=== PATIENT | male | born 1940 | race Caucasian/White ===

== ENCOUNTER → 2018-01-02 08:52 | Outpatient (CLI) | payer MEDICARE, OTHER, SELFPAY ==
[2018-01-02 13:02] LABS: Absolute Lymphocyte Count 1.51 X10^3/ul (0.83-4.51); Absolute Neutrophil Count 3.1 X10^3/uL (2.0-7.7); Basophil# 0.02 X10^3/uL; Basophil% 0.4 % (0-1); Eosinophil# 0.19 X10^3/uL; Eosinophils% 3.4 % (0-5); Hematocrit 43.5 % (40-54); Hemoglobin 15.1 g/dl (13.0-16.5); Lymphocyte # 1.51 X10^3/ul (4.0); Lymphocyte % 27.2 % (19-41); Mean Corp Hgb Conc 34.7 g/gl (32-36); Mean Corpuscular Hgb 31.8 pg (27.0-32.0); Mean Corpuscular Volume 91.6 fL (80-94); Mean Platelet Vol. 9.6 fl (6.2-12.0); Monocyte# 0.76 X10^3/uL; Monocyte% 13.7 % (0-10); Neutrophil # 3.06 X10^3/uL (2.7-7.7); Neutrophil % 55.1 % (47-70); Platelet Count 188 K/mm3 (150-450); RBC Distribution Width CV 14.8 % (11.6-14.6); RBC Distribution Width SD 48.5 fl (35.1-43.9); Red Blood Count 4.75 M/mm3 (4.6-6.2); White Blood Count 5.6 K/mm3 (4.4-11.0)
[2018-01-02 13:03] LABS: POSITIVE COUNT NO; POSITIVE DIFFERENTIAL NO; POSITIVE MORPHOLOGY NO
[2018-01-02 13:42] LABS: ALB/GLOB Ratio 1.1 RATIO (0.9-2.4); AST(SGOT) 20 U/L (15-37); Alanine Aminotransfer ALT/SGPT 32 U/L (16-61); Albumin, Serum 3.9 g/dL (3.2-5.0); Alkaline Phosphatase 57 U/L (45-117); Anion Gap 8 (5-15); BUN 17 mg/dL (7-18); BUN/Creat Ratio 16.2 RATIO (10-20); Chloride 106 mmol/L (98-107); Creatinine, Serum 1.05 mg/dL (0.70-1.30); EST Glomerular Filtration Rate 72 mL/min (>60); Est Glom Filt Rate - Afr Amer 88 mL/min (>60); Globulin 3.6 g/dL (2.2-4.2); Glucose 110 mg/dL (74-106); Protein, Total 7.5 g/dL (6.4-8.2); Sodium Level 141 mmol/L (136-145); Thyroid Stim Hormone (TSH) 0.17 uIU/mL (0.358-3.74); Vitamin D,25 Hydroxy 32.8 ng/mL (29.95-100.01)
[2018-01-03 09:09] LABS: T3 Uptake 31 % (33-40); T4 Free Direct 1.09 ng/dL (0.76-1.46)
== END ==
PROVIDERS: Family Provider Family Medicine Geriatric Medicine; PCP Family Medicine Geriatric Medicine; Visit Provider Family Medicine Geriatric Medicine
DX: I10 Essential (primary) hypertension (principal); E03.9 Hypothyroidism, unspecified; E55.9 Vitamin D deficiency, unspecified; F52.8 Other sexual dysfunction not due to a substance or known physiological condition
CPT/HCPCS: 36415; 80053; 82306; 84403; 84439; 84443; 84479; 85025

== ENCOUNTER → 2018-01-08 09:57 | Outpatient (CLI) | payer MEDICARE, OTHER, SELFPAY ==
--- NOTE | 2018-01-08 10:02 | NM_ITS ---
CLINICAL: 77-year-old male with suspected goiter formation. I-123 THYROID UPTAKE and SCAN COMPARISON: None available FINDINGS: The patient was administered a 292 uCi I-123 capsule by mouth. The 4-hour I-123 radioactive iodine thyroidal uptake was calculated to be 5.8 % (normal 5 to 25 %). The 24-hour I-123 radioactive iodine thyroidal uptake was calculated to be 17.5 % (normal 5 to 40 %). The I-123 thyroid scan demonstrates homogeneous radiopharmaceutical concentration throughout both lobes of a U-shaped thyroid gland. There are no colloidal parenchymal hypofunctioning cold nodules noted in either lobe of the thyroid gland. NM/Thyroid Image Quant Measure IMPRESSION: 1. LOWER LIMITS OF NORMAL 4- and NORMAL 24-hour I-123 radioactive iodine thyroidal uptakes. 2. The I-123 thyroid scan is consistent with stage I nodular colloid goiter secondary to the presence of isthmus visualization and U-shaped thyroid gland presentation. (Lucio et al, J Nucl Med 32: 1455, 1990). 3. No hypofunctioning-cold nodules are identified. Electronically Signed: Werner Ramirez DO at 9:24 EDT Tel , Service support ,
== END ==
PROVIDERS: Family Provider Family Medicine Geriatric Medicine; PCP Family Medicine Geriatric Medicine; Visit Provider Family Medicine Geriatric Medicine
DX: E05.90 Thyrotoxicosis, unspecified without thyrotoxic crisis or storm (principal)
CPT/HCPCS: 78014; A9516

== ENCOUNTER → 2018-03-05 07:39 | Outpatient (CLI) | payer MEDICARE, OTHER, SELFPAY ==
[2018-03-05 09:05] LABS: ALB/GLOB Ratio 1.1 RATIO (0.9-2.4); AST(SGOT) 20 U/L (15-37); Alanine Aminotransfer ALT/SGPT 27 U/L (16-61); Albumin, Serum 3.8 g/dL (3.2-5.0); Alkaline Phosphatase 61 U/L (45-117); Anion Gap 9 (5-15); BUN 17 mg/dL (7-18); BUN/Creat Ratio 17.2 RATIO (10-20); Calcium,Total 8.4 mg/dL (8.5-10.1); Chloride 105 mmol/L (98-107); Creatinine, Serum 0.99 mg/dL (0.70-1.30); EST Glomerular Filtration Rate 78 mL/min (>60); Est Glom Filt Rate - Afr Amer 94 mL/min (>60); Globulin 3.5 g/dL (2.2-4.2); Glucose 106 mg/dL (74-106); Potassium 3.7 mmol/L (3.5-5.1); Protein, Total 7.3 g/dL (6.4-8.2); Sodium Level 141 mmol/L (136-145); T4 Free Direct 1.14 ng/dL (0.76-1.46); Thyroid Stim Hormone (TSH) 0.65 uIU/mL (0.358-3.74)
== END ==
PROVIDERS: Family Provider Family Medicine Geriatric Medicine; PCP Family Medicine Geriatric Medicine; Visit Provider Nurse Practitioner
DX: E05.90 Thyrotoxicosis, unspecified without thyrotoxic crisis or storm (principal)
CPT/HCPCS: 36415; 80053; 84439; 84443; 84481

== ENCOUNTER → 2018-03-15 07:43 | Outpatient (CLI) | payer MEDICARE, OTHER, SELFPAY ==
[2018-02-08 21:02] LABS: Creatinine, Serum 0.96 mg/dL (0.70-1.30); EST Glomerular Filtration Rate 81 mL/min (>60); Est Glom Filt Rate - Afr Amer 98 mL/min (>60)
--- NOTE | 2018-03-15 07:48 | CT_ITS ---
STUDY: CTA OF THE ABDOMINAL AORTA REASON FOR EXAM: Male, 78 years old. History of abdominal aortic aneurysm. Follow-up examination. RADIATION DOSAGE (If Supplied By Facility): CTDIvol = ( 39.15 ) mGy, DLP = ( 1141.23 ) mGycm TECHNIQUE: Axial CT angiography multi-detector data acquisition was obtained from the dome of the liver to the to the symphysis pubis following intravenous administration of 100 ml of Isovue 300 contrast. Axial images and MIP images were reconstructed from the axial data set. Post-processing of the angiographic images was performed, with multiplanar reformation and 3D reconstruction. Individualized dose optimization techniques were used for this CT. TECHNICAL QUALITY: Good COMPARISON: Comparison is made with prior study dated February 14, 2017. Descriptors of Narrowing: None (0%) Mild (< 50%) Moderate (50-70%) Severe (70-90%) Subtotal/Total Occlusion (90-100%) Non-Evaluable (technically non-diagnostic FINDINGS: Abdominal aorta: Once again, the patient is status post aortoiliac endograft repair of the infrarenal fusiform abdominal aortic aneurysm. The transverse dimension of the aneurysm is 4.8 cm. Once again, there is evidence of thrombus within the [place] aneurysm. Both limbs of the graft are patent. Celiac and superior mesenteric arteries: No demonstrated narrowing. Inferior mesenteric artery: No demonstrated narrowing. Right renal artery(arteries): No demonstrated narrowing. Left renal artery(arteries): Arterial stent. Right common iliac artery: Atherosclerotic calcific plaques. Right external iliac artery: Atherosclerotic calcific plaques. Right internal iliac artery: Atherosclerotic calcific plaques. Left common iliac artery: Atherosclerotic calcific plaques.. Left external iliac artery: Atherosclerotic calcific plaques. Left internal iliac artery: Atherosclerotic calcific plaques. Prostatic enlargement. The prostate measures 5.6 cm x 5.1 cm this causes indentation at the bladder base. Colonic diverticulosis. CT/CT ANGIO ABD&PEL W/O&W/DYE IMPRESSION: Stable examination. Patent and luminal stent grafting. Stable appearance of the abdominal aortic aneurysm. Prostatic enlargement. Electronically Signed: Rogelio Madison MD at 15:11 EDT Tel [phone], Service support ,
== END ==
PROVIDERS: Family Provider Family Medicine Geriatric Medicine; PCP Family Medicine Geriatric Medicine; Visit Provider Surgery Vascular Surgery
DX: I71.4 Abdominal aortic aneurysm, without rupture (principal); Z95.828 Presence of other vascular implants and grafts; Z13.89 Encounter for screening for other disorder
CPT/HCPCS: 36415; 74174; 82565; Q9967

== ENCOUNTER 2018-05-06 07:37 | Emergency (ER) | payer MEDICARE, OTHER, SELFPAY ==
[2018-05-06 07:38] VITALS: BP 150/85; PULSE 63; RESP 16; TEMP 37.1; O2SAT 93; BMI 32.3
--- NOTE | 2018-05-06 07:50 | ED.VISSUMM ---
- ER Visit Summary Date of Service: 05/06/18 Chief Complaint: Difficulty urinating History of Present Illness: The patient is a 78 M history of prior BPH, hypertension and aortic and renal stenting. Patient states last evening he started having difficulty urinating again. He has had this problem before where he needs a Slater catheter and followed up with the urologist. He denies any dysuria. He denies any gross hematuria. Otherwise states he has been in his normal state of health. Physical Examination: Well-appearing older male. Vital signs are stable and afebrile. He is in no acute distress. H EENT exam is unremarkable. Neck is nontender. Lungs clear to auscultation bilaterally. Abdomen is soft and nondistended. Normal bowel sounds no peritoneal signs. External exam is unremarkable. Circumcised male. He is moving all 4 extremities. They are neurovascularly intact. Back is nontender. Neurologically is awake and alert with no focal motor deficits. Test Results: Urinalysis shows no signs of infection. Emergency Department Course and Treatment: Are in place a 16 Japanese Slater catheter patient voided 1400 cc of urine. Will repeat exam is doing well. We will place a Slater leg bag and be discharged home. Treatment Plan: Follow-up with Dr. Norman Blake from urology. Disposition: Discharge Impression: Acute urinary retention secondary to BPH Slater inserted by ER nurse This note was generated with [employer] dictation software. It may contain incorrect words, spelling, and punctuation that were not noted in review of the chart prior to signing ED Disposition - Plan for ED Patient: Chief Complaint: Complaint Referrals: Tristin Agarwal Chi, MD [Primary Care Provider] -
[2018-05-06 08:10] LABS: Bacteria 0 SEEN /hpf (None Seen); Mucous, Urine 0 SEEN /hpf (<or=2+); Squamous Epithelial Cells - UA 0 SEEN /hpf (0-5); White Blood Cells 0 SEEN /hpf (0-5)
[2018-05-06 08:21] LABS: Color, Urine Yellow (Yellow); Glucose, Dipstick Normal (Normal); Ketone-Dipstick Negative (Negative); Leukocyte Esterase-Dipstick Negative /ul (Negative); Nitrite-Dipstick Negative (Negative); Occult Blood-Urine 10 /ul (Negative); Protein-Dipstick Negative (Negative); Urine Bilirubin Dipstick Negative (Negative); Urine Clarity Clear (Clear); Urine Urobilinogen Normal (Normal)
[2018-05-06 08:32] LABS: Red Blood Cells-Urine 0-5 SEEN /hpf (0-5)
--- NOTE | 2018-05-06 08:44 | ED.DEP ---
ED Disposition - Plan for ED Patient: Disposition: Home or Assisted Living Chief Complaint: Complaint Instructions: ED Retention Urinary Male Referrals: Kelechi Blake MD [STAFF PHYSICIAN] - As soon as possible Additional Instructions: Call follow-up with Dr. Blake of urology.
== END 2018-05-06 09:15 | disposition home or self-care (01) ==
PROVIDERS: Emergency Provider Emergency Medicine; Family Provider Family Medicine Geriatric Medicine; PCP Family Medicine Geriatric Medicine
DX: N40.1 Benign prostatic hyperplasia with lower urinary tract symptoms (principal); R33.8 Other retention of urine; I10 Essential (primary) hypertension; Z95.5 Presence of coronary angioplasty implant and graft; Z79.899 Other long term (current) drug therapy
CPT/HCPCS: 51702; 81001; 99283

== ENCOUNTER → 2018-07-05 09:00 | Outpatient (CLI) | payer MEDICARE, OTHER, SELFPAY ==
[2018-07-05 13:01] LABS: Absolute Lymphocyte Count 1.77 X10^3/ul (0.83-4.51); Absolute Neutrophil Count 3.4 X10^3/uL (2.0-7.7); Basophil# 0.02 X10^3/uL; Basophil% 0.3 % (0-1); Eosinophil# 0.22 X10^3/uL; Eosinophils% 3.6 % (0-5); Hematocrit 42.2 % (40-54); Lymphocyte # 1.77 X10^3/ul (4.0); Lymphocyte % 29.2 % (19-41); Mean Corp Hgb Conc 35.5 g/gl (32-36); Mean Corpuscular Hgb 31.9 pg (27.0-32.0); Mean Corpuscular Volume 89.8 fL (80-94); Mean Platelet Vol. 9.6 fl (6.2-12.0); Monocyte# 0.65 X10^3/uL; Monocyte% 10.7 % (0-10); Neutrophil # 3.39 X10^3/uL (2.7-7.7); POSITIVE COUNT NO; POSITIVE DIFFERENTIAL NO; POSITIVE MORPHOLOGY NO; Platelet Count 221 K/mm3 (150-450); RBC Distribution Width CV 14.3 % (11.6-14.6); RBC Distribution Width SD 46.4 fl (35.1-43.9); White Blood Count 6.1 K/mm3 (4.4-11.0)
[2018-07-05 13:08] LABS: Vitamin D,25 Hydroxy 28.2 ng/mL (29.95-100.01)
[2018-07-05 13:09] LABS: ALB/GLOB Ratio 1.1 RATIO (0.9-2.4); AST(SGOT) 22 U/L (15-37); Alanine Aminotransfer ALT/SGPT 35 U/L (16-61); Alkaline Phosphatase 66 U/L (45-117); Anion Gap 7 (5-15); BUN 18 mg/dL (7-18); BUN/Creat Ratio 18.6 RATIO (10-20); Calcium,Total 8.7 mg/dL (8.5-10.1); Chloride 106 mmol/L (98-107); Creatinine, Serum 0.97 mg/dL (0.70-1.30); EST Glomerular Filtration Rate 80 mL/min (>60); Est Glom Filt Rate - Afr Amer 96 mL/min (>60); Globulin 3.7 g/dL (2.2-4.2); Glucose 91 mg/dL (74-106); Potassium 3.8 mmol/L (3.5-5.1); Protein, Total 7.7 g/dL (6.4-8.2); Sodium Level 140 mmol/L (136-145); Thyroid Stim Hormone (TSH) 0.83 uIU/mL (0.358-3.74)
== END ==
PROVIDERS: Family Provider Family Medicine Geriatric Medicine; PCP Family Medicine Geriatric Medicine; Visit Provider Family Medicine Geriatric Medicine
DX: I10 Essential (primary) hypertension (principal); E55.9 Vitamin D deficiency, unspecified; F52.8 Other sexual dysfunction not due to a substance or known physiological condition
CPT/HCPCS: 36415; 80053; 82306; 84403; 84443; 85025

== ENCOUNTER → 2019-01-03 | Outpatient (CLI) | payer MEDICARE, OTHER, SELFPAY ==
[2019-01-03 10:33] LABS: Absolute Lymphocyte Count 1.32 X10^3/ul (0.83-4.51); Absolute Neutrophil Count 4.1 X10^3/uL (2.0-7.7); Basophil# 0.02 X10^3/uL; Basophil% 0.3 % (0-1); Eosinophil# 0.16 X10^3/uL; Eosinophils% 2.5 % (0-5); Hematocrit 42.7 % (40-54); Hemoglobin 15.1 g/dl (13.0-16.5); Lymphocyte # 1.32 X10^3/ul (4.0); Mean Corp Hgb Conc 35.4 g/gl (32-36); Mean Corpuscular Hgb 31.6 pg (27.0-32.0); Mean Corpuscular Volume 89.3 fL (80-94); Mean Platelet Vol. 9.3 fl (6.2-12.0); Monocyte# 0.68 X10^3/uL; Monocyte% 10.8 % (0-10); Neutrophil # 4.09 X10^3/uL (2.7-7.7); Neutrophil % 64.9 % (47-70); Platelet Count 188 K/mm3 (150-450); RBC Distribution Width CV 13.6 % (11.6-14.6); RBC Distribution Width SD 43.7 fl (35.1-43.9); Red Blood Count 4.78 M/mm3 (4.6-6.2); White Blood Count 6.3 K/mm3 (4.4-11.0)
[2019-01-03 10:36] LABS: POSITIVE COUNT NO; POSITIVE DIFFERENTIAL NO; POSITIVE MORPHOLOGY NO
[2019-01-03 10:51] LABS: ALB/GLOB Ratio 1.1 RATIO (0.9-2.4); AST(SGOT) 21 U/L (15-37); Alanine Aminotransfer ALT/SGPT 35 U/L (16-61); Albumin, Serum 3.9 g/dL (3.2-5.0); Alkaline Phosphatase 59 U/L (45-117); Anion Gap 7 (5-15); BUN 15 mg/dL (7-18); Calcium,Total 8.8 mg/dL (8.5-10.1); Chloride 105 mmol/L (98-107); Creatinine, Serum 1.07 mg/dL (0.70-1.30); EST Glomerular Filtration Rate 71 mL/min (>60); Est Glom Filt Rate - Afr Amer 86 mL/min (>60); Globulin 3.5 g/dL (2.2-4.2); Glucose 123 mg/dL (74-106); Potassium 3.6 mmol/L (3.5-5.1); Protein, Total 7.4 g/dL (6.4-8.2); Sodium Level 139 mmol/L (136-145); Thyroid Stim Hormone (TSH) 0.57 uIU/mL (0.358-3.74)
[2019-01-03 11:12] LABS: Vitamin D,25 Hydroxy 24.6 ng/mL (29.95-100.01)
== END | disposition home or self-care (01) ==
LOC: POLAB3 09:15
PROVIDERS: Family Provider Family Medicine Geriatric Medicine; PCP Family Medicine Geriatric Medicine; Visit Provider Family Medicine Geriatric Medicine
DX: E29.1 Testicular hypofunction (principal); E55.9 Vitamin D deficiency, unspecified; I10 Essential (primary) hypertension
CPT/HCPCS: 36415; 80053; 82306; 84403; 84443; 85025

== ENCOUNTER → 2019-06-26 | Outpatient (CLI) | payer MEDICARE, OTHER, SELFPAY ==
--- NOTE | 2019-06-26 17:26 | CT_ITS ---
STUDY: CTA ABDOMEN/PELVIS WITH CONTRAST REASON FOR EXAM: Male, 79 years old. Abdominal aortic aneurysm repair. RADIATION DOSAGE (If Supplied By Facility): CTDIvol = ( 32.93 ) mGy, DLP = ( 1098.00 ) mGycm TECHNIQUE: The examination was performed with the intravenous administration of IV Isovue 370 100mL. Post-processing of the angiographic images was performed, with multiplanar reformation and 3D reconstruction. Individualized dose optimization techniques were used for this CT. COMPARISON: 02/14/2017. FINDINGS: CTA Abdomen T Pelvis There is calcified atherosclerotic disease throughout the aorta. There is a distal abdominal aortic aneurysm with aortobiiliac endograft repair. The aneurysm measures 4.9 cm in AP dimension by 4.7 cm in transverse dimension. This measured 4.5 cm in AP dimension by 4.6 cm in transverse dimension. There is increase in the diameter of the posterior mural thrombus noted on coronal image 93 when compared with coronal image 95 on study February 14, 2017. There is accumulation of contrast within the posterior aneurysmal thrombus and outside the lumen of the graft and connected to the right posterior lumbar arteries suggestive of a small endoluminal leak at this level. This is best visualized on axial images 65 through 63. The biiliac graft branches are normal. The size of the bilateral iliac arteries is stable. There is calcified atherosclerotic disease throughout the bilateral internal, external iliac arteries and bilateral common iliac arteries with no evidence of significant stenosis. CT Abdomen T Pelvis Lung bases reveal mild small cystic/emphysematous changes. The remainder of the lung goosdon are clear. There is minimal left posterior atelectasis. Heart is mildly enlarged. Normal liver. Normal gallbladder and extrahepatic biliary system. Normal spleen. Normal pancreas. Normal bilateral adrenal glands. There is a round low-attenuation structure within the right mid lower renal pole measuring 2.8 x 2.8 cm, otherwise normal right kidney. Normal left kidney. Normal visualized stomach. Normal small intestine. Normal colon. The appendix is visualized and appears normal. Normal inferior vena cava. Normal retroperitoneum. Urinary bladder is incompletely distended with mild fullness of the wall. The prostate gland is enlarged. Small lipoma versus fat containing inguinal hernias. There are diffuse degenerative changes of the visualized lumbar spine. CT/CT ANGIO ABD&PEL W/O&W/DYE IMPRESSION: Slight increase in the size of the aneurysm specifically posterior pocket since previous exam February 14, 2017 which may be due to very small posterior type II endoleak related to the right posterior lumbar artery at approximate L3 level. For details please see above discussion. Electronically Signed: Nina Holliday MD at 3:51 EDT , Service support ,
[2019-06-26 17:41] LABS: CREATININE FINGERSTICK 0.9 mg/dL (0.70-1.30); EGFR FINGERSTICK > 60.0000 mL/min (>60)
== END | disposition home or self-care (01) ==
LOC: CT 17:24
PROVIDERS: Family Provider Family Medicine Geriatric Medicine; PCP Family Medicine Geriatric Medicine; Referring Provider Nurse Practitioner Primary Care; Visit Provider Nurse Practitioner Primary Care
DX: I71.4 Abdominal aortic aneurysm, without rupture (principal); Z95.828 Presence of other vascular implants and grafts
CPT/HCPCS: 74174; Q9967

== ENCOUNTER → 2019-07-07 | Outpatient (CLI) | payer MEDICARE, OTHER, SELFPAY ==
[2019-07-07 12:46] LABS: Absolute Lymphocyte Count 1.44 X10^3/uL (0.83-4.51); Absolute Neutrophil Count 4.1 X10^3/uL (2.0-7.7); Basophil# 0.04 X10^3/uL; Basophil% 0.6 % (0-1); Eosinophil# 0.13 X10^3/uL; Eosinophils% 2.1 % (0-5); Hematocrit 46.9 % (40-54); Hemoglobin 16.3 g/dL (13.0-16.5); Lymphocyte # 1.44 X10^3/ul (4.0); Lymphocyte % 22.8 % (19-41); Mean Corp Hgb Conc 34.8 g/dL (32-36); Mean Corpuscular Volume 92.1 fL (80-94); Mean Platelet Vol. 9.4 fl (6.2-12.0); Monocyte# 0.55 X10^3/uL; Monocyte% 8.7 % (0-10); NRBC Flagged by Analyzer 0 % (0-5); Neutrophil # 4.14 X10^3/uL (2.7-7.7); Neutrophil % 65.5 % (47-70); Platelet Count 193 K/mm3 (150-450); RBC Distribution Width CV 13.9 % (11.6-14.6); RBC Distribution Width SD 46.9 fl (35.1-43.9); Red Blood Count 5.09 M/mm3 (4.6-6.2); White Blood Count 6.3 K/mm3 (4.4-11.0)
[2019-07-07 13:03] LABS: Vitamin D,25 Hydroxy 38.2 ng/mL (29.95-100.01)
[2019-07-07 13:15] LABS: ALB/GLOB Ratio 1.1 RATIO (0.9-2.4); AST(SGOT) 24 U/L (15-37); Alanine Aminotransfer ALT/SGPT 38 U/L (16-61); Alkaline Phosphatase 58 U/L (45-117); Anion Gap 7 (5-15); BUN 12 mg/dL (7-18); BUN/Creat Ratio 11.5 RATIO (10-20); Calcium,Total 9.1 mg/dL (8.5-10.1); Chloride 104 mmol/L (98-107); Creatinine, Serum 1.04 mg/dL (0.70-1.30); EST Glomerular Filtration Rate 73 mL/min (>60); Est Glom Filt Rate - Afr Amer 88 mL/min (>60); Globulin 3.8 g/dL (2.2-4.2); Glucose 136 mg/dL (74-106); Potassium 3.8 mmol/L (3.5-5.1); Protein, Total 7.8 g/dL (6.4-8.2); Sodium Level 139 mmol/L (136-145); Thyroid Stim Hormone (TSH) 0.75 uIU/mL (0.358-3.74)
== END | disposition home or self-care (01) ==
LOC: POLAB3 11:49
PROVIDERS: Family Provider Family Medicine Geriatric Medicine; PCP Family Medicine Geriatric Medicine; Visit Provider Family Medicine Geriatric Medicine
DX: E55.9 Vitamin D deficiency, unspecified (principal); I10 Essential (primary) hypertension; F52.8 Other sexual dysfunction not due to a substance or known physiological condition
CPT/HCPCS: 36415; 80053; 82306; 84403; 84443; 85025

== ENCOUNTER 2019-09-20 11:44 | Emergency (ER) | payer MEDICARE, OTHER, SELFPAY ==
[2019-09-20 11:45] VITALS: BP 188/99; PULSE 70; RESP 18; TEMP 36.6; O2SAT 96; BMI 30.4
--- NOTE | 2019-09-20 12:02 | ED.VISSUMM ---
- ER Visit Summary Date of Service: 09/20/19 Chief Complaint: Urinary retention History of Present Illness: The patient is a 79 M who presents with urinary retention that began this morning. Patient states he was last able to urinate approximately 9 hours prior to arrival. Patient states he has been feeling pressure in the suprapubic area over the last 6 hours. Patient states he has a history of BPH and has had to have Slater catheters placed in the past. Patient denies any fevers or chills. Patient denies any nausea or vomiting. Patient denies any dysuria or hematuria. Physical Examination: Vital signs are stable. Patient is afebrile. Patient is in no acute distress. Oral mucosa is pink and moist. Neck is supple. Trachea is midline. There is no JVD. Heart was regular rate and rhythm. Lungs are clear and equal bilaterally. Abdomen is soft. Bowel sounds are normal. There is some mild suprapubic tenderness. There is no rebound or guarding noted. Cranial nerves II through XII are intact. There are no focal motor or sensory deficits noted. Test Results: Urinalysis was obtained. There is no evidence of urinary tract infection. Emergency Department Course and Treatment: Slater catheter was placed. Patient was given a leg bag. Patient was instructed to follow-up with his urologist in 2 days. Patient understood and was agreeable with the plan. All questions were answered. Disposition: Discharge home Impression: Urinary retention This note was generated with [employer] dictation software. It may contain incorrect words, spelling, and punctuation that were not noted in review of the chart prior to signing ED Disposition - Plan for ED Patient: Disposition: Home or Assisted Living Diagnosis: Urinary retention Instructions: URINARY RETENTION, Male Referrals: Tristin Agarwal Chi, MD [Primary Care Provider] - 2 Days Kelechi Blake MD [STAFF PHYSICIAN] - 2 Days
[2019-09-20 12:20] LABS: Bacteria 0 SEEN /hpf (None Seen); Mucous, Urine 0 SEEN /hpf (<or=2+); Red Blood Cells-Urine 0 SEEN /hpf (0-5); Squamous Epithelial Cells - UA 0 SEEN /hpf (0-5); White Blood Cells 0 SEEN /hpf (0-5)
[2019-09-20 12:46] LABS: Color, Urine Yellow (Yellow); Glucose, Dipstick Normal (Normal); Ketone-Dipstick Negative (Negative); Leukocyte Esterase-Dipstick Negative /ul (Negative); Nitrite-Dipstick Negative (Negative); Occult Blood-Urine 25 /ul (Negative); Protein-Dipstick Negative (Negative); Urine Bilirubin Dipstick Negative (Negative); Urine Clarity Clear (Clear); Urine Urobilinogen Normal (Normal)
== END 2019-09-20 13:55 | disposition home or self-care (01) ==
PROVIDERS: Emergency Provider Emergency Medicine; PCP Family Medicine Geriatric Medicine; Referring Provider Family Medicine Geriatric Medicine
DX: N40.1 Benign prostatic hyperplasia with lower urinary tract symptoms (principal); R33.8 Other retention of urine; I10 Essential (primary) hypertension; H40.9 Unspecified glaucoma; E78.00 Pure hypercholesterolemia, unspecified; Z79.899 Other long term (current) drug therapy
CPT/HCPCS: 51702; 81001; 99283

== ENCOUNTER → 2020-01-15 08:53 | Outpatient (CLI) | payer MEDICARE, OTHER, SELFPAY ==
[2020-01-15 12:32] LABS: Absolute Lymphocyte Count 1.84 X10^3/uL (0.83-4.51); Absolute Neutrophil Count 4.1 X10^3/uL (2.0-7.7); Basophil# 0.03 X10^3/uL; Basophil% 0.4 % (0-1); Eosinophil# 0.21 X10^3/uL; Hematocrit 44.9 % (40-54); Hemoglobin 15.8 g/dL (13.0-16.5); Lymphocyte # 1.84 X10^3/ul (4.0); Lymphocyte % 26.1 % (19-41); Mean Corp Hgb Conc 35.2 g/dL (32-36); Mean Corpuscular Hgb 32.1 pg (27.0-32.0); Mean Corpuscular Volume 91.3 fL (80-94); Mean Platelet Vol. 9.4 fl (6.2-12.0); Monocyte# 0.86 X10^3/uL; Monocyte% 12.2 % (0-10); NRBC Flagged by Analyzer 0 % (0-5); Neutrophil # 4.08 X10^3/uL (2.7-7.7); Platelet Count 153 K/mm3 (150-450); RBC Distribution Width CV 13.6 % (11.6-14.6); RBC Distribution Width SD 44.9 fl (35.1-43.9); Red Blood Count 4.92 M/mm3 (4.6-6.2)
[2020-01-15 12:53] LABS: Vitamin D,25 Hydroxy 35.3 ng/mL
[2020-01-15 13:07] LABS: ALB/GLOB Ratio 1.1 RATIO (0.9-2.4); AST(SGOT) 22 U/L (15-37); Alanine Aminotransfer ALT/SGPT 43 U/L (16-61); Alkaline Phosphatase 58 U/L (45-117); Anion Gap 10 (5-15); BUN 16 mg/dL (7-18); BUN/Creat Ratio 14.5 RATIO (10-20); Calcium,Total 9.3 mg/dL (8.5-10.1); Chloride 103 mmol/L (98-107); EST Glomerular Filtration Rate 68 mL/min (>60); Est Glom Filt Rate - Afr Amer 83 mL/min (>60); Globulin 3.8 g/dL (2.2-4.2); Glucose 138 mg/dL (74-106); Potassium 3.9 mmol/L (3.5-5.1); Protein, Total 7.8 g/dL (6.4-8.2); Sodium Level 138 mmol/L (136-145); Thyroid Stim Hormone (TSH) 0.77 uIU/mL (0.358-3.74)
== END ==
PROVIDERS: PCP Family Medicine Geriatric Medicine; Visit Provider Family Medicine Geriatric Medicine
DX: E55.9 Vitamin D deficiency, unspecified (principal); F52.8 Other sexual dysfunction not due to a substance or known physiological condition; I10 Essential (primary) hypertension
CPT/HCPCS: 36415; 80053; 82306; 84403; 84443; 85025

== ENCOUNTER → 2020-07-09 08:53 | Outpatient (CLI) | payer MEDICARE, OTHER, SELFPAY ==
[2020-07-09 10:57] LABS: Absolute Lymphocyte Count 1.44 X10^3/uL (0.83-4.51); Absolute Neutrophil Count 2.9 X10^3/uL (2.0-7.7); Basophil# 0.02 X10^3/uL; Basophil% 0.4 % (0-1); Eosinophil# 0.24 X10^3/uL; Eosinophils% 4.5 % (0-5); Hemoglobin 15.8 g/dL (13.0-16.5); Lymphocyte # 1.44 X10^3/ul (4.0); Mean Corp Hgb Conc 35.1 g/dL (32-36); Mean Corpuscular Hgb 32.4 pg (27.0-32.0); Mean Corpuscular Volume 92.4 fL (80-94); Mean Platelet Vol. 9.2 fl (6.2-12.0); Monocyte# 0.74 X10^3/uL; Monocyte% 13.9 % (0-10); NRBC Flagged by Analyzer 0 % (0-5); Neutrophil # 2.88 X10^3/uL (2.7-7.7); Neutrophil % 53.8 % (47-70); Platelet Count 209 K/mm3 (150-450); RBC Distribution Width CV 14.2 % (11.6-14.6); RBC Distribution Width SD 46.9 fl (35.1-43.9); Red Blood Count 4.87 M/mm3 (4.6-6.2); White Blood Count 5.3 K/mm3 (4.4-11.0)
[2020-07-09 11:01] LABS: Vitamin D,25 Hydroxy 33.6 ng/mL
[2020-07-09 11:09] LABS: AST(SGOT) 25 U/L (15-37); Alanine Aminotransfer ALT/SGPT 45 U/L (16-61); Albumin, Serum 3.9 g/dL (3.2-5.0); Alkaline Phosphatase 53 U/L (45-117); Anion Gap 5 (5-15); BUN 13 mg/dL (7-18); Calcium,Total 8.9 mg/dL (8.5-10.1); Chloride 104 mmol/L (98-107); Creatinine, Serum 1.08 mg/dL (0.70-1.30); EST Glomerular Filtration Rate 70 mL/min (>60); Est Glom Filt Rate - Afr Amer 84 mL/min (>60); Globulin 3.8 g/dL (2.2-4.2); Glucose 96 mg/dL (74-106); Potassium 3.9 mmol/L (3.5-5.1); Protein, Total 7.7 g/dL (6.4-8.2); Sodium Level 137 mmol/L (136-145); Thyroid Stim Hormone (TSH) 0.63 uIU/mL (0.358-3.74)
== END ==
PROVIDERS: PCP Family Medicine Geriatric Medicine; Visit Provider Family Medicine Geriatric Medicine
DX: E23.6 Other disorders of pituitary gland (principal); E55.9 Vitamin D deficiency, unspecified; I10 Essential (primary) hypertension
CPT/HCPCS: 36415; 80053; 82306; 84403; 84443; 85025

== ENCOUNTER → 2021-01-06 11:40 | Outpatient (CLI) | payer MEDICARE, OTHER, SELFPAY ==
[2021-01-06 12:15] LABS: Absolute Lymphocyte Count 1.72 X10^3/uL (0.83-4.51); Absolute Neutrophil Count 3.4 X10^3/uL (2.0-7.7); Basophil# 0.04 X10^3/uL; Basophil% 0.7 % (0-1); Eosinophil# 0.23 X10^3/uL; Eosinophils% 3.8 % (0-5); Hematocrit 41.5 % (40-54); Hemoglobin 14.6 g/dL (13.0-16.5); Lymphocyte # 1.72 X10^3/ul (0.83-4.51); Lymphocyte % 28.1 % (19-41); Mean Corp Hgb Conc 35.2 g/dL (32-36); Mean Corpuscular Hgb 31.9 pg (27.0-32.0); Mean Corpuscular Volume 90.6 fL (80-94); Mean Platelet Vol. 9.5 fl (6.2-12.0); Monocyte# 0.69 X10^3/uL; Monocyte% 11.3 % (0-10); NRBC Flagged by Analyzer 0 % (0-5); Neutrophil # 3.43 X10^3/uL (2.7-7.7); Neutrophil % 55.8 % (47-70); Platelet Count 210 K/mm3 (150-450); RBC Distribution Width CV 13.3 % (11.6-14.6); RBC Distribution Width SD 43.8 fl (35.1-43.9); Red Blood Count 4.58 M/mm3 (4.6-6.2); White Blood Count 6.1 K/mm3 (4.4-11.0)
[2021-01-06 12:33] LABS: Vitamin D,25 Hydroxy 32.7 ng/mL
[2021-01-06 12:39] LABS: ALB/GLOB Ratio 1.2 RATIO (0.9-2.4); AST(SGOT) 26 U/L (15-37); Alanine Aminotransfer ALT/SGPT 55 U/L (16-61); Albumin, Serum 4.1 g/dL (3.2-5.0); Alkaline Phosphatase 66 U/L (45-117); Anion Gap 6 (5-15); BUN 16 mg/dL (7-18); BUN/Creat Ratio 15.5 RATIO (10-20); Calcium,Total 9.3 mg/dL (8.5-10.1); Chloride 102 mmol/L (98-107); Creatinine, Serum 1.03 mg/dL (0.70-1.30); EST Glomerular Filtration Rate 74 mL/min (>60); Est Glom Filt Rate - Afr Amer 89 mL/min (>60); Globulin 3.3 g/dL (2.2-4.2); Glucose 99 mg/dL (74-106); Potassium 4.3 mmol/L (3.5-5.1); Protein, Total 7.4 g/dL (6.4-8.2); Sodium Level 140 mmol/L (136-145); Thyroid Stim Hormone (TSH) 0.52 uIU/mL (0.358-3.74)
== END ==
PROVIDERS: PCP Family Medicine Geriatric Medicine; Visit Provider Family Medicine Geriatric Medicine
DX: E55.9 Vitamin D deficiency, unspecified (principal); F52.8 Other sexual dysfunction not due to a substance or known physiological condition; I10 Essential (primary) hypertension
CPT/HCPCS: 36415; 80053; 82306; 84403; 84443; 85025

== ENCOUNTER → 2021-04-14 07:09 | Outpatient (CLI) | payer MEDICARE, OTHER, SELFPAY | PROVIDERS: PCP Family Medicine Geriatric Medicine; Visit Provider Family Medicine Geriatric Medicine | DX: E24.9 Cushing's syndrome, unspecified (principal) | CPT/HCPCS: 36415; 82533 ==

== ENCOUNTER → 2021-07-11 11:16 | Outpatient (CLI) | payer MEDICARE, OTHER, SELFPAY ==
[2021-07-11 12:30] LABS: Absolute Lymphocyte Count 1.91 X10^3/uL (0.83-4.51); Absolute Neutrophil Count 3.6 X10^3/uL (2.0-7.7); Basophil# 0.03 X10^3/uL; Basophil% 0.4 % (0-1); Eosinophil# 0.31 X10^3/uL; Eosinophils% 4.6 % (0-5); Hematocrit 40.5 % (40-54); Hemoglobin 14.1 g/dL (13.0-16.5); Lymphocyte # 1.91 X10^3/ul (0.83-4.51); Lymphocyte % 28.6 % (19-41); Mean Corp Hgb Conc 34.8 g/dL (32-36); Mean Corpuscular Hgb 31.5 pg (27.0-32.0); Mean Corpuscular Volume 90.6 fL (80-94); Mean Platelet Vol. 9.5 fl (6.2-12.0); Monocyte# 0.77 X10^3/uL; Monocyte% 11.5 % (0-10); NRBC Flagged by Analyzer 0 % (0-5); Neutrophil # 3.63 X10^3/uL (2.7-7.7); Neutrophil % 54.3 % (47-70); Platelet Count 237 K/mm3 (150-450); RBC Distribution Width CV 13.6 % (11.6-14.6); RBC Distribution Width SD 45.1 fl (35.1-43.9); Red Blood Count 4.47 M/mm3 (4.6-6.2); White Blood Count 6.7 K/mm3 (4.4-11.0)
[2021-07-11 13:21] LABS: AST(SGOT) 26 U/L (15-37); Alanine Aminotransfer ALT/SGPT 46 U/L (16-61); Albumin, Serum 3.8 g/dL (3.2-5.0); Alkaline Phosphatase 62 U/L (45-117); Anion Gap 7 (5-15); BUN 17 mg/dL (7-18); BUN/Creat Ratio 14.8 RATIO (10-20); Calcium,Total 9.4 mg/dL (8.5-10.1); Chloride 102 mmol/L (98-107); Creatinine, Serum 1.15 mg/dL (0.70-1.30); EST Glomerular Filtration Rate 65 mL/min (>60); Est Glom Filt Rate - Afr Amer 78 mL/min (>60); Glucose 131 mg/dL (74-106); Potassium 3.8 mmol/L (3.5-5.1); Protein, Total 7.8 g/dL (6.4-8.2); Sodium Level 138 mmol/L (136-145); Thyroid Stim Hormone (TSH) 0.66 uIU/mL (0.358-3.74)
== END ==
PROVIDERS: PCP Family Medicine Geriatric Medicine; Visit Provider Family Medicine Geriatric Medicine
DX: E55.9 Vitamin D deficiency, unspecified (principal); F52.8 Other sexual dysfunction not due to a substance or known physiological condition; I10 Essential (primary) hypertension
CPT/HCPCS: 36415; 80053; 82306; 84403; 84443; 85025

== ENCOUNTER → 2021-07-26 07:42 | Outpatient (CLI) | payer MEDICARE, OTHER, SELFPAY ==
--- NOTE | 2021-07-26 07:48 | CT_ITS ---
INDICATION: AAA EXAMINATION: CT ABDOMEN AND PELVIS WITH CONTRAST - CTA Abdomen and Pelvis WO/W Contrast Injection TECHNIQUE: Helically acquired images were obtained of the abdomen and pelvis following IV contrast. A radiation dose optimization technique was used for this scan. IV Contrast dosage and agent: 100 cc ISOVUE-370 Oral contrast: None. COMPARISON: CTA abdomen/pelvis from 06/26/2019 FINDINGS: Lower thorax: Emphysematous changes in the lung bases. Bibasilar dependent atelectasis. Liver: Stable hepatic morphology. No masses. Gallbladder: Unremarkable. No bile duct dilation. Spleen: Calcified granulomas. Otherwise no acute findings. Pancreas: No focal parenchymal masses. No duct dilation. Adrenal glands: Unremarkable. Kidneys: Stable 3 cm right renal cyst. No solid masses. No hydronephrosis. GI tract: No significant wall thickening or bowel dilation. Normal appendix. No acute inflammatory changes. Peritoneum/mesentery/retroperitoneum: No ascites or free air. No masses. No lymphadenopathy. Pelvis: Grossly stable prostatomegaly. Bladder is unremarkable. No free air or ascites. Vasculature: Redemonstration of abdominal aortic aneurysm status post aortobiiliac endograft repair with stable appearance since 2019. The aneurysm sac measures approximately 4.9 x 4.9 cm in greatest dimension and is stable when measured in similar location from 2019, previously measuring 4.9 x 4.9 cm. Arterial atherosclerotic disease throughout the abdomen. No acute findings. No contrast extravasation. Bones/soft tissues: No acute findings. No destructive osseous lesions. CT/CT ANGIO ABD&PEL W/O&W/DYE IMPRESSION: Stable abdominal aortic aneurysm status post aortobiiliac endograft repair with no acute findings. Electronically Signed: Donis Shaver MD at 16:08 EST Tel , Service support ,
== END ==
PROVIDERS: PCP Family Medicine Geriatric Medicine; Referring Provider Family Medicine Geriatric Medicine; Visit Provider Family Medicine Geriatric Medicine
DX: I71.4 Abdominal aortic aneurysm, without rupture (principal)
CPT/HCPCS: 74174; Q9967

== ENCOUNTER → 2022-01-09 | Outpatient (CLI) | payer MEDICARE, OTHER, SELFPAY ==
[2022-01-09 12:24] LABS: Absolute Lymphocyte Count 1.93 X10^3/uL (0.83-4.51); Absolute Neutrophil Count 3.6 X10^3/uL (2.0-7.7); Basophil# 0.04 X10^3/uL; Basophil% 0.6 % (0-1); Eosinophil# 0.25 X10^3/uL; Eosinophils% 3.8 % (0-5); Hematocrit 39.8 % (40-54); Lymphocyte # 1.93 X10^3/ul (0.83-4.51); Lymphocyte % 29.5 % (19-41); Mean Corp Hgb Conc 35.2 g/dL (32-36); Mean Corpuscular Hgb 31.5 pg (27.0-32.0); Mean Corpuscular Volume 89.6 fL (80-94); Mean Platelet Vol. 9.6 fl (6.2-12.0); Monocyte# 0.69 X10^3/uL; Monocyte% 10.6 % (0-10); NRBC Flagged by Analyzer 0 % (0-5); Neutrophil # 3.58 X10^3/uL (2.7-7.7); Neutrophil % 54.7 % (47-70); Platelet Count 229 K/mm3 (150-450); RBC Distribution Width CV 13.7 % (11.6-14.6); RBC Distribution Width SD 45.2 fl (35.1-43.9); Red Blood Count 4.44 M/mm3 (4.6-6.2); White Blood Count 6.5 K/mm3 (4.4-11.0)
[2022-01-09 12:46] LABS: AST(SGOT) 17 U/L (15-37); Alanine Aminotransfer ALT/SGPT 32 U/L (16-61); Alkaline Phosphatase 60 U/L (45-117); Anion Gap 6 (5-15); BUN 16 mg/dL (7-18); BUN/Creat Ratio 15.8 RATIO (10-20); Calcium,Total 9.1 mg/dL (8.5-10.1); Chloride 106 mmol/L (98-107); Creatinine, Serum 1.01 mg/dL (0.70-1.30); EST Glomerular Filtration Rate 75 mL/min (>60); Est Glom Filt Rate - Afr Amer 91 mL/min (>60); Globulin 3.9 g/dL (2.2-4.2); Glucose 98 mg/dL (74-106); Potassium 3.7 mmol/L (3.5-5.1); Protein, Total 7.9 g/dL (6.4-8.2); Sodium Level 140 mmol/L (136-145); Thyroid Stim Hormone (TSH) 0.91 uIU/mL (0.358-3.74)
[2022-01-09 12:51] LABS: Vitamin D,25 Hydroxy 30.5 ng/mL
== END | disposition home or self-care (01) ==
LOC: POLAB3 10:43
PROVIDERS: PCP Family Medicine Geriatric Medicine; Visit Provider Family Medicine Geriatric Medicine
DX: E55.9 Vitamin D deficiency, unspecified (principal); F52.8 Other sexual dysfunction not due to a substance or known physiological condition; I10 Essential (primary) hypertension
CPT/HCPCS: 36415; 80053; 82306; 84403; 84443; 85025

== ENCOUNTER 2022-03-21 20:12 | Inpatient (IN) | payer MEDICARE, OTHER, SELFPAY ==
[2022-03-21] VITALS (9 sets, daily range): BP systolic 140–165; BP diastolic 61–71; PULSE 71–84; RESP 14–22; TEMP 35.6–37; O2SAT 88–93; BMI 32.1
--- NOTE | 2022-03-21 20:31 | EKG12_ITS ---
Test Reason : sob Blood Pressure : / mmHG Vent. Rate : 069 BPM Atrial Rate : 069 BPM P-R Int : 210 ms QRS Dur : 110 ms QT Int : 400 ms P-R-T Axes : 048 -05 -03 degrees QTc Int : 428 ms Sinus rhythm with 1st degree A-V block Incomplete left bundle branch block Borderline ECG Confirmed by ABHINAV HSIEH, WINNIE ([id number]), science editor ALESSIO CRAWFORD ([id number]) on 03/23/2022 2:12:28 PM Referred By: Confirmed By:WINNIE LA MD
--- NOTE | 2022-03-21 20:34 | EDS_ITS ---
HPI History of Present Illness Chief Complaint: Shortness of Breath Informant: patient Onset/Context/Timing Onset: Days Context: Gradual Onset Current Severity: Mild Maximum Severity: Moderate Narrative Narrative: Patient presents to urgent care secondary to hypoxia. He has been ill for about the last 5 or 6 days. He reports some congestion and cough. No fever has been noted, but feels that he likely had a fever last weekend. He states he had had some intermittent right sided chest pain that he thought was from coughing. He denies chest pain at this time. He does note increased shortness of breath over the past day and a half. He went to urgent care where his O2 sat was reportedly 86% on room air. [facility] Medical History Arthritis Cataracts, bilateral Glaucoma Goiter Hearing problem High cholesterol hormone deficiency HTN (hypertension) Skin cancer Home Medications amlodipine 10 mg-valsartan 320 mg-hydrochlorothiazide 25 mg tablet (Exforge HCT) 1 tab PO QDAY 03/04/18 [History Last Taken Unknown] atorvastatin 20 mg tablet (Lipitor) 20 mg PO .COMPLEX 03/04/18 [History Last Taken Unknown] toyacvga-ygi-jvxyl acid 0.4 mg-lycopene 300 mcg-lutein 250 mcg tablet (Centrum Silver) 1 tab PO QAM 03/04/18 [History Last Taken Unknown] nebivolol 10 mg tablet (Bystolic) 10 mg PO QDAY 03/04/18 [History Last Taken Unknown] potassium chloride 20 mEq tablet,extended release 20 meq PO QDAY 03/04/18 [History Last Taken Unknown] tadalafil 5 mg tablet (Cialis) 5 mg PO QDAY 03/04/18 [History Last Taken Unknown] trazodone 100 mg tablet 100 mg PO QDAY 03/04/18 [History Last Taken Unknown] Allergy/AdvReac Type Severity Reaction Status Date / Time Penicillins Allergy Rash Verified 09/20/19 11:47 Family History Mother Hypertension Surgical History History of prostate surgery History of stent insertion of renal artery Hx of cataract surgery Social History Smoking Status: Former smoker alcohol intake: current alcohol intake frequency: a few times a month substance use type: does not use ROS ROS ED Constitutional Constitutional ED: Reports fever(s) and subjective; Denies chills Eyes Eyes: Denies change in vision or discharge from eye(s) ENT ENT ED: Denies discharge from eye(s), rhinorrhea or sore throat Cardiovascular Cardiovascular: Reports chest pain; Denies palpitations Respiratory/Chest Respiratory/Chest: Reports cough and dyspnea Gastrointestinal Gastrointestinal: Denies abdominal pain, diarrhea, nausea or vomiting Genitourinary Genitourinary ED: Denies difficulty urinating or dysuria Musculoskeletal Musculoskeletal: Denies back pain or extremity pain Integumentary Denies Abrasions or rash Neurologic Neurologic: Denies headache(s) or weakness Allergic/Immunologic Allergic/Immunologic ED: Denies lip swelling or urticaria EXAM Physical Exam Const Vital Signs: 03/21/22 20:13 03/21/22 20:16 03/21/22 20:45 Temperature 96.1 F L 96.1 F L Temperature Source Temporal Temporal Pulse Rate 75 75 Respiratory Rate 22 H 22 H Respiratory Effort Short of Breath Respiratory Pattern Blood Pressure 165/66 H 165/66 H Blood Pressure Mean 99 99 Pulse Ox 88 88 Oxygen Delivery Method Room Air Room Air Nasal Cannula Oxygen Flow Rate (L/min) 2 03/21/22 20:52 03/21/22 21:01 03/21/22 21:49 Temperature Temperature Source Pulse Rate 72 71 Respiratory Rate 22 H 14 Respiratory Effort Respiratory Pattern Tachypnea Blood Pressure 153/61 H Blood Pressure Mean 91 Pulse Ox 92 92 Oxygen Delivery Method Nasal Cannula Nasal Cannula Oxygen Flow Rate (L/min) 2 2 Positive well nourished and well developed General Appearance ED: well developed HEENT Reports normocephalic and head/scalp atraumatic Eyes PERRL and EOMs intact bilaterally Neck supple Chest Wall inspection of chest normal and palpation of chest normal Resp normal respiratory effort Resp Narrative: Scant wheezes with rales bilaterally. Cardio regular rate and regular rhythm GI normal to inspection, nondistended, normoactive bowel sounds Palpation: soft Back/Spine no CVA tenderness Extremity normal to inspection Neuro oriented x3 and no sensory deficits noted Sensorium / Orientation: alert Motor Exam: strength 5/5 throughout Psych mental status grossly normal Skin no rashes or lesions noted MDM MDM MDM Narrative Medical decision making narrative: Patient placed on nuclear monitoring technician. EKG and chest x-ray obtained. Lab work ordered along with COVID test. Patient is given a DuoNeb treatment along with 2 albuterol treatments. Lab Data Attestation: I reviewed the patient's lab results. Labs: Laboratory Results - last 24 hr 03/21/22 03/21/22 20:41 20:41 WBC 7.7 RBC 4.09 L Hgb 12.6 L Hct 37.2 L MCV 91.0 MCH 30.8 MCHC 33.9 RDW Std Deviation 42.5 RDW Coeff of Du 12.7 Plt Count 244 MPV 9.5 Immature Gran % (Auto) 0.400 Neut % (Auto) 58.8 Lymph % (Auto) 18.4 L [place] % (Auto) 13.6 H Eos % (Auto) 8.5 H Baso % (Auto) 0.3 Absolute Neuts (auto) 4.5 Absolute Lymphs (auto) 1.41 Nucleated RBC % 0 Sodium 136 Potassium 3.4 L Chloride 101 Carbon Dioxide 29.0 Anion Gap 6 BUN 19 H Creatinine 0.91 Estim Creat Clear Calc 61.51 Est GFR (MDRD) Af Amer 103 Est GFR (MDRD) Non-Af 85 BUN/Creatinine Ratio 21.0 H Glucose 110 H Calcium 9.1 Troponin I High Sens 19 Radiography Chest X-Ray - ED: 1 View, Read by ED Physician and Right Infiltrate Diagnostic Testing: Clinical Impression(s) from Imaging Studies Chest X-Ray 03/21/22 20:50 IMPRESSION: 1. Unilateral, right lung mixed reticular and alveolar opacities likely representing pneumonia. Clinical correlation and follow-up chest x-ray, 6 weeks following treatment is recommended. Electronically Signed: Nathaniel Samson DO at 21:20 EDT , EKG Initial EKG: Attestation: I personally reviewed and interpreted this EKG as follows: Interpretation: Sinus Rhythm (Sinus at 69 with no acute ischemia.) Treatment and Re-Evaluation Narrative: On repeat evaluation patient resting comfortably. Lung sounds are improved. Lab work reveals normal white count with no significant left shift. Chemistry studies unremarkable and troponin normal. COVID test is negative. Chest x-ray per my interpretation reveals large right-sided infiltrate. Radiologist interpretation is reviewed and concurs. Patient is given a dose of Levaquin. At this time his O2 sat is 90 to 92% on 2 L nasal cannula. I will discuss case with hospitalist for admission. Discharge Plan Triage Chief Complaint: Shortness of Breath ED Provider: Ebony Alex Dx/Rx/DC Orders Clinical Impression: Pneumonia, Acute respiratory insufficiency Prescriptions: No Action jyirzjqtwe-oukshfzbg-aavjwefcc [Exforge HCT] 10-320-25 mg tablet 1 tab PO QDAY nebivolol [Bystolic] 10 mg tablet 10 mg PO QDAY potassium chloride 20 mEq tablet extended release 20 meq PO QDAY trazodone 100 mg tablet 100 mg PO QDAY gmcgnbxd-riv-HO-lycopen-lutein [Centrum Silver] 0.4-300-250 mg-mcg-mcg tablet 1 tab PO QAM atorvastatin [Lipitor] 20 mg tablet 20 mg PO .COMPLEX Label Comments: 20 mg PO 3 days a week Rx Instructions: 20 mg PO 3 days a week tadalafil [Cialis] 5 mg tablet 5 mg PO QDAY Primary Care Provider: Tristin Agarwal Chi Referrals: Tristin Agarwal Chi, MD [Primary Care Provider] - Disposition Disposition: Acute Care Hospital [facility]
--- NOTE | 2022-03-21 20:50 | RAD_ITS ---
INDICATION: sob EXAMINATION/TECHNIQUE: X-RAY - XR Chest 1 View COMPARISON: CT abdomen and pelvis however 11/20/2020. FINDINGS: LINES/DEVICES: None. LUNGS: Normal to mildly increased symmetric lung volumes. No hyperlucency. Extensive reticular opacities with mixed alveolar opacities seen throughout much of the right lobe, especially in the right upper lobe and in the periphery. The left lung is clear. No pleural effusion, nodule or pneumothorax. MEDIASTINUM AND CARDIOVASCULAR STRUCTURES: Normal size and contour of the cardiomediastinal silhouette. No evidence of pulmonary vascular congestion. BONES AND SOFT TISSUES: No fracture or focal osseous lesion. RAD/Chest 1 View (Portable) IMPRESSION: 1. Unilateral, right lung mixed reticular and alveolar opacities likely representing pneumonia. Clinical correlation and follow-up chest x-ray, 6 weeks following treatment is recommended. Electronically Signed: Nathaniel Samson DO at 21:20 EDT ,
[2022-03-21] MEDS: Albuterol 2.5 MG/3 ML VIAL.NEB. INHALATION (20:59)
[2022-03-21 21:01] LABS: Absolute Lymphocyte Count 1.41 X10^3/uL (0.83-4.51); Absolute Neutrophil Count 4.5 X10^3/uL (2.0-7.7); Basophil# 0.02 X10^3/uL; Basophil% 0.3 % (0-1); Eosinophil# 0.65 X10^3/uL; Eosinophils% 8.5 % (0-5); Hematocrit 37.2 % (40-54); Hemoglobin 12.6 g/dL (13.0-16.5); Lymphocyte # 1.41 X10^3/ul (0.83-4.51); Lymphocyte % 18.4 % (19-41); Mean Corp Hgb Conc 33.9 g/dL (32-36); Mean Corpuscular Hgb 30.8 pg (27.0-32.0); Mean Platelet Vol. 9.5 fl (6.2-12.0); Monocyte# 1.04 X10^3/uL; Monocyte% 13.6 % (0-10); NRBC Flagged by Analyzer 0 % (0-5); Neutrophil # 4.52 X10^3/uL (2.7-7.7); Neutrophil % 58.8 % (47-70); Platelet Count 244 K/mm3 (150-450); RBC Distribution Width CV 12.7 % (11.6-14.6); RBC Distribution Width SD 42.5 fl (35.1-43.9); Red Blood Count 4.09 M/mm3 (4.6-6.2); White Blood Count 7.7 K/mm3 (4.4-11.0)
[2022-03-21] MEDS: Ipratropium/Albuterol Sulfate 3 ML AMPUL.NEB INHALATION (21:04)
[2022-03-21 21:26] LABS: Anion Gap 6 (5-15); BUN 19 mg/dL (7-18); Calcium,Total 9.1 mg/dL (8.5-10.1); Chloride 101 mmol/L (98-107); Creatinine, Serum 0.91 mg/dL (0.70-1.30); EST Glomerular Filtration Rate 85 mL/min (>60); Est Glom Filt Rate - Afr Amer 103 mL/min (>60); Estimated Creatinine Clearance 61.51 ml/min; Glucose 110 mg/dL (74-106); Potassium 3.4 mmol/L (3.5-5.1); Sodium Level 136 mmol/L (136-145); Troponin-I HS 19 pg/mL (3.0-78.0)
[2022-03-21] MEDS: levoFLOXacin IV 750 MG/150 ML BAG 100 MG IV (21:50)
--- NOTE | 2022-03-21 22:23 | PCM.HP.STD ---
HPI - General General Date of Admission: 03/21/22 Date of Service: 03/21/22 Chief Complaint: Shortness of breath HPI Narrative JARROD HERRING, is a 82 M with a significant history of hypertension; former tobacco abuse and a previous pneumonia who presents to the emergency department with a 2-day history of progressively worsening shortness of breath. Associated with symptoms is a congestive cough. He is unable to expectorate his sputum. His coughing has been going on for about 4 to 5 days. He has had a subjective fever at home. On the same day of presentation he went to the urgent care. His oxygen saturation on room air was 86% so he was sent to the emergency department. At the emergency department on room air his oxygen saturation was 88% He reports anorexia. He reports right-sided chest pain. He denies any other symptoms. FORMERLY [facility] Medical History (Updated 03/21/22 @ 22:[address] Barrett Small MD) Arthritis Cataracts, bilateral Glaucoma Goiter Hearing problem High cholesterol hormone deficiency HTN (hypertension) Skin cancer Home Medications amlodipine 10 mg-valsartan 320 mg-hydrochlorothiazide 25 mg tablet (Exforge HCT) 1 tab PO QDAY 03/04/18 [History Last Taken Unknown] atorvastatin 20 mg tablet (Lipitor) 20 mg PO .COMPLEX 03/04/18 [History Last Taken Unknown] [id number] acid 0.4 mg-lycopene 300 mcg-lutein 250 mcg tablet (Centrum Silver) 1 tab PO QAM 03/04/18 [History Last Taken Unknown] nebivolol 10 mg tablet (Bystolic) 10 mg PO QDAY 03/04/18 [History Last Taken Unknown] potassium chloride 20 mEq tablet,extended release 20 meq PO QDAY 03/04/18 [History Last Taken Unknown] tadalafil 5 mg tablet (Cialis) 5 mg PO QDAY 03/04/18 [History Last Taken Unknown] trazodone 100 mg tablet 100 mg PO QDAY 03/04/18 [History Last Taken Unknown] Allergy/AdvReac Type Severity Reaction Status Date / Time Penicillins Allergy Rash Verified 09/20/19 11:47 Family History Mother Hypertension Surgical History History of prostate surgery History of stent insertion of renal artery Hx of cataract surgery Social History Smoking Status: Former smoker alcohol intake: current alcohol intake frequency: a few times a month substance use type: does not use ROS ROS Narrative Pertinent positives and pertinent negatives as noted in HPI. All other systems were reviewed and are negative. Vital Signs Vital Signs Vital Signs: 03/21/22 20:13 03/21/22 20:16 03/21/22 20:45 Temperature 96.1 F L 96.1 F L Temperature Source Temporal Temporal Pulse Rate 75 75 Respiratory Rate 22 H 22 H Respiratory Effort Short of Breath Respiratory Pattern Blood Pressure 165/66 H 165/66 H Blood Pressure Mean 99 99 Pulse Ox 88 88 Oxygen Delivery Method Room Air Room Air Nasal Cannula Oxygen Flow Rate (L/min) 2 03/21/22 20:52 03/21/22 21:01 03/21/22 21:49 Temperature Temperature Source Pulse Rate 72 71 Respiratory Rate 22 H 14 Respiratory Effort Respiratory Pattern Tachypnea Blood Pressure 153/61 H Blood Pressure Mean 91 Pulse Ox 92 92 Oxygen Delivery Method Nasal Cannula Nasal Cannula Oxygen Flow Rate (L/min) 2 2 Weight Weight: 98.7 kg Body Mass Index (BMI) 32.1 Physical Exam Narrative Physical exam: General: Well-nourished, well-developed. Head: Normocephalic, atraumatic, no tenderness Eyes: Vision is grossly intact. EOMI ENT, no trauma, moist mucous membranes, no rhinorrhea Neck: Nontender, full range of motion, no spinal tenderness, deformities, step-off CVS: Regular rate and rhythm. S1-S2 present. No murmur, gallop or rub. Respiratory : Right posterior base with mild Rales. Chest wall nontender, no wheezing Abdomen: Soft, nontender, nondistended, normal bowel sounds, no masses : Deferred Back: Nontender, no CVA tenderness, no midline spinal tenderness, deformities, step-offs Extremities: Nontender full range of motion, no trauma Skin: Normal color, no trauma, abrasions Neuro: Alert, oriented, cranial nerves II through XII grossly intact. Psychiatry: Normal mood. Normal affect. Not depressed. Not anxious. Results Lab / Micro Data Result Diagrams: 03/21/22 20:41 03/21/22 20:41 Labs: Laboratory Results - last 24 hr 03/21/22 20:41: WBC 7.7, RBC 4.09 L, Hgb 12.6 L, Hct 37.2 L, MCV 91.0, MCH 30.8, MCHC 33.9, RDW Std Deviation 42.5, RDW Coeff of Du 12.7, Plt Count 244, MPV 9.5, Immature Gran % (Auto) 0.400, Neut % (Auto) 58.8, Lymph % (Auto) 18.4 L, [place] % (Auto) 13.6 H, Eos % (Auto) 8.5 H, Baso % (Auto) 0.3, Absolute Neuts (auto) 4.5, Absolute Lymphs (auto) 1.41, Nucleated RBC % 0 03/21/22 20:41: Sodium 136, Potassium 3.4 L, Chloride 101, Carbon Dioxide 29.0, Anion Gap 6, BUN 19 H, Creatinine 0.91, Estim Creat Clear Calc 61.51, Est GFR (MDRD) Af Amer 103, Est GFR (MDRD) Non-Af 85, BUN/Creatinine Ratio 21.0 H, Glucose 110 H, Calcium 9.1, Troponin I High Sens 19 Micro: Microbiology 03/21/22 20:42 Nasal Secretion SARS-CoV-2 Antigen (Rapid) - Final Radiology Impression Chest X-Ray 03/21/22 20:50 IMPRESSION: 1. Unilateral, right lung mixed reticular and alveolar opacities likely representing pneumonia. Clinical correlation and follow-up chest x-ray, 6 weeks following treatment is recommended. Electronically Signed: Ntahaniel Samson DO at 21:20 EDT , Assessment & Plan Assessment/Plan (1) Pneumonia: (2) Hypoxia: PLAN: Plan Pneumonia with hypoxia Does not meet 2 SIRS criteria. qSOFA is 1. Sepsis ruled out. Oxygen saturation: 88% on presentation and required 2 L of nasal cannula oxygen. Continue oxygen saturation and titrate to keep oxygen saturation to at least 90%. Blood culture ?2 is pending; follow Chest x-ray: Was visualized and independent interpreted and I agree with radiology interpretation above. Additionally radiology recommended 6 weeks follow-up following treatment. CBC showed normal white counts. Trend. BMP showed mild hypokalemia, trend. Respiratory Gram stain and culture pending Antibiotics: Given Levaquin at emergency department. Of note patient is allergic to penicillin (rash). With patient's age and with size of opacity on chest x-ray ceftriaxone and azithromycin ordered. MRSA nasal swab ordered.Legionella antigen screen and Strep antigen ordered Albuterol as needed Mucinex ordered. Hypertension Blood pressure is not within goal Home blood pressure medication continued. Trend blood pressure and adjust blood pressure medications. CKD stage II Stable Trend BMP. DVT prophylaxis Subcutaneous Lovenox ordered. Charges/Coding Visit Charges Inpatient E&M: 86383 Init Hosp L3
[2022-03-22] VITALS (13 sets, daily range): BP systolic 142–171; BP diastolic 67–83; PULSE 67–81; RESP 16–18; TEMP 36.3–37; O2SAT 91–97; BMI 32.9
[2022-03-22] MEDS: Ceftriaxone 1 GM/50 ML BAG IV ×2 (01:03→21:24)
[2022-03-22] MEDS: guaiFENesin 1,200 MG Tablet 1200 MG PO ×3 (01:03→21:17)
[2022-03-22 05:47] LABS: Absolute Lymphocyte Count 1.02 X10^3/uL (0.83-4.51); Absolute Neutrophil Count 4.5 X10^3/uL (2.0-7.7); Basophil# 0.01 X10^3/uL; Basophil% 0.1 % (0-1); Eosinophil# 0.44 X10^3/uL; Eosinophils% 6.5 % (0-5); Hematocrit 32.7 % (40-54); Hemoglobin 11.5 g/dL (13.0-16.5); Lymphocyte # 1.02 X10^3/ul (0.83-4.51); Mean Corp Hgb Conc 35.2 g/dL (32-36); Mean Corpuscular Hgb 31.2 pg (27.0-32.0); Mean Corpuscular Volume 88.6 fL (80-94); Mean Platelet Vol. 9.5 fl (6.2-12.0); Monocyte# 0.88 X10^3/uL; Monocyte% 12.9 % (0-10); NRBC Flagged by Analyzer 0 % (0-5); Neutrophil # 4.45 X10^3/uL (2.7-7.7); Neutrophil % 65.2 % (47-70); Platelet Count 227 K/mm3 (150-450); RBC Distribution Width CV 12.7 % (11.6-14.6); RBC Distribution Width SD 41.4 fl (35.1-43.9); Red Blood Count 3.69 M/mm3 (4.6-6.2); White Blood Count 6.8 K/mm3 (4.4-11.0)
[2022-03-22 06:07] LABS: Anion Gap 7 (5-15); BUN 14 mg/dL (7-18); BUN/Creat Ratio 21.5 RATIO (10-20); Calcium,Total 8.5 mg/dL (8.5-10.1); Chloride 100 mmol/L (98-107); Creatinine, Serum 0.65 mg/dL (0.70-1.30); EST Glomerular Filtration Rate 125 mL/min (>60); Est Glom Filt Rate - Afr Amer 151 mL/min (>60); Estimated Creatinine Clearance 54.15 ml/min; Glucose 127 mg/dL (74-106); Potassium 3.3 mmol/L (3.5-5.1); Sodium Level 136 mmol/L (136-145)
[2022-03-22] MEDS: Enoxaparin 40 MG/0.4 ML Syringe SC (09:42)
[2022-03-22] MEDS: Potassium Chloride Oral Tablet 20 MEQ 40 MEQ PO (09:45)
--- NOTE | 2022-03-22 11:42 | CASEMGMT ---
RN KARINA Face to Face with patient for initial transition planning/care coordination assessment. RN CM introduced self and role at [facility]. Patient lying in bed, alert and oriented, at bedside. Patient willing to participate in assessment and is able to answer all questions appropriately. Care providers, pharmacy, and demographics verified. Patient wishes to discharge home, denies need for home health at this time. Patient states he has no further needs or concerns at this time. CM to follow for discharge planning needs that may arise. PCP: Stefano Specialists: Hayden, urologist; José vascular Preferred Pharmacy: [facility] retail Insurance: [employer] Prescription Benefit: yes Living Will/HPOA: none LNOK: Living Arrangements: Patient lives with in a 2 story home. Patient states he is independent and able to ambulate stairs. Transportation: self, DME/HHC: Patient states he has cane, walker, raised toilet, shower chair, and grab bars at home. Patient denies previous HHC or SNF. Will monitor for home oxygen, no preferences for DME. Disposition Plan: Patient to discharge home with family support and follow-up plans in place. Christal RAY, RN, CM
--- NOTE | 2022-03-22 12:35 | PN.HOSP_ITS ---
Subjective Subjective Patient seen and examined. He feels well and has no complaints. He had an uneventful night. He feels his breathing is getting better. He still has a productive cough, and is on 3L of oxygen. Review of systems is otherwise negative. He has remained hemodynamically stable. Objective Data Objective Data Vital Signs: Vital Signs Temp Pulse Resp BP Pulse Ox O2 Del Method O2 Flow Rate 98.3 F 71 18 147/67 H 91 Nasal Cannula 3 03/22/22 09:33 03/22/22 09:33 03/22/22 09:33 03/22/22 09:33 03/22/22 10:10 03/22/22 10:10 03/22/22 10:10 Oxygen Flow Rate (L/min) 3 Oxygen Delivery Method Nasal Cannula Weight: 216 lb 11.43 oz Body Mass Index (BMI) 32.9 Intake & Output: Intake and Output for Last 24 Hours 03/20/22 03/21/22 03/22/22 23:59 23:59 23:59 Intake Total 855 / 855 Balance 855 / 855 Lab / Micro Data Result Diagrams: 03/22/22 04:18 03/22/22 04:18 Labs: Laboratory Results - last 24 hr 03/21/22 20:41: WBC 7.7, RBC 4.09 L, Hgb 12.6 L, Hct 37.2 L, MCV 91.0, MCH 30.8, MCHC 33.9, RDW Std Deviation 42.5, RDW Coeff of Du 12.7, Plt Count 244, MPV 9.5, Immature Gran % (Auto) 0.400, Neut % (Auto) 58.8, Lymph % (Auto) 18.4 L, [place] % (Auto) 13.6 H, Eos % (Auto) 8.5 H, Baso % (Auto) 0.3, Absolute Neuts (auto) 4.5, Absolute Lymphs (auto) 1.41, Nucleated RBC % 0 03/21/22 20:41: Sodium 136, Potassium 3.4 L, Chloride 101, Carbon Dioxide 29.0, Anion Gap 6, BUN 19 H, Creatinine 0.91, Estim Creat Clear Calc 61.51, Est GFR (MDRD) Af Amer 103, Est GFR (MDRD) Non-Af 85, BUN/Creatinine Ratio 21.0 H, Glucose 110 H, Calcium 9.1, Troponin I High Sens 19 03/21/22 : MRSA (PCR) Cancelled 03/22/22 04:18: WBC 6.8, RBC 3.69 L, Hgb 11.5 L, Hct 32.7 L, MCV 88.6, MCH 31.2, MCHC 35.2, RDW Std Deviation 41.4, RDW Coeff of Du 12.7, Plt Count 227, MPV 9.5, Immature Gran % (Auto) 0.300, Neut % (Auto) 65.2, Lymph % (Auto) 15.0 L, [place] % (Auto) 12.9 H, Eos % (Auto) 6.5 H, Baso % (Auto) 0.1, Absolute Neuts (auto) 4.5, Absolute Lymphs (auto) 1.02, Nucleated RBC % 0 03/22/22 04:18: Sodium 136, Potassium 3.3 L, Chloride 100, Carbon Dioxide 29.0, Anion Gap 7, BUN 14, Creatinine 0.65 L, Estim Creat Clear Calc 54.15, Est GFR (MDRD) Af Amer 151, Est GFR (MDRD) Non-Af 125, BUN/Creatinine Ratio 21.5 H, Glucose 127 H, Calcium 8.5 Micro: Microbiology 03/22/22 09:50 Sputum, Expectorated/Coughed Gram Stain - Final 03/22/22 09:50 Urine, Clean Catch Legionella Antigen - Final 03/22/22 09:50 Urine, Clean Catch Streptococcus pneumoniae Antigen (M - Final 03/21/22 20:42 Nasal Secretion SARS-CoV-2 Antigen (Rapid) - Final Radiography Diagnostic Testing: Radiology Impression Chest X-Ray 03/21/22 20:50 IMPRESSION: 1. Unilateral, right lung mixed reticular and alveolar opacities likely representing pneumonia. Clinical correlation and follow-up chest x-ray, 6 weeks following treatment is recommended. Electronically Signed: Nathaniel Samson DO at 21:20 EDT , Physical Exam Const alert, oriented x3 and no apparent distress HEENT head/scalp atraumatic, moist oral mucous membranes and oropharynx normal Head and Scalp: normocephalic Mouth: oral and palatal mucosa normal Eyes PERRL and EOMs intact bilaterally Resp normal respiratory effort, no retractions and no use of accessory muscles Resp Narrative: mildly diminished breath sounds bibasally, no wheezes or crackles. On 3L of oxy gen. Cardio regular rate, regular rhythm, S1 normal heart sound, S2 normal heart sound and no murmurs GI normal to inspection, nondistended, normoactive bowel sounds, soft to palpation, non-tender and non-distended Extremity normal to inspection, full ROM and no clubbing, cyanosis or edema Neuro oriented x3, CN's II-XII intact bilaterally and moves all extremities Sensorium / Orientation: awake and alert Speech: speech normal Motor Exam: strength 5/5 throughout Psych affect normal Assessment & Plan Assessment/Plan (1) Pneumonia: (2) Hypoxia: PLAN: Plan #Hypoxia due to community acquired pneumonia * on ceftriaxone and azithromycin * urine for strep and legionella pending * sputum culture and blood culture pending * titrate oxygen to maintain sats >90% * on 3L of oxygen by nasal canula * breathing treatment with bronchodilators * #Hypokalemia: K is 3.3. Will replace and trend. #Hypertension: on nebivolol, amlodipine, valsartan and HCTZ DVT prophylaxis: lovenox Charges/Coding Visit Charges Inpatient E&M: 26656 Subs Hosp L2
[2022-03-22 14:31] LABS: M R Staph aureus DNA By PCR Negative (Negative); Probe Check PASS; Specimen Processing Control PASS
[2022-03-22] MEDS: Losartan Potassium 100 MG Tablet PO (17:12)
[2022-03-22] MEDS: amLODIPine 10 MG Tablet PO (17:12)
[2022-03-22] MEDS: Nebivolol HCl 10 MG Tablet 20 MG PO (18:28)
[2022-03-22] MEDS: traZODone 100 MG Tablet PO (21:17)
[2022-03-22] MEDS: Minoxidil 2.5 MG Tablet 5 MG PO (21:17)
[2022-03-22] MEDS: CLARIFY ORDER NOTE (22:43)
[2022-03-23 04:26] VITALS: PULSE 61
[2022-03-23 04:33] VITALS: BP 146/87; PULSE 71; RESP 16; TEMP 36.3; O2SAT 97
[2022-03-23 04:55] LABS: Absolute Lymphocyte Count 1.24 X10^3/uL (0.83-4.51); Absolute Neutrophil Count 4.7 X10^3/uL (2.0-7.7); Basophil# 0.03 X10^3/uL; Basophil% 0.4 % (0-1); Eosinophil# 0.43 X10^3/uL; Eosinophils% 5.8 % (0-5); Hematocrit 35.1 % (40-54); Hemoglobin 11.7 g/dL (13.0-16.5); Lymphocyte # 1.24 X10^3/ul (0.83-4.51); Lymphocyte % 16.6 % (19-41); Mean Corp Hgb Conc 33.3 g/dL (32-36); Mean Corpuscular Hgb 30.5 pg (27.0-32.0); Mean Corpuscular Volume 91.4 fL (80-94); Mean Platelet Vol. 9.4 fl (6.2-12.0); Monocyte# 0.96 X10^3/uL; Monocyte% 12.9 % (0-10); NRBC Flagged by Analyzer 0 % (0-5); Neutrophil # 4.74 X10^3/uL (2.7-7.7); Neutrophil % 63.6 % (47-70); Platelet Count 262 K/mm3 (150-450); RBC Distribution Width CV 12.9 % (11.6-14.6); RBC Distribution Width SD 43.2 fl (35.1-43.9); Red Blood Count 3.84 M/mm3 (4.6-6.2); White Blood Count 7.5 K/mm3 (4.4-11.0)
[2022-03-23 05:21] LABS: Anion Gap 5 (5-15); BUN 14 mg/dL (7-18); BUN/Creat Ratio 17.4 RATIO (10-20); Calcium,Total 8.8 mg/dL (8.5-10.1); Chloride 104 mmol/L (98-107); EST Glomerular Filtration Rate 98 mL/min (>60); Est Glom Filt Rate - Afr Amer 118 mL/min (>60); Estimated Creatinine Clearance 67.69 ml/min; Glucose 109 mg/dL (74-106); Potassium 3.8 mmol/L (3.5-5.1); Sodium Level 137 mmol/L (136-145)
[2022-03-23 07:00] VITALS: PULSE 67
[2022-03-23] MEDS: Multivitamins,Ther W-Minerals Tablet 1 TABLET PO (07:58)
[2022-03-23] MEDS: Potassium Chloride Oral Tablet 20 MEQ PO (07:58)
[2022-03-23 09:02] VITALS: O2SAT 2; O2SAT 86; O2SAT 90; O2SAT 91
[2022-03-23 09:54] VITALS: BP 141/62; PULSE 70; RESP 18; TEMP 36.7; O2SAT 94
[2022-03-23] MEDS: 0.9% Saline Lock 10 ML Syringe IV (09:55)
[2022-03-23] MEDS: amLODIPine 10 MG Tablet PO (09:56)
[2022-03-23] MEDS: hydroCHLOROthiazide 25 MG Tablet PO (09:56)
[2022-03-23] MEDS: guaiFENesin 1,200 MG Tablet 1200 MG PO (09:56)
[2022-03-23] MEDS: Nebivolol HCl 10 MG Tablet 20 MG PO (09:56)
[2022-03-23] MEDS: Losartan Potassium 100 MG Tablet PO (09:57)
--- NOTE | 2022-03-23 11:49 | CASEMGMT ---
Addendum entered by Mamadou Talavera 03/23/22 14:48: Pt and state pt already has a pulse ox @ home. Addendum entered by Mamadou Talavera 03/23/22 13:26: Per Yoon, Oxygen will be supplied by [facility] and to be delivered to pt's room today prior to discharge. Yoon unsure of ETA. Pulse ox placed w/pt's chart and to be given to pt w/instruction on use by nurse @ d/c. Pt and made aware of above. They deny having further home-going or discharge planning needs. Addendum entered by Mamadou Talavera 03/23/22 13:18: Dr Morales has been consulted and in to see pt. Home O2 program form w/O2 testing results has been signed by Dr Morales and faxed to Yoon @ [facility]. Call to Katherine. She states she has not received either neither the OR agreeement forms signed by pt nor the one signed by Dr Morales. Both of these were e-mailed to Yoon at this time. Addendum entered by Mamadou Talavera 03/23/22 12:49: Dr Mcdonough notified of below. She states will consult specialist Pt completed OR Oxygen DME agreement. Faxed agreement to [facility]. Copy made and placed on chart and pt given original. Addendum entered by Mamadou Talavera 03/23/22 12:03: RT Katherine, also states they would need O2 script, signature by link trainer maintenance worker or manual arts therapist, and [facility] O2 packet all faxed to her by 1330 in order for O2 to be delivered to pt today. Original Note: EVERTON COLLINS NOTE: Pt qualifies for O2 @ 4 l/m w/exertion. He does not qualify for O2 @ rest. Per Dr Mcdonough, she plans to discharge pt home today. Noted no diagnoses of chronic resp condition, so home O2 would not be covered by [facility]. EVERTON COLLINS spoke w/pt and and made aware. They were made aware cost for 30-day supply of oxygen is approx $191. states pt has [facility] benefits and inquired if pt could get O2 through the [facility]. EVERTON COLLINS placed call to RT Katherine, @ [facility]. Per Yoon, if pt only needs O2 w/ambulation and not at rest, their policy states either a link trainer maintenance worker or manual arts therapist would need to sign for the oxygen. Message sent to Dr Mcdonough to notify her of the above. Awaiting call back. Davie SPRAGUEN RN CM
--- NOTE | 2022-03-23 13:49 | PN.HOSP_ITS ---
Subjective Subjective Patient seen and examined. He feels well. His breathing is much better. He was on 1 L of oxygen at time of. Review of systems otherwise negative. He is hoping to go home today. Objective Data Objective Data Vital Signs: Vital Signs Temp Pulse Resp BP Pulse Ox O2 Del Method O2 Flow Rate 98.1 F 70 18 141/62 H 94 Nasal Cannula 1 03/23/22 09:54 03/23/22 09:54 03/23/22 09:54 03/23/22 09:54 03/23/22 09:54 03/23/22 09:54 03/23/22 09:54 Oxygen Flow Rate (L/min) [ 4 AMBULATING with Oxygen #3] Oxygen Flow Rate (L/min) [ 86 AMBULATING with Oxygen #2] Oxygen Flow Rate (L/min) [ 1 AMBULATING with Oxygen #1] Oxygen Flow Rate (L/min) 1 Oxygen Delivery Method Nasal Cannula Weight: 216 lb 11.43 oz Body Mass Index (BMI) 32.9 Intake & Output: Intake and Output for Last 24 Hours 03/21/22 03/22/22 03/23/22 23:59 23:59 23:59 Intake Total 905 / 905 615 / 615 Balance 905 / 905 615 / 615 Lab / Micro Data Result Diagrams: 03/23/22 04:39 03/23/22 04:39 Labs: Laboratory Results - last 24 hr 03/22/22 09:55: MRSA (PCR) Negative 03/23/22 04:39: WBC 7.5, RBC 3.84 L, Hgb 11.7 L, Hct 35.1 L, MCV 91.4, MCH 30.5, MCHC 33.3 D, RDW Std Deviation 43.2, RDW Coeff of Du 12.9, Plt Count 262, MPV 9.4, Immature Gran % (Auto) 0.700, Neut % (Auto) 63.6, Lymph % (Auto) 16.6 L, [place] % (Auto) 12.9 H, Eos % (Auto) 5.8 H, Baso % (Auto) 0.4, Absolute Neuts (auto) 4.7, Absolute Lymphs (auto) 1.24, Nucleated RBC % 0 03/23/22 04:39: Sodium 137, Potassium 3.8, Chloride 104, Carbon Dioxide 28.0, Anion Gap 5, BUN 14, Creatinine 0.80, Estim Creat Clear Calc 67.69, Est GFR (MDRD) Af Amer 118, Est GFR (MDRD) Non-Af 98, BUN/Creatinine Ratio 17.4, Glucose 109 H, Calcium 8.8 Micro: Microbiology 03/22/22 09:50 Sputum, Expectorated/Coughed Gram Stain - Final 03/22/22 09:50 Sputum, Expectorated/Coughed Respiratory Culture - Preliminary Appears to be normal respiratory priyanka. Further studies to follow. 03/22/22 09:50 Urine, Clean Catch Legionella Antigen - Final 03/22/22 09:50 Urine, Clean Catch Streptococcus pneumoniae Antigen (M - Final 03/21/22 20:42 Nasal Secretion SARS-CoV-2 Antigen (Rapid) - Final Physical Exam Const alert, oriented x3 and no apparent distress HEENT head/scalp atraumatic, moist oral mucous membranes and oropharynx normal Eyes PERRL and EOMs intact bilaterally Resp normal respiratory effort, no retractions and no use of accessory muscles Resp Narrative: mildly diminished breath sounds bibasally, no wheezes or crackles. On 2L of oxygen. Cardio regular rate, regular rhythm, S1 normal heart sound, S2 normal heart sound and no murmurs GI normal to inspection, nondistended, normoactive bowel sounds, soft to palpation, non-tender and non-distended Extremity normal to inspection, full ROM and no clubbing, cyanosis or edema Neuro oriented x3, CN's II-XII intact bilaterally and moves all extremities Sensorium / Orientation: awake and alert Speech: speech normal Motor Exam: strength 5/5 throughout Psych affect normal Assessment & Plan Assessment/Plan (1) Pneumonia: (2) Hypoxia: PLAN: Plan #Hypoxia due to community acquired pneumonia * on ceftriaxone and azithromycin * urine for strep and legionella negative. * sputum culture and blood culture pending * titrate oxygen to maintain sats >90% * on 2L of oxygen by nasal canula * breathing treatment with bronchodilators * ambulatory pulse ox showed that patient required 4L of oxygen with ambulation. Patient is a patient at the [facility], and the [facility] requires patient be evaluated by pulmonology and the oxygen script signed off by pulmonology. Pulmonology there fore consulted. * #Hypokalemia: resolved. #Hypertension: on nebivolol, amlodipine, valsartan and HCTZ DVT prophylaxis: lovenox Disposition: for likely DC home tomorrow once oxygen is set up. Charges/Coding Visit Charges Inpatient E&M: 04430 Subs Hosp L2
--- NOTE | 2022-03-23 14:03 | CON.PCM.CC_ITS ---
Assessment & Plan Assessment/Plan (1) Pneumonia: (2) Hypoxia: PLAN: Plan RECOMMENDATIONS: 1. Okay to discharge from a pulmonary perspective on supplemental oxygen is indicated 2. Completed total of 5 days of antibiotics 3. Consider Combivent as needed at discharge 4. Outpatient complete PFT in 6 to 8 weeks once pneumonia resolved 5. Follow-up in our office pending PFT or continued need for supplemental oxygen 6. Consider chest x-ray in 4 to 6 weeks to document resolution given age IMPRESSIONS: 1. Acute hypoxic respiratory insufficiency secondary to pneumonia Clinical suspicion for an element of COPD underlying that was not appreciated prior to acute infection. Patient likely will only require supplemental oxygen temporarily. Continue with antibiotics. Patient would likely benefit from Combivent as needed. Outpatient pulmonary function test should be completed for quantification clarification of lung function. If patient is found to have COPD, may benefit from continued bronchodilator therapy given daily symptoms. Patient can follow-up in our office if requested by PCP or patient still requires supplemental oxygen. Did discuss at length with patient's and granddaughter. 2. Advanced age/hypertension/hyperlipidemia/obesity Complicates care, management, recovery and prognosis. Okay to continue with baseline medications. Patient may benefit from a sleep work-up as an outpatient as he does have risk factors with elevated neck circumference, age, male gender and history of snoring. Defer to PCP. HPI Consult Data Date of Consult: 03/23/22 HPI Narrative Reason for Consultation: Hypoxia HPI Narrative: JARROD HERRING is an 82 M, with past medical history listed below, who presented to [facility] on 03/21/2022 secondary to concerns for hypoxia. Patient had originally presented to an urgent care center and was found to be 86% on room air, so was referred to the ER for evaluation. Patient reportedly had felt ill for the last 5 to 6 days with congestion, productive cough of green to yellow sputum. Patient denied any fever, but patient's had reported bates bjective fever. Patient had reported intermittent right-sided chest pain that he had attributed to coughing. Patient had reported some increased shortness of breath leading to the urgent care visit. In the ER, patient was afebrile, but tachypneic at 22 breaths/min. Patient was slightly hypertensive at 165/66 and noted to be hypoxic on room air. Laboratory work-up showed a white blood cell count of 7.7 with a hemoglobin of 12.6 and a platelet count of 244. Chemistries were relatively unremarkable except for a bicarbonate of 29, potassium of 3.4 and glucose of 110. Chest x-ray showed a ri ght-sided infiltrate consistent with pneumonia. Given hypoxia, patient was admitted to the hospital for further evaluation. Patient was subsequently placed on antibiotics, supplemental oxygen and br onchodilators. Patient improved rapidly, but still requires supplemental oxygen with exertion. [facility] to [facility] management[facility] in order to have [facility] delivered. Patient reports that he is much improved from his original presentation. Patient does not use any inhalers at baseline. Patient does report a 30+ pack year smoking history, but quit sometime ago. Patient has noticed that he has had some increased shortness of breath recently over the past 6 to 12 months. Patient reportedly had had increased symptoms while golfing and subsequently his has made him use a cart. Patient does report a cough productive of clear to white sputum first thing in the morning. No hemoptysis has been reported. Patient states he is never seen a silver wrapper or had a pulmonary function test previously. Patient denies any alcohol or drug use. Patient may have been exposed to asbestos in the past, but denies any history of TB. No travel history reported. Patient has not had any lower extremity edema. Review of systems otherwise negative from a constitutional, HEENT, respiratory, cardiovascular, GI, genitourinary, musculoskeletal, skin, neurologic, psychiatric and hematologic system unless stated above. [facility] Medical History Arthritis Cataracts, bilateral Glaucoma Goiter Hearing problem High cholesterol hormone deficiency HTN (hypertension) Skin cancer Home Medications atorvastatin 20 mg tablet (Lipitor) 20 mg PO .COMPLEX cholesterol 03/04/18 [History Last Taken Unknown] cpkssvmq-ptw-oljnu acid 0.4 mg-lycopene 300 mcg-lutein 250 mcg tablet (Centrum Silver) 1 tab PO QAM 03/04/18 [History Last Taken Unknown] nebivolol 10 mg tablet (Bystolic) 20 mg PO QDAY blood pressure 03/04/18 [History Last Taken Unknown] potassium chloride 20 mEq tablet,extended release 20 meq PO QDAY supplement 03/04/18 [History Last Taken Unknown] trazodone 100 mg tablet 100 mg PO QHS sleep aid 03/04/18 [History Last Taken Unknown] amlodipine 10 mg tablet 1 tab PO DAILY blood pressure 03/22/22 [History Last Taken Unknown] minoxidil 2.5 mg tablet 2 tab PO QHS blood pressure 03/22/22 [History Last Taken Unknown] valsartan 320 mg-hydrochlorothiazide 25 mg tablet 1 tab PO DAILY blood pressure 03/22/22 [History Last Taken Unknown] Allergy/AdvReac Type Severity Reaction Status Date / Time Penicillins Allergy Rash Verified 09/20/19 11:47 Family History Mother Hypertension Surgical History History of prostate surgery History of stent insertion of renal artery Hx of cataract surgery Social History Smoking Status: Former smoker alcohol intake: current alcohol intake frequency: a few times a month substance use type: does not use ROS ROS Narrative See HPI Physical Exam Const alert, oriented x3 and no apparent distress HEENT head/scalp atraumatic, moist oral mucous membranes and oropharynx normal HEENT Narrative: Nasal cannula in place Eyes PERRL and EOMs intact bilaterally Resp normal respiratory effort, no retractions and no use of accessory muscles Auscultation: rhonchi right lower and diminished lung sounds diffuse (Slightly); Negative for rales or wheezes Percussion: Negative for dullness Cardio regular rate, regular rhythm, S1 normal heart sound, S2 normal heart sound, no murmurs, no rub, no gallops and no JVD GI normal to inspection, nondistended, normoactive bowel sounds, soft to palpation, non-tender and non-distended Extremity normal to inspection, full ROM and no clubbing, cyanosis or edema Neuro oriented x3, CN's II-XII intact bilaterally, moves all extremities and no focal motor deficits Sensorium / Orientation: awake and alert Speech: speech normal Psych cooperative and affect normal Medical Records Data Attestation: I reviewed the patient's medical records Lab / Micro Data Attestation: I reviewed the patient's lab results. Result Diagrams: 03/23/22 04:39 03/23/22 04:39 Labs: Laboratory Results - last 24 hr 03/22/22 09:55: MRSA (PCR) Negative 03/23/22 04:39: WBC 7.5, RBC 3.84 L, Hgb 11.7 L, Hct 35.1 L, MCV 91.4, MCH 30.5, MCHC 33.3 D, RDW Std Deviation 43.2, RDW Coeff of Du 12.9, Plt Count 262, MPV 9.4, Immature Gran % (Auto) 0.700, Neut % (Auto) 63.6, Lymph % (Auto) 16.6 L, [place] % (Auto) 12.9 H, Eos % (Auto) 5.8 H, Baso % (Auto) 0.4, Absolute Neuts (auto) 4.7, Absolute Lymphs (auto) 1.24, Nucleated RBC % 0 03/23/22 04:39: Sodium 137, Potassium 3.8, Chloride 104, Carbon Dioxide 28.0, Anion Gap 5, BUN 14, Creatinine 0.80, Estim Creat Clear Calc 67.69, Est GFR (MDRD) Af Amer 118, Est GFR (MDRD) Non-Af 98, BUN/Creatinine Ratio 17.4, Glucose 109 H, Calcium 8.8 Micro: Microbiology 03/22/22 09:50 Sputum, Expectorated/Coughed Gram Stain - Final 03/22/22 09:50 Sputum, Expectorated/Coughed Respiratory Culture - Preliminary Appears to be normal respiratory priyanka. Further studies to follow. 03/22/22 09:50 Urine, Clean Catch Legionella Antigen - Final 03/22/22 09:50 Urine, Clean Catch Streptococcus pneumoniae Antigen (M - Final Charges/Coding Visit Charges Inpatient E&M: 70315 Init Hosp L2
--- NOTE | 2022-03-23 15:08 | DS.PCM_ITS ---
Providers Date of Admission: 03/21/22 Primary Care Physician: Dr. Tristin Agarwal MD Consultations 03/23/22 12:13 Consult: Auto Porter / Pulmonary Medicine Routine Consulting Provider: Pulmonary Medicine ale Saldana Reason for Consult: hypoxia due to pneumonia EMERGENT Consult: No MD Notified: Yes Date Notified: 03/23/22 Time Notified: 12:14 Method of Notification: Text Reason For Visit: PNEUMONIA Diagnosis Discharge Diagnosis (1) Pneumonia: Status: Acute Code(s): J18.9 - Pneumonia, unspecified organism (2) Hypoxia: Status: Acute Code(s): R09.02 - Hypoxemia Plan #Hypoxia due to community acquired pneumonia * on ceftriaxone and azithromycin * urine for strep and legionella negative. * sputum culture and blood culture pending * titrate oxygen to maintain sats >90% * on 2L of oxygen by nasal canula * breathing treatment with bronchodilators * ambulatory pulse ox showed that patient required 4L of oxygen with ambulation. Patient is a patient at the DC, and the DC requires patient be evaluated by pulmonology and the oxygen script signed off by pulmonology. Pulmonology therefore consulted. * #Hypokalemia: resolved. #Hypertension: on nebivolol, amlodipine, valsartan and HCTZ DVT prophylaxis: lovenox Disposition: for likely DC home tomorrow once oxygen is set up. Medications at Discharge Home Medications atorvastatin 20 mg tablet (Lipitor) 20 mg PO .COMPLEX cholesterol 03/04/18 bqkaeefa-btn-xlljc acid 0.4 mg-lycopene 300 mcg-lutein 250 mcg tablet (Centrum Silver) 1 tab PO QAM 03/04/18 nebivolol 10 mg tablet (Bystolic) 20 mg PO QDAY blood pressure 03/04/18 potassium chloride 20 mEq tablet,extended release 20 meq PO QDAY supplement 03/04/18 trazodone 100 mg tablet 100 mg PO QHS sleep aid 03/04/18 amlodipine 10 mg tablet 1 tab PO DAILY blood pressure 03/22/22 minoxidil 2.5 mg tablet 2 tab PO QHS blood pressure 03/22/22 valsartan 320 mg-hydrochlorothiazide 25 mg tablet 1 tab PO DAILY blood pressure 03/22/22 ipratropium 20 mcg-albuterol 100 mcg/actuation mist for inhalation (Combivent Respimat) 1 puff inhalation Q4H #4 grams 03/23/22 levofloxacin 500 mg tablet 500 mg PO DAILY #5 tabs 03/23/22 Hospital Course Operations None Procedures None Summary of Care Provided Minutes Spent on Discharge: 45 Hospital Course: Patient is an 82-year-old male with a past medical history as outlined was admitted through the ED on 03/21/2022 with a complaint of shortness of breath and mustard productive cough which have been going on for about 2 days. Cough and however been going on for about 4 to 5 days and he had associated subjective fever. He went to the urgent care but was sent to the ED as his oxygen saturation was 86% on room air. Chest x-ray on admission showed unilateral right lung mixed reticular and alveolar opacities likely representing pneumonia. He was admitted and managed for hypoxia due to community-acquired pneumonia. He was started on IV ceftriaxone and azithromycin. Urine for strep and Legionella were negative. Blood cultures were negative and sputum culture was negative. Subsequently felt much better. His oxygen requirement decreased from 3 L to 1 L. However with walking pulse ox required 4 L of oxygen. Patient required pulmonology consult as required [facility] to sign off on his home oxygen prescription. Pulmonology was therefore consulted. Patient was discharged home on 03/23/2022 on p.o. Levaquin to complete a 5-day course. He was discharged home on 4 L of oxygen to use with ambulation and is to follow-up with his primary care doctor within 1 to 2 weeks. Patient seen and examined prior to discharge. He had no active complaints and had an uneventful night. Review of systems otherwise negative. Labs and vitals reviewed. Medication reviewed and reconciled. Physical Exam Const alert, oriented x3 and no apparent distress General Appearance: cooperative, comfortable and well kempt HEENT normocephalic, head/scalp atraumatic, hearing grossly normal bilaterally, moist oral mucous membranes and oropharynx normal Mouth: oral and palatal mucosa normal Eyes PERRL and EOMs intact bilaterally Resp normal respiratory effort, no retractions and no use of accessory muscles Resp Narrative: mildly diminished breath sounds bibasally, no wheezes or crackles. On 1L of oxygen. Cardio regular rate, regular rhythm, S1 normal heart sound, S2 normal heart sound and no murmurs GI normal to inspection, nondistended, normoactive bowel sounds, soft to palpation, non-tender and non-distended Extremity normal to inspection, full ROM and no clubbing, cyanosis or edema Skin no rashes or lesions noted Neuro oriented x3, CN's II-XII intact bilaterally, moves all extremities and no focal motor deficits Sensorium / Orientation: awake and alert Speech: speech normal Motor Exam: strength 5/5 throughout Psych affect normal Weight / BMI Weight Weight: 216 lb 11.43 oz Body Mass Index (BMI) 32.9 ABG / Lab / Microbiology Data Result Diagrams: 03/23/22 04:39 03/23/22 04:39 Laboratory: Laboratory Results - last 24 hr 03/23/22 04:39: WBC 7.5, RBC 3.84 L, Hgb 11.7 L, Hct 35.1 L, MCV 91.4, MCH 30.5, MCHC 33.3 D, RDW Std Deviation 43.2, RDW Coeff of Du 12.9, Plt Count 262, MPV 9.4, Immature Gran % (Auto) 0.700, Neut % (Auto) 63.6, Lymph % (Auto) 16.6 L, Will % (Auto) 12.9 H, Eos % (Auto) 5.8 H, Baso % (Auto) 0.4, Absolute Neuts (auto) 4.7, Absolute Lymphs (auto) 1.24, Nucleated RBC % 0 03/23/22 04:39: Sodium 137, Potassium 3.8, Chloride 104, Carbon Dioxide 28.0, Anion Gap 5, BUN 14, Creatinine 0.80, Estim Creat Clear Calc 67.69, Est GFR (MDRD) Af Amer 118, Est GFR (MDRD) Non-Af 98, BUN/Creatinine Ratio 17.4, Glucose 109 H, Calcium 8.8 Microbiology: Microbiology 03/22/22 09:50 Sputum, Expectorated/Coughed Gram Stain - Final 03/22/22 09:50 Sputum, Expectorated/Coughed Respiratory Culture - Preliminary Appears to be normal respiratory priyanka. Further studies to follow. 03/22/22 09:50 Urine, Clean Catch Legionella Antigen - Final 03/22/22 09:50 Urine, Clean Catch Streptococcus pneumoniae Antigen (M - Final 03/21/22 20:42 Nasal Secretion SARS-CoV-2 Antigen (Rapid) - Final D/C Instructions Discharge Diet: Low fat / Low cholesterol Discharge Activity: Return to Normal Activity Weight Bearing Status: Weight bearing as tolerated Call your doctor if you observe: Fever of 101 or Higher, Shortness of breath, Dizziness, Swelling in the ankles and Chest pain Meaningful Use Info Meaningful Use Diagnoses (Choose all that apply): None applicable Discharge Plan Admission Admit Date/Time: 03/21/22 22:15 Primary Reason for Your Visit: community acquired pneumonia Attending Provider: Nae Mcdonough Primary Care Provider: Tristin Agarwal Chi Consulting Providers: Barrett Small ; Oliver Morales ; Emerson Ruff ; Nelly Garcia APPLICATION DEVELOPMENT SPECIALIST Instructions Patient Instructions: ED Pneumonia (Adult) Additional Instructions / Restrictions: use oxygen for shortness of breath as needed. Discharge Orders/Prescriptions Prescriptions: New levofloxacin 500 mg tablet 500 mg PO DAILY Qty: 5 0RF Combivent Respimat 20-100 mcg/actuation mist 1 puff inhalation Q4H Qty: 4 1RF Continued nebivolol [Bystolic] 10 mg tablet 20 mg PO QDAY potassium chloride 20 mEq tablet extended release 20 meq PO QDAY trazodone 100 mg tablet 100 mg PO QHS mdqiquyi-pvm-PU-lycopen-lutein [Centrum Silver] 0.4-300-250 mg-mcg-mcg tablet 1 tab PO QAM atorvastatin [Lipitor] 20 mg tablet 20 mg PO .COMPLEX Label Comments: 20 mg PO 3 days a week Rx Instructions: 20 mg PO 3 days a week valsartan-hydrochlorothiazide 320-25 mg tablet 1 tab PO DAILY Label Comments: TAKE 1 TABLET BY MOUTHCONCE DAILY minoxidil 2.5 mg tablet 2 tab PO QHS Label Comments: TAKE TWO TABLETS BY MOUTHNAT BEDTIME amlodipine 10 mg tablet 1 tab PO DAILY Label Comments: TAKE 1 TABLET BY MOUTHCONCE DAILY Referrals / Follow Up: Tristin Agarwal Chi, MD [Primary Care Provider] - Within 2 Weeks Oliver Morales MD [STAFF PHYSICIAN] - Within 2 Weeks Disposition Disposition (needs filled in before D/C Order can be placed): Home, Self Care Charges/Coding Visit Charges Inpatient E&M: 15190 Disch Hosp
[2022-03-23 15:55] VITALS: BP 133/59; PULSE 70; RESP 18; TEMP 36.7; O2SAT 94
== END 2022-03-23 18:29 | disposition home or self-care (01) | DRG 195 ==
LOC: ED 22:16 → PCU 23:09
PROVIDERS: Admitting Provider Hospitalist; Emergency Provider Emergency Medicine; PCP Family Medicine Geriatric Medicine; Visit Provider Student in an Organized Health Care Education/Training Program
DX: J18.9 Pneumonia, unspecified organism (principal); E66.9 Obesity, unspecified; I12.9 Hypertensive chronic kidney disease with stage 1 through stage 4 chronic kidney disease, or unspecified chronic kidney disease; E87.6 Hypokalemia; E78.5 Hyperlipidemia, unspecified; M19.90 Unspecified osteoarthritis, unspecified site; N18.2 Chronic kidney disease, stage 2 (mild); Z87.891 Personal history of nicotine dependence; R09.02 Hypoxemia; Z20.822 Contact with and (suspected) exposure to COVID-19; Z68.33 Body mass index [BMI] 33.0-33.9, adult; Z79.899 Other long term (current) drug therapy
CPT/HCPCS: 36415; 71045; 80048; 84484; 85025; 87040; 87070; 87205; 87449; 87641; 87811; 93005; 94640; 99251; 99285; J7030; A4216; G0463

== ENCOUNTER → 2022-04-13 | Outpatient (CLI) | payer MEDICARE, OTHER, SELFPAY ==
[2022-04-13 12:44] LABS: Anion Gap 7 (5-15); BUN 14 mg/dL (7-18); BUN/Creat Ratio 14.9 RATIO (10-20); Calcium,Total 9.1 mg/dL (8.5-10.1); Chloride 103 mmol/L (98-107); Creatinine, Serum 0.94 mg/dL (0.70-1.30); EST Glomerular Filtration Rate 82 mL/min (>60); Est Glom Filt Rate - Afr Amer 99 mL/min (>60); Glucose 137 mg/dL (74-106); Potassium 3.6 mmol/L (3.5-5.1); Sodium Level 138 mmol/L (136-145)
== END | disposition home or self-care (01) ==
LOC: LAB 10:58
PROVIDERS: PCP Family Medicine Geriatric Medicine; Visit Provider Family Medicine Geriatric Medicine
DX: I10 Essential (primary) hypertension (principal)
CPT/HCPCS: 36415; 80048

== ENCOUNTER → 2022-07-12 | Outpatient (CLI) | payer MEDICARE, OTHER, SELFPAY ==
[2022-07-12 14:07] LABS: Absolute Lymphocyte Count 1.69 X10^3/uL (0.83-4.51); Absolute Neutrophil Count 3.7 X10^3/uL (2.0-7.7); Basophil# 0.04 X10^3/uL; Basophil% 0.6 % (0-1); Eosinophil# 0.32 X10^3/uL; Eosinophils% 4.9 % (0-5); Hematocrit 40.3 % (40-54); Hemoglobin 13.9 g/dL (13.0-16.5); Lymphocyte # 1.69 X10^3/ul (0.83-4.51); Lymphocyte % 25.9 % (19-41); Mean Corp Hgb Conc 34.5 g/dL (32-36); Mean Platelet Vol. 9.5 fl (6.2-12.0); Monocyte# 0.72 X10^3/uL; NRBC Flagged by Analyzer 0 % (0-5); Neutrophil # 3.74 X10^3/uL (2.7-7.7); Neutrophil % 57.3 % (47-70); Platelet Count 229 K/mm3 (150-450); RBC Distribution Width CV 14.3 % (11.6-14.6); RBC Distribution Width SD 46.6 fl (35.1-43.9); Red Blood Count 4.48 M/mm3 (4.6-6.2); White Blood Count 6.5 K/mm3 (4.4-11.0)
[2022-07-12 14:30] LABS: Vitamin D,25 Hydroxy 33.6 ng/mL
[2022-07-12 14:43] LABS: AST(SGOT) 23 U/L (15-37); Alanine Aminotransfer ALT/SGPT 33 U/L (16-61); Albumin, Serum 3.8 g/dL (3.2-5.0); Alkaline Phosphatase 64 U/L (45-117); Anion Gap 7 (5-15); BUN 14 mg/dL (7-18); BUN/Creat Ratio 15.1 RATIO (10-20); Chloride 105 mmol/L (98-107); Creatinine, Serum 0.93 mg/dL (0.70-1.30); EST Glomerular Filtration Rate 83 mL/min (>60); Est Glom Filt Rate - Afr Amer 100 mL/min (>60); Globulin 3.8 g/dL (2.2-4.2); Glucose 91 mg/dL (74-106); Potassium 3.8 mmol/L (3.5-5.1); Protein, Total 7.6 g/dL (6.4-8.2); Sodium Level 138 mmol/L (136-145); Thyroid Stim Hormone (TSH) 0.85 uIU/mL (0.358-3.74)
== END | disposition home or self-care (01) ==
LOC: POLAB3 09:12
PROVIDERS: PCP Family Medicine Geriatric Medicine; Visit Provider Family Medicine Geriatric Medicine
DX: E55.9 Vitamin D deficiency, unspecified (principal); I10 Essential (primary) hypertension; F52.8 Other sexual dysfunction not due to a substance or known physiological condition
CPT/HCPCS: 36415; 80053; 82306; 84403; 84443; 85025

== ENCOUNTER → 2022-09-20 | Outpatient (CLI) | payer MEDICARE, OTHER, SELFPAY ==
--- NOTE | 2022-09-20 07:48 | ART_ITS ---
Reason For Study: PVD Procedure A bilateral lower extremity continuous wave Doppler with analog waveform analysis and ankle brachial indexes. Left Segmental Pressures Left brachial= 154mmHg. Left posterior tibial artery = 166mmHg. Left dorsalis pedis artery = 151mmHg. The left posterior tibial artery waveforms are triphasic. The left dorsalis pedis waveforms are triphasic. Right Segmental Pressures Right brachial= 153mmHg. Right posterior tibial artery = 159mmHg. Right dorsalis pedis artery = 149mmHg. The right posterior tibial artery waveforms are triphasic. The right dorsalis pedis waveforms are triphasic. Indices The right ankle brachial index by the posterior tibial artery is 1.03. The right ankle brachial index by the dorsalis pedis is 0.97. The left ankle brachial index by the posterior tibial artery is 1.08. The left ankle brachial index by the dorsalis pedis is 0.98. VL/Ankle Brachial Index Interpretation Summary Bilateral normal at rest with triphasic flow and FUNMILAYO 1.03 and 1.08. Ordering Physician: Isra Kumar Referring Physician: Tristin Agarwal Chi Performed By: Rodríguez Fields RVT
--- NOTE | 2022-09-20 07:49 | AAVD_ITS ---
Reason For Study: PVD Aorta Measurements Aorta Doppler Measurements Proximal aorta measures1.81 x 1.86cm. in cross- Peak systolic flow velocities within the proximal sectional axis. aorta measure 68.7 cm/sec. Proximal aorta measures1.83cm. in longitudinal Peak systolic flow velocities within the mid aorta axis. measure 90.4 cm/sec. 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 75.9cm/s. Proximal AO endograft limb anastomosis measures AO Proximal Endograft limb 2 has a PSV of 1.19cm at limb 1 and 1.18cm at limb 2 in long 104.9cm/s axis. AO Distal Endograft limb 1 has a PSV of 83.2cm/s. Mid AO endograft limbs measure 1.07cm x 0.97cm at AO Distal Endograft limb 2 has a PSV of 65.1cm/s limb 1 and 1.11cm x 1.06cm at limb 2 in transverseNo leaks were seen in graft in color or pulsed axis. wave doppler. Distal AO endograft limbs measure 1.20cm x 1.24cm at limb 1 and 1.06cm x 1.04cmat limb 2 in transverse axis Distal AO endograft limb measures 1.24cm at limb 1 and 1.17cm at limb 2 in long axis. Left Iliac Artery Left iliac artery measures 1.15 x 1.17 cm. in the cross-sectional axis. Left iliac artery measures 1.13 cm. in the longitudinal axis. Peak systolic velocity in the left iliac artery measures 101.3 cm/sec. Right Iliac Artery Right iliac artery measures 1.17 x 1.13 cm. in the cross-sectional axis. Right iliac artery measures 1.15 cm. in the longitudinal axis. Peak systolic velocity in the right iliac artery measures 75.9 cm/sec. Procedure Aorta IVC Iliac vasculature or bypass grafts 34901. The exam was diagnostic. VL/Abd Aortic/IVC Duplex scan Interpretation Summary Patent EVAR with no endoleak and residual sac 5.5cm. Ordering Physician: Isra Kumar Referring Physician: Tristin Agarwal Chi Performed By: Rodríguez Fields RVT
== END | disposition home or self-care (01) ==
LOC: CVS 07:46
PROVIDERS: PCP Family Medicine Geriatric Medicine; Visit Provider Surgery Vascular Surgery
DX: I73.9 Peripheral vascular disease, unspecified (principal); I71.43 Infrarenal abdominal aortic aneurysm, without rupture; Z95.828 Presence of other vascular implants and grafts
CPT/HCPCS: 93922; 93978

== ENCOUNTER → 2023-01-03 | Outpatient (CLI) | payer MEDICARE, OTHER, SELFPAY ==
[2023-01-03 11:26] LABS: Absolute Neutrophil Count 4.1 X10^3/uL (2.0-7.7); Basophil# 0.04 X10^3/uL; Basophil% 0.6 % (0-1); Eosinophil# 0.23 X10^3/uL; Eosinophils% 3.5 % (0-5); Hematocrit 38.7 % (40-54); Hemoglobin 13.8 g/dL (13.0-16.5); Mean Corp Hgb Conc 35.7 g/dL (32-36); Mean Corpuscular Hgb 31.1 pg (27.0-32.0); Mean Corpuscular Volume 87.2 fL (80-94); Mean Platelet Vol. 8.9 fl (6.2-12.0); Monocyte# 0.59 X10^3/uL; Monocyte% 9.1 % (0-10); NRBC Flagged by Analyzer 0 % (0-5); Neutrophil # 4.14 X10^3/uL (2.7-7.7); Neutrophil % 63.6 % (47-70); Platelet Count 183 K/mm3 (150-450); RBC Distribution Width SD 44.1 fl (35.1-43.9); Red Blood Count 4.44 M/mm3 (4.6-6.2); White Blood Count 6.5 K/mm3 (4.4-11.0)
[2023-01-03 11:54] LABS: Vitamin D,25 Hydroxy 39.3 ng/mL
[2023-01-03 12:01] LABS: ALB/GLOB Ratio 1.1 RATIO (0.9-2.4); AST(SGOT) 20 U/L (15-37); Alanine Aminotransfer ALT/SGPT 31 U/L (16-61); Albumin, Serum 3.7 g/dL (3.2-5.0); Alkaline Phosphatase 60 U/L (45-117); Anion Gap 8 (5-15); BUN 12 mg/dL (7-18); Calcium,Total 9.3 mg/dL (8.5-10.1); Chloride 104 mmol/L (98-107); Creatinine, Serum 0.92 mg/dL (0.70-1.30); EST Glomerular Filtration Rate 83 mL/min (>60); Est Glom Filt Rate - Afr Amer 100 mL/min (>60); Globulin 3.5 g/dL (2.2-4.2); Glucose 120 mg/dL (74-106); Potassium 3.8 mmol/L (3.5-5.1); Protein, Total 7.2 g/dL (6.4-8.2); Sodium Level 138 mmol/L (136-145); Thyroid Stim Hormone (TSH) 1.26 uIU/mL (0.358-3.74)
== END | disposition home or self-care (01) ==
LOC: LAB 10:41
PROVIDERS: PCP Family Medicine Geriatric Medicine; Referring Provider Family Medicine Geriatric Medicine; Visit Provider Family Medicine Geriatric Medicine
DX: I10 Essential (primary) hypertension (principal); E55.9 Vitamin D deficiency, unspecified
CPT/HCPCS: 36415; 80053; 82306; 84443; 85025

== ENCOUNTER → 2023-02-26 | Outpatient (CLI) | payer MEDICARE, OTHER, SELFPAY ==
--- NOTE | 2023-02-26 07:54 | CT_ITS ---
CT LEFT LOWER EXTREMITY WITH 3-D IMAGING CLINICAL INDICATION: VARUS DEFORMITY.BHUMI protocol. TECHNIQUE: Axial CT images of the LEFT lower extremity was performed without IV contrast material. Coronal and sagittal reformats were provided. RADIATION DOSAGE (If Supplied By Facility): CTDIvol = ( 19.09 ) mGy, DLP = ( 3908.54 ) mGycm COMPARISON: No relevant prior comparison study available FINDINGS: Bones: Imaging of the left hip joint was obtained. This mild degree of joint space narrowing. Imaging of the knee joint was obtained. Marked degree of joint space narrowing involving the lateral compartment of the knee joint. There is evidence of degenerative spur formation involving the medial and lateral compartments of the knee joint. Marked degree of joint space narrowing and osteoarthritis of the patellofemoral joint with large anterior spurs in the anterior aspect of the lateral compartment of knee joint. Soft Tissues: Prostatic enlargement. Prostatic calcification. The superficial soft tissues are unremarkable without evidence of edema, hematoma, or foreign body. CT/Extremity Lower without Contra IMPRESSION: Marked degree of but joint space narrowing involving the lateral compartment of knee joint with large degenerative spur formation. Electronically Signed: Rogelio Madison MD at 8:47 EDT ,
== END | disposition home or self-care (01) ==
LOC: CT 07:53
PROVIDERS: PCP Family Medicine Geriatric Medicine; Referring Provider Specialist; Visit Provider Specialist
DX: M21.162 Varus deformity, not elsewhere classified, left knee (principal)
CPT/HCPCS: 73700

== ENCOUNTER 2023-03-21 07:13 | Observation (INO) | payer MEDICARE, OTHER, SELFPAY ==
--- NOTE | 2023-02-26 07:56 | EKG12_ITS ---
Test Reason : PRE OP Blood Pressure : / mmHG Vent. Rate : 062 BPM Atrial Rate : 062 BPM P-R Int : 216 ms QRS Dur : 092 ms QT Int : 394 ms P-R-T Axes : 017 -17 -15 degrees QTc Int : 399 ms Sinus rhythm with 1st degree A-V block Nonspecific ST abnormality Abnormal ECG Confirmed by ABHINAV HSIEH, WINNIE ([id number]), health editor LUCA MONTEIRO ([id number]) on 02/26/2023 2:28:45 PM Referred By: Berlin Black Confirmed By:WINNIE LA MD
[2023-03-01 12:48] LABS: International Normalized Ratio 1.2; Prothrombin Time (Protime)PT. 15.2 SECONDS (11.7-14.9)
[2023-03-01 12:49] LABS: Partial Thromboplast Time 36.7 Seconds (24.1-36.2)
[2023-03-01 13:06] LABS: Magnesium 2.2 mg/dL (1.6-2.6)
--- NOTE | 2023-03-13 08:51 | HP.PCM_ITS ---
History and Physical Patient Name: Nikki MontesB: 1940 From:? JIM PUENTE PA-C? DATE OF SURGERY:? 03/21/2023 SCHEDULED PROCEDURE: ROBOTIC ASSISTED LEFT TOTAL KNEE ARTHROPLASTY HISTORY OF PRESENT ILLNESS: Patient is an 83-year-old male here today with ongoing left knee pain for several years.? It is an aching and sharp pain is exacerbated by stairs and sitting for extended periods of time as well as walking distances greater than a fourth of a mile.? He feels that his functional limitations are significantly affected because of his knee pain including dressing himself, shopping and leisure activities such as golfing and walking.? He has tripped and stumbled due to the ongoing knee pain and instability.? He feels on safe walking outside in the grass or on uneven surfaces again due to the pain and instability.? He has attempted rest, ice, heat, elevation, cortisone injection, home exercises and oral medications without success.? He has had cortisone injection in the past.? He is now using a cane for assisted walking for about 6 months due to the ongoing knee pain.? He has failed all conservative treatment options would like to proceed with a robotic-assisted left total knee arthroplasty. REVIEW OF SYSTEMS: Review Of Systems: Constitutional: Denies change in appetite, fever and weight change. Cardiovasular: Denies chest pain, heart murmur and irregular heartbeat. Respiratory: Denies cough, pneumonia, shortness of breath, tuberculosis and wheezing. Gastrointestinal: Denies constipation, diarrhea, heartburn, nausea, rectal itching, bloody stools and vomiting. Genitourinary: . (F Genital Sx) . (Urinary Sx) Musculoskeletal: Reports gait disturbance, leg swelling and pain, but denies trouble walking and weakness. Skin: Reports tattoo, but denies Raynaud's and history of shingles. Neurological: Denies ambulatory dysfunction, dizziness, numbness/tingling and tremor. Psychiatric: Denies anxiety, insomnia and stress. Hematologic/Lymphatic: Denies anemia, bleeding/bruising tendency and past transfusion. Reviewed, no changes. PAST MEDICAL HISTORY: Advance Care Plan: No Advance Directives Effective Date: 12/14/2022 Past Medical History: Medical Problems: Acid Reflux, Arthritis, Hard of Hearing, High Blood Pressure, Vascular Disease/ Peripheral, Covid-19 Vaccine Accidents: Fracture - SKULL Surgical Hx: Cataracts - (2007) [facility] Heart Stent - (2014) [facility] Renal Stent - (2007) Anesthesia Complications: None Assistive Devices: Glasses, Hearing Aid Reviewed and updated. SOCIAL HISTORY: Social History: Marital: .Occupation: Retired.Work Status: Retired.Hand Dominance: Right- handed. Personal Habits:? Cigarette Use: Former Cigarette Smoker.Smokeless Tobacco: Never Used Smokeless Tobacco.E-Cigarette Use: Never used.Alcohol: Occasionally.Drug Use: Denies Use.Enjoy Exercising: Exercises 1-3 X/Week. Reviewed, no changes. VITALS: Ht: 66 Wt: 209lb Wt k.802 BMI: 33.7 BP: 130/78 Pulse: 89 Resp: 12 T: 97.1 T: 36.2C Pain Level: 4 O2SatR: 92 ALLERGIES: Penicillin? MEDICATIONS: Meloxicam 7.5 mg 1 by mouth twice a day, Amlodipine Besylate 10 mg 1 PO qdaily, Multi Vitamin? 1 PO qdaily, Bystolic 20 mg, Potassium Chloride 20 Meq 1x ever other day, Trazodone HCL 100 mg 3 times per week, Lipitor 20 mg 3 times a week, Dorzolamide HCL/Timolol Maleate 22.3-6.8 mg/ml, Latanoprost 0.005 % 1 drop each eye nightly PRE-OP EXAM:? General appearance:NORMAL? ? ? Other: Eyes: Conjunctivae and lids: NORMAL? Pupils: ERR Ears, Nose, Mouth, and Throat: NORMAL? Other: Inspection of lips, teeth and gums: NORMAL? ?Other: Neck: Examination of neck: no masses noted. Respiratory: Assessment of respiratory effort: NORMAL? ?Other: ?Auscultation of lungs: clear to auscultation no wheezes, rhonchi or rales. Cardiovascular:? Auscultation of heart: regular rate and rhythm, no murmurs, gallops or rubs. Exam of carotid arteries: NORMAL? ?Other: Gastrointestinal:? Exam of abdomen: soft, nontender, nondistended bowel sounds present. Lymphatic:? Palpation of nodes in neck:? NORMAL? ? ?Other: ? Palpation of nodes in Axillae: NORMAL? ?Other: Neurological: see below Psychiatric:? Orientation to time, place and person: NORMAL? ? ?Other: ?Mood and affect: NORMAL? ?Other: PHYSICAL EXAMINATION: Exam: Const: Appears healthy.? No signs of apparent distress present.? Alert and oriented x 3.? Musculo: Valgus thrust gait on the right?? Knees: ?Insp/Palp: Right knee: correctable valgus alignment with 2 mm later collateral lax, stable with medial lateral testing, full extension, moderate effusion, lateral joint line tenderness to palpation, crepitus with range of motion, 107 flexion,? left knee: mild effusion, moderate medial joint line tenderness, correctable varus alignment, 2 mm medial collateral pseudo laxity, firm endpoint with anterior posterior drawer testing, 108 flexion?? Skin: Skin is warm, dry and intact.? Neuro: Sensation to light touch is intact in the lower extremities deep peroneal, lower extremities dorsal cutaneous, lower extremities saphenous, lower extremities sural and lower extremities tibial nerve distribution. IMAGING STUDIES: 4 views left knee revealed varus alignment and medial joint space narrowing, subchondral sclerosis and osteophyte formation consistent with severe stage IV [id number] erosive osteoarthritis. IMPRESSION: 1. grade IV osteoarthritis left knee? 2. Acid Reflux 3. Arthritis 4. Hard of Hearing 5. High Blood Pressure 6. Hypercholesterolemia 7. Vascular Disease/ Peripheral PLAN: Patient denies history of DVT or PE, open wounds or sores over the body, no current antibiotic use. No current dental issues Aspirin 81 twice a day ?4 weeks for DVT prophylaxis postoperatively At this time patient has consented to proceed with a ROBOTIC ASSISTED LEFT TOTAL KNEE ARTHROPLASTY.? Dr. BAI? did discuss and review with the patient all treatment options including surgical versus nonsurgical options.? Patient does wish to proceed with the above-stated procedure.? Potential risk, benefits, and complications of the procedure were discussed in detail including but not limited to , infection, nerve and blood vessel damage, persistent pain, numbness, tingling, paresthesias, blood clot, pulmonary embolism, and requirement for possible further surgery.? The patient expressed full understanding and has no further questions for the doctor.? Patient does agree to proceed with the above-stated procedure and has signed the surgery consent form. I have reviewed the [place] Automated Rx Reporting System (OARRS) report for this patient for refill pattern and other prescriber involvement as part of the appropriate surveillance for the provision of acute and chronic controlled medications.? The report was requested and reviewed on the date of this entry and was considered in the prescribing process. Discussed with the patient the risks associated with the COVID-19 virus including the risk of exposure while at the hospital.? The patient was reassured local hospitals have low infection rates and taken all necessary precautions to limit patient exposure to COVID-19.? Limiting the patient's time in the hospital may decrease their exposure to COVID-19.? The patient was notified that we will need to comply with any screening or testing the hospital wishes to perform and that surgery may be delayed for any positive test results.
[2023-03-21] VITALS (16 sets, daily range): BP systolic 126–165; BP diastolic 34–96; PULSE 67–83; RESP 16–20; TEMP 36.6–37.1; O2SAT 88–98; BMI 33.4
[2023-03-21] MEDS: Magnesium 1 GM over 15 mins IV (06:40)
[2023-03-21] MEDS: Lactated Ringers 1,000 ML 999 ML IV ×2 (06:40→10:50)
[2023-03-21] MEDS: Acetaminophen 500 MG Tablet 1000 MG PO ×3 (07:02→22:17)
[2023-03-21] MEDS: Celecoxib 200 MG Capsule 400 MG PO (07:02)
[2023-03-21] MEDS: Gabapentin 600 MG Tablet PO (07:02)
--- NOTE | 2023-03-21 07:12 | PCM.OPRPT ---
Report of Operation Date of Procedure: 03/21/23 Pre-Operative Diagnosis: Left knee primary osteoarthritis Post-Operative Diagnosis: Left knee primary osteoarthritis Surgery/Procedure Performed:: Left knee minimally invasive robotic assisted total knee replacement Description of Surgical Findings:: Stable knee with good patella tracking Surgeon: Berlin Black windows software developer: Tuan Varela Type of Anesthesia: General Anesthesiologist: Tuan Varela Special Medications: 2 g Ancef, 1 g TXA at incision, 1 g TXA closure, 10 mg Decadron, joint cocktail (5 mg Duramorph, 30 mL of 0.5% Ropivicaine, 1000 units of epinephrine, 30 mg of Toradol) Specimen's removed: Bony cuts Estimated Blood Loss (mL): 75 Fluids Replaced: 1000 ml crystalloid Description of Procedure: Implants used: 1. Germain size 4 triathlon cruciate retaining distal femoral press-fit component 2. Corinna size 5 press-fit tritanium tibial baseplate 3. Germain X3 12 mm CS polyethylene 4. Germain X3 35 mm asymmetric patella Brief history operative indications: 83-year-old M with history of left knee osteoarthritis with radiographic findings with loss of joint space, osteophyte formation and subchondral sclerosis. Failed conservative measures as mentioned in the H&P. Discussion of total knee arthroplasty as well as risk and benefits were discussed the patient including but not limited to blood loss, DVTs, PEs, neurovascular damage, general risk of anesthesia including loss of life, and stiffness or instability were discussed with patient. Patient demonstrated understanding and was able to sign informed consent. Procedure: On the date of procedure patient's left lower extremity was marked in the preoperative area. The patient was then taken back to the operating room where the patient was placed on the table in the supine position. All bony prominences were identified a well-padded. Anesthesia assumed control of the C-spine and airway and remained controlled throughout the remainder of the procedure. A tourniquet was placed on the left upper thigh and the leg was prepped in a sterile fashion. The surgeon then scrubbed at this time .Upon reentering the room left lower extremity was draped in a standard orthopedic fashion. A timeout was then called and everyone agreed upon the side, the site, the procedure to be performed, patient's identity and antibiotics given. Esmarch bandage was used to exsanguinate the extremity and the tourniquet was placed up to 250 mmHg with the knee in flexion. A midline skin incision was made and sharp dissection was taken down through skin subcutaneous tissue and fat. The standard medial parapatellar incision was made and the patella was subluxed laterally. An Appropriate deep MCL release was done and the fat pad was resected. Our attention was then directed to the patella. The patella was everted and a flat resection was made. The knee was then flexed up in 2 femoral pins were placed inside the incision and 2 tibial pins were placed outside the incision in the medial tibia bicortically. Once this was completed the 2 checkpoints in the femur and tibia were placed. Knee was then flexed up and the bony landmarks were registered. Once this was completed knee was taken through range of motion and manually stressed allowing us to a plan for an appropriate tibial cut. The robotic arm was brought into the field sterilely and checkpoint and saw were registered. Based on the patient's deformity the tibial cut was made in 3 degrees of varus. At this time the tensioner was then placed in the joint and ligament tension was checked at 90 degrees and full extension. Based on the patient's ligamentous tension appropriate adjustments were made to the operative plan and ligament releases were done. Once we were happy with our operative plan with balanced flexion and extension gaps our attention was directed to the femur. The robot was brought into the field sterilely and registered. Posterior condylar cuts, anterior chamfer cuts and anterior cuts were appropriately made for a size 4 femur. When these were completed the saws were switched out in the distal femoral and posterior chamfer cuts were made. Protecting the soft tissue throughout this time. A size 5 tibial base plate was selected. the knee was flexed to 90 degrees and the soft tissues and posterior osteophytes were removed from the joint. 40 cc of the periarticular injection was injected into the posterior medial corner of the joint. The appropriate trials were then placed on the femur and tibia. A trial polyethylene was trialed to ensure proper balancing and stability of the knee. The appropriate tibial internal rotation was then marked with a bovie. Our attention was then directed to the patella. The lug holes were drilled and the patella trial was placed. Patellar tracking was checked and deemed appropriate. Once we were happy lug holes were drilled for the femur and trial components were removed. the tibia was subluxed and pinned into place and the keel was punched and drilled appropriately. Final components were verified and opened, and cement was mixed in a vacuum. Germain Simplex cement was used. The wound was copiously irrigated with normal saline. When the cement was ready the components were impacted into place starting with the tibia, femur and finally cementing the patella. The trial poly component was placed and the knee was placed in full extension. All excess cement was removed in the process. Once the cement had cured the tracking, alignment and balance were verified and a size [] polyethylene component was placed. Once the final components were placed a 3-minute dilute Betadine lavage was performed followed by an Irrisept lavage was performed and the wound was copiously irrigated with normal saline solution and the periarticular injection was given. The wound was closed in a layer borrero fashion using #1 vicryl interrupted sutures for the arthrotomy, 2-0 interrupted Vicryl suture for the subcuticular layer and cecile for final skin closure. A sterile compressive dressing was then placed. The patient was then awakened from anesthesia, transferred to the [facility] and transferred to the PACU for recovery. Post op plan DVT ppx: ASA 81mg BID, thigh high compression stockings Follow up: in office in 2 weeks for wound check PT: to start POD #0 at hospital, outpatient PT should be arranged. My physician print shop assistant was a vital part of this case. He was important in appropriate retraction during the case, and protection of soft tissues during bony cuts. His intimate knowledge of the case and my steps aided in safe and expedient completion of the procedure as well as appropriate position of the leg during the case. He was also vital in assisting with closure under my direct supervision. Due to the complexity of this case robotic arm was used to assist in the surgery to improve accuracy and clinical outcomes. Complications No intraoperative complications Admit VTE Documentation VTE Present on Admission: No VTE Mechan Device Prophylaxis: SCD's and Thigh High KIEL Hose VTE Pharm Prophylaxis ordered?: Yes
[2023-03-21] MEDS: Cefazolin 2 GM in 0.9% Normal Saline 100 ML IV (08:45)
--- NOTE | 2023-03-21 08:45 | KNEE_PTH ---
PATIENT: JARROD HERRING LOC: MS3 U#:[id number] AGE/SX: 83/M ROOM: HI317 RE03/21/[address]: Dr. Berlin Black MD : 1940 BED: 1 DIS: 03/22/2023 SPEC #: [id number] RECD: 03/21/23 14:04 STATUS: PUJA HUFF #: [id number] ASHLEY: 03/21/23 08:[address]: Berlin Black DEPT: SURGICAL PATHOLOGY RECD BY: Mayi Camacho ENTERED: 03/22/23 10:01 SP TYPE: TOTAL KNEE OTHR DR: DO Dr. Tristin Brannon Chi, MD Tissues: Knee, NOS Procedures: Decalcification bone/plaque Surgery Specimen Level IV HEADER OPERATION: ERAS, total knee replacement robotic arm assist PRE-OP DIAGNOSIS: Grade IV osteoarthritis left knee TISSUE SUBMITTED: Left knee bone and tissue MICROSCOPIC DIAGNOSIS Bone and tissue of left knee, total knee resection: Severe degenerative joint disease. AM:anthony 03/26/2023 MICROSCOPIC DESCRIPTION Slides are reviewed. GROSS DESCRIPTION Received is one container designated bone and soft tissue left knee. The specimen consists of multiple fragments of loza-yellow bone measuring in aggregate 9.0 x 10.0 x 3.0 cm. Also in the specimen container is a piece of fibrocartilaginous tissue measuring 7.0 x 1.5 x 0.9 cm. A number of bony fragments contain articular surfaces consistent with tibial plateau and femoral condyle and displaying prominent osteophyte formation, eburnation and bone erosion. Bosom Presser sections are submitted in two cassettes as follows: 1 - fibrocartilaginous tissue, 2 - bone after decalcification. / SJ:anthony 03/22/2023 TC:5 [facility]: [id number], [id number]
[2023-03-21] MEDS: TXA 1000mg in NS100 100ml (IVPB at Incision) 660 MG IV (08:52)
[2023-03-21] MEDS: dexAMETHasone 10 MG/ML Vial IV (09:06)
[2023-03-21] MEDS: TXA 1000mg in NS100 100ml (IVPB at Closure) 660 MG IV (09:54)
[2023-03-21] MEDS: JPS (Morphine 10mg/ml) OPERA.SITE (10:07)
--- NOTE | 2023-03-21 11:15 | RAD_ITS ---
INDICATION: Post op -- AP and Lateral x-ray of operative knee in PACU EXAMINATION/TECHNIQUE: X-RAY - LEFT XR Knee 1 or 2 Views 2 VIEWS COMPARISON: None FINDINGS: SOFT TISSUES: Patient has undergone left total knee arthroplasty. There is mild swelling as well as gas lucencies in the anterior soft tissues. A number of radiopaque skin cecile are seen along the anterior midline. Mild to moderate atherosclerotic calcific plaquing of the distal femoral and proximal popliteal arteries. BONES/JOINTS: Metal prostheses now seen overlying the femoral condyles, tibial plateau, posterior aspect of the patella. Normal alignment. Preservation of the joint space. No sclerotic or destructive changes observed. RAD/Knee 1 or 2 Views IMPRESSION: Status post left total knee arthroplasty. Electronically Signed: Armond Gill MD at 11:29 EDT Reading Location ID and State: [id number] / Unknown , Service support ,
[2023-03-21] MEDS: Lactated Ringers 1,000 ML 125 ML IV (11:45)
[2023-03-21] MEDS: Ensure Surgery 237 ML LIQUID PO (13:18)
[2023-03-21] MEDS: 0.9% Saline Lock 10 ML Syringe IV ×2 (17:37→22:20)
[2023-03-21] MEDS: Cefazolin 1 GM/50 ML BAG IV (17:37)
[2023-03-21] MEDS: Aspirin 81 MG TAB.CHEW PO (17:37)
--- NOTE | 2023-03-21 17:47 | PN.HOSP_ITS ---
Reason for Visit Reason for Visit: Diagnoses Encounter for other preprocedural examination (03/21/23) Subjective Subjective Patient was seen and examined today, he underwent a robotic assisted left knee replacement secondary to left knee osteoarthritis, patient's chronic medical problems include essential hypertension, past history of aortic aneurysm repair hyperlipidemia,, and past history of renal artery stent placement. At the time my examination, patient appears comfortable, he does not complain of any shortness of breath or chest discomfort. Objective Data Objective Data Vital Signs: Vital Signs Temp Pulse Resp BP Pulse Ox O2 Del Method O2 Flow Rate 97.8 F 73 18 143/77 H 96 Nasal Cannula 4 03/21/23 14:39 03/21/23 14:39 03/21/23 14:39 03/21/23 14:39 03/21/23 14:39 03/21/23 14:39 03/21/23 13:54 FiO2 4 03/21/23 14:39 Oxygen Flow Rate (L/min) 4 Oxygen Delivery Method Nasal Cannula Weight: 94 kg Body Mass Index (BMI) 33.4 Intake & Output: Intake and Output for Last 24 Hours 03/19/23 03/20/23 03/21/23 23:59 23:59 23:59 Intake Total 2432 / 2432 Balance 2432 / 2432 Lab / Micro Data Micro: Microbiology 03/01/23 11:43 Swab (Method) Nasal Screen MRSA/MSSA - Final Radiography Diagnostic Testing: Radiology Impression Knee X-Ray 03/21/23 11:15 IMPRESSION: Status post left total knee arthroplasty. Electronically Signed: Armond Gill MD at 11:29 EDT Reading Location ID and State: [id number] / Unknown , Service support , Physical Exam Const alert, oriented x3, no apparent distress, average body habitus and healthy appearing Constitutional Narrative: Patient is extremely hard of hearing General Appearance: cooperative, well kempt and well developed Orientation / Consciousness: awake, oriented to person, oriented to place and oriented to time HEENT normocephalic, head/scalp atraumatic and moist oral mucous membranes Eyes PERRL, EOMs intact bilaterally and conjunctivae normal Neck supple, no JVD, thyroid normal and no carotid bruits General: trachea midline Resp normal respiratory effort, no retractions, no use of accessory muscles and clear to auscultation bilaterally Auscultation: Negative for rales, rhonchi or wheezes Cardio regular rate, regular rhythm, S1 normal heart sound, S2 normal heart sound, no murmurs, no rub and no gallops GI normal to inspection, nondistended, normoactive bowel sounds, soft to palpation, non-tender and non-distended Neuro oriented x3, CN's II-XII intact bilaterally, no focal motor deficits and no sensory deficits noted Sensorium / Orientation: awake and alert Speech: speech normal Psych affect normal Assessment & Plan Assessment/Plan (1) HTN (hypertension): PLAN: Plan 1. Essential hypertension-patient will continue on his present medications, blood pressure will be monitored #2 hyperlipidemia-patient is on atorvastatin #3 osteoarthritis-postop day 0 left robotic assisted total knee replacement- patient will be seen by PT and OT, orthopedic surgery is managing his care #4 past history of aortic aneurysm-treated with EVAR-2014 Total clinical time spent by myself addressing the patient's medical issues, reviewing all of his data, and collaborating with patient's care team: 35 minutes Charges/Coding Visit Charges Office Visits / Consults: [id number] OV L4 Est
[2023-03-21] MEDS: Senna/Docusate Sodium 1 Tablet 2 TABLET PO (22:17)
[2023-03-21] MEDS: traZODone 100 MG Tablet PO (22:18)
[2023-03-21] MEDS: Latanoprost 0.005% 1 Bottle 1 DRP OPHTHALMIC (22:18)
[2023-03-21] MEDS: Atorvastatin Calcium 20 MG Tablet PO (22:18)
[2023-03-21] MEDS: Minoxidil 2.5 MG Tablet 5 MG PO (22:18)
[2023-03-21] MEDS: Dorzolamide HCL/Timolol 10 ml Bottle 1 DRP OPHTHALMIC (22:19)
[2023-03-22] VITALS (8 sets, daily range): BP systolic 151–165; BP diastolic 61–62; PULSE 58–67; RESP 16–18; TEMP 36.8; O2SAT 79–98
[2023-03-22] MEDS: Cefazolin 1 GM/50 ML BAG IV (00:04)
[2023-03-22] MEDS: Acetaminophen 500 MG Tablet 1000 MG PO (05:22)
[2023-03-22] MEDS: 0.9% Saline Lock 10 ML Syringe IV (05:22)
[2023-03-22 06:53] LABS: Hematocrit 27.8 % (40-54); Hemoglobin 9.1 g/dL (13.0-16.5); Mean Corp Hgb Conc 32.7 g/dL (32-36); Mean Corpuscular Hgb 29.1 pg (27.0-32.0); Mean Corpuscular Volume 88.8 fL (80-94); Mean Platelet Vol. 8.8 fl (6.2-12.0); Platelet Count 249 K/mm3 (150-450); RBC Distribution Width CV 13.9 % (11.6-14.6); RBC Distribution Width SD 44.6 fl (35.1-43.9); Red Blood Count 3.13 M/mm3 (4.6-6.2); White Blood Count 10.2 K/mm3 (4.4-11.0)
[2023-03-22 07:23] LABS: Anion Gap 6 (5-15); BUN 16 mg/dL (7-18); BUN/Creat Ratio 25.5 RATIO (10-20); Calcium,Total 8.5 mg/dL (8.5-10.1); Chloride 107 mmol/L (98-107); Creatinine, Serum 0.63 mg/dL (0.70-1.30); EST Glomerular Filtration Rate 129 mL/min (>60); Est Glom Filt Rate - Afr Amer 157 mL/min (>60); Estimated Creatinine Clearance 49.62 ml/min; Glucose 124 mg/dL (74-106); Potassium 3.8 mmol/L (3.5-5.1); Sodium Level 139 mmol/L (136-145)
[2023-03-22] MEDS: Senna/Docusate Sodium 1 Tablet 2 TABLET PO (08:43)
[2023-03-22] MEDS: Nebivolol HCl 10 MG Tablet 20 MG PO (08:43)
[2023-03-22] MEDS: amLODIPine 10 MG Tablet PO (08:44)
[2023-03-22] MEDS: Aspirin 81 MG TAB.CHEW PO (08:44)
[2023-03-22] MEDS: Famotidine 20 MG Tablet PO (08:44)
[2023-03-22] MEDS: Losartan Potassium 100 MG Tablet PO (08:44)
[2023-03-22] MEDS: hydroCHLOROthiazide 25 MG Tablet PO (08:44)
[2023-03-22] MEDS: Potassium Chloride Oral Tablet 20 MEQ PO (08:44)
[2023-03-22] MEDS: Multivitamins,Ther W-Minerals Tablet 1 TABLET PO (08:47)
--- NOTE | 2023-03-22 10:00 | CASEMGMT ---
Addendum entered by Lauren Johnson 03/22/23 10:57: Received tc back from 's office, appt scheduled for 04/04/23 at 3:20pm. Placed on dc instructions and pt aware as well. Original Note: RN KARINA Assessment: Face to Face with pt for initial transition planning/care coordination assessment. RN CM introduced self and role at [facility], pt voices understanding and consents to assessment. Pt is A/O x4 and answers all questions appropriately at this time. Pt sitting up in chair in no distress, at bedside. Care providers, pharmacy, and demographics verified/updated. Admitting Dx: Left total knee replacement PCP:Stefano Specialists: doreen Black; tacho Kumar; Sunita Blanchard at [facility]; [facility] Preferred Pharmacy: [facility] Retail Insurance: [employer] Prescription Benefit: yes LNOK: Marisela Covington, ; Mariann Gomez, granddtr Living Arrangements: Pt lives with in a two story home with 3 steps to enter with a rail. Pt bedroom and bathroom are on second floor. Pt reports he was I in ADL's prior to surgery. Pt able to assist with ADL's. Pt denies concerns at home. Transportation: Pt drives self and denies concerns with transportation. Pt is able to transport pt until he can drive again. DME/HHC/SNF: Pt has a cane, quad cane, FWW on both floors at home, walking sticks, shower chair, walk in shower with hand rails. Pt denies hx of HHC or SNF stays. Pt states no concerns with going home at time of dc. Pt has outpt therapy set up at [facility] on Sunday. Pt aware he needs to have an appt with in 2wks for low hgb per PA. Pt prefers afternoon. TC to 's office, left message for sales receptionist for appt and requested returned call. Pt states no further concerns/needs. CM to follow. Advised pt to ask CM if any further question/concerns/needs arise, voices understanding. Pt Goal: Home with outpt therapy already set up Plan: Home with outpt therapy already set up
--- NOTE | 2023-03-22 10:14 | PN.ORTHO_ITS ---
Subjective Subjective The patient was sitting in bed side chair with present upon examination. Patient denies any chest pain, shortness of breath, dizziness, lightheadedness, nausea or vomiting, or calf pain. Pain is controlled on medications. No adverse overnight events. Patient is a very poor historian with regards to himself. He does rely on his for most of his information. Patient states overall he is doing very well this morning. Has no significant pain. He tolerated therapy very well this morning. Plan is for patient to go home with outpatient services for therapy. Objective Data Objective Data Vital Signs: Vital Signs Temp Pulse Resp BP Pulse Ox O2 Del Method O2 Flow Rate 98.3 F 67 18 165/62 H 93 Room Air 2 03/22/23 08:35 03/22/23 08:35 03/22/23 08:35 03/22/23 08:35 03/22/23 08:35 03/22/23 08:35 03/22/23 05:30 FiO2 4 03/21/23 16:25 Oxygen Flow Rate (L/min) 2 Oxygen Delivery Method Room Air Weight: 94 kg Body Mass Index (BMI) 33.4 Intake & Output: Intake and Output for Last 24 Hours 03/20/23 03/21/23 03/22/23 23:59 23:59 23:59 Intake Total 3979.92 / 3979.92 50 / 50 Balance 3979.92 / 3979.92 50 / 50 Lab / Micro Data 03/22/23 06:25 03/22/23 06:25 Labs: Laboratory Results - last 24 hr 03/22/23 06:25: WBC 10.2, RBC 3.13 L, Hgb 9.1 L, Hct 27.8 L, MCV 88.8, MCH 29.1, MCHC 32.7, RDW Std Deviation 44.6 H, RDW Coeff of Du 13.9, Plt Count 249, MPV 8.8, Sodium 139, Potassium 3.8, Chloride 107, Carbon Dioxide 26.0, Anion Gap 6, BUN 16, Creatinine 0.63 L, Estim Creat Clear Calc 49.62, Est GFR (MDRD) Af Amer 157, Est GFR (MDRD) Non-Af 129, BUN/Creatinine Ratio 25.5 H, Glucose 124 H, Calcium 8.5 Micro: Microbiology 03/01/23 11:43 Swab (Method) Nasal Screen MRSA/MSSA - Final Radiography Diagnostic Testing: Radiology Impression Knee X-Ray 03/21/23 11:15 IMPRESSION: Status post left total knee arthroplasty. Electronically Signed: Armond Gill MD at 11:29 EDT Reading Location ID and State: [id number] / Unknown , Service support , Physical Exam Narrative Vital signs stable and afebrile. SCDs and KIEL hose are in place bilaterally Patient is able to plantarflex and dorsiflex actively. Sensation is intact to light touch to saphenous, sural, superficial and deep peroneal, and tibial distribution. Proximal and distal pin site dressing with trace drainage and main Mepilex dressing is clean dry and intact. Negative Homans bilaterally, negative signs and symptoms of DVT. Const alert, oriented x3 and no apparent distress Assessment & Plan Assessment/Plan (1) Status post total left knee replacement: PLAN: 1. S/P left total knee arthroplasty POD #1 2. Continue Pain Medications: Tylenol, meloxicam, oxycodone. Do not take any other nonsteroidal anti-inflammatories while using meloxicam/Mobic. 3. DVT Prophylaxis: Take 81 mg aspirin twice daily for 4 weeks postoperatively for DVT prophylaxis. Patient denies past history of DVT or pulmonary embolism 4. PT/OT: Weightbearing as tolerated with walker 5. H & H: 9.1/27.8, asymptomatic. Postoperative anemia secondary to acute blood loss from surgery without any intra operative complications. While reviewing lab work it does appear in the fall 2021 patient did have some underlying anemia. Patient's states he has never been on any ferrous sulfate or folic acid. Estimated blood loss from surgery was 75 mL. Most likely some dilutional component involved as well. Patient is currently asymptomatic. Denies any dizziness or lightheadedness. Will place patient on ferrous sulfate and folic acid for 2 weeks postoperatively. Outpatient lab work order will be given and follow-up with the primary care physician in 2 weeks for reassessment and further management. This was discussed in great detail with patient and his . 6. Encouraged Incentive Spirometry 7. Disposition: Plan will be for discharge home this afternoon as long as pain is well controlled, tolerates therapy and medically stable. He currently has very little pain but did have a block perioperatively. I discussed with him that this block can wear off 12 to 24 hours postoperatively. We discussed pain management regimen and I also discussed with his . Patient has outpatient physical therapy established. They would like their medications E scribed to [facility]. Upon discharge he will contact her office with any concerns or questions. I discussed with case management and they will schedule him follow-up with his primary care physician for 2 weeks. Patient states he has plan to proceed with surgery for his right knee in 2 months. All medications were discussed with the patient and his . However patient relies on his for history and all his medications. I have reviewed the [place] Automated Rx Reporting System (OARRS) report for this patient for refill pattern and other prescriber involvement as part of the appropriate surveillance for the provision of acute and chronic controlled medications. The report was requested and reviewed on the date of this entry and was considered in the prescribing process. This dictation was created using voice recognition software. Phonetic and/or grammatical errors may exist.
--- NOTE | 2023-03-22 10:23 | DCINST_ITS ---
Discharge Instructions Diet Discharge Diet: No restrictions Activity Discharge Activity: May Not Drive (No driving until you can walk 100 feet without the use of cane or walker and must be off narcotic pain medications.) May shower in (days): 1 (Please turn dressing away from water. Okay to get wet as long as dressing is intact to skin.) Ice area for (Minutes): 20 (Every 1-2 hours while awake. Please place barrier between the skin and ice pack.) Weight Bearing Status: Weight bearing as tolerated Keep extremity elevated above heart level: Operative Extremity Dressing / Incision Call your doctor if your incision/area has: Continuous Slow Oozing, Sudden Increased Bleeding, Increased Pain/ Swelling, Increased Redness and Foul Smelling Discharge Call your doctor if you observe: Fever of 101 or Higher, Coldness, Increased Pain, Numbness or Tingling, Change in Color, Shortness of breath, Chest pain, Calf discomfort and Uncontrolled pain Remove Dressing in: 4 days (Okay to remove dressing on March 26, 2023) Additional Dressing/Incision Instructions:: Follow [facility] Post-op Instructions. Once postoperative dressing has been removed only use gentle soap and water over the incision. Do not use any ointments, Neosporin, salves, alcohol pads over the incision for 6 weeks postoperatively. Do not submerge underwater for 6 weeks postoperatively. Continue with KIEL hose/elastic stockings for 2 weeks postoperatively. May remove at nighttime but needs to be placed back on the leg during the day. Do NOT use alcohol with narcotic pain medication. Do NOT make important decisions while taking narcotic medication. If you have problems with taking your medication (rash, itching, nausea, etc.) call the office at once. Follow Up Care Test Results: Test results from this visit will be discussed in further detail at your follow- up appointment, if applicable. Discharge Plan Admission Admit Date/Time: 03/21/23 07:13 Attending Provider: Berlin Black Primary Care Provider: Tristin Agarwal [employer] Providers: Dnucan Campa Discharge Orders/Prescriptions Prescriptions: New acetaminophen 500 mg Tablet 1,000 mg PO Q8 Qty: 100 0RF Rx Instructions: Do not take more than 3000 mg Tylenol in a 24-hour period. meloxicam 7.5 mg Tablet 7.5 mg PO BID 30 Days Qty: 60 0RF Rx Instructions: Do not take any other nonsteroidal anti-inflammatories while using meloxicam/Mobic. famotidine 20 mg Tablet 20 mg PO DAILY Qty: 30 0RF ferrous sulfate [FeroSul] 325 mg (65 mg iron) Tablet 325 mg PO 1200,1700 14 Days Qty: 28 0RF Rx Instructions: Take for 2 weeks postoperatively aspirin 81 mg Tablet,Chewable 81 mg PO BIDCM 30 Days Qty: 60 0RF Rx Instructions: Take 81 mg aspirin twice daily for 4 weeks postoperatively for DVT prophylaxis. folic acid 1 mg Tablet 1 mg PO BREAKFAST 14 Days Qty: 14 0RF Rx Instructions: Take for 2 weeks postoperatively oxycodone 5 mg Tablet 5 - 10 mg PO Q4H PRN PRN (Reason: Pain Score 4-10) 5 Days Qty: 42 0RF sennosides-docusate sodium [Stool Softener-Stimulant Laxat] 8.6-50 mg Tablet 2 tab PO BID 3 Days Qty: 12 0RF Rx Instructions: Take until first bowel movement, then as needed Continued nebivolol [Bystolic] 10 mg tablet 20 mg PO QDAY potassium chloride 20 mEq tablet extended release 20 meq PO QDAY trazodone 100 mg tablet 100 mg PO QHS jkcgdrxi-nqj-NL-lycopen-lutein [Centrum Silver] 0.4-300-250 mg-mcg-mcg tablet 1 tab PO QAM atorvastatin [Lipitor] 20 mg tablet 20 mg PO QHS Patient Comments: 20 mg PO 3 days a week dorzolamide-timolol 22.3-6.8 mg/mL drops 1 drp ophthalmic (eye) QHS latanoprost 0.005 % drops 1 drp ophthalmic (eye) QHS minoxidil 2.5 mg tablet 2 tab PO QHS Patient Comments: TAKE TWO TABLETS BY MOUTHNAT BEDTIME [id number]-myogcvejs-gdymcnmjo [Exforge HCT] 10-320-25 mg Tablet 1 tab PO DAILY Combivent Respimat 20-100 mcg/actuation mist 1 puff inhalation Q4H PRN (Reason: SOB) Discontinued aspirin [Adult Aspirin Regimen] 81 mg tablet,delayed release (DR/EC) 81 mg PO DAILY Other Ambulatory Orders: CBC-Complete Blood Cnt No Diff (Routine) Timeframe: 10 Day Facility: [facility] - Location: Laboratory Ordered By: Spencer WOODY Referrals / Follow Up: Tristin Agarwal Chi, MD [Primary Care Provider] - Physical,Therapy [Other] - 03/26/23 9:00 am Sandrita Haines PA [Med Staff - Adv Practice Prof] - 04/04/23 2:00 pm Spencer Fall PA-C [Med Staff - Adv Practice Prof] - Disposition Disposition (needs filled in before D/C Order can be placed): Home, Self Care
--- NOTE | 2023-03-22 10:31 | CASEMGMT ---
EVERTON CM in to discuss MILLER form with patient. RN CM explained MILLER form, patient voiced understanding. Pt signed form and filed in chart. Pt provided with a copy of signed MILLER form. Patient had no further questions or concerns at this time.
[2023-03-22] MEDS: Ferrous Sulfate 325 MG Tablet PO (12:20)
[2023-03-22] MEDS: oxyCODONE 5 MG Tablet PO (12:20)
[2023-03-22] MEDS: Ensure Surgery 237 ML LIQUID PO (12:21)
--- NOTE | 2023-03-22 15:21 | PHA.DC_ITS ---
Pharmacy [facility] Service has performed discharge medication reconciliation and counseling for this patient. The patient's discharge medication list was reviewed for discrepancies and discrepancies were resolved. The patient was counseled on the following discharge medications and changes in medications for homegoing were reviewed. The Reason for Use, instructions for use, and potential side effects were reviewed for all new medications. The patient's questions regarding all of their medications were answered. The patient was able to verbally demonstrate an understanding of their discharge medications. The patient's discharge medication list was reviewed for discrepancies and discrepancies were resolved. Patient counselled by Paolo Mckeon pharmD candidate Medications at Discharge Home Medications atorvastatin 20 mg tablet (Lipitor) 20 mg PO QHS cholesterol 03/04/18 krladedz-dru-sfxuj acid 0.4 mg-lycopene 300 mcg-lutein 250 mcg tablet (Centrum Silver) 1 tab PO QAM 03/04/18 nebivolol 10 mg tablet (Bystolic) 20 mg PO QDAY blood pressure 03/04/18 potassium chloride 20 mEq tablet,extended release 20 meq PO QDAY supplement 03/04/18 trazodone 100 mg tablet 100 mg PO QHS sleep aid 03/04/18 minoxidil 2.5 mg tablet 2 tab PO QHS blood pressure 03/22/22 dorzolamide 22.3 mg-timolol 6.8 mg/mL eye drops 1 drp ophthalmic (eye) QHS 01/11/23 latanoprost 0.005 % eye drops 1 drp ophthalmic (eye) QHS 01/11/23 amlodipine 10 mg-valsartan 320 mg-hydrochlorothiazide 25 mg tablet (Exforge HCT) 1 tab PO DAILY 02/23/23 ipratropium 20 mcg-albuterol 100 mcg/actuation mist for inhalation (Combivent Respimat) 1 puff inhalation Q4H PRN SOB 02/23/23 acetaminophen 500 mg tablet 1,000 mg (2 x 500 mg) PO Q8 #100 tabs 03/22/23 aspirin 81 mg chewable tablet 81 mg PO BIDCM 30 days #60 tabs 03/22/23 famotidine 20 mg tablet 20 mg PO DAILY #30 tabs 03/22/23 ferrous sulfate 325 mg (65 mg iron) tablet (FeroSul) 325 mg PO 1200,1700 14 days #28 tabs 03/22/23 folic acid 1 mg tablet 1 mg PO BREAKFAST 14 days #14 tabs 03/22/23 meloxicam 7.5 mg tablet 7.5 mg PO BID 30 days #60 tabs 03/22/23 oxycodone 5 mg tablet 5 - 10 mg (1 - 2 x 5 mg) PO Q4H PRN PRN Pain Score 4-10 5 days #42 tabs 03/22/23 sennosides 8.6 mg-docusate sodium 50 mg tablet (Stool Softener-Stimulant Laxative) 2 tab PO BID 3 days #12 tabs 03/22/23
== END 2023-03-22 14:50 | disposition home or self-care (01) ==
LOC: SDC 10:57 → MS3 10:57
PROVIDERS: Anesthesiology; Admitting Provider Specialist; PCP Family Medicine Geriatric Medicine; Referring Provider Specialist; Visit Provider Specialist
PROC: 0SRD0JZ Replacement of Left Knee Joint with Synthetic Substitute, Open Approach (ICD-10-PCS; CPT 27447; principal; 2023-03-21 08:15)
DX: M17.12 Unilateral primary osteoarthritis, left knee (principal); I73.9 Peripheral vascular disease, unspecified; E78.00 Pure hypercholesterolemia, unspecified; K21.9 Gastro-esophageal reflux disease without esophagitis; I10 Essential (primary) hypertension; Z87.891 Personal history of nicotine dependence; H91.90 Unspecified hearing loss, unspecified ear; Z79.899 Other long term (current) drug therapy; R94.31 Abnormal electrocardiogram [ECG] [EKG]; I44.0 Atrioventricular block, first degree; M79.89 Other specified soft tissue disorders
CPT/HCPCS: 27447; S2900; 01402; 64447; 36415; 73560; 80048; 83735; 85027; 85610; 85730; 87081; 88305; 88311; 93005; 94668; 96361; 96365; 96366; 97110; 97116; 97162; 97166; 97530; 97535; 99221; 99252; C1776; J7120; A4216; G0378; G0463; J2405; J3475

== ENCOUNTER 2023-03-27 05:56 | Emergency (ER) | payer MEDICARE, OTHER, SELFPAY ==
[2023-03-27 05:59] VITALS: BP 161/68; PULSE 85; RESP 16; TEMP 36.1; O2SAT 96; BMI 36.3
--- NOTE | 2023-03-27 06:03 | RAD_ITS ---
INDICATION: constipation EXAMINATION/TECHNIQUE: X-RAY - XR Abdomen 1 View COMPARISON: None FINDINGS: BOWEL GAS PATTERN: Nonspecific nonobstructive bowel gas pattern. Scattered small and large bowel gas with moderate transverse and descending colonic stool. FREE AIR: Not well assessed on a supine view. ORGANOMEGALY: Not seen. CALCIFICATIONS: No concerning calcifications. LOWER CHEST: No acute pathology. BONES AND SOFT TISSUES: No acute pathology. Aortobifemoral stent graft noted. Prostatic radiation beads noted. RAD/Abdomen Single View IMPRESSION: Moderate proximal to distal colonic stool. Electronically Signed: Sena Vu MD at 7:32 EDT ,
--- NOTE | 2023-03-27 06:19 | EDS_ITS ---
HPI History of Present Illness Chief Complaint: Complaint Informant: patient and spouse/S.O. Pain Onset: Days Current Severity: Moderate Maximum Severity: Moderate Narrative Narrative: 83-year-old male history of enlarged prostate with prior prostate lift surgery. Prior AAA stent. Patient had a history in the past of prior urinary retention. He has done well recently. Last Sunday almost a week ago he had left knee replacement surgery. He was in the hospital overnight. Has been doing well but has developed constipation and difficulty urinating to the point where he really cannot pee now at all. Denies any other symptoms. No vomiting. No fever. No gross hematuria. Prior similar symptoms: Yes Recent Illness/Hospitalization: Yes PFSH [facility] Medical History Abdominal aortic aneurysm, without rupture, unspecified Acute respiratory insufficiency Alcohol use Arthritis Back pain Cardiology follow-up encounter Easy bruising Former smoker Glaucoma Goiter Heartburn High cholesterol History of pain when walking History of stress test hormone deficiency HTN (hypertension) Hypokalemia Hypoxia Injury of head and neck Insomnia Pneumonia Skin cancer Testicular hypofunction Wears glasses Wears hearing aid Home Medications atorvastatin 20 mg tablet (Lipitor) 20 mg PO QHS cholesterol 03/04/18 [History Last Taken Unknown] zmighnnt-stn-jgtcb acid 0.4 mg-lycopene 300 mcg-lutein 250 mcg tablet (Centrum Silver) 1 tab PO QAM 03/04/18 [History Last Taken Unknown] nebivolol 10 mg tablet (Bystolic) 20 mg PO QDAY blood pressure 03/04/18 [History Last Taken 03/21/23 03:00] potassium chloride 20 mEq tablet,extended release 20 meq PO QDAY supplement 03/04/18 [History Last Taken Unknown] trazodone 100 mg tablet 100 mg PO QHS sleep aid 03/04/18 [History Last Taken Unknown] minoxidil 2.5 mg tablet 2 tab PO QHS blood pressure 03/22/22 [History Last Taken Unknown] dorzolamide 22.3 mg-timolol 6.8 mg/mL eye drops 1 drp ophthalmic (eye) QHS 01/11/23 [History Last Taken Unknown] latanoprost 0.005 % eye drops 1 drp ophthalmic (eye) QHS 01/11/23 [History Last Taken Unknown] amlodipine 10 mg-valsartan 320 mg-hydrochlorothiazide 25 mg tablet (Exforge HCT) 1 tab PO DAILY 02/23/23 [History Last Taken Unknown] ipratropium 20 mcg-albuterol 100 mcg/actuation mist for inhalation (Combivent Respimat) 1 puff inhalation Q4H PRN SOB 02/23/23 [History Last Taken Unknown] acetaminophen 500 mg tablet 1,000 mg (2 x 500 mg) PO Q8 #100 tabs 03/22/23 [Rx Last Taken Unknown] aspirin 81 mg chewable tablet 81 mg PO BIDCM 30 days #60 tabs 03/22/23 [Rx Last Taken Unknown] famotidine 20 mg tablet 20 mg PO DAILY #30 tabs 03/22/23 [Rx Last Taken Unknown] ferrous sulfate 325 mg (65 mg iron) tablet (FeroSul) 325 mg PO 1200,1700 14 days #28 tabs 03/22/23 [Rx Last Taken Unknown] folic acid 1 mg tablet 1 mg PO BREAKFAST 14 days #14 tabs 03/22/23 [Rx Last Taken Unknown] meloxicam 7.5 mg tablet 7.5 mg PO BID 30 days #60 tabs 03/22/23 [Rx Last Taken Unknown] oxycodone 5 mg tablet 5 - 10 mg (1 - 2 x 5 mg) PO Q4H PRN PRN Pain Score 4-10 5 days #42 tabs 03/22/23 [Rx Last Taken Unknown] sennosides 8.6 mg-docusate sodium 50 mg tablet (Stool Softener-Stimulant Laxative) 2 tab PO BID 3 days #12 tabs 03/22/23 [Rx Last Taken Unknown] Allergy/AdvReac Type Severity Reaction Status Date / Time Penicillins Allergy Rash Verified 03/21/23 06:54 Family History Mother Hypertension Surgical History History of coronary artery stent placement History of stent insertion of renal artery Hx of cataract surgery Hx of colonoscopy S/P TURP Social History Smoking Status: Former smoker alcohol intake: current alcohol intake frequency: a few times a month substance use type: does not use ROS ROS ED ROS Narrative Urinary retention. Constipation. Review of Systems ROS Unobtainable: Denies due to encephalopathy Constitutional Constitutional ED: Denies fatigue Eyes Eyes: Denies burning ENT ENT ED: Denies dental pain Cardiovascular Cardiovascular: Denies chest pain Respiratory/Chest Respiratory/Chest: Reports none Gastrointestinal Gastrointestinal: Reports change in bowel habits and constipation Genitourinary Genitourinary ED: Reports urinary hesitancy and other Details: Urinary retention Musculoskeletal Musculoskeletal: Reports none Integumentary Reports none Neurologic Neurologic: Reports none Psychiatric Psychiatric: Reports none Endocrine Endocrinology: Reports none Hematologic/Lymphatic Hematologic/Lymphatic: Reports none Allergic/Immunologic Allergic/Immunologic ED: Reports none EXAM Physical Exam Narrative Exam Narrative: Very 83-year-old male vital signs stable afebrile. at bedside. As I entered the room the nurses have already placed a Slater catheter. Patient had almost 2 L out already. He is feeling much improved. HEENT exam unremarkable. Neck nontender. Lungs clear. Heart regular rhythm. Chest were nontender. Abdomen soft nontender. Currently his bladder is not distended but again he has put out through the catheter almost 2 L already. Moving all 4 extremities. He has a well-healing left knee surgical site from a knee replacement. Patient is awake and alert. No focal motor deficits Const Vital Signs: 03/27/23 05:59 Temperature 97 F L Temperature Source Temporal Pulse Rate 85 Respiratory Rate 16 Blood Pressure 161/68 H Blood Pressure Mean 99 Pulse Ox 96 Positive well nourished and well developed General Appearance ED: active, cooperative, comfortable and well developed Orientation / Consciousness: awake, oriented to person, oriented to place and oriented to time HEENT Reports normocephalic and head/scalp atraumatic normocephalic Face and Sinus: normal facial exam and sinuses nontender External Ear: external ears normal Mouth ED: Yes oral and palatal mucosa normal, Yes lips normal and Yes tongue normal Mouth: oral and palatal mucosa normal, lips normal and tongue normal Throat: posterior oropharynx normal Eyes PERRL, EOMs intact bilaterally, conjunctivae normal and no scleral icterus General Eye ED: Yes normal appearance of both eyes Eyelid: eyelids normal Neck full ROM, No nuchal rigidity, no lymphadenopathy, supple, no meningeal signs and no JVD General: normal visual inspection Lymph Lymphatic: no lymphadenopathy noted and no lymphedema noted Chest Wall inspection of chest normal and palpation of chest normal Resp normal respiratory effort, normal air movement, no retractions, no use of accessory muscles and clear to auscultation bilaterally Effort and Inspection: able to speak in complete sentences Auscultation: clear to auscultation bilaterally Cardio regular rate, regular rhythm, S1 normal heart sound, S2 normal heart sound, no rub, no gallops, no clicks and no JVD Rate: regular rate Rhythm: regular rhythm Peripheral Pulses: pulses 2+ throughout GI normal to inspection, nondistended, normoactive bowel sounds, soft to palpation, non-tender, non-distended and no masses Auscultation: normoactive bowel sounds Palpation: soft; Negative for firm, tender or guarding Back/Spine no CVA tenderness Extremity normal to inspection Extremity Narrative: Recent left knee replacement. Surgical wound dry and clean. Neuro oriented x3, CN's II-XII intact bilaterally, moves all extremities and no focal motor deficits Sensorium / Orientation: awake, alert, oriented to person, oriented to place and oriented to time; Negative for orientation impaired, confused, lethargic or somnolent Speech: speech normal Motor Exam: strength 5/5 throughout Psych mental status grossly normal, thought process normal, cooperative, affect normal and speech normal Appearance: grossly normal Attitude: calm and engaged Skin no rashes or lesions noted and no wounds Rashes: no rashes Trauma: no lacerations or abrasions MDM MDM MDM Narrative Medical decision making narrative: 83-year-old male status post left knee replacement surgery last Sunday. Has developed postop constipation. Difficulty urinating with a history of prior BPH and prior urinary retention. Slater catheter was placed he is already put out 2 L of straw-colored urine. No gross blood or clots. Chemistry panel will be checked to evaluate his kidney function it was normal around the time of surgery. KUB will be obtained to evaluate him for constipation. He will be discharged home with a Slater catheter in place with follow-up with urology. BP exam patient doing well at 7:10 AM. We went over his test results. He feels much better after draining his bladder. Again he had over 2 L in his bladder. No gross blood or clots. Patient be discharged home with a Slater catheter in place. Follow-up with his urologist Dr. Norman Blake. For the constipation or using MiraLAX, fluids, fiber and stool softener. He and his are comfortable with him being discharged home. They know to return if worse. History & Record Review Discussion w/independent historian: Patient and Family Lab Data Attestation: I reviewed the patient's lab results. Lab results narrative: BMP shows sodium 131. Normal gap of 7. BUN 37 creatinine 1.2. Glucose 140. Urinalysis shows 10-25 red cells. No white cells. 1+ bacteria. No nitrites. Labs: Laboratory Results - last 24 hr 03/27/23 03/27/23 06:10 06:30 Sodium 131 L Potassium 3.5 Chloride 99 Carbon Dioxide 25.0 Anion Gap 7 BUN 37 H Creatinine 1.23 Estim Creat Clear Calc 40.34 Est GFR (MDRD) Af Amer 72 Est GFR (MDRD) Non-Af 60 BUN/Creatinine Ratio 30.1 H Glucose 140 H Calcium 9.8 Urine Color Yellow Urine Clarity Clear Urine pH 5.0 Ur Specific [place] 1.015 Urine Protein 30 H Urine Glucose (UA) Normal Urine Ketones Negative Urine Occult Blood 25 H Urine Nitrite Negative Urine Bilirubin Negative Urine Urobilinogen Normal Ur Leukocyte Esterase 25 H Urine RBC 10-25 SEEN Urine WBC 0-5 SEEN Ur Squamous Epith Cells 0 SEEN Urine Bacteria 1+ Urine Mucus 1+ Radiography Chest X-Ray - ED: Read by ED Physician Diagnostic Testing: KUB, single view, interpreted by myself shows increased stool consistent with constipation. No signs of bowel obstruction. Otherwise unremarkable. Prior stent for AAA. Discharge Plan Triage Chief Complaint: Complaint Other Complaint: Constipation ED Provider: Zac Negrete Dx/Rx/DC Orders Clinical Impression: History of knee joint replacement, Acute constipation, Acute urinary retention, History of BPH, Acute hyponatremia Instructions: ED Constipation (Adult), ED Urinary Retention, Male Prescriptions: No Action nebivolol [Bystolic] 10 mg tablet 20 mg PO QDAY potassium chloride 20 mEq tablet extended release 20 meq PO QDAY trazodone 100 mg tablet 100 mg PO QHS [id number]-woz-TJ-lycopen-lutein [Centrum Silver] 0.4-300-250 mg-mcg-mcg tablet 1 tab PO QAM atorvastatin [Lipitor] 20 mg tablet 20 mg PO QHS Patient Comments: 20 mg PO 3 days a week dorzolamide-timolol 22.3-6.8 mg/mL drops 1 drp ophthalmic (eye) QHS latanoprost 0.005 % drops 1 drp ophthalmic (eye) QHS minoxidil 2.5 mg tablet 2 tab PO QHS Patient Comments: TAKE TWO TABLETS BY MOUTHNAT BEDTIME [id number]-wexoznhvi-xwufiapjf [Exforge HCT] 10-320-25 mg Tablet 1 tab PO DAILY Combivent Respimat 20-100 mcg/actuation mist 1 puff inhalation Q4H PRN (Reason: SOB) acetaminophen 500 mg Tablet 1,000 mg PO Q8 Qty: 100 0RF Rx Instructions: Do not take more than 3000 mg Tylenol in a 24-hour period. meloxicam 7.5 mg Tablet 7.5 mg PO BID 30 Days Qty: 60 0RF Rx Instructions: Do not take any other nonsteroidal anti-inflammatories while using meloxicam/Mobic. famotidine 20 mg Tablet 20 mg PO DAILY Qty: 30 0RF ferrous sulfate [FeroSul] 325 mg (65 mg iron) Tablet 325 mg PO 1200,1700 14 Days Qty: 28 0RF Rx Instructions: Take for 2 weeks postoperatively aspirin 81 mg Tablet,Chewable 81 mg PO BIDCM 30 Days Qty: 60 0RF Rx Instructions: Take 81 mg aspirin twice daily for 4 weeks postoperatively for DVT prophylaxis. folic acid 1 mg Tablet 1 mg PO BREAKFAST 14 Days Qty: 14 0RF Rx Instructions: Take for 2 weeks postoperatively oxycodone 5 mg Tablet 5 - 10 mg PO Q4H PRN PRN (Reason: Pain Score 4-10) 5 Days Qty: 42 0RF sennosides-docusate sodium [Stool Softener-Stimulant Laxat] 8.6-50 mg Tablet 2 tab PO BID 3 Days Qty: 12 0RF Rx Instructions: Take until first bowel movement, then as needed Primary Care Provider: Tristin Agarwal Chi Referrals: Kelechi Blake MD [Med Staff - Active Staff] - As soon as possible Tristin Agarwal Chi, MD [Primary Care Provider] - Activity Restrictions/Additional Instructions: Call and follow-up with Dr. Norman Blake regarding the Slater catheter and urinary retention. For the constipation make sure you are using a stool softener, MiraLAX, drinking plenty of fluids especially water and fiber. Disposition Disposition: Home, Self Care
[2023-03-27 06:21] LABS: Squamous Epithelial Cells - UA 0 SEEN /hpf (0-5)
[2023-03-27 06:22] LABS: Color, Urine Yellow (Yellow); Glucose, Dipstick Normal (Normal); Ketone-Dipstick Negative (Negative); Leukocyte Esterase-Dipstick 25 /ul (Negative); Nitrite-Dipstick Negative (Negative); Occult Blood-Urine 25 /ul (Negative); Protein-Dipstick 30 mg/dl (Negative); Specific Gravity, Urine 1.015 (1.002-1.030); Urine Bilirubin Dipstick Negative (Negative); Urine Clarity Clear (Clear); Urine Urobilinogen Normal (Normal)
[2023-03-27 06:30] LABS: Bacteria 1+ /hpf (None Seen); Mucous, Urine 1+ /hpf (<or=2+); Red Blood Cells-Urine 10-25 SEEN /hpf (0-5); White Blood Cells 0-5 SEEN /hpf (0-5)
[2023-03-27 06:55] LABS: Anion Gap 7 (5-15); BUN 37 mg/dL (7-18); BUN/Creat Ratio 30.1 RATIO (10-20); Calcium,Total 9.8 mg/dL (8.5-10.1); Chloride 99 mmol/L (98-107); Creatinine, Serum 1.23 mg/dL (0.70-1.30); EST Glomerular Filtration Rate 60 mL/min (>60); Est Glom Filt Rate - Afr Amer 72 mL/min (>60); Estimated Creatinine Clearance 40.34 ml/min; Glucose 140 mg/dL (74-106); Potassium 3.5 mmol/L (3.5-5.1); Sodium Level 131 mmol/L (136-145)
[2023-03-27 08:00] VITALS: BP 141/53; PULSE 89; RESP 16; O2SAT 95
== END 2023-03-27 08:00 | disposition home or self-care (01) ==
PROVIDERS: Emergency Provider Emergency Medicine; PCP Family Medicine Geriatric Medicine; Visit Provider Emergency Medicine
DX: K59.00 Constipation, unspecified (principal); R33.8 Other retention of urine; E87.1 Hypo-osmolality and hyponatremia; I10 Essential (primary) hypertension; E78.00 Pure hypercholesterolemia, unspecified; Z79.82 Long term (current) use of aspirin; Z79.899 Other long term (current) drug therapy; Z95.5 Presence of coronary angioplasty implant and graft; Z87.891 Personal history of nicotine dependence; Z96.652 Presence of left artificial knee joint
CPT/HCPCS: 74018; 80048; 81001; 99285; A4216

== ENCOUNTER → 2023-04-04 | Outpatient (CLI) | payer MEDICARE, OTHER, SELFPAY ==
[2023-04-04 17:49] LABS: Absolute Lymphocyte Count 1.33 X10^3/uL (0.83-4.51); Absolute Neutrophil Count 9.7 X10^3/uL (2.0-7.7); Basophil# 0.03 X10^3/uL; Basophil% 0.2 % (0-1); Eosinophil# 0.25 X10^3/uL; Hematocrit 29.4 % (40-54); Hemoglobin 9.3 g/dL (13.0-16.5); Lymphocyte # 1.33 X10^3/ul (0.83-4.51); Lymphocyte % 10.7 % (19-41); Mean Corp Hgb Conc 31.6 g/dL (32-36); Mean Corpuscular Hgb 28.2 pg (27.0-32.0); Mean Corpuscular Volume 89.1 fL (80-94); Mean Platelet Vol. 8.6 fl (6.2-12.0); Monocyte% 8.1 % (0-10); NRBC Flagged by Analyzer 0 % (0-5); Neutrophil # 9.69 X10^3/uL (2.7-7.7); Neutrophil % 78.2 % (47-70); Platelet Count 342 K/mm3 (150-450); RBC Distribution Width CV 14.8 % (11.6-14.6); RBC Distribution Width SD 46.5 fl (35.1-43.9); White Blood Count 12.4 K/mm3 (4.4-11.0)
== END | disposition home or self-care (01) ==
LOC: LAB 17:28
PROVIDERS: PCP Family Medicine Geriatric Medicine; Referring Provider Family Medicine Geriatric Medicine; Visit Provider Family Medicine Geriatric Medicine
DX: D64.9 Anemia, unspecified (principal)
CPT/HCPCS: 36415; 85025

== ENCOUNTER 2023-04-11 16:56 | Observation (INO) | payer MEDICARE, OTHER, SELFPAY ==
[2023-04-11] VITALS (12 sets, daily range): BP systolic 112–171; BP diastolic 49–99; PULSE 63–78; RESP 16–18; TEMP 36.3–37.2; O2SAT 91–98; BMI 32.4
[2023-04-11] MEDS: Lactated Ringers 1,000 ML 15 ML IV ×2 (10:43→14:10)
[2023-04-11] MEDS: Cefazolin 2 GM in 0.9% Normal Saline 100 ML IV (11:49)
--- NOTE | 2023-04-11 12:15 | PROS_PTH ---
PATIENT: JARROD HERRING LOC: MS3 U#:[id number] AGE/SX: 83/M ROOM: [facility] RE04/11/[address]: Dr. Kelechi Blake MD : 1940 BED: 1 DIS: 04/12/2023 SPEC #: [id number] RECD: 04/11/23 14:09 STATUS: PUJA HUFF #: [id number] ASHLEY: 04/11/23 12:[address]: Kelechi Blake DEPT: SURGICAL PATHOLOGY RECD BY: Mayi Camacho ENTERED: 04/12/23 09:55 SP TYPE: TURP OTHR DR: Dr. Tristin Agarwal MD Tissues: Prostate, NOS Procedures: Surgery Specimen Level IV HEADER OPERATION: Transurethral resection of prostate with Olympus PRE-OP DIAGNOSIS: BPH with lower urinary tract symptoms TISSUE SUBMITTED: Prostate tissue MICROSCOPIC DIAGNOSIS Prostate, transurethral resection: Benign nodular hyperplasia, predominantly glandular type. Chronic inflammation. AM:anthony 04/13/2023 MICROSCOPIC DESCRIPTION Slides are reviewed. GROSS DESCRIPTION Received is one container labeled with the patient's name and designated prostate tissue. The specimen consists of multiple irregular fragments of pink-loza, rubbery, soft tissue that in aggregate weigh 29.9 gm and measure in aggregate 8.0 x 8.0 x 3.0 cm. Multiple metallic clips are also noted. [employer] tissue is submitted in ten cassettes. / SJ:anthony 04/12/2023 TC:3 CPT: 00149
--- NOTE | 2023-04-11 13:18 | PCM.HP.STD ---
HPI - General General Date of Service: 04/11/23 Chief Complaint: Urinary retention HPI Narrative JARROD HERRING, is a 83 M who presents for transurethral resection of the prostate for retention of urine PFS Medical History Abdominal aortic aneurysm, without rupture, unspecified Acute respiratory insufficiency Alcohol use Arthritis Back pain Cardiology follow-up encounter Easy bruising Former smoker Glaucoma Goiter Heartburn High cholesterol History of pain when walking History of stress test hormone deficiency HTN (hypertension) Hypokalemia Hypoxia Injury of head and neck Insomnia Pneumonia Skin cancer Testicular hypofunction Wears glasses Wears hearing aid Home Medications atorvastatin 20 mg tablet (Lipitor) 20 mg PO QHS cholesterol 03/04/18 [History Last Taken 04/10/23] mvjqibqt-bjo-xqzka acid 0.4 mg-lycopene 300 mcg-lutein 250 mcg tablet (Centrum Silver) 1 tab PO QAM 03/04/18 [History Last Taken 04/10/23] nebivolol 10 mg tablet (Bystolic) 20 mg PO QDAY blood pressure 03/04/18 [History Last Taken 04/10/23] potassium chloride 20 mEq tablet,extended release 20 meq PO QDAY supplement 03/04/18 [History Last Taken 04/10/23] trazodone 100 mg tablet 100 mg PO QHS sleep aid 03/04/18 [History Last Taken 04/10/23] minoxidil 2.5 mg tablet 2 tab PO QHS blood pressure 03/22/22 [History Last Taken 04/10/23] dorzolamide 22.3 mg-timolol 6.8 mg/mL eye drops 1 drp ophthalmic (eye) QHS 01/11/23 [History Last Taken 04/10/23] latanoprost 0.005 % eye drops 1 drp ophthalmic (eye) QHS 01/11/23 [History Last Taken Unknown] amlodipine 10 mg-valsartan 320 mg-hydrochlorothiazide 25 mg tablet (Exforge HCT) 1 tab PO DAILY 02/23/23 [History Last Taken 04/11/23] ipratropium 20 mcg-albuterol 100 mcg/actuation mist for inhalation (Combivent Respimat) 1 puff inhalation Q4H PRN SOB 02/23/23 [History Last Taken Unknown] acetaminophen 500 mg tablet 1,000 mg (2 x 500 mg) PO Q8 #100 tabs 03/22/23 [Rx Last Taken Unknown] aspirin 81 mg chewable tablet 81 mg PO BIDCM 30 days #60 tabs 03/22/23 [Rx Last Taken 03/28/23] famotidine 20 mg tablet 20 mg PO DAILY #30 tabs 03/22/23 [Rx Last Taken 04/10/23] ferrous sulfate 325 mg (65 mg iron) tablet (FeroSul) 325 mg PO 1200,1700 14 days #28 tabs 03/22/23 [Rx Last Taken 04/10/23] folic acid 1 mg tablet 1 mg PO BREAKFAST 14 days #14 tabs 03/22/23 [Rx Last Taken 04/10/23] meloxicam 7.5 mg tablet 7.5 mg PO BID 30 days #60 tabs 03/22/23 [Rx Last Taken 04/10/23] oxycodone 5 mg tablet 5 - 10 mg (1 - 2 x 5 mg) PO Q4H PRN PRN Pain Score 4-10 5 days #42 tabs 03/22/23 [Rx Last Taken Unknown] sennosides 8.6 mg-docusate sodium 50 mg tablet (Stool Softener-Stimulant Laxative) 2 tab PO BID 3 days #12 tabs 03/22/23 [Rx Last Taken 04/10/23] ciprofloxacin HCl 500 mg tablet (Cipro) 500 mg PO BID #10 tabs 04/11/23 [Rx Last Taken Unknown] Allergy/AdvReac Type Severity Reaction Status Date / Time Penicillins Allergy Rash Verified 04/06/23 09:02 Family History Mother Hypertension Surgical History (Updated 04/06/23 @ 09:09 by Mckenzie Justice) History of coronary artery stent placement History of stent insertion of renal artery History of total knee replacement (03/21/23) Hx of cataract surgery Hx of colonoscopy S/P TURP Social History Smoking Status: Former smoker alcohol intake: current alcohol intake frequency: a few times a month substance use type: does not use Vital Signs Vital Signs Vital Signs: 04/11/23 10:44 04/11/23 10:44 Temperature 97.8 F Temperature Source Temporal Pulse Rate 73 Respiratory Rate 18 Respiratory Pattern Normal Blood Pressure 135/69 H Blood Pressure Mean 91 Blood Pressure Source Monitor Blood Pressure Position Semi-Fowlers Blood Pressure Location Right Arm Pulse Ox 95 Oxygen Delivery Method Room Air Weight Weight: 91.172 kg Body Mass Index (BMI) 32.4
--- NOTE | 2023-04-11 13:19 | PCM.DC ---
Discharge Instructions Diet Discharge Diet: No restrictions and Light diet - advance as tolerated Activity Discharge Activity: Return to Normal Activity Dressing / Incision Call your doctor if your incision/area has: Continuous Slow Oozing Catheter: Slater to leg bag and Slater to large bag Drain: [place] Follow Up Care Please Follow Up With: Kelechi Blake MD When: 2 weeks. Test Results: Test results from this visit will be discussed in further detail at your follow-up appointment, if applicable. Discharge Plan Admission Primary Reason for Your Visit: TUR Attending Provider: Kelechi Blake Primary Care Provider: Tristin Agarwal Chi Instructions Patient Instructions: TURP Home Recovery, TUR Hospital Recovery Discharge Orders/Prescriptions Prescriptions: New ciprofloxacin HCl [Cipro] 500 mg tablet 500 mg PO BID Qty: 10 0RF Continued nebivolol [Bystolic] 10 mg tablet 20 mg PO QDAY potassium chloride 20 mEq tablet extended release 20 meq PO QDAY trazodone 100 mg tablet 100 mg PO QHS tbmejsol-agx-VB-lycopen-lutein [Centrum Silver] 0.4-300-250 mg-mcg-mcg tablet 1 tab PO QAM atorvastatin [Lipitor] 20 mg tablet 20 mg PO QHS Patient Comments: 20 mg PO 3 days a week dorzolamide-timolol 22.3-6.8 mg/mL drops 1 drp ophthalmic (eye) QHS latanoprost 0.005 % drops 1 drp ophthalmic (eye) QHS minoxidil 2.5 mg tablet 2 tab PO QHS Patient Comments: TAKE TWO TABLETS BY MOUTHNAT BEDTIME kluzbtyqof-nrszyivep-lrvjzldbc [Exforge HCT] 10-320-25 mg Tablet 1 tab PO DAILY Combivent Respimat 20-100 mcg/actuation mist 1 puff inhalation Q4H PRN (Reason: SOB) acetaminophen 500 mg Tablet 1,000 mg PO Q8 Qty: 100 0RF Rx Instructions: Do not take more than 3000 mg Tylenol in a 24-hour period. meloxicam 7.5 mg Tablet 7.5 mg PO BID 30 Days Qty: 60 0RF Rx Instructions: Do not take any other nonsteroidal anti-inflammatories while using meloxicam/Mobic. famotidine 20 mg Tablet 20 mg PO DAILY Qty: 30 0RF ferrous sulfate [FeroSul] 325 mg (65 mg iron) Tablet 325 mg PO 1200,1700 14 Days Qty: 28 0RF Rx Instructions: Take for 2 weeks postoperatively aspirin 81 mg Tablet,Chewable 81 mg PO BIDCM 30 Days Qty: 60 0RF Rx Instructions: Take 81 mg aspirin twice daily for 4 weeks postoperatively for DVT prophylaxis. folic acid 1 mg Tablet 1 mg PO BREAKFAST 14 Days Qty: 14 0RF Rx Instructions: Take for 2 weeks postoperatively oxycodone 5 mg Tablet 5 - 10 mg PO Q4H PRN PRN (Reason: Pain Score 4-10) 5 Days Qty: 42 0RF sennosides-docusate sodium [Stool Softener-Stimulant Laxat] 8.6-50 mg Tablet 2 tab PO BID 3 Days Qty: 12 0RF Rx Instructions: Take until first bowel movement, then as needed Referrals / Follow Up: Kelechi Blake MD [Med Staff - Active Staff] - Tristin Agarwal Chi, MD [Primary Care Provider] - Disposition Disposition (needs filled in before D/C Order can be placed): Home, Self Care
--- NOTE | 2023-04-11 13:19 | PCM.OPRPT ---
Report of Operation Date of Procedure: 04/11/23 Pre-Operative Diagnosis: BPH with retention of urine Post-Operative Diagnosis: Same Surgery/Procedure Performed:: Trans resection of the prostate Description of Surgical Findings:: In the preoperative setting I discussed with the patient how the surgery would be done with expect afterwards. We discussed how a prostate resection is done and we discussed the risk of the surgery including, bleeding, infection, retrograde ejaculation, changes with ejaculation or intercourse,. We discussed the possibility that the resection of the prostate may not alleviate his urinary symptoms. We discussed the small risk of developing scar tissue along the urethral channel and strictures. We also discussed the chance of the prostate could grow back and he may need further surgery or treatment in the future for prostate problems. Patient was taken back to the operating room, timeout procedure was performed, he was identified and marked and placed on the operating room table. He underwent general anesthesia. He was placed in dorsolithotomy position. Penis and testicles were prepped and draped in usual sterile fashion. Went into the bladder using the visual obturator with a resectoscope. Once inside the bladder identified the right and left ureteral orifice. I then identified the prostate and the anatomy of the prostate. I marked out the area of the sphincter and the verumontanum was identified. I then proceeded with the prostate resection first resected the median lobe. And then resected the right lobe of the prostate. Then to resect the left lobe of the prostate. I then resected the apical tissue of the prostate. This was a complete resection of all obstructive tissue to improve voiding and relieve obstruction. I then made sure that there was no injury to the sphincter or the verumontanum was still intact. At the end of the resection all the chips were Ellik out of the bladder. I then identified the left and right ureteral orifice and these were confirmed to be in good position and effluxing and not injured. The resectoscope was removed, a 22 [place] catheter was placed into the bladder on continuous irrigation. And the urine was fairly light pink color and draining normally. He was taken back to the PACU in good condition. Surgeon: Kelechi Blake Type of Anesthesia: General Drains: [address] Estimated Blood Loss (mL): 0 Admit VTE Documentation VTE Present on Admission: No VTE Mechan Device Prophylaxis: SCD's VTE Pharm Prophylaxis ordered?: No
[2023-04-11] MEDS: 0.9% Normal Saline 1,000 ML 125 ML IV (20:39)
[2023-04-11] MEDS: Ciprofloxacin 400 MG/200 ML BAG 200 MG IV (22:28)
[2023-04-11] MEDS: Docusate Sodium 100 MG Capsule 200 MG PO (22:30)
[2023-04-12 03:48] VITALS: BP 134/52; PULSE 66; RESP 16; TEMP 36.6; O2SAT 98
[2023-04-12] MEDS: 0.9% Normal Saline 1,000 ML 125 ML IV (05:08)
--- NOTE | 2023-04-12 07:01 | PCM.PN.GU ---
Subjective Subjective 83-year-old male status post TURP doing well we can remove the catheter and he can go home after urinates. Objective Data Objective Data Vital Signs: Vital Signs Temp Pulse Resp BP Pulse Ox O2 Del Method O2 Flow Rate 97.8 F 66 16 134/52 H 98 Room Air 2 04/12/23 03:48 04/12/23 03:48 04/12/23 03:48 04/12/23 03:48 04/12/23 03:48 04/12/23 03:48 04/11/23 14:45 Oxygen Flow Rate (L/min) 2 Oxygen Delivery Method Room Air Weight: 91.17 kg Body Mass Index (BMI) 32.4 Intake & Output: Intake and Output for Last 24 Hours 04/10/23 04/11/23 04/12/23 23:59 23:59 23:59 Intake Total 1343.33 / 1343.33 963.75 / 963.75 Output Total 775 / 775 650 / 650 Balance 568.33 / 568.33 313.75 / 313.75
[2023-04-12 08:13] VITALS: BP 137/58; PULSE 74; RESP 16; TEMP 36.8; O2SAT 94
--- NOTE | 2023-04-12 10:44 | CASEMGMT ---
RN KARINA NOTE: Pt being discharged. RN CM to room. Pt resting in bed. @ bedside. Pt and deny having any discharge planning needs or concerns. Davie SPRAGUEN RN CM
[2023-04-12] MEDS: Ciprofloxacin 400 MG/200 ML BAG 200 MG IV (10:47)
[2023-04-12] MEDS: Docusate Sodium 100 MG Capsule 200 MG PO (10:48)
[2023-04-12 14:31] VITALS: BP 151/85; PULSE 81; RESP 16; TEMP 37.2; O2SAT 98
== END 2023-04-12 15:00 | disposition home or self-care (01) ==
LOC: MS3 17:03
PROVIDERS: Admitting Provider Urology; PCP Family Medicine Geriatric Medicine; Referring Provider Urology; Visit Provider Urology
PROC: (CPT 52601; principal; 2023-04-11 12:05)
DX: N40.1 Benign prostatic hyperplasia with lower urinary tract symptoms (principal); Z87.891 Personal history of nicotine dependence; E78.00 Pure hypercholesterolemia, unspecified; I10 Essential (primary) hypertension; Z79.82 Long term (current) use of aspirin; R33.8 Other retention of urine; Z79.899 Other long term (current) drug therapy; R23.3 Spontaneous ecchymoses; H40.9 Unspecified glaucoma; E04.9 Nontoxic goiter, unspecified; M19.90 Unspecified osteoarthritis, unspecified site
CPT/HCPCS: 52601; 00914; 88305; 94668; 96361; 96365; 96366; 99221; J7030; J7120; G0378; J0744; J2405

== ENCOUNTER → 2023-05-14 | Outpatient (CLI) | payer MEDICARE, OTHER, SELFPAY ==
[2023-05-14 12:49] LABS: International Normalized Ratio 1.1; Prothrombin Time (Protime)PT. 14.7 SECONDS (11.7-14.9)
[2023-05-14 12:53] LABS: Absolute Lymphocyte Count 1.35 X10^3/uL (0.83-4.51); Absolute Neutrophil Count 4.3 X10^3/uL (2.0-7.7); Basophil# 0.02 X10^3/uL; Basophil% 0.3 % (0-1); Eosinophil# 0.39 X10^3/uL; Eosinophils% 5.8 % (0-5); Hematocrit 33.6 % (40-54); Hemoglobin 10.9 g/dL (13.0-16.5); Lymphocyte # 1.35 X10^3/ul (0.83-4.51); Lymphocyte % 20.1 % (19-41); Mean Corp Hgb Conc 32.4 g/dL (32-36); Mean Corpuscular Hgb 28.9 pg (27.0-32.0); Mean Corpuscular Volume 89.1 fL (80-94); Mean Platelet Vol. 8.9 fl (6.2-12.0); Monocyte# 0.68 X10^3/uL; Monocyte% 10.1 % (0-10); NRBC Flagged by Analyzer 0 % (0-5); Neutrophil # 4.25 X10^3/uL (2.7-7.7); Neutrophil % 63.1 % (47-70); Platelet Count 257 K/mm3 (150-450); RBC Distribution Width CV 16.4 % (11.6-14.6); RBC Distribution Width SD 53.9 fl (35.1-43.9); Red Blood Count 3.77 M/mm3 (4.6-6.2); White Blood Count 6.7 K/mm3 (4.4-11.0)
[2023-05-14 13:10] LABS: Albumin, Serum 3.4 g/dL (3.2-5.0)
== END | disposition home or self-care (01) ==
PROVIDERS: PCP Family Medicine Geriatric Medicine; Referring Provider Physician Assistant Surgical; Visit Provider Physician Assistant Surgical
DX: Z01.818 Encounter for other preprocedural examination (principal); Z79.01 Long term (current) use of anticoagulants
CPT/HCPCS: 36415; 82040; 85025; 85610

== ENCOUNTER → 2023-06-05 | Outpatient (CLI) | payer MEDICARE, OTHER, SELFPAY ==
[2023-06-05 16:55] LABS: Hematocrit 33.2 % (40-54); Hemoglobin 10.8 g/dL (13.0-16.5); Mean Corp Hgb Conc 32.5 g/dL (32-36); Mean Corpuscular Hgb 28.7 pg (27.0-32.0); Mean Corpuscular Volume 88.3 fL (80-94); Mean Platelet Vol. 8.6 fl (6.2-12.0); Platelet Count 328 K/mm3 (150-450); RBC Distribution Width CV 15.3 % (11.6-14.6); RBC Distribution Width SD 48.8 fl (35.1-43.9); Red Blood Count 3.76 M/mm3 (4.6-6.2); White Blood Count 10.4 K/mm3 (4.4-11.0)
== END | disposition home or self-care (01) ==
LOC: LAB 16:30
PROVIDERS: PCP Family Medicine Geriatric Medicine; Referring Provider Physician Assistant Surgical; Visit Provider Physician Assistant Surgical
DX: Z96.651 Presence of right artificial knee joint (principal); M17.11 Unilateral primary osteoarthritis, right knee
CPT/HCPCS: 36415; 85027

== ENCOUNTER → 2023-07-19 | Outpatient (CLI) | payer MEDICARE, OTHER, SELFPAY ==
[2023-07-19 10:45] LABS: Absolute Lymphocyte Count 1.33 X10^3/uL (0.83-4.51); Absolute Neutrophil Count 4.1 X10^3/uL (2.0-7.7); Basophil# 0.01 X10^3/uL; Basophil% 0.2 % (0-1); Eosinophil# 0.16 X10^3/uL; Eosinophils% 2.5 % (0-5); Hemoglobin 11.2 g/dL (13.0-16.5); Lymphocyte # 1.33 X10^3/ul (0.83-4.51); Mean Corpuscular Hgb 27.7 pg (27.0-32.0); Mean Corpuscular Volume 86.6 fL (80-94); Monocyte# 0.67 X10^3/uL; Monocyte% 10.6 % (0-10); NRBC Flagged by Analyzer 0 % (0-5); Neutrophil # 4.12 X10^3/uL (2.7-7.7); Neutrophil % 65.2 % (47-70); Platelet Count 272 K/mm3 (150-450); RBC Distribution Width CV 15.9 % (11.6-14.6); RBC Distribution Width SD 49.7 fl (35.1-43.9); Red Blood Count 4.04 M/mm3 (4.6-6.2); White Blood Count 6.3 K/mm3 (4.4-11.0)
[2023-07-19 11:03] LABS: Vitamin D,25 Hydroxy 63.5 ng/mL
[2023-07-19 11:06] LABS: ALB/GLOB Ratio 0.8 RATIO (0.9-2.4); AST(SGOT) 16 U/L (15-37); Alanine Aminotransfer ALT/SGPT 17 U/L (16-61); Albumin, Serum 3.4 g/dL (3.2-5.0); Alkaline Phosphatase 80 U/L (45-117); Anion Gap 5 (5-15); BUN 13 mg/dL (7-18); BUN/Creat Ratio 16.1 RATIO (10-20); Calcium,Total 9.2 mg/dL (8.5-10.1); Chloride 105 mmol/L (98-107); Creatinine, Serum 0.81 mg/dL (0.70-1.30); EST Glomerular Filtration Rate 97 mL/min (>60); Est Glom Filt Rate - Afr Amer 117 mL/min (>60); Globulin 4.1 g/dL (2.2-4.2); Glucose 111 mg/dL (74-106); Potassium 3.6 mmol/L (3.5-5.1); Protein, Total 7.5 g/dL (6.4-8.2); Sodium Level 138 mmol/L (136-145); Thyroid Stim Hormone (TSH) 0.65 uIU/mL (0.358-3.74)
== END | disposition home or self-care (01) ==
PROVIDERS: PCP Family Medicine Geriatric Medicine; Visit Provider Family Medicine Geriatric Medicine
DX: I10 Essential (primary) hypertension (principal); E55.9 Vitamin D deficiency, unspecified
CPT/HCPCS: 36415; 80053; 82306; 84443; 85025

== ENCOUNTER → 2023-10-10 | Outpatient (CLI) | payer MEDICARE, OTHER, SELFPAY ==
--- NOTE | 2023-10-10 08:48 | ART_ITS ---
Reason For Study: PVD, AAA Procedure A bilateral lower extremity continuous wave Doppler with analog waveform analysis and ankle brachial indexes. Took arm BP's multiple times: >15mmHg difference. Left Segmental Pressures Left brachial= 150mmHg. Left posterior tibial artery = 177mmHg. Left dorsalis pedis artery = 168mmHg. Left digit = 105 mmHg. Right Segmental Pressures Right brachial= 166mmHg. Right posterior tibial artery = 183mmHg. Right dorsalis pedis artery = 172mmHg. Right digit = 110 mmHg. Indices The right ankle brachial index by the posterior tibial artery is 1.10. The right ankle brachial index by the dorsalis pedis is 1.04. The right digital-brachial index is 0.66. The left ankle brachial index by the posterior tibial artery is 1.07. The left ankle brachial index by the dorsalis pedis is 1.01. The left digital-brachial index is 0.63. VL/Ankle Brachial Index Interpretation Summary Resting ankle-brachial indices appear bilaterally normal. Ordering Physician: Isra Kumar Referring Physician: Tristin Agarwal Chi Performed By: Charlene Alex RDCS/RVT
--- NOTE | 2023-10-10 08:48 | AAVD_ITS ---
Reason For Study: AAA, PVD Aorta Measurements Aorta Doppler Measurements Proximal aorta measures1.90cm x 1.97cm. in cross- Peak systolic flow velocities within the proximal sectional axis. aorta measure 109 cm/sec. Proximal aorta measures2.12cm. in longitudinal Peak systolic flow velocities within the mid aorta axis. measure 88 cm/sec. Mid Ao Residual Aneurysm: 4.78cm x 5.34cm, 4.8cm Proximal endograft: 2.04cm x 2.4cm, 2.06cm 88cm/s Mid Ao Limb 1: 1.27cm x 1.19cm, 1.23cm, 75cm/s Mid Ao Limb 2: 1.37cm x 1.52cm, 1.30cm, 76cm/s Distal Ao Residual Aneurysm: 3.53cm x 3.87cm, 3.25cm Distal Ao Limb 1: 1.15cm x 1.18cm, 1.25cm, 88cm/s Distal Ao Limb 2: 1.19cm x 1.23cm, 1.04cm, 91cm/s. Left Iliac Artery Left iliac artery measures 1.25cm x 1.45 cm. in the cross-sectional axis. Left iliac artery measures 1.26 cm. in the longitudinal axis. Peak systolic velocity in the left iliac artery measures 99 cm/sec. Right Iliac Artery Right iliac artery measures 1.45cm x 1.44 cm. in the cross-sectional axis. Right iliac artery measures 1.25 cm. in the longitudinal axis. Peak systolic velocity in the right iliac artery measures 71 cm/sec. VL/Abd Aortic/IVC Duplex scan Interpretation Summary Patent endograft and no endoleak and sac 4.8cm. Ordering Physician: Isra Kumar Referring Physician: Tristin Agarwal Chi Performed By: Charlene Alex, ASAF, RVT
== END | disposition home or self-care (01) ==
LOC: CVS 08:45
PROVIDERS: PCP Family Medicine Geriatric Medicine; Referring Provider Surgery Vascular Surgery; Visit Provider Surgery Vascular Surgery
DX: I73.9 Peripheral vascular disease, unspecified (principal); I71.43 Infrarenal abdominal aortic aneurysm, without rupture; Z95.828 Presence of other vascular implants and grafts
CPT/HCPCS: 93922; 93978

== ENCOUNTER → 2024-01-03 | Outpatient (CLI) | payer MEDICARE, OTHER, SELFPAY ==
[2024-01-03 10:43] LABS: Absolute Lymphocyte Count 1.47 X10^3/uL (0.83-4.51); Absolute Neutrophil Count 3.9 X10^3/uL (2.0-7.7); Basophil# 0.02 X10^3/uL; Basophil% 0.3 % (0-1); Eosinophil# 0.16 X10^3/uL; Eosinophils% 2.6 % (0-5); Hematocrit 38.2 % (40-54); Hemoglobin 12.9 g/dL (13.0-16.5); Lymphocyte # 1.47 X10^3/ul (0.83-4.51); Lymphocyte % 23.5 % (19-41); Mean Corp Hgb Conc 33.8 g/dL (32-36); Mean Corpuscular Hgb 30.1 pg (27.0-32.0); Mean Platelet Vol. 8.9 fl (6.2-12.0); Monocyte# 0.65 X10^3/uL; Monocyte% 10.4 % (0-10); NRBC Flagged by Analyzer 0 % (0-5); Neutrophil # 3.93 X10^3/uL (2.7-7.7); Neutrophil % 62.9 % (47-70); Platelet Count 248 K/mm3 (150-450); RBC Distribution Width CV 14.3 % (11.6-14.6); Red Blood Count 4.29 M/mm3 (4.6-6.2); White Blood Count 6.3 K/mm3 (4.4-11.0)
[2024-01-03 10:49] LABS: Vitamin D,25 Hydroxy 40.9 ng/mL
[2024-01-03 10:56] LABS: ALB/GLOB Ratio 0.9 RATIO (0.9-2.4); AST(SGOT) 16 U/L (15-37); Alanine Aminotransfer ALT/SGPT 20 U/L (16-61); Albumin, Serum 3.6 g/dL (3.2-5.0); Alkaline Phosphatase 78 U/L (45-117); Anion Gap 7 (5-15); BUN 18 mg/dL (7-18); BUN/Creat Ratio 19.7 RATIO (10-20); Calcium,Total 9.6 mg/dL (8.5-10.1); Chloride 105 mmol/L (98-107); Creatinine, Serum 0.92 mg/dL (0.70-1.30); EST Glomerular Filtration Rate 84 mL/min (>60); Est Glom Filt Rate - Afr Amer 101 mL/min (>60); Globulin 4.2 g/dL (2.2-4.2); Glucose 106 mg/dL (74-106); Potassium 3.9 mmol/L (3.5-5.1); Protein, Total 7.8 g/dL (6.4-8.2); Sodium Level 139 mmol/L (136-145); Thyroid Stim Hormone (TSH) 0.73 uIU/mL (0.358-3.74)
== END | disposition home or self-care (01) ==
PROVIDERS: PCP Family Medicine Geriatric Medicine; Visit Provider Family Medicine Geriatric Medicine
DX: I10 Essential (primary) hypertension (principal); E55.9 Vitamin D deficiency, unspecified
CPT/HCPCS: 36415; 80053; 82306; 84443; 85025

== ENCOUNTER → 2024-07-21 | Outpatient (CLI) | payer MEDICARE, OTHER, SELFPAY ==
[2024-07-21 10:17] LABS: Absolute Lymphocyte Count 1.86 X10^3/uL (0.83-4.51); Absolute Neutrophil Count 4.8 X10^3/uL (2.0-7.7); Basophil# 0.03 X10^3/uL; Basophil% 0.4 % (0-1); Eosinophil# 0.21 X10^3/uL; Eosinophils% 2.7 % (0-5); Hematocrit 39.9 % (40-54); Hemoglobin 13.6 g/dL (13.0-16.5); Lymphocyte # 1.86 X10^3/ul (0.83-4.51); Lymphocyte % 24.3 % (19-41); Mean Corp Hgb Conc 34.1 g/dL (32-36); Mean Corpuscular Hgb 30.7 pg (27.0-32.0); Mean Corpuscular Volume 90.1 fL (80-94); Mean Platelet Vol. 8.8 fl (6.2-12.0); Monocyte# 0.72 X10^3/uL; Monocyte% 9.4 % (0-10); NRBC Flagged by Analyzer 0 % (0-5); Neutrophil % 62.9 % (47-70); Platelet Count 235 K/mm3 (150-450); RBC Distribution Width SD 46.4 fl (35.1-43.9); Red Blood Count 4.43 M/mm3 (4.6-6.2); White Blood Count 7.6 K/mm3 (4.4-11.0)
[2024-07-21 10:39] LABS: Vitamin D,25 Hydroxy 47.3 ng/mL
[2024-07-21 10:48] LABS: AST(SGOT) 22 U/L (15-37); Alanine Aminotransfer ALT/SGPT 35 U/L (16-61); Albumin, Serum 3.9 g/dL (3.2-5.0); Alkaline Phosphatase 66 U/L (45-117); Anion Gap 6 (5-15); BUN 14 mg/dL (7-18); BUN/Creat Ratio 13.2 RATIO (10-20); Chloride 105 mmol/L (98-107); Creatinine, Serum 1.06 mg/dL (0.70-1.30); EST Glomerular Filtration Rate 71 mL/min (>60); Est Glom Filt Rate - Afr Amer 85 mL/min (>60); Globulin 3.9 g/dL (2.2-4.2); Glucose 108 mg/dL (74-106); Potassium 4.1 mmol/L (3.5-5.1); Protein, Total 7.8 g/dL (6.4-8.2); Sodium Level 140 mmol/L (136-145)
== END | disposition home or self-care (01) ==
LOC: POLAB3 10:03
PROVIDERS: PCP Family Medicine Geriatric Medicine; Visit Provider Family Medicine Geriatric Medicine
DX: I10 Essential (primary) hypertension (principal); E55.9 Vitamin D deficiency, unspecified
CPT/HCPCS: 36415; 80053; 82306; 84443; 85025

== ENCOUNTER → 2024-11-27 | Outpatient (CLI) | payer MEDICARE, OTHER, SELFPAY ==
--- NOTE | 2024-11-27 08:48 | ART_ITS ---
Reason For Study Reason For Study: HX AAA w/EVAR - PVD Procedure A bilateral lower extremity continuous wave Doppler with analog waveform analysis and ankle brachial indexes. Left Segmental Pressures Left brachial= 165mmHg. Left posterior tibial artery = 183mmHg. Left dorsalis pedis artery = 154mmHg. Left digit = 132 mmHg. The left posterior tibial artery waveforms are triphasic. The left dorsalis pedis waveforms are triphasic. Right Segmental Pressures Right brachial= 164mmHg. Right posterior tibial artery = 201mmHg. Right dorsalis pedis artery = 172mmHg. Right digit = 144 mmHg. The right posterior tibial artery waveforms are triphasic. The right dorsalis pedis waveforms are triphasic. Indices The right ankle brachial index by the posterior tibial artery is 1.22. The right ankle brachial index by the dorsalis pedis is 1.04. The right digital-brachial index is 0.87. The left ankle brachial index by the posterior tibial artery is 1.11. The left ankle brachial index by the dorsalis pedis is 0.93. The left digital-brachial index is 0.80. VL/Ankle Brachial Index Interpretation Summary Resting ankle-brachial indices appear bilaterally normal. Ordering Physician: Isra Kumar Referring Physician: Tristin Agarwal Chi Performed By: Rodríguez Fields RVT
--- NOTE | 2024-11-27 08:48 | AAVD_ITS ---
Reason For Study Reason For Study: HX AAA w/ EVAR Aorta Measurements Aorta Doppler Measurements Proximal aorta measures2.16 x 2.26cm. in cross-sectional Peak systolic flow velocities within the proximal aorta axis. measure 75.9 cm/sec. Proximal aorta measures2.29cm. in longitudinal axis. Peak systolic flow velocities within the mid aorta measure AAA noted w/ EVAR at mid 86.8 cm/sec. Residual AAA measures approximately 5.93cm x 6.03cm in shortRt Limb Prox long - 85.0 cm/s angle and 5.67cm in long. Rt Limb Dist long - 63.2 cm/s Rt Limb Prox short - 1.27cm x 1.25cm Lt Limb Prox long - 90.4 cm/s Rt Limb Prox long - 1.23cm Lt Limb Dist long - 83.2 cm/s. Rt Limb Dist short - 1.44cm x 1.57cm Rt Limb Dist long - 1.31cm Lt Limb Prox short - 1.21cm x 1.21cm Lt Limb Prox long - 1.25cm Lt Limb Dist short - 1.37cm x 1.33cm Lt Limb Dist long - 1.35cm. Left Iliac Artery Left iliac artery measures 1.30 x 1.31 cm. in the cross-sectional axis. Left iliac artery measures 1.30 cm. in the longitudinal axis. Peak systolic velocity in the left iliac artery measures 83.7 cm/sec. Right Iliac Artery Right iliac artery measures 1.32 x 1.11 cm. in the cross-sectional axis. Right iliac artery measures 1.35 cm. in the longitudinal axis. Peak systolic velocity in the right iliac artery measures 83.2 cm/sec. Procedure Aorta IVC Iliac vasculature or bypass grafts 42089. The exam was diagnostic. Exam performed in department. VL/Abd Aortic/IVC Duplex scan Interpretation Summary Patent EVAr with no stenosis. Ordering Physician: Isra Kumar Referring Physician: Tristin Agarwal Chi Performed By: Rodríguez Fields RVT
== END | disposition home or self-care (01) ==
LOC: CVS 08:48
PROVIDERS: PCP Family Medicine Geriatric Medicine; Referring Provider Surgery Vascular Surgery; Visit Provider Surgery Vascular Surgery
DX: I71.43 Infrarenal abdominal aortic aneurysm, without rupture (principal); I73.9 Peripheral vascular disease, unspecified; Z95.828 Presence of other vascular implants and grafts
CPT/HCPCS: 93922; 93978

== ENCOUNTER → 2025-01-12 | Outpatient (CLI) | payer MEDICARE, OTHER, SELFPAY ==
[2025-01-12 11:21] LABS: Absolute Lymphocyte Count 1.81 X10^3/uL (0.83-4.51); Absolute Neutrophil Count 4.4 X10^3/uL (2.0-7.7); Basophil# 0.04 X10^3/uL; Basophil% 0.6 % (0-1); Eosinophil# 0.25 X10^3/uL; Eosinophils% 3.5 % (0-5); Hematocrit 39.6 % (40-54); Hemoglobin 13.6 g/dL (13.0-16.5); Lymphocyte # 1.81 X10^3/ul (0.83-4.51); Lymphocyte % 25.2 % (19-41); Mean Corp Hgb Conc 34.3 g/dL (32-36); Mean Corpuscular Hgb 30.9 pg (27.0-32.0); Mean Platelet Vol. 9.2 fl (6.2-12.0); Monocyte# 0.64 X10^3/uL; Monocyte% 8.9 % (0-10); NRBC Flagged by Analyzer 0 % (0-5); Neutrophil # 4.39 X10^3/uL (2.7-7.7); Neutrophil % 61.2 % (47-70); Platelet Count 189 K/mm3 (150-450); RBC Distribution Width CV 14.3 % (11.6-14.6); White Blood Count 7.2 K/mm3 (4.4-11.0)
[2025-01-12 12:14] LABS: ALB/GLOB Ratio 1.4 RATIO (0.9-2.4); AST(SGOT) 25 U/L (<=37); Alanine Aminotransfer ALT/SGPT 33 U/L (<=46); Albumin, Serum 4.2 g/dL (3.4-4.8); Alkaline Phosphatase 60 U/L (40-129); Anion Gap 11 (5-15); BUN 14 mg/dL (4-19); BUN/Creat Ratio 14.9 RATIO (10-20); Calcium,Total 9.5 mg/dL (7.6-11.0); Carbon Dioxide 25.2 mmol/L (21.0-32.0); Chloride 103 mmol/L (98-108); Creatinine, Serum 0.93 mg/dL (0.70-1.20); EST Glomerular Filtration Rate 81 (>60); Globulin 3.1 g/dL (2.2-4.2); Glucose 117 mg/dL (70-99); Potassium 3.8 mmol/L (3.3-5.1); Protein, Total 7.3 g/dL (5.9-8.4); Sodium Level 139 mmol/L (133-145); Total Bilirubin 1.16 mg/dL (0.00-1.30)
[2025-01-12 12:15] LABS: Thyroid Stim Hormone (TSH) 0.852 uIU/mL (0.300-4.200)
== END | disposition home or self-care (01) ==
LOC: LAB 10:41
PROVIDERS: PCP Family Medicine Geriatric Medicine; Referring Provider Family Medicine Geriatric Medicine; Visit Provider Family Medicine Geriatric Medicine
DX: I10 Essential (primary) hypertension (principal); E55.9 Vitamin D deficiency, unspecified
CPT/HCPCS: 36415; 80053; 82306; 84443; 85025

== ENCOUNTER → 2025-07-22 | Outpatient (CLI) | payer MEDICARE, OTHER, SELFPAY ==
[2025-07-22 09:24] LABS: Hematocrit 37.3 % (40-54); Hemoglobin 13.2 g/dL (13.0-16.5); Immature Granulocytes Count 0.020 X10^3/uL (0.0-0.0); Mean Corp Hgb Conc 35.4 g/dL (32-36); Mean Corpuscular Volume 88.6 fL (80-94); Mean Platelet Vol. 9.0 fl (6.2-12.0); NRBC Flagged by Analyzer 0 % (0-5); Platelet Count 214 K/mm3 (150-450); RBC Distribution Width CV 14.6 % (11.6-14.6); RBC Distribution Width SD 46.9 fl (35.1-43.9); Red Blood Count 4.21 M/mm3 (4.6-6.2); White Blood Count 7.4 K/mm3 (4.4-11.0)
[2025-07-22 10:06] LABS: AST(SGOT) 23 U/L (<=37); Alanine Aminotransfer ALT/SGPT 23 U/L (<=46); Albumin, Serum 4.3 g/dL (3.4-4.8); Alkaline Phosphatase 59 U/L (40-129); Anion Gap 9 (5-15); BUN 15 mg/dL (4-19); BUN/Creat Ratio 14.0 RATIO (10-20); Calcium,Total 9.6 mg/dL (7.6-11.0); Carbon Dioxide 25.2 mmol/L (21.0-32.0); Chloride 104 mmol/L (98-108); Globulin 3.4 g/dL (2.2-4.2); Glucose 105 mg/dL (70-99); Potassium 3.8 mmol/L (3.3-5.1); Vitamin D,25 Hydroxy 33.2 ng/mL (30-100)
--- OUTSIDE RECORDS SUMMARY | 2025-07-22 10:15 | XMS RPT_ITS | CCD ---
Author Organization [facility] Care Team Providers Care Dental Tech Name Role Phone Dr. Tristin Cain Chi Primary Care Provider Dr. Ebony Alex Emergency Provider [phone] Dr. Barrett Small Attending Provider [phone] Dr. Barrett Smallit Provider Geovanny, Dr. Hyde Other Provider Sharonda, Dr. Nae Lang Attending Provider Sharonda, Dr. Nae Lang Other Provider Dr. Oliver Morales Other Provider Dr. Emerson Ruff Other Provider Jose CIGARETTE MACHINE OPERATOR, CIGARETTE MACHINE OPERATOR-C Nelly Other Provider Dr. Oliver Morales Attending Provider Dr. Nae Mcdonough Referring Provider Dr. Tristin Cain Chi Primary Care Provider Dr. Ebony Alex Emergency Provider Dr. Barrett Small Attending Provider [phone] Dr. Barrett Smallit Provider Dr. Barrett Small Other Provider Korstefano, Dr. Nae Lang Attending Provider Sharonda, Dr. Nae Lang Other Provider [phone] Dr. Olievr Morales Other Provider Dr. Emerson Ruff Other Provider Jose PALMER, CIGARETTE MACHINE OPERATOR-C Nelly Other Provider Dr. Nae Mcdonough Referring Provider Dr. Oliver Morales Attending Provider Stefano, Dr. Tristin Zuniga Primary Care Provider [phone] Stefano, Dr. Tristin Zuniga Referring Provider Shira CIGARETTE MACHINE OPERATOR, CIGARETTE MACHINE OPERATOR-C Kendra Cooper Attending Provider Bhumika, Dr. Slade Admit Provider Dr. Elena Bai Referring Provider Bhumika, Dr. Slade Other Provider Dr. Duncan Campa Attending Provider Lokesh, Dr. Song Other Provider Cynthia, Dr. Tello Attending Provider Bhumika, Dr. Slade Referring Provider [phone] STEFANO HSIEH, DR MELENDEZ Primary Care Physician BHUMIKA HSIEH, DR ELENA Bowie Attending Medardo Yoon MD, DR MELENDEZ Primary Care Unavailable BHUMIKA HSIEH, DR ELENA Bowie Attending Medardo Yoon MD, DR MELENDEZ Primary Care Unavailable BHUMIKA HSIEH, DR ELENA Bowie Admitting Medardo Urrutia MD, DR ELENA Bowie Referring Cassyab toribio CAIN MD, DR MELENDEZ Primary Care Le CAIN MD, DR MELENDEZ Consulting Unavailable DAGO MEDINA-STATISTICAL METHODS PROFESSOR, ROBBY Salmeron Attending Suzie LOZA APRN-STATISTICAL METHODS PROFESSOR, ROBBY Salmeron Consulting Suzie Cain MD, Dr. Tristin Zuniga Primary Care Provider José HSIEH, Dr. Isra Bowie Attending Provider José HSIEH, Dr. Isra Bowie Referring Provider Stefano HSIEH, Dr. Tristin Zuniga Attending Provider Stefano HSIEH, Dr. Tristin Zuniga Referring Provider Tristin Cain Chi Primary Care Unavailable Isra Kumar Referring Unavailable Isra Kumar Attending Unavailable Tristin Cain Chi Primary Care Unavailable Tristin Cain Chi Attending Unavailable Tristin Cain Chi Primary Care Unavailable FriendJoshuan Attending Unavailable Tristin Cain Chi Primary Care Unavailable Tristin Cain Chi Referring Unavailable Tristin Cain Chi Attending Unavailable Allergies Allergy Classification Reported Allergen(s) Allergy Type Date of Onset Reaction(s) Facility (15 sources) Penicillins; Translations: [Penicillins] Allergy to substance 09-20-2019 [facility] (3 sources) Penicillin; Translations: [penicillin] Drug Allergy [facility] Medications Current Medications Medication Drug Class(es) Dates Sig (Normalized) Sig (Original) acetaminophen 1000 mg oral tablet (9 sources) Start: 05-23-2023 take 1 tablet by mouth once daily Tylenol Dose : 1,000 mg = 2 tab(s), Oral, q6hr, not to exceed 3000 mg/day, 0 Refill(s) Start Date: 05/23/23 Status: Ordered Start: 03-22-2023 Acetaminophen 500 mg Tablet Active 1000 mg PO EVERY 8 HOURS March 22, 2023 12:00am Do not take more than 3000 mg Tylenol in a 24-hour period. Start: 03-22-2023 take 3000 mg by mout h every eight hours Acetaminophen Active 1000 MG PO EVERY 8 HOURS March 22, 2023 12:00am Do not take more than 3000 mg Tylenol in a 24-hour period. 120 actuat albuterol 0.1 mg/actuat / ipratropium bromide 0.02 mg/actuat inhalation spray (20 sources) Anticholinergic, beta2-Adrenergic Agonist Start: 03-23-2022 End: 02-23-2023 take 20-100 ug by inhalation every four hours as needed Ipratropium-Albuterol (Combivent Respimat) 20-100 mcg/actuation mist Active 1 NMA INHALATION Q4H as needed for SOB February 23, 2023 9:07am Start: 03-23-2022 End: 02-23-2023 take 20-100 ug by inhalation every four hours Ipratropium-Albuterol (Combivent Respimat) 20-100 mcg/actuation mist Active 1 PUFF INHALATION Q4H February 23, 2023 9:07am amLODIPine 10 mg oral tablet (15 sources) Dihydropyridine Calcium Channel Shiv Start: 05-02-2023 amLODIPine 10 mg oral tablet Dose : 10 mg = 1 tab(s), Oral, qDay, # 30 tab(s), 0 Refill(s) Start Date: 05/02/23 Status: Ordered Start: 03-22-2022 End: 01-11-2023 Amlodipine 10 mg tablet Disc ontinued 1 {tbl} PO DAILY March 22, 2022 12:00am January 11, 2023 3:21pm amLODIPine 10 mg / hydroCHLOROthiazide 25 mg / valsartan 320 mg oral tablet (10 sources) Thiazide Diuretic, Dihydropyridine Calcium Channel Shiv, Angiotensin 2 Receptor Shiv Start: 02-23-2023 Tsfstkpnwl-Rezjmfcgs-Zhmtntx id (Exforge Hct) 10-320-25 mg Tablet Active 1 {tbl} PO DAILY February 23, 2023 12:00am Start: 03-04-2018 take 1 tablet by serjio th once daily Kgydomvxqx-Yhvvgdcfu-Wyctalyvw (Exforge Hct) 10-320-25 mg tablet Active 1 TABLET PO daily March 04, 2018 1:41pm aspirin 81 mg delayed release oral tablet (20 sources) Platelet Aggregation Inhibitor, Nonsteroidal Anti-inflammatory Drug Start: 05-23-2023 take 1 tablet by mouth twice daily aspirin 81 mg oral delayed release tablet Dose : 81 mg = 1 tab(s), Oral, BIDM, Take 81 mg aspirin twice daily with food for 4 weeks postoperatively for DVT prophylaxis., 0 Refill(s) Start Date: 05/23/23 Status: Ordered Start: 05-02-2023 aspirin 81 mg oral delayed release tablet Dose : 81 mg = 1 tab(s), Oral, Daily, 0 Refill(s) Start Date: 05/02/23 Status: Ordered Start: 03-22-2023 take 1 tablet by serjio th twice daily at mealtime Aspirin 81 mg Tablet,Chewable Active 81 mg PO TWICE DAILY WITH MEALS 60 March 22, 2023 12:00am Take 81 mg aspirin twice daily for 4 weeks postoperatively for DVT prophylaxis. Start: 11-02-2022 End: 03-22-2023 take 1 tablet by mouth once daily Aspirin (Adult Aspirin Regimen) 81 mg tablet,delayed release (DR/EC) Discontinued 81 mg PO DAILY November 02, 2022 1:00am March 22, 2023 10:24am atorvastatin 20 mg oral tablet (14 sources) HMG-CoA Reductase Inhibitor Start: 03-04-2018 take 1 tablet by mouth at bedtime Atorvastatin (Lipitor) 20 mg tablet Active 20 mg PO AT BEDTIME March 04, 2018 12:00am ciprofloxacin 500 mg oral tablet (6 sources) Quinolone Antimicrobial Start: 04-11-2023 take 1 tablet by mouth twice daily Ciprofloxacin Hcl (Cipro) 500 mg tablet Active 500 mg PO TWICE A DAY April 11, 2023 12:00am docusate sodium 50 mg / sennosides, fdc 8.6 mg oral tablet (9 sources) Start: 03-22-2023 End: 05-26-2023 Sennosides-Docusat e Sodium (Stool Softener-Stimulant Laxat) 8.6-50 mg Tablet Active 2 {tbl} PO TWICE A DAY 12 March 22, 2023 12:00am Take until first bowel movement, then as needed dorzolamide 20 mg/ml / timolol 5 mg/ml ophthalmic solution (11 sources) Carbonic Anhydrase Inhibitor, beta-Adrenergic Shiv Start: 05-02-2023 dorzolamide-timolo l 2.23%-0.68% (2%-0.5% base) ophthalmic solution Dose = 1 drop(s), Ophthalmic, BID, RIGHT EYE, # 10 mL, 0 Refill(s) Start Date: 05/02/23 Status: Ordered Start: 01-11-2023 Dorzolamide-Ti molol 22.3-6.8 mg/mL drops Active 1 NMA OPHTHALMIC AT BEDTIME January 11, 2023 12:00am Start: 01-11-2023 Dorzolamide-Ti molol Active 1 DRP OPHTHALMIC AT BEDTIME January 11, 2023 12:00am famotidine 20 mg oral tablet (9 sources) Histamine-2 Receptor Antagonist Start: 03-22-2023 take 1 tablet by mouth once daily Famotidine 20 mg Tablet Active 20 mg PO DAILY March 22, 2023 12:00am ferrous sulfate 325 mg oral tablet (9 sources) Start: 03-22-2023 Ferrous Sulfate (Ferosul) 325 mg (65 mg iron) Tablet Active 325 mg PO 1200,1700 28 March 22, 2023 12:00am Take for 2 weeks postoperatively folic acid 1 mg oral tablet (11 sources) Start: 03-22-2023 take 1 tablet by mouth at breakfast Folic Acid 1 mg Tablet Active 1 mg PO WITH BREAKFAST 14 March 22, 2023 12:00am Take for 2 weeks postoperatively hydroCHLOROthiazide 25 mg / valsartan 320 mg oral tablet (7 sources) Thiazide Diuretic, Angiotensin 2 Receptor Shiv Start: 05-02-2023 take 1 tablet by mouth once daily hydrochlorothiazide -valsartan 25 mg-320 mg oral tablet Dose = 1 tab(s), Oral, Daily, 0 Refill(s) Start Date: 05/02/23 Status: Ordered Start: 03-22-2022 take 1 tablet by serjio th once daily Valsartan-Hydrochlorothiazide Active 1 T ABLET PO DAILY March 22, 2022 12:00am latanoprost 0.05 mg/ml ophthalmic suspension (11 sources) Prostaglandin Analog Start: 05-02-2023 take 1 dose into the eye(s) once daily at bedtime latanoprost 0.005% ophthalmic emulsion Dose = 1 drop(s), Eyes, both, qHS, # 2.5 mL, 0 Refill(s) Start Date: 05/02/23 Status: Ordered Start: 01-11-2023 Latanoprost 0. 005 % drops Active 1 NMA OPHTHALMIC AT BEDTIME January 11, 2023 12:00am Start: 01-11-2023 Latanoprost Ac tive 1 DRP OPHTHALMIC AT BEDTIME January 11, 2023 12:00am levoFLOXacin 500 mg oral tablet (4 sources) Quinolone Antimicrobial Start: 03-23-2022 take 500 mg by mouth once daily Levofloxacin Active 500 MG PO DAILY March 23, 2022 12:00am meloxicam 7.5 mg oral tablet (9 sources) Nonsteroidal Anti-inflammatory Drug Start: 03-22-2023 End: 06-22-2023 take 1 tablet by mouth twice daily Meloxicam 7.5 mg Tablet Active 7.5 mg PO TWICE A DAY 60 March 22, 2023 12:00am Do not take any other nonsteroidal anti-inflammatorie s while using meloxicam/Mobic. minoxidil 2.5 mg oral tablet (15 sources) Arteriolar Vasodilator Start: 03-22-2022 take 1 tablet by mouth at bedtime Minoxidil 2.5 mg tablet Active 2 {tbl} PO AT BEDTIME March 22, 2022 12:00am Start: 03-22-2022 take 2 tablets by mo [facility] at bedtime Minoxidil Active 2 TABLET PO AT BEDTIME March 22, 2022 12:00am Cffckbub-Adc-Gd-Lycopen-Lute in (Centrum Silver) 0.4-300-250 mg-mcg-mcg tablet (14 sources) Start: 03-04-2018 take 1 tablet by mouth once daily in the morning Fywpeztr-Yer-Rg-Lycopen-Lutein (Centrum Silver) 0.4-300-250 mg-mcg-mcg tablet Active 1 TABLET PO EVERY MORNING March 04, 2018 1:42pm Start: 03-04-2018 Rhzdvhda-Exu-P s-Lrkzxqq-Gxvnxx (Centrum Silver) 0.4-300-250 mg-mcg-mcg tablet Active 1 {tbl} PO EVERY MORNING March 04, 2018 12:00am Start: 03-04-2018 take 1 tablet by serjio once daily in the morning Aouqpfnt-Nwy-Zs-Lycopen-Lutein (Centrum Silver) 0.4-300-250 mg-mcg-mcg tablet Active 1 TABLET PO EVERY MORNING March 03, 2018 11:00pm Start: 03-04-2018 take 1 tablet by serjio once daily in the morning Prgrvgxd-Yks-Dl-Lycopen-Lutein (Centrum Silver) 0.4-300-250 mg-mcg-mcg tablet Active 1 TABLET PO EVERY MORNING March 04, 2018 12:00am Multivitamin preparation (3 sources) Start: 05-02-2023 take 1 tablet by mouth once daily Multivitamin Dose = 1 tab(s), Oral, Daily, 0 Refill(s) Start Date: 05/02/23 Status: Ordered nebivolol 20 mg oral tablet (17 sources) Start: 05-02-2023 Nebivolol 20 m g oral tablet 0 Refill(s) Start Date: 05/02/23 Status: Ordered Start: 03-04-2018 take 2 tablets by mo [facility] once daily Nebivolol (Bystolic) 10 mg tablet Active 20 mg PO daily March 04, 2018 12:00am Start: 03-04-2018 take 1 tablet by serjio th once daily Nebivolol (Bystolic) 10 mg tablet Active 10 MG PO daily March 04, 2018 1:41pm oxyCODONE hydrochloride 5 mg oral tablet (9 sources) Opioid Agonist Start: 03-22-2023 End: 05-30-2023 take 5-10 mg by mouth every four hours as needed for pain Oxycodone 5 mg Tablet Active 5 - 10 mg PO EVERY 4 HOURS NEEDED as needed for Pain Score 4-10 42 5 March 22, 2023 Potassium Chloride (17 sources) Start: 05-02-2023 Potassium Chloride (Oek-Jcuo-Ocy M20) 20 mEq oral tablet, extended release Dose : 20 mEq = 1 tab(s), Oral, qDay, # 30 tab(s), 0 Refill(s) Start Date: 05/02/23 Status: Ordered Start: 03-04-2018 take 1 tablet by serjio th once daily Potassium Chloride 20 mEq tablet extended release Active 20 meq PO daily March 04, 2018 12:00am rOPINIRole 1 mg oral tablet (3 sources) Nonergot Dopamine Agonist Start: 05-02-2023 rOPINIRole 1 mg oral tablet Dose : 1 mg = 1 tab(s), Oral, TID, # 270 tab(s), 0 Refill(s) Start Date: 05/02/23 Status: Ordered tadalafil 5 mg oral tablet (2 sources) Phosphodiesterase 5 Inhibitor Start: 03-04-2018 take 1 tablet by mouth once daily Tadalafil (Cialis) 5 mg tablet Active 5 MG PO daily March 04, 2018 1:43pm tamsulosin hydrochloride 0.4 mg oral capsule (3 sources) alpha-Adrenergic Shiv Start: 05-02-2023 tamsulosin 0.4 mg oral capsule Dose : 0.4 mg = 1 cap(s), Oral, BID, 0 Refill(s) Start Date: 05/02/23 Status: Ordered traZODone hydrochloride 100 mg oral tablet (17 sources) Serotonin Reuptake Inhibitor Start: 03-04-2018 take 1 tablet by mouth at bedtime Trazodone 100 mg tablet Active 100 mg PO AT BEDTIME March 04, 2018 12:00am Vitamin D3 50 mcg (2000 intl units) oral capsule (3 sources) Start: 05-02-2023 Vitamin D3 50 mcg (2000 intl units) oral capsule Dose : 50 mcg = 1 cap(s), Oral, Daily, # 30 cap(s), 0 Refill(s) Start Date: 05/02/23 Status: Ordered Completed/Discontinued Medications Medication Drug Class(es) Dates Sig (Normalized) Sig (Original) sulfamethoxazole 800 mg / trimethoprim 160 mg oral tablet (14 sources) Dihydrofolate Reductase Inhibitor Antibacterial, Sulfonamide Antimicrobial Start: 12-04-2014 End: 03-04-2018 Sulfamethoxazole- Trimethoprim 1 TABLET tablet Discontinued 1 {tbl} PO TWICE A DAY December 04, 2014 12:00am March 04, 2018 1:41pm Start: 12-04-2014 End: 03-04-2018 take 1 tablet by mouth twice daily Sulfamethoxazole-Trimethoprim Discontinu ed 1 TABLET PO TWICE A DAY December 04, 2014 12:00am March 04, 2018 1:41pm zolpidem tartrate 10 mg oral tablet (9 sources) gamma-Aminobutyric Acid-ergic Agonist Start: 11-02-2022 End: 01-11-2023 Zolpidem (Ambien) 10 mg tablet Discontinued PO November 02, 2022 1:00am January 11, 2023 3:20pm Problems Active Problems Problem Classification Problem Date Documented Da te Episodic/Chronic Coronary atherosclerosis and other heart disease (1 source) Coronary atherosclerosis; Translations: [Atherosclerotic heart disease of [place] coronary artery without angina pectoris] Onset: 05-23-2023 Chronic Deficiency and other anemia (8 sources) Anemia; Translations: [Anemia, unspecified] 03-22-2023 Episodic Essential hypertension (18 sources) Hypertensive disorder; Translations: [Essential (primary) hypertension] Onset: 05-23-2023 03-21-2022 Chronic Comment on above: CONTROLLED WITH MED Fluid and electrolyte disorders (7 sources) Acute hyponatremia; Translations: [Hypo-osmolality and hyponatremia] 04-04-2023 Episodic Genitourinary symptoms and ill-defined conditions (20 sources) Retention of urine; Translations: [Retention of urine, unspecified] 09-21-2019 Episodic Osteoarthritis (1 source) Osteoarthritis; Translations: [Unspecified osteoarthritis, unspecified site] Onset: 05-23-2023 Chronic Other connective tissue disease (8 sources) History of total knee arthroplasty; Translations: [Presence of left artificial knee joint] 03-22-2023 Chronic Other connective tissue disease (3 sources) Presence of left artificial knee joint; Translations: [Knee joint replacement] 03-22-2023 Chronic Other connective tissue disease (2 sources) Artificial knee joint present; Translations: [Presence of right artificial knee joint] Onset: 05-23-2023 Chronic Other gastrointestinal disorders (8 sources) Heartburn; Translations: [Heartburn] 01-11-2023 Episodic Other gastrointestinal disorders (8 sources) Constipation; Translations: [Constipation, unspecified] 01-11-2023 Episodic Other gastrointestinal disorders (3 sources) Constipation, unspecified; Translations: [Constipation, unspecified] 01-11-2023 Episodic Other gastrointestinal disorders (3 sources) Heartburn; Translations: [Heartburn] 01-11-2023 Episodic Other gastrointestinal disorders (7 sources) Acute constipation; Translations: [Constipation, unspecified] 04-04-2023 Episodic Other lower respiratory disease (13 sources) Respiratory insufficiency; Translations: [Other abnormalities of breathing] 03-31-2022 Episodic Other lower respiratory disease (13 sources) Hypoxia; Translations: [Hypoxemia] 03-31-2022 Episodic Other lower respiratory disease (2 sources) Other abnormalities of breathing; Translations: [Other pulmonary insufficiency, not elsewhere classified] Episodic Other lower respiratory disease (2 sources) Hypoxemia; Translations: [Hypoxemia] Episodic Other male genital disorders (7 sources) H/O: male genital disorder; Translations: [Personal history of other diseases of male genital organs] 04-04-2023 Episodic Pneumonia (except that caused by tuberculosis or sexually transmitted disease) (15 sources) Pneumonia; Translations: [Pneumonia, unspecified organism] Episodic Thyroid disorders (14 sources) Hyperthyroidism; Translations: [Thyrotoxicosis, unspecified without thyrotoxic crisis or storm] 03-16-2018 Chronic Comment on above: Lab notes patient to be mildly hyperthyroid. Will further test to determine antibodies and se if patient is thyroiditis or if needs treatment. Unclassified (1 source) Infrarenal abdominal aortic aneurysm, without rupture; Translations: [Infrarenal abdominal aortic aneurysm, without rupture] Onset: 12-01-2024 Past or Other Problems Problem Classification Problem Date Documented Da te Episodic/Chronic Unclassified (12 sources) hormone deficiency 03-22-2022 Results Test Name Value Interpretation Reference Range Facility Absolute lymphocyte countOrd ered By: Tristin Cain on 01-12-2025 Lymphocytes Auto (Unsp spec) [#/Vol] 1.81 10*3/uL 0.83-4.51 [facility] Absolute neutrophil countOrd ered By: Tristin Cain on 01-12-2025 Neutrophils (Bld) [#/Vol] 4.4 10*3/uL 2.0-7.7 [facility] Anion gap in Serum or Plasma Ordered By: Tristin Cain on 01-12-2025 Anion gap [Moles/Vol] 11 mmol/L 5- [facility] Automated lymphocyte count a s percentage of total leukocytesOrdered By: Tristin Cain on 01-12-2025 Lymphocytes/100 WBC Auto (Unsp spec) 25.2 % 19- [facility] BUN/creatinine ratioOrdered By: Tristin Stefano on 01-12-2025 Urea nitrogen/Creatinine [Mass ratio] 14.9 mg/mg 10- [facility] Basophil percentageOrdered B y: Tristin Cain on 01-12-2025 Basophils/100 WBC (Bld) 0.6 % 0-1 [facility] Bilirubin, totalOrdered By: Tristin Cain on 01-12-2025 Bilirubin [Mass/Vol] 1.16 mg/dL 0.00-1.30 [facility] CBC W/Diff, Automatedon 01-01 Absolute Lymph 1.81 X10 3/uL Normal 0.83-4.51 [facility] Comment on above: Performed By: #### L [id number], [id number], L100.0100, [id number] #### [facility] [address] [place], [address] Absolute Neut 4.4 X10 3/uL Normal 2.0-7.7 [facility] Comment on above: Performed By: #### L [id number], [id number], L100.0100, [id number] #### [facility] [address] [place], [address] Basophils/100 WBC (Bld) 0.6 % Normal 0-1 [facility] Comment on above: Performed By: #### L [id number], [id number], L100.0100, [id number] #### [facility] [address] [place], [address] Eosinophils/100 WBC (Bld) 3.5 % Normal 0-5 [facility] Comment on above: Performed By: #### L [id number], [id number], L100.0100, [id number] #### [facility] [address] [place], [address] Erythrocyte distribution width (RBC) [Ratio] 14.3 % Normal 11.6-14.6 [facility] Comment on above: Performed By: #### L [id number], [id number], L100.0100, [id number] #### [facility] [address] [place], [address] Hematocrit (Bld) [Volume fraction] 39.6 % Low 40-54 [facility] Comment on above: Performed By: #### L [id number], [id number], L100.0100, [id number] #### [facility] [address] [place], [address] Hemoglobin (Bld) [Mass/Vol] 13.6 g/dL Normal 13.0-16.5 [facility] Comment on above: Performed By: #### L [id number], [id number], L100.0100, [id number] #### [facility] [address] [place], [address] IG% 0.600 Normal 0.0-0.9 [facility] Comment on above: Result Comment: IG% - Immature Granulocytes (promyelocytes, myelocytes and metamyelocytes) > 1% indicates that a LEFT SHIFT is Present. Performed By: #### L [id number], [id number], L100.0100, [id number] #### [facility] [address] [place], [address] Lymphocytes/100 WBC (Bld) 25.2 % Normal 19-41 [facility] Comment on above: Performed By: #### L [id number], [id number], L100.0100, [id number] #### [facility] [address] [place], [address] MCH (RBC) [Entitic mass] 30.9 pg Normal 27.0-32.0 [facility] Comment on above: Performed By: #### L [id number], [id number], L100.0100, [id number] #### [facility] [address] [place], [address] MCHC (RBC) [Mass/Vol] 34.3 g/dL Normal 32-36 [facility] Comment on above: Performed By: #### L [id number], [id number], L100.0100, [id number] #### [facility] [address] [place], [address] MCV (RBC) [Entitic vol] 90.0 fL Normal 80-94 [facility] Comment on above: Performed By: #### L [id number], [id number], L100.0100, [id number] #### [facility] [address] [place], [address] Monocytes/100 WBC (Bld) 8.9 % Normal 0-10 [facility] Comment on above: Performed By: #### L [id number], [id number], L100.0100, [id number] #### [facility] [address] [place], [address] Neutrophils/100 WBC (Bld) 61.2 % Normal 47-70 [facility] Comment on above: Performed By: #### L [id number], [id number], L100.0100, [id number] #### [facility] [address] [place], [address] Nucleated RBC (Bld) [#/Vol] 0 10*3/uL Normal 0-5 [facility] Comment on above: Performed By: #### L [id number], [id number], L100.0100, [id number] #### [facility] [address] [place], [address] Platelet mean volume (Bld) [Entitic vol] 9.2 fL Normal 6.2-12.0 [facility] Comment on above: Performed By: #### L [id number], [id number], L100.0100, [id number] #### [facility] [address] [place], [address] Platelets (Bld) [#/Vol] 189 10*3/uL Normal 150-450 [facility] Comment on above: Performed By: #### L [id number], [id number], L100.0100, [id number] #### [facility] [address] [place], [address] RBC (Bld) [#/Vol] 4.40 10*6/uL Low 4.6-6.2 [facility] Comment on above: Performed By: #### L [id number], [id number], L100.0100, [id number] #### [facility] [address] [place], [address] RDW SD 47.0 fl High 35.1-43.9 [facility] Comment on above: Performed By: #### L [id number], [id number], L100.0100, [id number] #### [facility] [address] [place], [address] WBC (Bld) [#/Vol] 7.2 10*3/uL Normal 4.4-11.[address] [facility] Comment on above: Performed By: #### L [id number], [id number], L100.0100, [id number] #### [facility] [address] [place], [address] Carbon dioxide, total [Moles /volume] in Central venous bloodOrdered By: Tristin Cain on 01-12-2025 CO2 [Moles/Vol] 25.2 mmol/L 21.0-32.0 [facility] Chloride assayOrdered By: Chuck Cain on 01-12-2025 Chloride [Moles/Vol] 103 mmol/L 98-108 [facility]abolic Prof ilon 01-12-2025 Albumin [Mass/Vol] 4.2 g/dL Normal 3.4-4.[address] [facility] Comment on above: Performed By: #### L [id number], [id number], L100.0100, [id number] #### [facility] [address] [place], [address] Albumin/Globulin [Mass ratio] 1.4 {ratio} Normal 0.9-2.4 [facility] Comment on above: Performed By: #### L 501.9520, L500.4050, L100.0100, L506.1001 #### [facility] [address] [place], [address] ALK PHOS 60 U/L Normal 40-129 [facility] Comment on above: Performed By: #### L 501.9520, L500.4050, L100.0100, L506.1001 #### [facility] [address] [place], [address] ALT [Catalytic activity/Vol] 33 U/L Normal <=46 [facility] Comment on above: Performed By: #### L 501.9520, L500.4050, L100.0100, L506.1001 #### [facility] [address] [place], [address] AST [Catalytic activity/Vol] 25 U/L Normal <=37 [facility] Comment on above: Performed By: #### L 501.9520, L500.4050, L100.0100, L506.1001 #### [facility] [address] [place], [address] Bilirubin [Mass/Vol] 1.16 mg/dL Normal 0.00-1.30 [facility] Comment on above: Performed By: #### L 501.9520, L500.4050, L100.0100, L506.1001 #### [facility] [address] [place], [address] BUN/CRE 14.9 RATIO Normal 10-20 [facility] Comment on above: Performed By: #### L 501.9520, L500.4050, L100.0100, L506.1001 #### [facility] [address] [place], [address] Calcium [Mass/Vol] 9.5 mg/dL Normal 7.6-11.[address] [facility] Comment on above: Performed By: #### L 501.9520, L500.4050, L100.0100, L506.1001 #### [facility] [address] [place], [address] Chloride [Moles/Vol] 103 mmol/L Normal 98-108 [facility] Comment on above: Performed By: #### L 501.9520, L500.4050, L100.0100, L506.1001 #### [facility] [address] [place], [address] CO2 [Moles/Vol] 25.2 mmol/L Normal 21.0-32.0 [facility] Comment on above: Performed By: #### L 501.9520, L500.4050, L100.0100, L506.1001 #### [facility] [address] [place], [address] Creatinine [Mass/Vol] 0.93 mg/dL Normal 0.70-1.20 [facility] Comment on above: Performed By: #### L 501.9520, L500.4050, L100.0100, L506.1001 #### [facility] [address] [place], [address] GAP 11 Normal 5-15 [facility] Comment on above: Performed By: #### L 501.9520, L500.4050, L100.0100, L506.1001 #### [facility] [address] [place], [address] GFR/1.73 sq M.predicted among non-blacks MDRD (S/P/Bld) [Vol rate/Area] 81 mL/min/{1.73_m2} Normal >60 [facility] Comment on above: Result Comment: mL/m in/1.73m2 CKD-EPI Creatinine Equation (2020) Performed By: #### L 501.9520, L500.4050, L100.0100, L506.1001 #### [facility] [address] [place], [address] Globulin (S) [Mass/Vol] 3.1 g/dL Normal 2.2-4.2 [facility] Comment on above: Performed By: #### L 501.9520, L500.4050, L100.0100, L506.1001 #### [facility] [address] [place], [address] Glucose [Mass/Vol] 117 mg/dL High 70-[address] [facility] Comment on above: Performed By: #### L 501.9520, L500.4050, L100.0100, L506.1001 #### [facility] [address] [place], [address] Potassium [Moles/Vol] 3.8 mmol/L Normal 3.3-5.1 [facility] Comment on above: Performed By: #### L 501.9520, L500.4050, L100.0100, L506.1001 #### [facility] [address] [place], [address] Sodium [Moles/Vol] 139 mmol/L Normal 133-[address] [facility] Comment on above: Performed By: #### L 501.9520, L500.4050, L100.0100, L506.1001 #### [facility] [address] [place], [address] T PROT 7.3 g/dL Normal 5.9-8.4 [facility] Comment on above: Performed By: #### L 501.9520, L500.4050, L100.0100, L506.1001 #### [facility] [address] [place], [address] Urea nitrogen [Mass/Vol] 14 mg/dL Normal 4-19 [facility] Comment on above: Performed By: #### L 501.9520, L500.4050, L100.0100, L506.1001 #### [facility] [address] [place], [address] Eosinophil percentageOrdered By: Tristin Cain on 01-12-2025 Eosinophils/100 WBC (Bld) 3.5 % 0-5 [facility] Erythrocyte distribution wid th ratioOrdered By: Tristin Cain on 01-12-2025 Erythrocyte distribution width (RBC) [Ratio] 14.3 % 11.6-14.6 [facility] Erythrocyte distribution wid th standard deviationOrdered By: Tristin Cain on 01-12-2025 Erythrocyte distribution width (RBC) [Ratio] 47.0 fl High 35.1-43.9 [facility] Glomerular filtration rate ( GFR) estimation/1.73 sq m using serum, plasma, or whole bOrdered By: Tristin Kramerok on 01-12-2025 GFR/1.73 sq M.predicted among non-blacks MDRD (S/P/Bld) [Vol rate/Area] 81 mL/min/{1.73_m2} >60 [facility] Comment on above: mL/min/1.73m2 CKD-EP I Creatinine Equation (2020) Hematocrit Auto (Bld) [Volum e fraction]Ordered By: Tristin Kramerok on 01-12-2025 Hematocrit (Bld) [Volume fraction] 39.6 % Low 40-54 [facility] Hemoglobin measurementOrdere d By: Tristin Cain 01-12-2025 Hemoglobin (Bld) [Mass/Vol] 13.6 g/dL 13.0-16.5 [facility] Immature granulocytes/100 WB C Auto (Bld)Ordered By: Tristin Cain 01-12-2025 Immature granulocytes/100 WBC (Bld) 0.600 % 0.0-0.9 [facility] Comment on above: IG% - Immature Granu locytes (promyelocytes, myelocytes and metamyelocytes) > 1% indicates that a LEFT SHIFT is Present. Laboratory - Chemistry and C hemistry - challengeOrdered By: Tristin Cain 01-12-2025 AST [Catalytic activity/Vol] 25 U/L <38 [facility] MCV (mean corpuscular volume ) determinationOrdered By: Tristin Cain 01-12-2025 MCV (RBC) [Entitic vol] 90.0 fL 80-94 [facility] Mean corpuscular hemoglobin (MCH) determinationOrdered By: Tristin Kramer01-12-2025 MCH (RBC) [Entitic mass] 30.9 pg 27.0-32.0 [facility] Mean corpuscular hemoglobin concentration (MCHC) determinationOrdered By: Tristin Cain 01-12-2025 MCHC (RBC) [Mass/Vol] 34.3 g/dL 32-36 [facility] Mean platelet volume determi nationOrdered By: Tristin Cain 01-12-2025 Platelet mean volume (Bld) [Entitic vol] 9.2 fL 6.2-12.0 [facility] Monocyte percentageOrdered B y: Tristin Cain on 01-12-2025 Monocytes/100 WBC (Bld) 8.9 % 0-10 [facility] Neutrophil percentageOrdered By: Tristin Cain on 01-12-2025 Neutrophils/100 WBC (Bld) 61.2 % 47-70 [facility] Nucleated red blood cell per centageOrdered By: Tristin Cain on 01-12-2025 Nucleated RBC/100 WBC (Bld) [Ratio] 0 % 0-5 [facility] Platelet countOrdered By: Chuck Cain on 01-12-2025 Platelets (Bld) [#/Vol] 189 10*3/uL 150-450 [facility] Potassium measurement (mass/ volume)Ordered By: Tristin Cain on 01-12-2025 Potassium (Unsp spec) [Mass/Vol] 3.8 mmol/L 3.3-5.1 [facility] RBC Auto (Bld) [#/Vol]Ordere d By: Tristin Cain on 01-12-2025 RBC (Bld) [#/Vol] 4.40 10*6/uL Low 4.6-6.2 [facility] Serum creatinine measurement (mass/volume)Ordered By: Tristin Cain on 01-12-2025 Creatinine [Mass/Vol] 0.93 mg/dL 0.70-1.20 [facility] Serum globulin measurementOr dered By: Tristin Cain 01-12-2025 Globulin (S) [Mass/Vol] 3.1 g/dL 2.2-4.2 [facility] Serum glucose measurement (m ass/volume)Ordered By: Tristin Cain on 01-12-2025 Glucose [Mass/Vol] 117 mg/dL High 70-[address] [facility] Serum or plasma alanine alcantara otransferase (ALT) measurementOrdered By: Tristin Cain 01-12-2025 ALT [Catalytic activity/Vol] 33 U/L <47 [facility] Serum or plasma albumin hay urement (mass/volume)Ordered By: Tristin Cain on 01-12-2025 Albumin [Mass/Vol] 4.2 g/dL 3.4-4.[address] [facility] Serum or plasma albumin/glob ulin mass ratioOrdered By: Tristin Cain 01-12-2025 Albumin/Globulin [Mass ratio] 1.4 {ratio} 0.9-2.4 [facility] Serum or plasma alkaline queenie sphatase measurementOrdered By: Tristin Cain on 01-12-2025 ALP [Catalytic activity/Vol] 60 U/L 40-129 [facility] Serum or plasma calcium hay urement (mass/volume)Ordered By: Tristin Cain on 01-12-2025 Calcium [Mass/Vol] 9.5 mg/dL 7.6-11.[address] [facility] Serum or plasma urea nitroge n measurement (mass/volume)Ordered By: Tristin Cain on 01-12-2025 Urea nitrogen [Mass/Vol] 14 mg/dL 4-19 [facility] Sodium levelOrdered By: Tristin Cain on 01-12-2025 Sodium [Moles/Vol] 139 mmol/L 133-[address] [facility] TSH DL <= 0.005 mIU/L QnOrde red By: Tristin Cain on 01-12-2025 TSH Qn 0.852 uIU/mL 0.300-4.200 [facility] Thyroid Stim Hormone (TSH)on 01-12-2025 TSH 0.852 uIU/mL Normal 0.300-4.200 [facility] Comment on above: Performed By: #### L 501.9520, L500.4050, L100.0100, L506.1001 #### [facility] [place], [address] Total proteinOrdered By: Tristin Cain on 01-12-2025 Protein [Mass/Vol] 7.3 g/dL 5.9-8.[address] [facility] Vitamin D,25 Hydroxyon 01-12 Vitamin D 25-OH 32.0 ng/mL Normal 30-100 [facility] Comment on above: Result Comment: Katharine min D Status Deficiency: <20 ng/mL (50nmol/L) Insufficiency: 20-30 ng/mL (50-75 nmol/L) Sufficiency: 30-100 ng/mL (75-250 nmol/L) Toxicity: >100 ng/mL (>250 nmol/L) Performed By: #### L 501.9520, L500.4050, L100.0100, L506.1001 #### [facility] [address] [place], [address] White blood cell (WBC) count Ordered By: Tristin Cain on 01-12-2025 WBC (Bld) [#/Vol] 7.2 10*3/uL 4.4-11.[address] [facility] Abd Aortic/IVC Duplex scanon 11-27-2024 Abd Aortic/IVC Duplex scan [facility] [address] [place] [address] Abd Aortic/IVC Duplex scan 11/27/24 0905 MR#: [id number] Acct: [id number] Name: JARROD HERRING Rep #: [id number] : 1940 84 From: Isra Kumar MD Attending Dr: Dr. Isra Kumar MD Status: DE P CLI Ordering Dr: Isra Kumar MD Date: 11/27/24 Location: [facility] Sex: M C Admitted: Reason For Study Reason For Study: HX AAA w/ EVAR Aorta Measurements Aorta Doppler Measurements Proximal aorta measures2.16 x 2.26cm. in cross-sectional Peak systolic flow velocities within the proximal aorta axis. measure 75.9 cm/sec. Proximal aorta measures2.29cm. in longitudinal axis. Peak systolic flow velocities within the mid aorta measure AAA noted w/ EVAR at mid 86.8 cm/sec. Residual AAA measures approximately 5.93cm x 6.03cm in shortRt Limb Prox long - 85.0 cm/s angle and 5.67cm in long. Rt Limb Dist long - 63.2 cm/s Rt Limb Prox short - 1.27cm x 1.25cm Lt Limb Prox long - 90.4 cm/s Rt Limb Prox long - 1.23cm Lt Limb Dist long - 83.2 cm/s. Rt Limb Dist short - 1.44cm x 1.57cm Rt Limb Dist long - 1.31cm Lt Limb Prox short - 1.21cm x 1.21cm Lt Limb Prox long - 1.25cm Lt Limb Dist short - 1.37cm x 1.33cm Lt Limb Dist long - 1.35cm. Left Iliac Artery Left iliac artery measures 1.30 x 1.31 cm. in the cross-sectional axis. Left iliac artery measures 1.30 cm. in the longitudinal axis. Peak systolic velocity in the left iliac artery measures 83.7 cm/sec. Right Iliac Artery Right iliac artery measures 1.32 x 1.11 cm. in the cross-sectional axis. Right iliac artery measures 1.35 cm. in the longitudinal axis. Peak systolic velocity in the right iliac artery measures 83.2 cm/sec. Procedure Aorta IVC Iliac vasculature or bypass grafts 82759. The exam was diagnostic. Exam performed in department. VL/Abd Aortic/IVC Duplex scan Interpretation Summary Patent EVAr with no stenosis. __ Ordering Physician: Isra Kumar Referring Physician: Tristin Cain Chi Performed By: Rodríguez Fields, RVRanjith 01/01/251943 Date Isra Kumar MD CC: Dr. Isra Kumar MD; Dr. Tristin Cain MD Date Dictated: 11/27/24904 Date Transcribed: 01/01/251943 Commercial Sales Manager: Signed Normal [facility] Ankle Brachial Indexon 11-27 Ankle Brachial Index [facility] [address] [place] [address] Ankle Brachial Index 11/27/24922 MR#: [id number] Acct: [id number] Name: JARROD HERRING Rep #: [id number] : 1940 84 From: Isra Kumar MD Attending Dr: Dr. Isra Kumar MD Status: DE P CLI Ordering Dr: Isra Kumar MD Date: 11/27/24 Location: [facility] Sex: M C Admitted: Reason For Study Reason For Study: HX AAA w/EVAR - PVD Procedure A bilateral lower extremity continuous wave Doppler with analog waveform analysis and ankle brachial indexes. Left Segmental Pressures Left brachial= 165mmHg. Left posterior tibial artery = 183mmHg. Left dorsalis pedis artery = 154mmHg. Left digit = 132 mmHg. The left posterior tibial artery waveforms are triphasic. The left dorsalis pedis waveforms are triphasic. Right Segmental Pressures Right brachial= 164mmHg. Right posterior tibial artery = 201mmHg. Right dorsalis pedis artery = 172mmHg. Right digit = 144 mmHg. The right posterior tibial artery waveforms are triphasic. The right dorsalis pedis waveforms are triphasic. Indices The right ankle brachial index by the posterior tibial artery is 1.22. The right ankle brachial index by the dorsalis pedis is 1.04. The right digital-brachial index is 0.87. The left ankle brachial index by the posterior tibial artery is 1.11. The left ankle brachial index by the dorsalis pedis is 0.93. The left digital-brachial index is 0.80. VL/Ankle Brachial Index Interpretation Summary Resting ankle-brachial indices appear bilaterally normal. __ Ordering Physician: Isra Kumar Referring Physician: Tristin Cain Chi Performed By: Rodríguez Fields, KRISTINE 01/01/251942 Date Isra Kumar MD CC: Dr. Isra Kumar MD; Dr. Tristin Cain MD Date Dictated: 03/27/25 0923 Date Transcribed: 01/01/251942 Commercial Sales Manager: Signed Normal [facility] CBC W/Diff, Automatedon 11- Absolute Lymph 1.86 X10 3/uL Normal 0.83-4.51 [facility] Comment on above: Performed By: #### L 506.1000, L500.4050, L501.9520, L100.0100 #### [facility] [address] [place], [address] Absolute Neut 4.8 X10 3/uL Normal 2.0-7.7 [facility] Comment on above: Performed By: #### L 506.1000, L500.4050, L501.9520, L100.0100 #### [facility] [address] [place], [address] Basophils/100 WBC (Bld) 0.4 % Normal 0-1 [facility] Comment on above: Performed By: #### L 506.1000, L500.4050, L501.9520, L100.0100 #### [facility] [address] [place], [address] Eosinophils/100 WBC (Bld) 2.7 % Normal 0-5 [facility] Comment on above: Performed By: #### L 506.1000, L500.4050, L501.9520, L100.0100 #### [facility] [address] [place], [address] Erythrocyte distribution width (RBC) [Ratio] 14.0 % Normal 11.6-14.6 [facility] Comment on above: Performed By: #### L 506.1000, L500.4050, L501.9520, L100.0100 #### [facility] [address] [place], [address] Hematocrit (Bld) [Volume fraction] 39.9 % Low 40-54 [facility] Comment on above: Performed By: #### L 506.1000, L500.4050, L501.9520, L100.0100 #### [facility] [address] [place], [address] Hemoglobin (Bld) [Mass/Vol] 13.6 g/dL Normal 13.0-16.5 [facility] Comment on above: Performed By: #### L 506.1000, L500.4050, L501.9520, L100.0100 #### [facility] [address] [place], [address] IG% 0.300 Normal 0.0-0.9 [facility] Comment on above: Result Comment: IG% - Immature Granulocytes (promyelocytes, myelocytes and metamyelocytes) > 1% indicates that a LEFT SHIFT is Present. Performed By: #### L 506.1000, L500.4050, L501.9520, L100.0100 #### [facility] [address] [place], [address] Lymphocytes/100 WBC (Bld) 24.3 % Normal 19-41 [facility] Comment on above: Performed By: #### L 506.1000, L500.4050, L501.9520, L100.0100 #### [facility] [address] [place], [address] MCH (RBC) [Entitic mass] 30.7 pg Normal 27.0-32.0 [facility] Comment on above: Performed By: #### L 506.1000, L500.4050, L501.9520, L100.0100 #### [facility] [address] [place], [address] MCHC (RBC) [Mass/Vol] 34.1 g/dL Normal 32-36 [facility] Comment on above: Performed By: #### L 506.1000, L500.4050, L501.9520, L100.0100 #### [facility] [address] [place], [address] MCV (RBC) [Entitic vol] 90.1 fL Normal 80-94 [facility] Comment on above: Performed By: #### L 506.1000, L500.4050, L501.9520, L100.0100 #### [facility] [address] [place], [address] Monocytes/100 WBC (Bld) 9.4 % Normal 0-10 [facility] Comment on above: Performed By: #### L 506.1000, L500.4050, L501.9520, L100.0100 #### [facility] [address] [place], [address] Neutrophils/100 WBC (Bld) 62.9 % Normal 47-70 [facility] Comment on above: Performed By: #### L 506.1000, L500.4050, L501.9520, L100.0100 #### [facility] [address] [place], [address] Nucleated RBC (Bld) [#/Vol] 0 10*3/uL Normal 0-5 [facility] Comment on above: Performed By: #### L 506.1000, L500.4050, L501.9520, L100.0100 #### [facility] [address] [place], [address] Platelet mean volume (Bld) [Entitic vol] 8.8 fL Normal 6.2-12.0 [facility] Comment on above: Performed By: #### L 506.1000, L500.4050, L501.9520, L100.0100 #### [facility] [address] [place], [address] Platelets (Bld) [#/Vol] 235 10*3/uL Normal 150-450 [facility] Comment on above: Performed By: #### L 506.1000, L500.4050, L501.9520, L100.0100 #### [facility] [address] [place], [address] RBC (Bld) [#/Vol] 4.43 10*6/uL Low 4.6-6.2 [facility] Comment on above: Performed By: #### L 506.1000, L500.4050, L501.9520, L100.0100 #### [facility] [address] [place], [address] RDW SD 46.4 fl High 35.1-43.9 [facility] Comment on above: Performed By: #### L 506.1000, L500.4050, L501.9520, L100.0100 #### [facility] [address] [place], [address] WBC (Bld) [#/Vol] 7.6 10*3/uL Normal 4.4-11.[address] [facility] Comment on above: Performed By: #### L 506.1000, L500.4050, L501.9520, L100.0100 #### [facility] [address] [place], [address] Comprehensive Metabolic [facility] 07-21-2024 Albumin [Mass/Vol] 3.9 g/dL Normal 3.2-5.[address] [facility] Comment on above: Performed By: #### L 506.1000, L500.4050, L501.9520, L100.0100 #### [facility] [address] [place], [address] Albumin/Globulin [Mass ratio] 1.0 {ratio} Normal 0.9-2.4 [facility] Comment on above: Performed By: #### L 506.1000, L500.4050, L501.9520, L100.0100 #### [facility] [address] [place], [address] ALK P 66 U/L Normal 45-117 [facility] Comment on above: Performed By: #### L 506.1000, L500.4050, L501.9520, L100.0100 #### [facility] [address] [place], [address] ALT [Catalytic activity/Vol] 35 U/L Normal 16-61 [facility] Comment on above: Performed By: #### L 506.1000, L500.4050, L501.9520, L100.0100 #### [facility] [address] [place], [address] AST [Catalytic activity/Vol] 22 U/L Normal 15-37 [facility] Comment on above: Performed By: #### L 506.1000, L500.4050, L501.9520, L100.0100 #### [facility] [address] [place], [address] Bilirubin [Mass/Vol] 1.10 mg/dL High 0.20-1.00 [facility] Comment on above: Result Comment: For patients on eltrombopag therapy, use of Dimension [place] TBIL is not recommended. Performed By: #### L 506.1000, L500.4050, L501.9520, L100.0100 #### [facility] [address] [place], [address] BUN/CRE 13.2 RATIO Normal 10-20 [facility] Comment on above: Performed By: #### L 506.1000, L500.4050, L501.9520, L100.0100 #### [facility] [address] [place], [address] CA,Total 9.0 mg/dL Normal 8.5-10.1 [facility] Comment on above: Performed By: #### L 506.1000, L500.4050, L501.9520, L100.0100 #### [facility] [address] [place], [address] Chloride [Moles/Vol] 105 mmol/L Normal 98-107 [facility] Comment on above: Performed By: #### L 506.1000, L500.4050, L501.9520, L100.0100 #### [facility] [address] [place], [address] CO2 [Moles/Vol] 29.0 mmol/L Normal 21.0-32.0 [facility] Comment on above: Performed By: #### L 506.1000, L500.4050, L501.9520, L100.0100 #### [facility] [address] [place], [address] Creatinine [Mass/Vol] 1.06 mg/dL Normal 0.70-1.30 [facility] Comment on above: Result Comment: The validity of the calculated GFR GFRAA in patients over 70 years has not been determined. Clinical correlation is essential. Performed By: #### L 506.1000, L500.4050, L501.9520, L100.0100 #### [facility] [address] [place], [address] EST GFR - AA 85 mL/min Normal >60 [facility] Comment on above: Result Comment: Afri can Lebanese GFR Calc Performed By: #### L 506.1000, L500.4050, L501.9520, L100.0100 #### [facility] [address] [place], [address] GAP 6 Normal 5-15 [facility] Comment on above: Performed By: #### L 506.1000, L500.4050, L501.9520, L100.0100 #### [facility] [address] [place], [address] GFR/1.73 sq M.predicted among non-blacks MDRD (S/P/Bld) [Vol rate/Area] 71 mL/min/{1.73_m2} Normal >60 [facility] Comment on above: Result Comment: Non- GFR Calc Performed By: #### L 506.1000, L500.4050, L501.9520, L100.0100 #### [facility] [address] [place], [address] Globulin (S) [Mass/Vol] 3.9 g/dL Normal 2.2-4.2 [facility] Comment on above: Performed By: #### L 506.1000, L500.4050, L501.9520, L100.0100 #### [facility] [address] [place], [address] Glucose [Mass/Vol] 108 mg/dL High 74-[address] [facility] Comment on above: Result Comment: Fast ing Glucose result from 100 to 125 mg/dL suggests IMPAIRED HOMEOSTASIS per A.D.A. criteria. Performed By: #### L 506.1000, L500.4050, L501.9520, L100.0100 #### [facility] [address] [place], [address] Potassium [Moles/Vol] 4.1 mmol/L Normal 3.5-5.1 [facility] Comment on above: Performed By: #### L 506.1000, L500.4050, L501.9520, L100.0100 #### [facility] [address] [place], [address] Sodium [Moles/Vol] 140 mmol/L Normal 136-[address] [facility] Comment on above: Performed By: #### L 506.1000, L500.4050, L501.9520, L100.0100 #### [facility] [address] [place], [address] T PROT 7.8 g/dL Normal 6.4-8.2 [facility] Comment on above: Performed By: #### L 506.1000, [id number], [id number], L100.0100 #### [facility] [address] [place], [address] Urea nitrogen [Mass/Vol] 14 mg/dL Normal 03-20 [facility] Comment on above: Performed By: #### L 506.1000, [id number], [id number], L100.0100 #### [facility] [address] [place], [address] Thyroid Stim Hormone (TSH)on 07-21-2024 TSH 1.080 uIU/mL Normal 0.358-3.740 [facility] Comment on above: Performed By: #### L 506.1000, [id number], [id number], L100.0100 #### [facility] [address] [place], [address] Vitamin D,25 Hydroxyon 07-21 Vitamin D 25-OH 47.3 ng/mL Normal [facility] Comment on above: Result Comment: Katharine min D 25(OH) Status Range Deficiency <20 ng/mL (50nmol/L) Insufficiency 20 - 30 ng/mL (50 - 75 nmol/L) Sufficiency 30 - 100 ng/mL (75 - 250 nmol/L) Toxicity >100 ng/mL (>250 nmol/L) Performed By: #### L 506.1000, [id number], [id number], L100.0100 #### [facility] [address] [place], [address] Absolute lymphocyte countOrd ered By: Tristin Cain on 01-03-2024 Lymphocytes Auto (Unsp spec) [#/Vol] 1.47 10*3/uL 0.83-4.51 [facility] Automated lymphocyte count a s percentage of total leukocytesOrdered By: Tristin Cain on 01-03-2024 Lymphocytes/100 WBC Auto (Unsp spec) 23.5 % 19-41 [facility] Basophil percentageOrdered B y: Tristin Cain on 01-03-2024 Basophils/100 WBC (Bld) 0.3 % 0-1 [facility] Bilirubin [Mass/Vol] 0.90 mg/dL 0.20-1.00 [facility] Comment on above: For patients on eltr ombopag therapy, use of Dimension [place] TBIL is not recommended. Chloride [Moles/Vol] 105 mmol/L 98-107 [facility] Eosinophils/100 WBC (Bld) 2.6 % 0-5 [facility] Glucose [Mass/Vol] 106 mg/dL 74-[address] [facility] Comment on above: Fasting Glucose resu lt from 100 to 125 mg/dL suggests IMPAIRED HOMEOSTASIS per A.D.A. criteria. Hemoglobin (Bld) [Mass/Vol] 12.9 g/dL 13.0-16.5 [facility] Monocytes/100 WBC (Bld) 10.4 % 0-10 [facility] Neutrophils (Bld) [#/Vol] 3.9 10*3/uL 2.0-7.7 [facility] Neutrophils/100 WBC (Bld) 62.9 % 47-70 [facility] Potassium [Moles/Vol] 3.9 mmol/L 3.5-5.1 [facility] Protein [Mass/Vol] 7.8 g/dL 6.4-8.[address] [facility] Sodium [Moles/Vol] 139 mmol/L 136-[address] [facility] WBC (Bld) [#/Vol] 6.3 10*3/uL 4.4-11.[address] [facility] Determination of erythrocyte mean corpuscular volume (MCV)Ordered By: Tristin Cain on 01-03-2024 MCV (RBC) [Entitic vol] 89.0 fL 80-94 [facility] Erythrocyte distribution wid th ratioOrdered By: Tristin Cain on 01-03-2024 Erythrocyte distribution width (RBC) [Ratio] 14.3 % 11.6-14.6 [facility] Erythrocyte distribution wid th standard deviationOrdered By: Tristin Cain on 01-03-2024 Erythrocyte distribution width (RBC) [Entitic vol] 46.0 fL 35.1-43.9 [facility] Hematocrit Auto (Bld) [Volum e fraction]Ordered By: Tristin Cain on 01-03-2024 Hematocrit (Bld) [Volume fraction] 38.2 % 40-54 [facility] Immature granulocytes/100 WB C Auto (Bld)Ordered By: Tristin Cain on 01-03-2024 Immature granulocytes/100 WBC (Bld) 0.300 % 0.0-0.9 [facility] Comment on above: IG% - Immature Granu locytes (promyelocytes, myelocytes and metamyelocytes) > 1% indicates that a LEFT SHIFT is Present. Laboratory - Chemistry and C hemistry - challengeOrdered By: Tristin Cain on 01-03-2024 Albumin/Globulin [Mass ratio] 0.9 {ratio} 0.9-2.4 [facility] ALP [Catalytic activity/Vol] 78 U/L 45-117 [facility] ALT [Catalytic activity/Vol] 20 U/L 16-61 [facility] CO2 [Moles/Vol] 27.0 mmol/L 21.0-32.0 [facility] Globulin (S) [Mass/Vol] 4.2 g/dL 2.2-4.2 [facility] Urea nitrogen/Creatinine [Mass ratio] 19.7 mg/mg 10-20 [facility] - Hematology and Cell countsOrdered By: Tristin Cain on 01-03-2024 MCH (RBC) [Entitic mass] 30.1 pg 27.0-32.0 [facility] MCHC (RBC) [Mass/Vol] 33.8 g/dL 32-36 [facility] Nucleated RBC/100 WBC (Bld) [Ratio] 0 % 0-5 [facility] Platelet mean volume (Bld) [Entitic vol] 8.9 fL 6.2-12.0 [facility] Platelets (Bld) [#/Vol] 248 10*3/uL 150-450 [facility] No Panel InformationOrdered By: Tristin Cani on 01-03-2024 Estimated GFR (MDRD) Amer 101 mL/min >60 [facility] Comment on above: GFR Calc Estimated GFR (MDRD) Non-Af Amer 84 mL/min >60 [facility] Comment on above: Non- GFR Calc Vitamin D 25-Hydroxy 40.9 ng/mL [facility] Comment on above: Vitamin D 25(OH) Sta tus Range Deficiency <20 ng/mL (50nmol/L) Insufficiency 20 - 30 ng/mL (50 - 75 nmol/L) Sufficiency 30 - 100 ng/mL (75 - 250 nmol/L) Toxicity >100 ng/mL (>250 nmol/L) RBC Auto (Bld) [#/Vol]Ordere d By: Tristin Cain on 01-03-2024 RBC (Bld) [#/Vol] 4.29 10*6/uL 4.6-6.2 [facility] Serum or plasma calcium hay urement (mass/volume)Ordered By: Tristin Cain on 01-03-2024 Calcium [Mass/Vol] 9.6 mg/dL 8.5-10.[address] [facility] Serum or plasma creatinine m easurement (mass/volume)Ordered By: Tristin Cain on 01-03-2024 Creatinine [Mass/Vol] 0.92 mg/dL 0.70-1.30 [facility] Comment on above: The validity of the calculated GFR & GFRAA in patients over 70 years has not been determined. Clinical correlation is essential. Serum or plasma thyroid stim ulating hormone (TSH) measurement (units/volume)Ordered By: Tristin Cain on 01-03-2024 TSH Qn 0.73 uIU/mL 0.358-3.74 [facility] Serum or plasma urea nitroge n measurement (mass/volume)Ordered By: Tristin Cain on 01-03-2024 Urea nitrogen [Mass/Vol] 18 mg/dL 7-18 [facility] Thin prep Papanicolaou smear with manual screeningOrdered By: Tristin Cain on 01-03-2024 Thin prep Papanicolaou smear with manual screening 3.6 g/dL 3.2-5.0 [facility] Thin prep Papanicolaou smear with manual screening 16 U/L 15-37 [facility] Thin prep Papanicolaou smear with manual screening 7 5-15 [facility] Absolute lymphocyte countOrd ered By: Tristin Cain on 07-19-2023 Lymphocytes Auto (Unsp spec) [#/Vol] 1.33 10*3/uL 0.83-4.51 [facility] Basophil percentageOrdered B y: Tristin Cain on 07-19-2023 Basophils/100 WBC (Bld) 0.2 % 0-1 [facility] Bilirubin [Mass/Vol] 0.80 mg/dL 0.20-1.00 [facility] Comment on above: For patients on eltr ombopag therapy, use of [place] TBIL is not recommended. Chloride [Moles/Vol] 105 mmol/L 98-107 [facility] Eosinophils/100 WBC (Bld) 2.5 % 0-5 [facility] Glucose [Mass/Vol] 111 mg/dL 74-[address] [facility] Comment on above: Fasting Glucose resu lt from 100 to 125 mg/dL suggests IMPAIRED HOMEOSTASIS per A.D.A. criteria. Neutrophils (Bld) [#/Vol] 4.1 10*3/uL 2.0-7.7 [facility] Neutrophils/100 WBC (Bld) 65.2 % 47-70 [facility] Potassium [Moles/Vol] 3.6 mmol/L 3.5-5.1 [facility] Protein [Mass/Vol] 7.5 g/dL 6.4-8.[address] [facility] Sodium [Moles/Vol] 138 mmol/L 136-[address] [facility] WBC (Bld) [#/Vol] 6.3 10*3/uL 4.4-11.[address] [facility] Blood erythrocytes count (nu mber/volume)Ordered By: Tristin Cain on 07-19-2023 RBC (Bld) [#/Vol] 4.04 10*6/uL 4.6-6.2 [facility] Blood hemoglobin measurement (mass/volume)Ordered By: Tristin Cain on 07-19-2023 Hemoglobin (Bld) [Mass/Vol] 11.2 g/dL 13.0-16.5 [facility] Blood lymphocytes/100 leukoc ytesOrdered By: Tristin Cain on 07-19-2023 Lymphocytes/100 WBC (Bld) 21.0 % 19-41 [facility] Blood monocytes/100 leukocyt esOrdered By: Tristin Cain on 07-19-2023 Monocytes/100 WBC (Bld) 10.6 % 0-10 [facility] Blood platelet mean volumeOr dered By: Tristin Cain on 07-19-2023 Platelet mean volume (Bld) [Entitic vol] 9.0 fL 6.2-12.0 [facility] Determination of erythrocyte mean corpuscular volume (MCV)Ordered By: Tristin Cain on 07-19-2023 MCV (RBC) [Entitic vol] 86.6 fL 80-94 [facility] Hematocrit Auto (Bld) [Volum e fraction]Ordered By: Tristin Cain on 07-19-2023 Hematocrit (Bld) [Volume fraction] 35.0 % 40-54 [facility] - Chemistry and C hemistry - challengeOrdered By: [facility]23 ALP [Catalytic activity/Vol] 80 U/L 45-117 [facility] ALT [Catalytic activity/Vol] 17 U/L 16-61 [facility] CO2 [Moles/Vol] 28.0 mmol/L 21.0-32.0 [facility] Globulin (S) [Mass/Vol] 4.1 g/dL 2.2-4.2 [facility] Urea nitrogen/Creatinine [Mass ratio] 16.1 mg/mg 10-20 [facility] - Hematology and Cell countsOrdered By: [facility] on 07-19-2023 Erythrocyte distribution width (RBC) [Entitic vol] 49.7 fL 35.1-43.9 [facility] Erythrocyte distribution width (RBC) [Ratio] 15.9 % 11.6-14.6 [facility] Immature granulocytes/100 WBC (Bld) 0.500 % 0.0-0.9 [facility] Comment on above: IG% - Immature Granu locytes (promyelocytes, myelocytes and metamyelocytes) > 1% indicates that a LEFT SHIFT is Present. MCH (RBC) [Entitic mass] 27.7 pg 27.0-32.0 [facility] Nucleated RBC/100 WBC (Bld) [Ratio] 0 % 0-5 [facility] MCHC Auto (RBC) [Mass/Vol]Or dered By: Tristin Cain on 07-19-2023 MCHC (RBC) [Mass/Vol] 32.0 g/dL 32-36 [facility] No Panel InformationOrdered By: Tristin Cain on 07-19-2023 Estimated GFR (MDRD) Amer 117 mL/min >60 [facility] Comment on above: GFR Calc Estimated GFR (MDRD) Non-Af Amer 97 mL/min >60 [facility] Comment on above: Non- GFR Calc Thyroid Stimulating Hormone (TSH) 0.65 uIU/mL 0.358-3.74 [facility] Vitamin D 25-Hydroxy 63.5 ng/mL [facility] Comment on above: Vitamin D 25(OH) Sta tus Range Deficiency <20 ng/mL (50nmol/L) Insufficiency 20 - 30 ng/mL (50 - 75 nmol/L) Sufficiency 30 - 100 ng/mL (75 - 250 nmol/L) Toxicity >100 ng/mL (>250 nmol/L) Platelets bldOrdered By: Tristin Cain on 07-19-2023 Platelets (Bld) [#/Vol] 272 10*3/uL 150-450 [facility] Serum or plasma albumin hay urement (mass/volume)Ordered By: Tristin Cain on 07-19-2023 Albumin [Mass/Vol] 3.4 g/dL 3.2-5.[address] [facility] Serum or plasma albumin/glob ulin mass ratioOrdered By: Tristin Cain 07-19-2023 Albumin/Globulin [Mass ratio] 0.8 {ratio} 0.9-2.4 [facility] Serum or plasma calcium hay urement (mass/volume)Ordered By: Tristin Cain on 07-19-2023 Calcium [Mass/Vol] 9.2 mg/dL 8.5-10.[address] [facility] Serum or plasma creatinine m easurement (mass/volume)Ordered By: Tristin Cain on 07-19-2023 Creatinine [Mass/Vol] 0.81 mg/dL 0.70-1.30 [facility] Comment on above: The validity of the calculated GFR & GFRAA in patients over 70 years has not been determined. Clinical correlation is essential. Serum or plasma urea nitroge n measurement (mass/volume)Ordered By: Tristin Cain on 07-19-2023 Urea nitrogen [Mass/Vol] 13 mg/dL 7-18 [facility] Thin prep Papanicolaou smear with manual screeningOrdered By: Tristin Cain 07-19-2023 Thin prep Papanicolaou smear with manual screening 16 U/L 15-37 [facility] Thin prep Papanicolaou smear with manual screening 5 5-15 [facility] Basophil percentageOrdered B y: Spencer Patel on 06-05-2023 WBC (Bld) [#/Vol] 10.4 10*3/uL 4.4-11.0 [facility] Blood erythrocytes count (nu mber/volume)Ordered By: Spencer Patel on 06-05-2023 RBC (Bld) [#/Vol] 3.76 10*6/uL 4.6-6.2 [facility] Blood hemoglobin measurement (mass/volume)Ordered By: Spencer Patel on 06-05-2023 Hemoglobin (Bld) [Mass/Vol] 10.8 g/dL 13.0-16.5 [facility] Blood platelet mean volumeOr dered By: Spencer Patel on 06-05-2023 Platelet mean volume (Bld) [Entitic vol] 8.6 fL 6.2-12.0 [facility] Determination of erythrocyte mean corpuscular volume (MCV)Ordered By: Spencer Patel on 06-05-2023 MCV (RBC) [Entitic vol] 88.3 fL 80-94 [facility] Hematocrit Auto (Bld) [Volum e fraction]Ordered By: Spencer Patel on 06-05-2023 Hematocrit (Bld) [Volume fraction] 33.2 % 40-54 [facility] - Hematology and Cell countsOrdered By: Spencer Patel on 06-05-2023 Erythrocyte distribution width (RBC) [Entitic vol] 48.8 fL 35.1-43.9 [facility] Erythrocyte distribution width (RBC) [Ratio] 15.3 % 11.6-14.6 [facility] MCH (RBC) [Entitic mass] 28.7 pg 27.0-32.0 [facility] MCHC Auto (RBC) [Mass/Vol]Or dered By: Spencer Patel on 06-05-2023 MCHC (RBC) [Mass/Vol] 32.5 g/dL 32-36 [facility] Platelets bldOrdered By: Spencer Patel on 06-05-2023 Platelets (Bld) [#/Vol] 328 10*3/uL 150-450 [facility] .Auto Diffon 05-23-2023 Basophil, Absolute 0.0 10 3/mcL Normal 0.0-0.2 [facility] ([place]) Comment on above: Performed By: #### A MALA, ADIFF, CBC, GFR, BMP #### [address] [address] Basophils/100 WBC (Bld) 0.0 % Normal 0.0-2.5 A [facility] ([place]) Comment on above: Performed By: #### A MALA, ADIFF, CBC, GFR, BMP #### [address] [address] Eosinophil, Absolute 0.0 10 3/mcL Normal 0.0-0.4 [facility] ([place] Comment on above: Performed By: #### A MALA, ADIFF, CBC, GFR, BMP #### [address] [address] Eosinophils/100 WBC (Bld) 0.0 % Normal 0.0-7.0 [facility] ([place]) Comment on above: Performed By: #### A MALA, ADIFF, CBC, GFR, BMP #### [address] [address] Lymphocyte, Absolute 1.0 10 3/mcL Normal 0.8-3.9 [facility] [place] Comment on above: Performed By: #### A MALA, ADIFF, CBC, GFR, BMP #### [address] [address] Lymphocytes/100 WBC (Bld) 8.9 % Low 10.0-50.0 [facility] ([place]) Comment on above: Performed By: #### A MALA, ADIFF, CBC, GFR, BMP #### [address] [address] Monocyte, Absolute 0.9 10 3/mcL Normal 0.2-1.0 [facility] ([place]) Comment on above: Performed By: #### A MALA, ADIFF, CBC, GFR, BMP #### [address] [address] Monocytes/100 WBC (Bld) 8.1 % Normal 1.7-13.0 A [facility] ([place]) Comment on above: Performed By: #### A MALA, ADIFF, CBC, GFR, BMP #### [address] [address] Neutrophils/100 WBC (Bld) 83.0 % High 37.0-80.0 [facility] ([place]) Comment on above: Performed By: #### A MALA, ADIFF, CBC, GFR, BMP #### [address] [address] .GFRon 05-23-2023 GFR 87 ml/min/1.73sqm Normal [facility] ([place]) Comment on above: Result Comment: GFR Population mean for , Non- Americans Ages 20-29 = 116 mL/min/1.73 sq.m. Ages 30-39 = 107 mL/min/1.73 sq.m. Ages 40-49 = 99 mL/min/1.73 sq.m. Ages 50-59 = 93 mL/min/1.73 sq.m. Ages 60-69 = 85 mL/min/1.73 sq.m. Ages 70+ = 75 mL/min/1.73 sq.m. Chronic Kidney Disease: Less than 60 mL/min/1.73 square meters End Stage Renal Disease: Less than 15 mL/min/1.73 square meters Performed By: #### A MALA, ADIFF, CBC, GFR, BMP #### [address] [address] GFR Non- 72 ml/min/1.73sqm Normal [facility] ([place]) Comment on above: Result Comment: GFR Population mean for , Non- Americans Ages 20-29 = 116 mL/min/1.73 sq.m. Ages 30-39 = 107 mL/min/1.73 sq.m. Ages 40-49 = 99 mL/min/1.73 sq.m. Ages 50-59 = 93 mL/min/1.73 sq.m. Ages 60-69 = 85 mL/min/1.73 sq.m. Ages 70+ = 75 mL/min/1.73 sq.m. Chronic Kidney Disease: Less than 60 mL/min/1.73 square meters End Stage Renal Disease: Less than 15 mL/min/1.73 square meters Performed By: #### A MALA, ADIFF, CBC, GFR, BMP #### [address] [address] .NEUABSon 05-23-2023 Neutrophil, Absolute 9.1 10 3/mcL High 2.9-6.2 [facility] [place] Comment on above: Performed By: #### A MALA, ADIFF, CBC, GFR, BMP #### [address] [address] BMPon 05-23-2023 BUN/Creatinine Ratio 23 ratio Normal 7-27 [facility] ([place]) Comment on above: Performed By: #### A MALA, ADIFF, CBC, GFR, BMP #### [address] [address] Calcium [Mass/Vol] 8.8 mg/dL Normal 8.4-10.2 [facility] ([place]) Comment on above: Performed By: #### A MALA, ADIFF, CBC, GFR, BMP #### [address] [address] Chloride [Moles/Vol] 101 mmol/L Normal 98-107 [facility] ([place]) Comment on above: Performed By: #### A MALA, ADIFF, CBC, GFR, BMP #### [address] [address] CO2 [Moles/Vol] 28 mmol/L Normal 23-31 [facility] ([place]) Comment on above: Performed By: #### A MALA, ADIFF, CBC, GFR, BMP #### [address] [address] Creatinine [Mass/Vol] 0.99 mg/dL Normal 0.70-1.30 [facility] ([place]) Comment on above: Performed By: #### A MALA, ADIFF, CBC, GFR, BMP #### [address] [address] Electrolyte Balance 6.0 mEq/L Normal 4.0-15.0 [facility] ([place]) Comment on above: Performed By: #### A MALA, ADIFF, CBC, GFR, BMP #### [address] [address] Glucose [Mass/Vol] 153 mg/dL High 83-110 [facility] ([place]) Comment on above: Performed By: #### A MALA, ADIFF, CBC, GFR, BMP #### [address] [address] Potassium [Moles/Vol] 4.4 mmol/L Normal 3.5-5.1 [facility] ([place]) Comment on above: Performed By: #### A MALA, ADIFF, CBC, GFR, BMP #### [address] [address] Sodium [Moles/Vol] 135 mmol/L Low 136-145 [facility] ([place]) Comment on above: Performed By: #### A MALA, ADIFF, CBC, GFR, BMP #### [address] [address] Urea nitrogen [Mass/Vol] 23 mg/dL High 7-18 [facility] ([place]) Comment on above: Performed By: #### A MALA, ADIFF, CBC, GFR, BMP #### [address] [address] CBCon 05-23-2023 Erythrocyte distribution width (RBC) [Ratio] 17.6 % High 11.5-14.5 [facility] ([place]) Comment on above: Performed By: #### A MALA, ADIFF, CBC, GFR, BMP #### [address] [address] Hematocrit (Bld) [Volume fraction] 29.4 % Low 42.0-52.0 [facility] ([place]) Comment on above: Performed By: #### A MALA, ADIFF, CBC, GFR, BMP #### [address] [address] Hgb 10.2 G/dL Low 14.0-18.0 [facility] ([place]) Comment on above: Performed By: #### A MALA, ADIFF, CBC, GFR, BMP #### [address] [address] MCH (RBC) [Entitic mass] 29.1 pg Normal 27.0-31.2 [facility] ([place]) Comment on above: Performed By: #### A MALA, ADIFF, CBC, GFR, BMP #### [address] [address] MCHC 34.6 G/dL Normal 31.8-35.4 [facility] ([place]) Comment on above: Performed By: #### A MALA, ADIFF, CBC, GFR, BMP #### [address] [address] MCV (RBC) [Entitic vol] 84.0 fL Normal 80.0-94.0 A [facility] ([place]) Comment on above: Performed By: #### A MALA, ADIFF, CBC, GFR, BMP #### [address] [address] Platelet 261 10 3/mcL Normal 130-400 [facility] ([place]) Comment on above: Performed By: #### A MALA, ADIFF, CBC, GFR, BMP #### [address] [address] Platelet mean volume (Bld) [Entitic vol] 6.5 fL Low 7.4-10.4 [facility] ([place]) Comment on above: Performed By: #### A MALA, ADIFF, CBC, GFR, BMP #### [address] [address] RBC 3.51 10 6/mcL Low 4.04-6.13 [facility] ([place]) Comment on above: Performed By: #### A MALA, ADIFF, CBC, GFR, BMP #### [address] [address] WBC 10.9 10 3/mcL High 4.6-10.8 [facility] ([place]) Comment on above: Performed By: #### A MALA, ADIFF, CBC, GFR, BMP #### [id number] [place], [place] [address] LABORATORYOrdered By: SYSTEM SYSTEM on 05-23-2023 Basophil, Absolute 0.0 103/mcL Invalid Interpretation Code 0.0 - 0.2 10^3/mcL AO Workflow SS Basophils/100 WBC (Bld) 0.0 % Invalid Interpretation Code 0.0 - 2.5 % AO Workflow SS Calcium [Mass/Vol] 8.8 mg/dL Invalid Interpretation Code 8.4 - 10.2 mg/dL AO ADM SS Chloride [Moles/Vol] 101 mmol/L Invalid Interpretation Code 98 - 107 mmol/L AO ADM SS CO2 [Moles/Vol] 28 mmol/L Invalid Interpretation Code 23 - 31 mmol/L AO ADM SS Creatinine [Mass/Vol] 0.99 mg/dL Invalid Interpretation Code 0.70 - 1.30 mg/dL AO ADM SS Electrolyte Balance 6.0 mEq/L Invalid Interpretation Code 4.0 - 15.0 mEq/L AO ADM SS Eosinophil, Absolute 0.0 103/mcL Invalid Interpretation Code 0.0 - 0.4 10^3/mcL AO Workflow SS Eosinophils/100 WBC (Bld) 0.0 % Invalid Interpretation Code 0.0 - 7.0 % AO Workflow SS Erythrocyte distribution width (RBC) [Ratio] 17.6 % Invalid Interpretation Code 11.5 - 14.5 % AO Workflow SS GFR/1.73 sq M.predicted among blacks MDRD (S/P/Bld) [Vol rate/Area] 87 ml/min/1.73sqm Invalid Interpretation Code AO Chemistry S Comment on above: Interpretive Data: GFR Population mean for , Non- Americans Ages 20-29 = 116 mL/min/1.73 sq.m. Ages 30-39 = 107 mL/min/1.73 sq.m. Ages 40-49 = 99 mL/min/1.73 sq.m. Ages 50-59 = 93 mL/min/1.73 sq.m. Ages 60-69 = 85 mL/min/1.73 sq.m. Ages 70+ = 75 mL/min/1.73 sq.m. Chronic Kidney Disease: Less than 60 mL/min/1.73 square meters End Stage Renal Disease: Less than 15 mL/min/1.73 square meters GFR/1.73 sq M.predicted among non-blacks MDRD (S/P/Bld) [Vol rate/Area] 72 ml/min/1.73sqm Invalid Interpretation Code AO Chemistry S Comment on above: Interpretive Data: GFR Population mean for , Non- Americans Ages 20-29 = 116 mL/min/1.73 sq.m. Ages 30-39 = 107 mL/min/1.73 sq.m. Ages 40-49 = 99 mL/min/1.73 sq.m. Ages 50-59 = 93 mL/min/1.73 sq.m. Ages 60-69 = 85 mL/min/1.73 sq.m. Ages 70+ = 75 mL/min/1.73 sq.m. Chronic Kidney Disease: Less than 60 mL/min/1.73 square meters End Stage Renal Disease: Less than 15 mL/min/1.73 square meters Glucose [Mass/Vol] 153 mg/dL Invalid Interpretation Code 83 - 110 mg/dL AO ADM SS Hematocrit (Bld) [Volume fraction] 29.4 % Invalid Interpretation Code 42.0 - 52.0 % AO Workflow SS Hemoglobin (Bld) [Mass/Vol] 10.2 G/dL Invalid Interpretation Code 14.0 - 18.0 G/dL AO Workflow SS Lymphocyte, Absolute 1.0 103/mcL Invalid Interpretation Code 0.8 - 3.9 10^3/mcL AO Workflow SS Lymphocytes/100 WBC (Bld) 8.9 % Invalid Interpretation Code 10.0 - 50.0 % AO Workflow SS MCH (RBC) [Entitic mass] 29.1 pg Invalid Interpretation Code 27.0 - 31.2 pg AO Workflow SS MCHC 34.6 G/dL Invalid Interpretation Code 31.8 - 35.4 G/dL AO Workflow SS MCV (RBC) [Entitic vol] 84.0 fL Invalid Interpretation Code 80.0 - 94.0 fL AO Workflow SS Monocyte, Absolute 0.9 103/mcL Invalid Interpretation Code 0.2 - 1.0 10^3/mcL AO Workflow SS Monocytes/100 WBC (Bld) 8.1 % Invalid Interpretation Code 1.7 - 13.0 % AO Workflow SS Neutrophil, Absolute 9.1 103/mcL Invalid Interpretation Code 2.9 - 6.2 10^3/mcL AO Workflow SS Neutrophils/100 WBC (Bld) 83.0 % Invalid Interpretation Code 37.0 - 80.0 % AO Workflow SS Platelet mean volume (Bld) [Entitic vol] 6.5 fL Invalid Interpretation Code 7.4 - 10.4 fL AO Workflow SS Platelets (Bld) [#/Vol] 261 103/mcL Invalid Interpretation Code 130 - 400 10^3/mcL AO Workflow SS Potassium [Moles/Vol] 4.4 mmol/L Invalid Interpretation Code 3.5 - 5.1 mmol/L AO ADM SS RBC (Bld) [#/Vol] 3.51 106/mcL Invalid Interpretation Code 4.04 - 6.13 10^6/mcL AO Workflow SS Sodium [Moles/Vol] 135 mmol/L Invalid Interpretation Code 136 - 145 mmol/L AO ADM SS Urea nitrogen [Mass/Vol] 23 mg/dL Invalid Interpretation Code 7 - 18 mg/dL AO ADM SS Urea nitrogen/Creatinine [Mass ratio] 23 ratio Invalid Interpretation Code 7 - 27 ratio AO ADM SS WBC (Bld) [#/Vol] 10.9 103/mcL Invalid Interpretation Code 4.6 - 10.8 10^3/mcL AO Workflow SS Gel ABOon 05-22-2023 ABO/Rh Interp Positive Invalid Interpretation Code [facility] ([place]) Comment on above: Performed By: #### A MALA, ADIFF, CBC, GFR, BMP #### [address] [address] Gel ABSon 05-22-2023 Antibody Screen Gel Negative Normal [facility] ([place]) Comment on above: Performed By: #### A MALA, ADIFF, CBC, GFR, BMP #### [address] [address] LABORATORYOrdered By: Kim Wilson on 05-22-2023 ABO/Rh Interp Positive Invalid Interpretation Code AO BB SS Antibody Screen Gel Negative ABSC (05/22/23 7:12 AM) Invalid Interpretation Code AO BB SS XR KNEE 1 OR 2 VIEWS RIGHTon 05-22-2023 XR KNEE 1 OR 2 VIEWS RIGHT ORIGINAL EXAMINATION: TWO XRAY VIEWS OF THE RIGHT KNEE 05/22/2023 9:44 am COMPARISON: 05/02/2023 HISTORY: ORDERING SYSTEM PROVIDED HISTORY: Reason for Exam: Status Post Arthroplasty FINDINGS: Patient is status post right knee arthroplasty. Postoperative changes including skin cecile, soft tissue edema and gas around the knee. Small volume joint effusion. Arthroplasty hardware appears well aligned and intact. No evidence of prosthetic/peripros thetic fracture or lucency. No radiopaque foreign body. Vascular calcifications. IMPRESSION: Postsurgical changes right knee arthroplasty with intact appearing arthroplasty hardware. I have personally reviewed the images of this examination and agree with the resident's finding and interpretation. Interpreted by: Pancho Wagner MD Preliminary Report By: Heron Cutler Electronically signed By Pancho Wagner MD Dictated Date: 05/22/2023 9:49:38 AM Prelim Date: 05/22/2023 10:16:11 AM Sign Date: 05/22/2023 10:16:11 AM Ordering Provider: [facility]LENA [facility] ([place]) Absolute lymphocyte countOrd ered By: Spencer Patel on 05-14-2023 Lymphocytes Auto (Unsp spec) [#/Vol] 1.35 10*3/uL 0.83-4.51 [facility] Basophil percentageOrdered B y: Spencer Patel on 05-14-2023 Basophils/100 WBC (Bld) 0.3 % 0-1 [facility] Eosinophils/100 WBC (Bld) 5.8 % 0-5 [facility] Neutrophils (Bld) [#/Vol] 4.3 10*3/uL 2.0-7.7 [facility] Neutrophils/100 WBC (Bld) 63.1 % 47-70 [facility] WBC (Bld) [#/Vol] 6.7 10*3/uL 4.4-11.[address] [facility] Blood erythrocytes count (nu mber/volume)Ordered By: Spencer Patel on 05-14-2023 RBC (Bld) [#/Vol] 3.77 10*6/uL 4.6-6.2 [facility] Blood hemoglobin measurement (mass/volume)Ordered By: Spencer Patel on 05-14-2023 Hemoglobin (Bld) [Mass/Vol] 10.9 g/dL 13.0-16.5 [facility] Blood lymphocytes/100 leukoc ytesOrdered By: Spencer Patel on 05-14-2023 Lymphocytes/100 WBC (Bld) 20.1 % 19-41 [facility] Blood monocytes/100 leukocyt esOrdered By: Spencer Patel on 05-14-2023 Monocytes/100 WBC (Bld) 10.1 % 0-10 [facility] Blood platelet mean volumeOr dered By: Spencer Patel on 05-14-2023 Platelet mean volume (Bld) [Entitic vol] 8.9 fL 6.2-12.0 [facility] Determination of erythrocyte mean corpuscular volume (MCV)Ordered By: Spencer Patel on 05-14-2023 MCV (RBC) [Entitic vol] 89.1 fL 80-94 [facility] Hematocrit Auto (Bld) [Volum e fraction]Ordered By: Spencer Patel on 05-14-2023 Hematocrit (Bld) [Volume fraction] 33.6 % 40-54 [facility] INR in Blood by Coagulation assayOrdered By: Spencer Patel on 05-14-2023 INR Coag (Bld) [Relative time] 1.1 {INR} [facility] Laboratory - CoagulationOrde red By: Spencer Patel on 05-14-2023 PT Coag (PPP) [Time] 14.7 s 11.7-14.9 [facility] - Hematology and Cell countsOrdered By: Spencer Patel on 05-14-2023 Erythrocyte distribution width (RBC) [Entitic vol] 53.9 fL 35.1-43.9 [facility] Erythrocyte distribution width (RBC) [Ratio] 16.4 % 11.6-14.6 [facility] Immature granulocytes/100 WBC (Bld) 0.600 % 0.0-0.9 [facility] Comment on above: IG% - Immature Granu locytes (promyelocytes, myelocytes and metamyelocytes) > 1% indicates that a LEFT SHIFT is Present. MCH (RBC) [Entitic mass] 28.9 pg 27.0-32.0 [facility] Nucleated RBC/100 WBC (Bld) [Ratio] 0 % 0-5 [facility] MCHC Auto (RBC) [Mass/Vol]Or dered By: Spencer Patel on 05-14-2023 MCHC (RBC) [Mass/Vol] 32.4 g/dL 32-36 [facility] Platelets bldOrdered By: Spencer Patel on 05-14-2023 Platelets (Bld) [#/Vol] 257 10*3/uL 150-450 [facility] Serum or plasma albumin hay urement (mass/volume)Ordered By: Spencer Patel on 05-14-2023 Albumin [Mass/Vol] 3.4 g/dL 3.2-5.[address] [facility] .Auto Diffon 05-02-2023 Basophil, Absolute 0.0 10 3/mcL Normal 0.0-0.2 [facility] ([place]) Comment on above: Performed By: #### A LALO KHAN #### [facility] [address] [place], [place] [address] #### CBC, ANEU, BMP, ALB, ADIFF, GFR #### [address] [address] Basophils/100 WBC (Bld) 0.6 % Normal 0.0-2.5 A [facility] ([place]) Comment on above: Performed By: #### A LALO KHAN #### [facility] [address] [place], [place] [address] #### CBC, ANEU, BMP, ALB, ADIFF, GFR #### [address] [address] Eosinophil, Absolute 0.4 10 3/mcL Normal 0.0-0.4 [facility] ([place]) Comment on above: Performed By: #### A LALO KHAN #### [facility] [address] [place], [place] [address] #### CBC, ANEU, BMP, ALB, ADIFF, GFR #### [address] [address] Eosinophils/100 WBC (Bld) 6.9 % Normal 0.0-7.0 [facility] ([place]) Comment on above: Performed By: #### A LALO KHAN #### [facility] [address] [place], [place] [address] #### CBC, ANEU, BMP, ALB, ADIFF, GFR #### [address] [address] Lymphocyte, Absolute 1.1 10 3/mcL Normal 0.8-3.9 [facility] ([place]) Comment on above: Performed By: #### A ERIN, ANSG #### [facility] [address] [place], [place] [address] #### CBC, ANEU, BMP, ALB, ADIFF, GFR #### [address] [address] Lymphocytes/100 WBC (Bld) 18.2 % Normal 10.0-50.0 [facility] ([place]) Comment on above: Performed By: #### A ERIN ANSG #### [facility] [address] [place] [address] #### CBC, ANEU, BMP, ALB, ADIFF, GFR #### [address] [address] Monocyte, Absolute 0.5 10 3/mcL Normal 0.2-1.0 [facility] ([place]) Comment on above: Performed By: #### A ERIN ANSG #### [facility] [address] [place], [place] [address] #### CBC, ANEU, BMP, ALB, ADIFF, GFR #### [address] [address] Monocytes/100 WBC (Bld) 9.1 % Normal 1.7-13.0 A [facility] ([place]) Comment on above: Performed By: #### A BOG, ANSG #### [facility] [address] [place], [place] [address] #### CBC, ANEU, BMP, ALB, ADIFF, GFR #### [address] [address] Neutrophils/100 WBC (Bld) 65.2 % Normal 37.0-80.0 [facility] ([place]) Comment on above: Performed By: #### A ERIN ANSG #### [address], [place] [address] #### CBC, ANEU, BMP, ALB, ADIFF, GFR #### [address] [address] .GFRon 05-02-2023 GFR 101 ml/min/1.73sqm Normal [facility] ([place]) Comment on above: Result Comment: GFR Population mean for , Non- Americans Ages 20-29 = 116 mL/min/1.73 sq.m. Ages 30-39 = 107 mL/min/1.73 sq.m. Ages 40-49 = 99 mL/min/1.73 sq.m. Ages 50-59 = 93 mL/min/1.73 sq.m. Ages 60-69 = 85 mL/min/1.73 sq.m. Ages 70+ = 75 mL/min/1.73 sq.m. Chronic Kidney Disease: Less than 60 mL/min/1.73 square meters End Stage Renal Disease: Less than 15 mL/min/1.73 square meters Performed By: #### A MALA, ADIFF, CBC, GFR, BMP #### [address] [address] GFR Non- 84 ml/min/1.73sqm Normal [facility] ([place]) Comment on above: Result Comment: GFR Population mean for , Non- Americans Ages 20-29 = 116 mL/min/1.73 sq.m. Ages 30-39 = 107 mL/min/1.73 sq.m. Ages 40-49 = 99 mL/min/1.73 sq.m. Ages 50-59 = 93 mL/min/1.73 sq.m. Ages 60-69 = 85 mL/min/1.73 sq.m. Ages 70+ = 75 mL/min/1.73 sq.m. Chronic Kidney Disease: Less than 60 mL/min/1.73 square meters End Stage Renal Disease: Less than 15 mL/min/1.73 square meters Performed By: #### A MALA, ADIFF, CBC, GFR, BMP #### [address] [address] .NEUABSon 08-30-2023 Neutrophil, Absolute 3.8 10 3/mcL Normal 2.9-6.2 [facility] ([place]) Comment on above: Performed By: #### A ERIN, ANSG #### [facility] [address] [place], [place] [address] #### CBC, ANEU, BMP, ALB, ADIFF, GFR #### [address] [address] ALBon 05-02-2023 Albumin Level 3.4 G/dL Normal 3.4-4.8 [facility] ([place]) Comment on above: Performed By: #### A MALA, ADIFF, CBC, GFR, BMP #### [address] [address] BMPon 05-02-2023 BUN/Creatinine Ratio 17 ratio Normal 7-27 [facility] ([place]) Comment on above: Performed By: #### A MALA, ADIFF, CBC, GFR, BMP #### [address] [address] Calcium [Mass/Vol] 9.2 mg/dL Normal 8.4-10.2 [facility] ([place]) Comment on above: Performed By: #### A MALA, ADIFF, CBC, GFR, BMP #### [address] [address] Chloride [Moles/Vol] 102 mmol/L Normal 98-107 [facility] ([place]) Comment on above: Performed By: #### A MALA, ADIFF, CBC, GFR, BMP #### [address] [address] CO2 [Moles/Vol] 29 mmol/L Normal 23-31 [facility] ([place]) Comment on above: Performed By: #### A MALA, ADIFF, CBC, GFR, BMP #### [address] [address] Creatinine [Mass/Vol] 0.87 mg/dL Normal 0.70-1.30 [facility] ([place]) Comment on above: Performed By: #### A MALA, ADIFF, CBC, GFR, BMP #### [address] [address] Electrolyte Balance 8.0 mEq/L Normal 4.0-15.0 [facility] ([place]) Comment on above: Performed By: #### A MALA, ADIFF, CBC, GFR, BMP #### [address] [address] Glucose [Mass/Vol] 111 mg/dL High 83-110 [facility] ([place]) Comment on above: Performed By: #### A MALA, ADIFF, CBC, GFR, BMP #### [address] [address] Potassium [Moles/Vol] 3.9 mmol/L Normal 3.5-5.1 [facility] ([place]) Comment on above: Performed By: #### A MALA, ADIFF, CBC, GFR, BMP #### [address] [address] Sodium [Moles/Vol] 139 mmol/L Normal 136-145 [facility] ([place]) Comment on above: Performed By: #### A MALA, ADIFF, CBC, GFR, BMP #### [address] [address] Urea nitrogen [Mass/Vol] 15 mg/dL Normal 7-18 [facility] ([place]) Comment on above: Performed By: #### A MALA, ADIFF, CBC, GFR, BMP #### [address] [address] CBCon 05-02-2023 Erythrocyte distribution width (RBC) [Ratio] 18.9 % High 11.5-14.5 [facility] ([place]) Comment on above: Order Comment: Pre-A dmission Testing Performed By: #### A BOG, ANSG #### [facility] [address] [place], [place] [address] #### CBC, ANEU, BMP, ALB, ADIFF, GFR #### [address] [address] Hematocrit (Bld) [Volume fraction] 30.4 % Low 42.0-52.0 [facility] ([place]) Comment on above: Order Comment: Pre-A dmission Testing Performed By: #### A BOG, ANSG #### [facility] [address] [place] [id number] #### CBC, ANEU, BMP, ALB, ADIFF, GFR #### [place] [address] Hgb 10.4 G/dL Low 14.0-18.0 [facility] ([place]) Comment on above: Order Comment: Pre-A dmission Testing Performed By: #### A BOG, ANSG #### [facility] [address] [place] [address] #### CBC, ANEU, BMP, ALB, ADIFF, GFR #### [place] [address] MCH (RBC) [Entitic mass] 29.1 pg Normal 27.0-31.2 [facility] ([place]) Comment on above: Order Comment: Pre-A dmission Testing Performed By: #### A BOG, ANSG #### [facility] [address] [place] [address] #### CBC, ANEU, BMP, ALB, ADIFF, GFR #### [place] [address] MCHC 34.3 G/dL Normal 31.8-35.4 [facility] ([place]) Comment on above: Order Comment: Pre-A dmission Testing Performed By: #### A BOG, ANSG #### [facility] [address] [place] [address] #### CBC, ANEU, BMP, ALB, ADIFF, GFR #### [place] [address] MCV (RBC) [Entitic vol] 84.9 fL Normal 80.0-94.0 A [facility] ([place]) Comment on above: Order Comment: Pre-A dmission Testing Performed By: #### A BOG, ANSG #### [facility] [address] [place] [address] #### CBC, ANEU, BMP, ALB, ADIFF, GFR #### [place] [address] Platelet 230 10 3/mcL Normal 130-400 [facility] ([place]) Comment on above: Order Comment: Pre-A dmission Testing Performed By: #### A ERIN ANSG #### [facility] [address] [place], [place] [address] #### CBC, ANEU, BMP, ALB, ADIFF, GFR #### [place] [address] Platelet mean volume (Bld) [Entitic vol] 6.8 fL Low 7.4-10.4 [facility] ([place]) Comment on above: Order Comment: Pre-A dmission Testing Performed By: #### A ERIN ANSG #### [facility] [address] [place] [id number] #### CBC, ANEU, BMP, ALB, ADIFF, GFR #### [place] [address] RBC 3.58 10 6/mcL Low 4.04-6.13 [facility] ([place]) Comment on above: Order Comment: Pre-A dmission Testing Performed By: #### A ERIN ANSG #### [facility] [address] [place], [place] [address] #### CBC, ANEU, BMP, ALB, ADIFF, GFR #### [place] [address] WBC 5.8 10 3/mcL Normal 4.6-10.8 [facility] ([place]) Comment on above: Order Comment: Pre-A dmission Testing Performed By: #### A ERIN ANSG #### [facility] [address] [place] [id number] #### CBC, ANEU, BMP, ALB, ADIFF, GFR #### [place] [address] CT KNEE W/O CONTRAST RIGHTon 05-02-2023 CT KNEE W/O CONTRAST RIGHT ORIGINAL EXAMINATION: CT OF THE RIGHT KNEE WITHOUT CONTRAST05/02/2023 1:28 pm TECHNIQUE: CT of the right knee was performed without the administration of intravenous contrast. Multiplanar reformatted images are provided for review. Automated exposure control, iterative reconstruction, and/or weight based adjustment of the mA/kV was utilized to reduce the radiation dose to as low as reasonably achievable. COMPARISON: None HISTORY: ORDERING SYSTEM PROVIDED HISTORY: Reason for Exam: M17.11 PRIMARY OSTEOARTHRITIS RIGHT KNEE FINDINGS: There is osseous demineralization. There is advanced tricompartmental osteoarthritis with marginal osteophyte formation, subchondral cystic changes, and joint space narrowing. Of note, there are also central osteophytes involving the medial compartment. Overall, the degenerative changes are most pronounced at the lateral compartment. No acute fracture or dislocation is identified. There is a small to moderate suprapatellar knee joint effusion containing a small periphery calcified loose body. There is no aggressive or otherwise suspicious appearing osseous lesion. There is an incidental tug lesion along the posterior aspect of the proximal tibia. The hip joint and femur reveal no acute findings. No acute findings of the ankle. 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 Small to moderate knee joint effusion. No acute fracture or dislocation. No aggressive/suspicio us appearing osseous lesion. I have personally reviewed the images of this examination and agree with the resident's findings and interpretation. Interpreted by: Royce Conde DO Preliminary Report By: Bakari Santos Electronically signed By Royce Conde DO Dictated Date: 05/02/2023 1:46:11 PM Prelim Date: 05/02/2023 4:11:15 PM Sign Date: 05/02/2023 4:11:15 PM Ordering Provider: ELENA BAI Normal [facility]) Gel ABOon 05-02-2023 ABO/Rh Interp Positive Invalid Interpretation Code [facility]) Comment on above: Performed By: #### A MALA, ADIFF, CBC, GFR, BMP #### [address] [address] Gel ABSon 05-02-2023 Antibody Screen Gel Negative Normal [facility]) Comment on above: Performed By: #### A MALA, ADIFF, CBC, GFR, BMP #### [address] [address] LABORATORYOrdered By: Alejandra Morales on 05-02-2023 ABO/Rh Interp Positive Invalid Interpretation Code AO BB SS Antibody Screen Gel Negative ABSC (05/02/23 11:25 AM) Invalid Interpretation Code AO BB SS LABORATORYOrdered By: SYSTEM SYSTEM on 05-02-2023 Albumin BCP dye [Mass/Vol] 3.4 G/dL Invalid Interpretation Code 3.4 - 4.8 G/dL AO ADM SS Basophil, Absolute 0.0 103/mcL Invalid Interpretation Code 0.0 - 0.2 10^3/mcL AO Workflow SS Basophils/100 WBC (Bld) 0.6 % Invalid Interpretation Code 0.0 - 2.5 % AO Workflow SS Calcium [Mass/Vol] 9.2 mg/dL Invalid Interpretation Code 8.4 - 10.2 mg/dL AO ADM SS Chloride [Moles/Vol] 102 mmol/L Invalid Interpretation Code 98 - 107 mmol/L AO ADM SS CO2 [Moles/Vol] 29 mmol/L Invalid Interpretation Code 23 - 31 mmol/L AO ADM SS Creatinine [Mass/Vol] 0.87 mg/dL Invalid Interpretation Code 0.70 - 1.30 mg/dL AO ADM SS Electrolyte Balance 8.0 mEq/L Invalid Interpretation Code 4.0 - 15.0 mEq/L AO ADM SS Eosinophil, Absolute 0.4 103/mcL Invalid Interpretation Code 0.0 - 0.4 10^3/mcL AO Workflow SS Eosinophils/100 WBC (Bld) 6.9 % Invalid Interpretation Code 0.0 - 7.0 % AO Workflow SS Erythrocyte distribution width (RBC) [Ratio] 18.9 % Invalid Interpretation Code 11.5 - 14.5 % AO Workflow SS GFR/1.73 sq M.predicted among blacks MDRD (S/P/Bld) [Vol rate/Area] 101 ml/min/1.73sqm Invalid Interpretation Code AO Chemistry S Comment on above: Interpretive Data: GFR Population mean for , Non- Americans Ages 20-29 = 116 mL/min/1.73 sq.m. Ages 30-39 = 107 mL/min/1.73 sq.m. Ages 40-49 = 99 mL/min/1.73 sq.m. Ages 50-59 = 93 mL/min/1.73 sq.m. Ages 60-69 = 85 mL/min/1.73 sq.m. Ages 70+ = 75 mL/min/1.73 sq.m. Chronic Kidney Disease: Less than 60 mL/min/1.73 square meters End Stage Renal Disease: Less than 15 mL/min/1.73 square meters GFR/1.73 sq M.predicted among non-blacks MDRD (S/P/Bld) [Vol rate/Area] 84 ml/min/1.73sqm Invalid Interpretation Code AO Chemistry S Comment on above: Interpretive Data: GFR Population mean for , Non- Americans Ages 20-29 = 116 mL/min/1.73 sq.m. Ages 30-39 = 107 mL/min/1.73 sq.m. Ages 40-49 = 99 mL/min/1.73 sq.m. Ages 50-59 = 93 mL/min/1.73 sq.m. Ages 60-69 = 85 mL/min/1.73 sq.m. Ages 70+ = 75 mL/min/1.73 sq.m. Chronic Kidney Disease: Less than 60 mL/min/1.73 square meters End Stage Renal Disease: Less than 15 mL/min/1.73 square meters Glucose [Mass/Vol] 111 mg/dL Invalid Interpretation Code 83 - 110 mg/dL AO ADM SS Hematocrit (Bld) [Volume fraction] 30.4 % Invalid Interpretation Code 42.0 - 52.0 % AO Workflow SS Hemoglobin (Bld) [Mass/Vol] 10.4 G/dL Invalid Interpretation Code 14.0 - 18.0 G/dL AO Workflow SS Lymphocyte, Absolute 1.1 103/mcL Invalid Interpretation Code 0.8 - 3.9 10^3/mcL AO Workflow SS Lymphocytes/100 WBC (Bld) 18.2 % Invalid Interpretation Code 10.0 - 50.0 % AO Workflow SS MCH (RBC) [Entitic mass] 29.1 pg Invalid Interpretation Code 27.0 - 31.2 pg AO Workflow SS MCHC 34.3 G/dL Invalid Interpretation Code 31.8 - 35.4 G/dL AO Workflow SS MCV (RBC) [Entitic vol] 84.9 fL Invalid Interpretation Code 80.0 - 94.0 fL AO Workflow SS Monocyte, Absolute 0.5 103/mcL Invalid Interpretation Code 0.2 - 1.0 10^3/mcL AO Workflow SS Monocytes/100 WBC (Bld) 9.1 % Invalid Interpretation Code 1.7 - 13.0 % AO Workflow SS Neutrophil, Absolute 3.8 103/mcL Invalid Interpretation Code 2.9 - 6.2 10^3/mcL AO Workflow SS Neutrophils/100 WBC (Bld) 65.2 % Invalid Interpretation Code 37.0 - 80.0 % AO Workflow SS Platelet mean volume (Bld) [Entitic vol] 6.8 fL Invalid Interpretation Code 7.4 - 10.4 fL AO Workflow SS Platelets (Bld) [#/Vol] 230 103/mcL Invalid Interpretation Code 130 - 400 10^3/mcL AO Workflow SS Potassium [Moles/Vol] 3.9 mmol/L Invalid Interpretation Code 3.5 - 5.1 mmol/L AO ADM SS RBC (Bld) [#/Vol] 3.58 106/mcL Invalid Interpretation Code 4.04 - 6.13 10^6/mcL AO Workflow SS Sodium [Moles/Vol] 139 mmol/L Invalid Interpretation Code 136 - 145 mmol/L AO ADM SS Urea nitrogen [Mass/Vol] 15 mg/dL Invalid Interpretation Code 7 - 18 mg/dL AO ADM SS Urea nitrogen/Creatinine [Mass ratio] 17 ratio Invalid Interpretation Code 7 - 27 ratio AO ADM SS WBC (Bld) [#/Vol] 5.8 103/mcL Invalid Interpretation Code 4.6 - 10.8 10^3/mcL AO Workflow SS LABORATORYOrdered By: Mikael Love on 05-02-2023 MRSA DNA DENVER+probe Ql (Unsp spec) Not Detected 1 (05/02/23 11:25 AM) Invalid Interpretation Code Not Detected Auto Viro/Sero SS Comment on above: Result Comment: Note s MRSA PCR Int MRSA DNA not detected by Real-Time Polymerase Chain Reaction (PCR). A negative result may be due to intermittent colonization. Colonization may vary depending on patient treatment, patient status, or exposure to high-risk environments.As with all PCR based in vitro diagnostic tests, extremely low levels of target below the limit of detection of the assay may be detected, but results may not be reproducible. Invalid Interpretation Code Auto Viro/Sero SS MRSAPCRon 05-02-2023 MRSA (PCR) Not detected Normal Not Detected [facility] ([place]) Comment on above: Result Comment: Note s Performed By: #### M RSAPCR #### [facility] [address] [place] [id number] MRSA PCR Int Normal [facility] ([place]) Comment on above: Result Comment: MRSA DNA not detected by Real-Time Polymerase Chain Reaction (PCR). A negative result may be due to intermittent colonization. Colonization may vary depending on patient treatment, patient status, or exposure to high-risk environments. As with all PCR based in vitro diagnostic tests, extremely low levels of target below the limit of detection of the assay may be detected, but results may not be reproducible. See Below Performed By: #### M RSAPCR #### [facility] [address] [place], [place] [address] Absolute lymphocyte countOrd ered By: Tristin Cain on 04-04-2023 Lymphocytes Auto (Unsp spec) [#/Vol] 1.33 10*3/uL 0.83-4.51 [facility] Basophil percentageOrdered B y: Tristin Cain on 04-04-2023 Basophils/100 WBC (Bld) 0.2 % 0-1 [facility] Eosinophils/100 WBC (Bld) 2.0 % 0-5 [facility] Neutrophils (Bld) [#/Vol] 9.7 10*3/uL 2.0-7.7 [facility] Neutrophils/100 WBC (Bld) 78.2 % 47-70 [facility] WBC (Bld) [#/Vol] 12.4 10*3/uL 4.4-11.0 [facility] Blood erythrocytes count (nu mber/volume)Ordered By: Tristin Cain on 04-04-2023 RBC (Bld) [#/Vol] 3.30 10*6/uL 4.6-6.2 [facility] Blood hemoglobin measurement (mass/volume)Ordered By: Tristin Cain on 04-04-2023 Hemoglobin (Bld) [Mass/Vol] 9.3 g/dL 13.0-16.5 [facility] Blood lymphocytes/100 leukoc ytesOrdered By: Tristin Cain on 04-04-2023 Lymphocytes/100 WBC (Bld) 10.7 % 19-41 [facility] Blood monocytes/100 leukocyt esOrdered By: Tristin Cain on 04-04-2023 Monocytes/100 WBC (Bld) 8.1 % 0-10 [facility] Blood platelet mean volumeOr dered By: Tristin Cain on 04-04-2023 Platelet mean volume (Bld) [Entitic vol] 8.6 fL 6.2-12.0 [facility] Determination of erythrocyte mean corpuscular volume (MCV)Ordered By: Tristin Cain on 04-04-2023 MCV (RBC) [Entitic vol] 89.1 fL 80-94 [facility] Hematocrit Auto (Bld) [Volum e fraction][facility] Hematocrit (Bld) [Volume fraction] 29.4 % 40-54 [facility] Laboratory - Hematology and Cell countsOrdered By: [facility] on 04-04-2023 Erythrocyte distribution width (RBC) [Entitic vol] 46.5 fL 35.1-43.9 [facility] Erythrocyte distribution width (RBC) [Ratio] 14.8 % 11.6-14.6 [facility] Immature granulocytes/100 WBC (Bld) 0.800 % 0.0-0.9 [facility] Comment on above: IG% - Immature Granu locytes (promyelocytes, myelocytes and metamyelocytes) > 1% indicates that a LEFT SHIFT is Present. MCH (RBC) [Entitic mass] 28.2 pg 27.0-32.0 [facility] Nucleated RBC/100 WBC (Bld) [Ratio] 0 % 0-5 [facility] MCHC Auto (RBC) [Mass/Vol]Or dered By: Tristin Cain on 04-04-2023 MCHC (RBC) [Mass/Vol] 31.6 g/dL 32-36 [facility] Platelets bldOrdered By: Tristin Cain on 04-04-2023 Platelets (Bld) [#/Vol] 342 10*3/uL 150-450 [facility] Basophil percentageOrdered B y: Zac Negrete on 03-27-2023 Chloride [Moles/Vol] 99 mmol/L 98-107 [facility] Glucose [Mass/Vol] 140 mg/dL 74-[address] [facility] Comment on above: Fasting Glucose resu lt greater than or equal to 126 mg/dL suggests DIABETES MELLITUS per A.D.A. criteria. Potassium [Moles/Vol] 3.5 mmol/L 3.5-5.1 [facility] Sodium [Moles/Vol] 131 mmol/L 136-[address] [facility] Basophil percentage 0-5 SEEN /hpf 0-[address] [facility] Bilirubin Test strip Ql (U)O rdered By: Zac Negrete on 03-27-2023 Bilirubin Ql (U) Negative Negative [facility] Ketones Test strip Ql (U)Ord ered By: Zac Negrete on 03-27-2023 Ketones Ql (U) Negative Negative [facility] Laboratory - Chemistry and C hemistry - challengeOrdered By: Zac Negrete on 03-27-2023 CO2 [Moles/Vol] 25.0 mmol/L 21.0-32.0 [facility] Urea nitrogen/Creatinine [Mass ratio] 30.1 mg/mg 10-20 [facility] Mucus LM Ql (Urine sed)Order ed By: Zac Negrete on 03-27-2023 Mucus Ql (Urine sed) 1+ /hpf [facility] Nitrite Test strip Ql (U)Ord ered By: Zac Negrete on 03-27-2023 Nitrite Ql (U) Negative Negative [facility] No Panel InformationOrdered By: Zac Negrete on 03-27-2023 Estimated Creatinine Clearance Calc 40.34 ml/min [facility] Estimated GFR (MDRD) Amer 72 mL/min >60 [facility] Comment on above: GFR Calc Estimated GFR (MDRD) Non-Af Amer 60 mL/min >60 [facility] Comment on above: Non- GFR Calc Protein Test strip Ql (U)Ord ered By: Zac Negrete on 03-27-2023 Protein Ql (U) 30 mg/dl Negative [facility] Serum or plasma calcium hay urement (mass/volume)Ordered By: Zac Negrete on 03-27-2023 Calcium [Mass/Vol] 9.8 mg/dL 8.5-10.[address] [facility] Serum or plasma creatinine m easurement (mass/volume)Ordered By: Zac Negrete on 03-27-2023 Creatinine [Mass/Vol] 1.23 mg/dL 0.70-1.30 [facility] Comment on above: The validity of the calculated GFR & GFRAA in patients over 70 years has not been determined. Clinical correlation is essential. Serum or plasma urea nitroge n measurement (mass/volume)Ordered By: Zac Negrete on 03-27-2023 Urea nitrogen [Mass/Vol] 37 mg/dL 7-18 [facility] Squamous epithelial cells de tection in urine sediment by light microscopyOrdered By: Zac Negrete on 03-27-2023 Epithelial cells.squamous LM Ql (Urine sed) 0 SEEN /hpf 0-5 [facility] Thin prep Papanicolaou smear with manual screeningOrdered By: Zac Negrete on 03-27-2023 Thin prep Papanicolaou smear with manual screening 7 5-15 [facility] Urine blood detectionOrdered By: Zac Negrete on 03-27-2023 RBC Ql (U) 25 /ul Negative [facility] RBC Ql (U) 10-25 SEEN /hpf 0-5 [facility] Urine clarityOrdered By: Zia Negrete on 03-27-2023 Clarity (U) Clear Clear [facility] Urine color determinationOrd ered By: Zac Negrete on 03-27-2023 Color (U) Yellow Yellow [facility] Urine glucose detectionOrder ed By: Zac Negrete on 03-27-2023 Glucose Ql (U) Normal mg/dl Normal [facility] Urine leukocyte esterase det ection by dipstickOrdered By: Zac Negrete on 03-27-2023 Leukocyte esterase Test strip Ql (U) 25 /ul Negative [facility] Urine pHOrdered By: Zac ryan on 03-27-2023 pH (U) 5.0 [pH] 5.0 - 8.0 [facility] Urine sediment bacteria coun t by microscopy (number/high power field)Ordered By: Zac Negrete on 03-27-2023 Bacteria LM.HPF (Urine sed) [#/Area] 1 /[HPF] None Seen [facility] Urine specific gravity measu rementOrdered By: Zac Negrete on 03-27-2023 Specific gravity (U) [Rel density] 1.015 1.002-1.030 [facility] Urobilinogen Auto test strip Ql (U)Ordered By: Zac Negrete on 03-27-2023 Urobilinogen Ql (U) Normal mg/dl Normal [facility] Basophil percentageOrdered B y: Elena Bai on 03-22-2023 Chloride [Moles/Vol] 107 mmol/L 98-107 [facility] Glucose [Mass/Vol] 124 mg/dL 74-[address] [facility] Comment on above: Fasting Glucose resu lt from 100 to 125 mg/dL suggests IMPAIRED HOMEOSTASIS per A.D.A. criteria. Potassium [Moles/Vol] 3.8 mmol/L 3.5-5.1 [facility] Sodium [Moles/Vol] 139 mmol/L 136-[address] [facility] WBC (Bld) [#/Vol] 10.2 10*3/uL 4.4-11.0 [facility] Blood erythrocytes count (nu mber/volume)Ordered By: Elena Bai on 03-22-2023 RBC (Bld) [#/Vol] 3.13 10*6/uL 4.6-6.2 [facility] Blood hemoglobin measurement (mass/volume)Ordered By: Elena Bai on 03-22-2023 Hemoglobin (Bld) [Mass/Vol] 9.1 g/dL 13.0-16.5 [facility] Blood platelet mean volumeOr dered By: Elena Bai on 03-22-2023 Platelet mean volume (Bld) [Entitic vol] 8.8 fL 6.2-12.0 [facility] Determination of erythrocyte mean corpuscular volume (MCV)Ordered By: Elena Bai on 03-22-2023 MCV (RBC) [Entitic vol] 88.8 fL 80-94 [facility] Hematocrit Auto (Bld) [Volum e fraction]Ordered By: Elena Bai on 03-22-2023 Hematocrit (Bld) [Volume fraction] 27.8 % 40-54 [facility] Laboratory - Chemistry and C hemistry - challengeOrdered By: Elena Bai on 03-22-2023 CO2 [Moles/Vol] 26.0 mmol/L 21.0-32.0 [facility] Urea nitrogen/Creatinine [Mass ratio] 25.5 mg/mg - [facility] Laboratory - Hematology and Cell countsOrdered By: Elena Bai on 03-22-2023 Erythrocyte distribution width (RBC) [Entitic vol] 44.6 fL 35.1-43.9 [facility] Erythrocyte distribution width (RBC) [Ratio] 13.9 % 11.6-14.6 [facility] MCH (RBC) [Entitic mass] 29.1 pg 27.0-32.0 [facility] MCHC Auto (RBC) [Mass/Vol]Or dered By: Elena Bai on 03-22-2023 MCHC (RBC) [Mass/Vol] 32.7 g/dL 32-36 [facility] No Panel InformationOrdered By: Elena Bai on 03-22-2023 Estimated Creatinine Clearance Calc 49.62 ml/min [facility] Estimated GFR (MDRD) Amer 157 mL/min >60 [facility] Comment on above: GFR Calc Estimated GFR (MDRD) Non-Af Amer 129 mL/min >60 [facility] Comment on above: Non- GFR Calc Platelets bldOrdered By: Marco Bai on 03-22-2023 Platelets (Bld) [#/Vol] 249 10*3/uL 150-450 [facility] Serum or plasma calcium hay urement (mass/volume)Ordered By: Elena Bai on 03-22-2023 Calcium [Mass/Vol] 8.5 mg/dL 8.5-10.[address] [facility] Serum or plasma creatinine m easurement (mass/volume)Ordered By: Elena Bai on 03-22-2023 Creatinine [Mass/Vol] 0.63 mg/dL 0.70-1.30 [facility] Comment on above: The validity of the calculated GFR & GFRAA in patients over 70 years has not been determined. Clinical correlation is essential. Serum or plasma urea nitroge n measurement (mass/volume)Ordered By: Elena Bai on 03-22-2023 Urea nitrogen [Mass/Vol] 16 mg/dL 7-18 [facility] Thin prep Papanicolaou smear with manual screeningOrdered By: Elena Bai on 03-22-2023 Thin prep Papanicolaou smear with manual screening 6 5-15 [facility] INR in Blood by Coagulation assayOrdered By: Kris Owens on 03-01-2023 INR Coag (Bld) [Relative time] 1.2 {INR} [facility] Laboratory - Chemistry and C hemistry - challengeOrdered By: Kris Owens on 03-01-2023 Magnesium [Mass/Vol] 2.2 mg/dL 1.6-2.6 [facility] Laboratory - CoagulationOrde red By: Kris Owens on 03-01-2023 aPTT Coag (Bld) [Time] 36.7 s 24.1-36.[address] [facility] PT Coag (PPP) [Time] 15.2 s 11.7-14.9 [facility] No Panel InformationOrdered By: Elena Bai on 03-01-2023 Nasal Screen MRSA/MSSA [facility] Absolute lymphocyte countOrd ered By: Dr. Cain on 01-03-2023 Lymphocytes Auto (Unsp spec) [#/Vol] 1.50 10*3/uL 0.83-4.51 [facility] Basophil percentageOrdered B y: Dr. Cain on 01-03-2023 Basophils/100 WBC (Bld) 0.6 % 0-1 [facility] Bilirubin [Mass/Vol] 1.10 mg/dL 0.20-1.00 [facility] Comment on above: For patients on eltr ombopag therapy, use of Dim[place] TBIL is not recommended. Chloride [Moles/Vol] 104 mmol/L 98-107 [facility] Eosinophils/100 WBC (Bld) 3.5 % 0-5 [facility] Glucose [Mass/Vol] 120 mg/dL 74-[address] [facility] Comment on above: Fasting Glucose resu lt from 100 to 125 mg/dL suggests IMPAIRED HOMEOSTASIS per A.D.A. criteria. Neutrophils (Bld) [#/Vol] 4.1 10*3/uL 2.0-7.7 [facility] Neutrophils/100 WBC (Bld) 63.6 % 47-70 [facility] Potassium [Moles/Vol] 3.8 mmol/L 3.5-5.1 [facility] Protein [Mass/Vol] 7.2 g/dL 6.4-8.[address] [facility] Sodium [Moles/Vol] 138 mmol/L 136-[address] [facility] WBC (Bld) [#/Vol] 6.5 10*3/uL 4.4-11.[address] [facility] Blood erythrocytes count (nu mber/volume)Ordered By: Dr. Cain on 01-03-2023 RBC (Bld) [#/Vol] 4.44 10*6/uL 4.6-6.2 [facility] Blood hemoglobin measurement (mass/volume)Ordered By: Dr. Cain on 01-03-2023 Hemoglobin (Bld) [Mass/Vol] 13.8 g/dL 13.0-16.5 [facility] Blood lymphocytes/100 leukoc ytesOrdered By: Dr. Cain on 01-03-2023 Lymphocytes/100 WBC (Bld) 23.0 % 19-41 [facility] Blood monocytes/100 leukocyt esOrdered By: Dr. Cain on 01-03-2023 Monocytes/100 WBC (Bld) 9.1 % 0-10 [facility] Blood platelet mean volumeOr dered By: Dr. Cain on 01-03-2023 Platelet mean volume (Bld) [Entitic vol] 8.9 fL 6.2-12.0 [facility] Determination of erythrocyte mean corpuscular volume (MCV)Ordered By: Dr. Cain on 01-03-2023 MCV (RBC) [Entitic vol] 87.2 fL 80-94 [facility] Hematocrit Auto (Bld) [Volum e fraction]Ordered By: Dr. Cain on 01-03-2023 Hematocrit (Bld) [Volume fraction] 38.7 % 40-54 [facility] Laboratory - Chemistry and C hemistry - challengeOrdered By: Dr. Cain on 01-03-2023 ALP [Catalytic activity/Vol] 60 U/L 45-117 [facility] ALT [Catalytic activity/Vol] 31 U/L 16-61 [facility] CO2 [Moles/Vol] 26.0 mmol/L 21.0-32.0 [facility] Globulin (S) [Mass/Vol] 3.5 g/dL 2.2-4.2 [facility] Urea nitrogen/Creatinine [Mass ratio] 13.0 mg/mg 10-20 [facility] Laboratory - Hematology and Cell countsOrdered By: Dr. Cain on 01-03-2023 Erythrocyte distribution width (RBC) [Entitic vol] 44.1 fL 35.1-43.9 [facility] Erythrocyte distribution width (RBC) [Ratio] 14.0 % 11.6-14.6 [facility] Immature granulocytes/100 WBC (Bld) 0.200 % 0.0-0.9 [facility] Comment on above: IG% - Immature Granu locytes (promyelocytes, myelocytes and metamyelocytes) > 1% indicates that a LEFT SHIFT is Present. MCH (RBC) [Entitic mass] 31.1 pg 27.0-32.0 [facility] Nucleated RBC/100 WBC (Bld) [Ratio] 0 % 0-5 [facility] MCHC Auto (RBC) [Mass/Vol]Or dered By: Dr. Cain on 01-03-2023 MCHC (RBC) [Mass/Vol] 35.7 g/dL 32-36 [facility] No Panel InformationOrdered By: Dr. Cain on 01-03-2023 Estimated GFR (MDRD) Amer 100 mL/min >60 [facility] Comment on above: GFR Calc Estimated GFR (MDRD) Non-Af Amer 83 mL/min >60 [facility] Comment on above: Non- GFR Calc Thyroid Stimulating Hormone (TSH) 1.26 uIU/mL 0.358-3.74 [facility] Vitamin D 25-Hydroxy 39.3 ng/mL [facility] Comment on above: Vitamin D 25(OH) Sta tus Range Deficiency <20 ng/mL (50nmol/L) Insufficiency 20 - 30 ng/mL (50 - 75 nmol/L) Sufficiency 30 - 100 ng/mL (75 - 250 nmol/L) Toxicity >100 ng/mL (>250 nmol/L) Platelets bldOrdered By: Dr. Cain on 01-03-2023 Platelets (Bld) [#/Vol] 183 10*3/uL 150-450 [facility] Serum or plasma albumin hay urement (mass/volume)Ordered By: Dr. Cain on 01-03-2023 Albumin [Mass/Vol] 3.7 g/dL 3.2-5.[address] [facility] Serum or plasma albumin/glob ulin mass ratioOrdered By: Dr. Cain on 01-03-2023 Albumin/Globulin [Mass ratio] 1.1 {ratio} 0.9-2.4 [facility] Serum or plasma calcium hay urement (mass/volume)Ordered By: Dr. Cain on 01-03-2023 Calcium [Mass/Vol] 9.3 mg/dL 8.5-10.[address] [facility] Serum or plasma creatinine m easurement (mass/volume)Ordered By: Dr. Cain on 01-03-2023 Creatinine [Mass/Vol] 0.92 mg/dL 0.70-1.30 [facility] Comment on above: The validity of the calculated GFR & GFRAA in patients over 70 years has not been determined. Clinical correlation is essential. Serum or plasma urea nitroge n measurement (mass/volume)Ordered By: Dr. Cain on 01-03-2023 Urea nitrogen [Mass/Vol] 12 mg/dL 7-18 [facility] Thin prep Papanicolaou smear with manual screeningOrdered By: Dr. Cain on 01-03-2023 Thin prep Papanicolaou smear with manual screening 20 U/L 15-37 [facility] Thin prep Papanicolaou smear with manual screening 8 5-15 [facility] Absolute lymphocyte counton 07-12-2022 Lymphocytes Auto (Unsp spec) [#/Vol] 1.69 10*3/uL 0.83-4.51 [facility] Work Phone: Basophil percentageon 2021 Basophils/100 WBC (Bld) 0.6 % 0-1 [facility] Work Phone: Bilirubin [Mass/Vol] 0.90 mg/dL 0.20-1.00 [facility] Work Phone: Comment on above: For patients on eltr ombopag therapy, use of [place] TBIL is not recommended. Chloride [Moles/Vol] 105 mmol/L 98-107 [facility] Work Phone: Eosinophils/100 WBC (Bld) 4.9 % 0-5 [facility] Work Phone: Glucose [Mass/Vol] 91 mg/dL 74-[address] [facility] Work Phone: Neutrophils (Bld) [#/Vol] 3.7 10*3/uL 2.0-7.7 [facility] Work Phone: Neutrophils/100 WBC (Bld) 57.3 % 47-70 [facility] Work Phone: Potassium [Moles/Vol] 3.8 mmol/L 3.5-5.1 [facility] Work Phone: [phone] Protein [Mass/Vol] 7.6 g/dL 6.4-8.[address] [facility] Work Phone: Sodium [Moles/Vol] 138 mmol/L 136-[address] [facility] Work Phone: Testosterone [Mass/Vol] 335.76 ng/dL [facility] Work Phone: Comment on above: CENTRAL 90% REFERENC E RANGES MALE AGE <50 197.44 - 669.58 ng/dL MALE AGE > or = 50 187.72 - 684.19 ng/dL FEMALE AGE <50 8.38 - 35.01 ng/dL FEMALE AGE > or = 50 <7.00 - 35.92 ng/dL Effective as of 03/29/21 WBC (Bld) [#/Vol] 6.5 10*3/uL 4.4-11.[address] [facility] Work Phone: Blood erythrocytes count (nu mber/volume)on 07-12-2022 RBC (Bld) [#/Vol] 4.48 10*6/uL 4.6-6.2 [facility] Work Phone: Blood hemoglobin measurement (mass/volume)on 07-12-2022 Hemoglobin (Bld) [Mass/Vol] 13.9 g/dL 13.0-16.5 [facility] Work Phone: Blood lymphocytes/100 leukoc yteson 07-12-2022 Lymphocytes/100 WBC (Bld) 25.9 % 19-41 [facility] Work Phone: Blood monocytes/100 leukocyt eson 07-12-2022 Monocytes/100 WBC (Bld) 11.0 % 0-10 [facility] Work Phone: Blood platelet mean volumeon 07-12-2022 Platelet mean volume (Bld) [Entitic vol] 9.5 fL 6.2-12.0 [facility] Work Phone: Determination of erythrocyte mean corpuscular volume (MCV)on 07-12-2022 MCV (RBC) [Entitic vol] 90.0 fL 80-94 [facility] Work Phone: Hematocrit Auto (Bld) [Volum e fraction]on 07-12-2022 Hematocrit (Bld) [Volume fraction] 40.3 % 40-54 [facility] Work Phone: Laboratory - Chemistry and C hemistry - challengeon 07-12-2022 ALP [Catalytic activity/Vol] 64 U/L 45-117 [facility] Work Phone: ALT [Catalytic activity/Vol] 33 U/L 16-61 [facility] Work Phone: CO2 [Moles/Vol] 26.0 mmol/L 21.0-32.0 [facility] Work Phone: Globulin (S) [Mass/Vol] 3.8 g/dL 2.2-4.2 [facility] Work Phone: Urea nitrogen/Creatinine [Mass ratio] 15.1 mg/mg 10-20 [facility] Work Phone: Laboratory - Hematology and Cell countson 07-12-2022 Erythrocyte distribution width (RBC) [Entitic vol] 46.6 fL 35.1-43.9 [facility] Work Phone: Erythrocyte distribution width (RBC) [Ratio] 14.3 % 11.6-14.6 [facility] Work Phone: Immature granulocytes/100 WBC (Bld) 0.300 % 0.0-0.9 [facility] Work Phone: Comment on above: IG% - Immature Granu locytes (promyelocytes, myelocytes and metamyelocytes) > 1% indicates that a LEFT SHIFT is Present. MCH (RBC) [Entitic mass] 31.0 pg 27.0-32.0 [facility] Work Phone: Nucleated RBC/100 WBC (Bld) [Ratio] 0 % 0-5 [facility] Work Phone: MCHC Auto (RBC) [Mass/Vol]on 07-12-2022 MCHC (RBC) [Mass/Vol] 34.5 g/dL 32-36 [facility] Work Phone: No Panel Informationon 07-12 Estimated GFR (MDRD) Amer 100 mL/min >60 [facility] Work Phone: Comment on above: GFR Calc Estimated GFR (MDRD) Non-Af Amer 83 mL/min >60 [facility] Work Phone: Comment on above: Non- GFR Calc Thyroid Stimulating Hormone (TSH) 0.85 uIU/mL 0.358-3.74 [facility] Work Phone: Vitamin D 25-Hydroxy 33.6 ng/mL [facility] Work Phone: Comment on above: Vitamin D 25(OH) Sta tus Range Deficiency <20 ng/mL (50nmol/L) Insufficiency 20 - 30 ng/mL (50 - 75 nmol/L) Sufficiency 30 - 100 ng/mL (75 - 250 nmol/L) Toxicity >100 ng/mL (>250 nmol/L) Platelets bldon 07-12-2022 Platelets (Bld) [#/Vol] 229 10*3/uL 150-450 [facility] Work Phone: Serum or plasma albumin hay urement (mass/volume)on 07-12-2022 Albumin [Mass/Vol] 3.8 g/dL 3.2-5.[address] [facility] Work Phone: Serum or plasma albumin/glob ulin mass ratioon 07-12-2022 Albumin/Globulin [Mass ratio] 1.0 {ratio} 0.9-2.4 [facility] Work Phone: Serum or plasma calcium hay urement (mass/volume)on 07-12-2022 Calcium [Mass/Vol] 9.0 mg/dL 8.5-10.[address] [facility] Work Phone: Serum or plasma creatinine m easurement (mass/volume)on 07-12-2022 Creatinine [Mass/Vol] 0.93 mg/dL 0.70-1.30 [facility] Work Phone: Comment on above: The validity of the calculated GFR & GFRAA in patients over 70 years has not been determined. Clinical correlation is essential. Serum or plasma urea nitroge n measurement (mass/volume)on 07-12-2022 Urea nitrogen [Mass/Vol] 14 mg/dL 7-18 [facility] Work Phone: Thin prep Papanicolaou smear with manual screeningon 07-12-2022 Thin prep Papanicolaou smear with manual screening 23 U/L 15-37 [facility] Work Phone: Thin prep Papanicolaou smear with manual screening 7 5-15 [facility] Work Phone: Basophil percentageon 2021 Chloride [Moles/Vol] 103 mmol/L 98-107 [facility] Work Phone: Glucose [Mass/Vol] 137 mg/dL 74-[address] [facility] Work Phone: Comment on above: Fasting Glucose resu lt greater than or equal to 126 mg/dL suggests DIABETES MELLITUS per A.D.A. criteria. Potassium [Moles/Vol] 3.6 mmol/L 3.5-5.1 [facility] Work Phone: Sodium [Moles/Vol] 138 mmol/L 136-[address] [facility] Work Phone: Laboratory - Chemistry and C hemistry - challengeon 04-13-2022 CO2 [Moles/Vol] 28.0 mmol/L 21.0-32.0 [facility] Work Phone: Urea nitrogen/Creatinine [Mass ratio] 14.9 mg/mg 10-20 [facility] Work Phone: No Panel Informationon 04-13 Estimated GFR (MDRD) Amer 99 mL/min >60 [facility] Work Phone: Comment on above: GFR Calc Estimated GFR (MDRD) Non-Af Amer 82 mL/min >60 [facility] Work Phone: Comment on above: Non- GFR Calc Serum or plasma calcium hay urement (mass/volume)on 04-13-2022 Calcium [Mass/Vol] 9.1 mg/dL 8.5-10.[address] [facility] Work Phone: Serum or plasma creatinine m easurement (mass/volume)on 04-13-2022 Creatinine [Mass/Vol] 0.94 mg/dL 0.70-1.30 [facility] Work Phone: Comment on above: The validity of the calculated GFR & GFRAA in patients over 70 years has not been determined. Clinical correlation is essential. Serum or plasma urea nitroge n measurement (mass/volume)on 04-13-2022 Urea nitrogen [Mass/Vol] 14 mg/dL 7-18 [facility] Work Phone: Thin prep Papanicolaou smear with manual screeningon 04-13-2022 Thin prep Papanicolaou smear with manual screening 7 5-15 [facility] Work Phone: Absolute lymphocyte counton 03-23-2022 Lymphocytes Auto (Unsp spec) [#/Vol] 1.24 10*3/uL 0.83-4.51 [facility] Work Phone: Basophil percentageon 2021 Basophils/100 WBC (Bld) 0.4 % 0-1 [facility] Work Phone: Chloride [Moles/Vol] 104 mmol/L 98-107 [facility] Work Phone: Eosinophils/100 WBC (Bld) 5.8 % 0-5 [facility] Work Phone: Glucose [Mass/Vol] 109 mg/dL 74-[address] [facility] Work Phone: Comment on above: Fasting Glucose resu lt from 100 to 125 mg/dL suggests IMPAIRED HOMEOSTASIS per A.D.A. criteria. Neutrophils (Bld) [#/Vol] 4.7 10*3/uL 2.0-7.7 [facility] Work Phone: Neutrophils/100 WBC (Bld) 63.6 % 47-70 [facility] Work Phone: Potassium [Moles/Vol] 3.8 mmol/L 3.5-5.1 [facility] Work Phone: Sodium [Moles/Vol] 137 mmol/L 136-[address] [facility] Work Phone: WBC (Bld) [#/Vol] 7.5 10*3/uL 4.4-11.[address] [facility] Work Phone: Blood erythrocytes count (nu mber/volume)on 03-23-2022 RBC (Bld) [#/Vol] 3.84 10*6/uL 4.6-6.2 [facility] Work Phone: Blood hemoglobin measurement (mass/volume)on 03-23-2022 Hemoglobin (Bld) [Mass/Vol] 11.7 g/dL 13.0-16.5 [facility] Work Phone: Blood lymphocytes/100 leukoc yteson 03-23-2022 Lymphocytes/100 WBC (Bld) 16.6 % 19-41 [facility] Work Phone: Blood monocytes/100 leukocyt eson 03-23-2022 Monocytes/100 WBC (Bld) 12.9 % 0-10 [facility] Work Phone: Blood platelet mean volumeon 03-23-2022 Platelet mean volume (Bld) [Entitic vol] 9.4 fL 6.2-12.0 [facility] Work Phone: Determination of erythrocyte mean corpuscular volume (MCV)on 03-23-2022 MCV (RBC) [Entitic vol] 91.4 fL 80-94 [facility] Work Phone: Hematocrit Auto (Bld) [Volum e fraction]on 03-23-2022 Hematocrit (Bld) [Volume fraction] 35.1 % 40-54 [facility] Work Phone: Laboratory - Chemistry and C hemistry - challengeon 03-23-2022 CO2 [Moles/Vol] 28.0 mmol/L 21.0-32.0 [facility] Work Phone: Urea nitrogen/Creatinine [Mass ratio] 17.4 mg/mg 10-20 [facility] Work Phone: Laboratory - Hematology and Cell countson 03-23-2022 Erythrocyte distribution width (RBC) [Entitic vol] 43.2 fL 35.1-43.9 [facility] Work Phone: Erythrocyte distribution width (RBC) [Ratio] 12.9 % 11.6-14.6 [facility] Work Phone: Immature granulocytes/100 WBC (Bld) 0.700 % 0.0-0.9 [facility] Work Phone: Comment on above: IG% - Immature Granu locytes (promyelocytes, myelocytes and metamyelocytes) > 1% indicates that a LEFT SHIFT is Present. MCH (RBC) [Entitic mass] 30.5 pg 27.0-32.0 [facility] Work Phone: Nucleated RBC/100 WBC (Bld) [Ratio] 0 % 0-5 [facility] Work Phone: MCHC Auto (RBC) [Mass/Vol]on 03-23-2022 MCHC (RBC) [Mass/Vol] 33.3 g/dL 32-36 [facility] Work Phone: Comment on above: Delta: 35.2 on 03/22 No Panel Informationon 03-23 Estimated Creatinine Clearance Calc 67.69 ml/min [facility] Work Phone: Estimated GFR (MDRD) Amer 118 mL/min >60 [facility] Work Phone: Comment on above: GFR Calc Estimated GFR (MDRD) Non-Af Amer 98 mL/min >60 [facility] Work Phone: Comment on above: Non- GFR Calc Platelets bldon 03-23-2022 Platelets (Bld) [#/Vol] 262 10*3/uL 150-450 [facility] Work Phone: Serum or plasma calcium hay urement (mass/volume)on 03-23-2022 Calcium [Mass/Vol] 8.8 mg/dL 8.5-10.[address] [facility] Work Phone: Serum or plasma creatinine m easurement (mass/volume)on 03-23-2022 Creatinine [Mass/Vol] 0.80 mg/dL 0.70-1.30 [facility] Work Phone: Comment on above: The validity of the calculated GFR & GFRAA in patients over 70 years has not been determined. Clinical correlation is essential. Serum or plasma urea nitroge n measurement (mass/volume)on 03-23-2022 Urea nitrogen [Mass/Vol] 14 mg/dL 7-18 [facility] Work Phone: Thin prep Papanicolaou smear with manual screeningon 03-23-2022 Thin prep Papanicolaou smear with manual screening 5 5-15 [facility] Work Phone: No Panel Informationon 03-22 Methicillin-Resist S.aureus DNA PCR Negative Negative [facility] Work Phone: Absolute lymphocyte counton 03-21-2022 Lymphocytes Auto (Unsp spec) [#/Vol] 1.41 10*3/uL 0.83-4.51 [facility] Work Phone: Basophil percentageon 2021 Basophils/100 WBC (Bld) 0.3 % 0-1 [facility] Work Phone: [phone] Chloride [Moles/Vol] 101 mmol/L 98-107 [facility] Work Phone: [phone] Eosinophils/100 WBC (Bld) 8.5 % 0-5 [facility] Work Phone: [phone] Glucose [Mass/Vol] 110 mg/dL 74-[address] [facility] Work Phone: [phone] Comment on above: Fasting Glucose resu lt from 100 to 125 mg/dL suggests IMPAIRED HOMEOSTASIS per A.D.A. criteria. Neutrophils (Bld) [#/Vol] 4.5 10*3/uL 2.0-7.7 [facility] Work Phone: [phone] Neutrophils/100 WBC (Bld) 58.8 % 47-70 [facility] Work Phone: [phone] Potassium [Moles/Vol] 3.4 mmol/L 3.5-5.1 [facility] Work Phone: [phone] Sodium [Moles/Vol] 136 mmol/L 136-[address] [facility] Work Phone: [phone] WBC (Bld) [#/Vol] 7.7 10*3/uL 4.4-11.[address] [facility] Work Phone: Blood erythrocytes count (nu mber/volume)on 03-21-2022 RBC (Bld) [#/Vol] 4.09 10*6/uL 4.6-6.2 [facility] Work Phone: [phone] Blood hemoglobin measurement (mass/volume)on 03-21-2022 Hemoglobin (Bld) [Mass/Vol] 12.6 g/dL 13.0-16.5 [facility] Work Phone: [phone] Blood lymphocytes/100 leukoc yteson 03-21-2022 Lymphocytes/100 WBC (Bld) 18.4 % 19-41 [facility] Work Phone: [phone] Blood monocytes/100 leukocyt eson 03-21-2022 Monocytes/100 WBC (Bld) 13.6 % 0-10 [facility] Work Phone: Blood platelet mean volumeon 03-21-2022 Platelet mean volume (Bld) [Entitic vol] 9.5 fL 6.2-12.0 [facility] Work Phone: Determination of erythrocyte mean corpuscular volume (MCV)on 03-21-2022 MCV (RBC) [Entitic vol] 91.0 fL 80-94 [facility] Work Phone: Hematocrit Auto (Bld) [Volum e fraction]on 03-21-2022 Hematocrit (Bld) [Volume fraction] 37.2 % 40-54 [facility] Work Phone: Laboratory - Chemistry and C hemistry - challengeon 03-21-2022 CO2 [Moles/Vol] 29.0 mmol/L 21.0-32.0 [facility] Work Phone: Urea nitrogen/Creatinine [Mass ratio] 21.0 mg/mg 10-20 [facility] Work Phone: Laboratory - Hematology and Cell countson 03-21-2022 Erythrocyte distribution width (RBC) [Entitic vol] 42.5 fL 35.1-43.9 [facility] Work Phone: Erythrocyte distribution width (RBC) [Ratio] 12.7 % 11.6-14.6 [facility] Work Phone: Immature granulocytes/100 WBC (Bld) 0.400 % 0.0-0.9 [facility] Work Phone: Comment on above: IG% - Immature Granu locytes (promyelocytes, myelocytes and metamyelocytes) > 1% indicates that a LEFT SHIFT is Present. MCH (RBC) [Entitic mass] 30.8 pg 27.0-32.0 [facility] Work Phone: Nucleated RBC/100 WBC (Bld) [Ratio] 0 % 0-5 [facility] Work Phone: MCHC Auto (RBC) [Mass/Vol]on 03-21-2022 MCHC (RBC) [Mass/Vol] 33.9 g/dL 32-36 [facility] Work Phone: No Panel Informationon 03-21 Estimated Creatinine Clearance Calc 61.51 ml/min [facility] Work Phone: Estimated GFR (MDRD) Amer 103 mL/min >60 [facility] Work Phone: Comment on above: GFR Calc Estimated GFR (MDRD) Non-Af Amer 85 mL/min >60 [facility] Work Phone: Comment on above: Non- GFR Calc Troponin I High Sensitivity 19 pg/mL 3.0-78.0 [facility] Work Phone: Comment on above: Please Note: [place] t Units and Gender Specific Reference Ranges. For more information see Policy Stat Procedure [place] High Sensitivity Troponin (TNIH) and attachments. Platelets bldon 03-21-2022 Platelets (Bld) [#/Vol] 244 10*3/uL 150-450 [facility] Work Phone: Serum or plasma calcium hay urement (mass/volume)on 03-21-2022 Calcium [Mass/Vol] 9.1 mg/dL 8.5-10.[address] [facility] Work Phone: Serum or plasma creatinine m easurement (mass/volume)on 03-21-2022 Creatinine [Mass/Vol] 0.91 mg/dL 0.70-1.30 [facility] Work Phone: Comment on above: The validity of the calculated GFR & GFRAA in patients over 70 years has not been determined. Clinical correlation is essential. Serum or plasma urea nitroge n measurement (mass/volume)on 03-21-2022 Urea nitrogen [Mass/Vol] 19 mg/dL 7-18 [facility] Work Phone: Thin prep Papanicolaou smear with manual screeningon 03-21-2022 Thin prep Papanicolaou smear with manual screening 6 5-15 [facility] Work Phone: [phone] Absolute lymphocyte counton 01-09-2022 Lymphocytes Auto (Unsp spec) [#/Vol] 1.93 10*3/uL 0.83-4.51 [facility] Work Phone: Basophil percentageon 2021 Basophils/100 WBC (Bld) 0.6 % 0-1 [facility] Work Phone: [phone] Bilirubin [Mass/Vol] 1.30 mg/dL 0.20-1.00 [facility] Work Phone: [phone] Comment on above: For patients on eltr ombopag therapy, use of Dimension [place] TBIL is not recommended. Chloride [Moles/Vol] 106 mmol/L 98-107 [facility] Work Phone: [phone] Eosinophils/100 WBC (Bld) 3.8 % 0-5 [facility] Work Phone: [phone] Glucose [Mass/Vol] 98 mg/dL 74-[address] [facility] Work Phone: [phone] Neutrophils (Bld) [#/Vol] 3.6 10*3/uL 2.0-7.7 [facility] Work Phone: [phone] Neutrophils/100 WBC (Bld) 54.7 % 47-70 [facility] Work Phone: [phone] Potassium [Moles/Vol] 3.7 mmol/L 3.5-5.1 [facility] Work Phone: [phone] Protein [Mass/Vol] 7.9 g/dL 6.4-8.[address] [facility] Work Phone: Sodium [Moles/Vol] 140 mmol/L 136-[address] [facility] Work Phone: Testosterone [Mass/Vol] 305.72 ng/dL [facility] Work Phone: [phone] Comment on above: CENTRAL 90% REFERENC E RANGES MALE AGE <50 197.44 - 669.58 ng/dL MALE AGE > or = 50 187.72 - 684.19 ng/dL FEMALE AGE <50 8.38 - 35.01 ng/dL FEMALE AGE > or = 50 <7.00 - 35.92 ng/dL Effective as of 03/29/21 WBC (Bld) [#/Vol] 6.5 10*3/uL 4.4-11.[address] [facility] Work Phone: Blood erythrocytes count (nu mber/volume)on 01-09-2022 RBC (Bld) [#/Vol] 4.44 10*6/uL 4.6-6.2 [facility] Work Phone: Blood hemoglobin measurement (mass/volume)on 01-09-2022 Hemoglobin (Bld) [Mass/Vol] 14.0 g/dL 13.0-16.5 [facility] Work Phone: Blood lymphocytes/100 leukoc yteson 01-09-2022 Lymphocytes/100 WBC (Bld) 29.5 % 19-41 [facility] Work Phone: Blood monocytes/100 leukocyt eson 01-09-2022 Monocytes/100 WBC (Bld) 10.6 % 0-10 [facility] Work Phone: Blood platelet mean volumeon 01-09-2022 Platelet mean volume (Bld) [Entitic vol] 9.6 fL 6.2-12.0 [facility] Work Phone: Determination of erythrocyte mean corpuscular volume (MCV)on 01-09-2022 MCV (RBC) [Entitic vol] 89.6 fL 80-94 [facility] Work Phone: Hematocrit Auto (Bld) [Volum e fraction]on 01-09-2022 Hematocrit (Bld) [Volume fraction] 39.8 % 40-54 [facility] Work Phone: Laboratory - Chemistry and C hemistry - challengeon 01-09-2022 ALP [Catalytic activity/Vol] 60 U/L 45-117 [facility] Work Phone: ALT [Catalytic activity/Vol] 32 U/L 16-61 [facility] Work Phone: CO2 [Moles/Vol] 28.0 mmol/L 21.0-32.0 [facility] Work Phone: Globulin (S) [Mass/Vol] 3.9 g/dL 2.2-4.2 [facility] Work Phone: Urea nitrogen/Creatinine [Mass ratio] 15.8 mg/mg 10-20 [facility] Work Phone: Laboratory - Hematology and Cell countson 01-09-2022 Erythrocyte distribution width (RBC) [Entitic vol] 45.2 fL 35.1-43.9 [facility] Work Phone: Erythrocyte distribution width (RBC) [Ratio] 13.7 % 11.6-14.6 [facility] Work Phone: Immature granulocytes/100 WBC (Bld) 0.800 % 0.0-0.9 [facility] Work Phone: Comment on above: IG% - Immature Granu locytes (promyelocytes, myelocytes and metamyelocytes) > 1% indicates that a LEFT SHIFT is Present. MCH (RBC) [Entitic mass] 31.5 pg 27.0-32.0 [facility] Work Phone: Nucleated RBC/100 WBC (Bld) [Ratio] 0 % 0-5 [facility] Work Phone: MCHC Auto (RBC) [Mass/Vol]on 01-09-2022 MCHC (RBC) [Mass/Vol] 35.2 g/dL 32-36 [facility] Work Phone: No Panel Informationon 01-09 Estimated GFR (MDRD) Amer 91 mL/min >60 [facility] Work Phone: Comment on above: GFR Calc Estimated GFR (MDRD) Non-Af Amer 75 mL/min >60 [facility] Work Phone: Comment on above: Non- GFR Calc Thyroid Stimulating Hormone (TSH) 0.91 uIU/mL 0.358-3.74 [facility] Work Phone: Vitamin D 25-Hydroxy 30.5 ng/mL [facility] Work Phone: Comment on above: Vitamin D 25(OH) Sta tus Range Deficiency <20 ng/mL (50nmol/L) Insufficiency 20 - 30 ng/mL (50 - 75 nmol/L) Sufficiency 30 - 100 ng/mL (75 - 250 nmol/L) Toxicity >100 ng/mL (>250 nmol/L) Platelets bldon 01-09-2022 Platelets (Bld) [#/Vol] 229 10*3/uL 150-450 [facility] Work Phone: Serum or plasma albumin hay urement (mass/volume)on 01-09-2022 Albumin [Mass/Vol] 4.0 g/dL 3.2-5.[address] [facility] Work Phone: Serum or plasma albumin/glob ulin mass ratioon 01-09-2022 Albumin/Globulin [Mass ratio] 1.0 {ratio} 0.9-2.4 [facility] Work Phone: Serum or plasma calcium hay urement (mass/volume)on 01-09-2022 Calcium [Mass/Vol] 9.1 mg/dL 8.5-10.[address] [facility] Work Phone: Serum or plasma creatinine m easurement (mass/volume)on 01-09-2022 Creatinine [Mass/Vol] 1.01 mg/dL 0.70-1.30 [facility] Work Phone: Comment on above: The validity of the calculated GFR & GFRAA in patients over 70 years has not been determined. Clinical correlation is essential. Serum or plasma urea nitroge n measurement (mass/volume)on 01-09-2022 Urea nitrogen [Mass/Vol] 16 mg/dL 7-18 [facility] Work Phone: Thin prep Papanicolaou smear with manual screeningon 01-09-2022 Thin prep Papanicolaou smear with manual screening 17 U/L 15-37 [facility] Work Phone: Thin prep Papanicolaou smear with manual screening 6 5-15 [facility] Work Phone: CT-CT ANGIO ABD PEL W/O W/DY E IMPORTon 06-26-2019 CT-CT ANGIO ABD PEL W/O W/DYE IMPORT Images were obtained outside of [facility] Gram stain for investigation of transfusion reaction Microscopic observation Gram stain Nom (Unsp spec) [facility] Work Phone: Laboratory - Microbiology an d Antimicrobial susceptibility Bacteria identified Cx Nom (Bld) No growth in 5 days. [facility] Work Phone: No Panel Information Streptococcus pneumoniae Antigen (M [facility] Work Phone: Vital Signs Date Time Vital Sign Value Performing Clinician Facility 05-23-2023 11:26-0400 Body temperature 98.42 [degF] DR ELENA BAI MD [facility] 05-23-2023 11:26-0400 Diastolic Blood Pressure Non-Invasive [address] ELENA BAI MD [facility] 05-23-2023 11:26-0400 Heart rate 60 /min DR ELENA BAI MD [facility] 05-23-2023 11:26-0400 Reason For Taking VItal Signs DR ELENA BAI MD [facility] 05-23-2023 11:26-0400 Respiratory rate 16 /min DR ELENA BAI MD [facility] 05-23-2023 11:26-0400 Systolic Blood Pressure Non-Invasive [address] ELENA BAI MD [facility] 05-23-2023 10:26-0400 Heart rate 63 /min DR ELENA BAI MD [facility] 05-23-2023 10:26-0400 Reason For Taking VItal Signs DR ELENA BAI MD [facility] 05-23-2023 06:17-0400 Body temperature 98.06 [degF] DR ELENA BAI MD [facility] 05-23-2023 06:17-0400 Diastolic Blood Pressure Non-Invasive [address] ELENA BAI MD [facility] 05-23-2023 06:17-0400 Heart rate 64 /min DR ELENA BAI MD [facility] 05-23-2023 06:17-0400 Reason For Taking VItal Signs DR ELENA BAI MD [facility] 05-23-2023 06:17-0400 Respiratory rate 16 /min DR ELENA BAI MD [facility] 05-23-2023 06:17-0400 Systolic Blood Pressure Non-Invasive [address] ELENA BAI MD [facility] 05-23-2023 05:08-0400 Body temperature 98.06 [degF] DR ELENA BAI MD [facility] 05-23-2023 05:08-0400 Diastolic Blood Pressure Non-Invasive [address] ELENA BAI MD [facility] 05-23-2023 05:08-0400 Heart rate 79 /min DR ELENA BAI MD [facility] 05-23-2023 05:08-0400 Respiratory rate 16 /min DR ELENA BAI MD [facility] 05-23-2023 05:08-0400 Systolic Blood Pressure Non-Invasive [address] ELENA BAI MD [facility] 05-22-2023 19:22-0400 Heart rate 76 /min DR ELENA BAI MD [facility] 05-22-2023 19:14-0400 Heart rate 64 /min DR ELENA BAI MD [facility] 05-22-2023 10:41-0400 Body height 167.[address] ELENA BAI MD [facility] 05-22-2023 10:41-0400 Body weight 90.[address] ELENA BAI MD [facility] 05-22-2023 10:41-0400 Body weight 32.36 kg/m2 DR ELENA BAI MD [facility] 05-22-2023 09:31-0400 Body temperature 97.34 [degF] DR ELENA BAI MD [facility] 05-22-2023 09:25-0400 Respiratory Rate - Anes 19 br/min DR ELENA BAI MD [facility] 05-22-2023 09:20-0400 Respiratory Rate - Anes 18 br/min DR ELENA BAI MD [facility] 05-22-2023 09:15-0400 Respiratory Rate - Anes 4 br/min DR ELENA BAI MD [facility] 05-22-2023 06:53-0400 Body weight 32.36 kg/m2 DR ELENA BAI MD [facility] 05-22-2023 06:47-0400 Body height 167.[address] ELENA BAI MD [facility] 05-22-2023 06:47-0400 Body temperature 97.52 [degF] DR ELENA BAI MD [facility] 05-22-2023 06:47-0400 Body weight 90.[address] ELENA BAI MD [facility] 05-02-2023 10:58-0400 Blood Pressure Cuff Size DR ELENA BAI MD [facility] 05-02-2023 10:58-[address] ELENA BAI MD [facility] 05-02-2023 10:58-[address] ELENA Moy [facility] 05-02-2023 10:58-0400 Body height 167.[address] ELENA BAI MD [facility] 05-02-2023 10:58-0400 Body weight 90.[address] ELENA BAI MD [facility] 05-02-2023 10:58-0400 Body weight 32.36 kg/m2 DR ELENA BAI MD [facility] 05-02-2023 10:58-0400 Diastolic Blood Pressure Non-Invasive [address] ELENA BAI MD [facility] 05-02-2023 10:58-0400 Heart rate 57 /min DR ELENA BAI MD [facility] 05-02-2023 10:58-0400 Systolic Blood Pressure Non-Invasive [address] ELENA BAI MD [facility] 04-12-2023 14:31-0400 Body temperature 99 [degF] Dr. Tristin Cain Work Phone: [facility] 04-12-2023 14:31-0400 Diastolic blood pressure 85 mm[Hg] Dr. Tristin Cain Work Phone: [facility] 04-12-2023 14:31-0400 Heart rate 81 /min Dr. Tristin Cain Work Phone: [facility] 04-12-2023 14:31-0400 Respiratory rate 16 /min Dr. Tristin Cain Work Phone: [facility] 04-12-2023 14:31-0400 SaO2% (BldA) [Mass fraction] 98 % Dr. Tristin Cain Work Phone: [facility] 04-12-2023 14:31-0400 Systolic blood pressure 151 mm[Hg] Dr. Tristin Cain Work Phone: [facility] 04-11-2023 15:55-0400 Body height 167.[address] Tristin Cain Work Phone: [facility] 04-11-2023 15:55-0400 Body mass index (BMI) [Ratio] 32.4 kg/m2 Dr. Tristin Cain Work Phone: [facility] 04-11-2023 15:55-0400 Body weight 91.[address] Tristin Cain Work Phone: [facility] 04-11-2023 14:45-0400 Inhaled oxygen flow rate 2 L/min Dr. Tristin Cain Work Phone: [facility] 03-27-2023 08:00-0400 Diastolic blood pressure 53 mm[Hg] Dr. Tristin Cain Work Phone: [facility] 03-27-2023 08:00-0400 Heart rate 89 /min Dr. Tristin Cain Work Phone: [facility] 03-27-2023 08:00-0400 Respiratory rate 16 /min Dr. Tristin Cain Work Phone: [facility] 03-27-2023 08:00-0400 SaO2% (BldA) [Mass fraction] 95 % Dr. Tirstin Cain Work Phone: [facility] 03-27-2023 08:00-0400 Systolic blood pressure 141 mm[Hg] Dr. Tristin Cain Work Phone: [phone] [place] [address] 03-27-2023 05:59-0400 Body height 167.[address] Tristin Cain Work Phone: [facility] 03-27-2023 05:59-0400 Body mass index (BMI) [Ratio] 36.3 kg/m2 Dr. Tristin Cain Work Phone: [phone] [place] [address] 03-27-2023 05:59-0400 Body temperature 97 [degF] Dr. Tristin Cain Work Phone: [phone] [place] [address] 03-27-2023 05:59-0400 Body weight 102.[address] Tristin Cain Work Phone: [facility] 03-22-2023 10:40-0400 SaO2% (BldA) [Mass fraction] 96 % Dr. Tristin Cain Work Phone: [facility] 03-22-2023 08:35-0400 Body temperature 98.3 [degF] Dr. Tristin Cain Work Phone: [facility] 03-22-2023 08:35-0400 Diastolic blood pressure 62 mm[Hg] Dr. Tristin Cain Work Phone: [facility] 03-22-2023 08:35-0400 Heart rate 67 /min Dr. Tristin Cain Work Phone: [facility] 03-22-2023 08:35-0400 Respiratory rate 18 /min Dr. Tristin Cain Work Phone: [facility] 03-22-2023 08:35-0400 Systolic blood pressure 165 mm[Hg] Dr. Tristin Cain Work Phone: [facility] 03-22-2023 05:30-0400 Inhaled oxygen flow rate 2 L/min Dr. Tristin Cain Work Phone: [facility] 03-21-2023 16:25-0400 Inhaled oxygen concentration 4 % Dr. Tristin Cain Work Phone: [facility] 03-21-2023 13:01-0400 Body height 167.[address] Tristin Cain Work Phone: [facility] 03-21-2023 13:01-0400 Body mass index (BMI) [Ratio] 33.4 kg/m2 Dr. Tristin Cain Work Phone: 4([phone] [place] [address] 03-21-2023 13:01-0400 Body weight [address] Tristin Cain Work Phone: [facility] 01-11-2023 15:13-0400 Body mass index (BMI) [Ratio] 33.4 kg/m2 Dr. Tristin Cain Work Phone: [facility] 01-11-2023 15:13-0400 Body weight 99.[address] Tristin Cain Work Phone: [facility] 03-23-2022 15:55-0400 Body temperature 98.1 [degF] Dr. Tristin Cain Work Phone: [facility] Work Phone: 03-23-2022 15:55-0400 Diastolic blood pressure 59 mm[Hg] Dr. Tristin Cain Work Phone: [facility] Work Phone: 03-23-2022 15:55-0400 Heart rate 70 /min Dr. Tristin Cain Work Phone: [facility] Work Phone: 07-21-2022 15:55-0400 Inhaled oxygen flow rate 1 L/min Dr. Tristin Cain Work Phone: [facility] Work Phone: 03-23-2022 15:55-0400 Respiratory rate 18 /min Dr. Tristin Cain Work Phone: [facility] Work Phone: 03-23-2022 15:55-0400 SaO2% (BldA) [Mass fraction] 94 % Dr. Tristin Cain Work Phone: [facility] Work Phone: 03-23-2022 15:55-0400 Systolic blood pressure 133 mm[Hg] Dr. Tristin Cain Work Phone: [facility] Work Phone: 03-22-2022 00:24-0400 Body height 172.[address] Tristin Cain Work Phone: [facility] Work Phone: 03-22-2022 00:24-0400 Body mass index (BMI) [Ratio] 32.9 kg/m2 Dr. Tristin Cain Work Phone: [facility] Work Phone: 03-22-2022 00:24-0400 Body weight 98.[address] Tristin Cain Work Phone: [facility] Work Phone: 03-21-2022 23:05-0400 Diastolic blood pressure 71 mm[Hg] Dr. Tristin Cain Work Phone: [facility] Work Phone: 03-21-2022 23:05-0400 Heart rate 72 /min Dr. Tristin Cain Work Phone: [facility] Work Phone: 03-21-2022 23:05-0400 Inhaled oxygen flow rate 2 L/min Dr. Tristin Cain Work Phone: [facility] Work Phone: 03-21-2022 23:05-0400 Respiratory rate 20 /min Dr. Tristin Cain Work Phone: [facility] Work Phone: 03-21-2022 23:05-0400 SaO2% (BldA) [Mass fraction] 93 % Dr. Tristin Cain Work Phone: [facility] Work Phone: 03-21-2022 23:05-0400 Systolic blood pressure 147 mm[Hg] Dr. Tristin Cain Work Phone: [facility] Work Phone: 03-21-2022 22:43-0400 Body temperature 98.6 [degF] Dr. Tristin Cain Work Phone: [facility] Work Phone: 03-21-2022 20:13-0400 Body height 175.[address] Tristin Cain Work Phone: [facility] Work Phone: 03-21-2022 20:13-0400 Body mass index (BMI) [Ratio] 32.1 kg/m2 Dr. Tristin Cain Work Phone: [facility] Work Phone: 03-21-2022 20:13-0400 Body weight 98.[address] Tristin Cain Work Phone: [facility] Work Phone: Encounters Encounter Date Encounter Type Care Provider Facility Start: 01-12-2025 End: 01-12-[address] Tristin Cain MD Work Phone: [facility] Work Phone: Start: 01-12-2025 End: 01-12-[address] Tristin Cain MD -Laboratory Work Phone: Start: 01-12-2025 End: 01-12-2025 ambulatory Tristin Cain Facility:[facility] Start: 11-27-2024 End: 11-27-[address] Tristin Cain MD Work Phone: [facility] Work Phone: Start: 11-27-2024 End: 11-27-[address] Isra Kumar MD -Cardiovascular Services Work Phone: Start: 11-27-2024 End: 11-[facility] [facility] Start: 07-21-2024 End: 07-21-2024 ambulatory [facility] Facility:[facility] Start: 01-03-2024 End: 01-03-2024 ambulatory [facility] [facility] Work Phone: Start: 01-03-2024 End: 01-03-2024 [facility] Start: 10-10-2023 End: 10-10-2023 ambulatory [facility] Work Phone: Start: 10-10-2023 End: 10-10-2023 Patient encounter procedure [facility] Work Phone: Start: 07-19-2023 End: 07-19-2023 ambulatory [facility] Work Phone: Start: 07-19-2023 End: 07-19-2023 [facility] Start: 06-05-2023 End: 06-05-2023 [facility] Start: 05-22-2023 End: 05-23-[address] ELENA BAI MD Facility:B Start: 05-22-2023 End: 05-23-[address] ELENA BAI MD [facility] Start: 05-14-2023 End: 05-14-2023 [facility] Start: 05-02-2023 End: 05-03-[address] ELENA BAI MD Facility:B Start: 05-02-2023 End: 05-03-[address] ELENA BAI MD Facility:B Start: 05-02-2023 End: 05-02-[address] ELENA BAI MD [facility] Start: 05-02-2023 End: 05-02-[address] ELENA BAI MD [facility] Start: 04-11-2023 End: 04-12-2023 Evaluation and management of inpatient Dr. Tristin Cain Work Phone: [facility] Work Phone: Start: 04-11-2023 End: 04-12-[address] Tristin Cain Work Phone: [facility] Work Phone: Start: 04-04-2023 End: 04-04-[address] Tristin Cain Work Phone: [facility] Work Phone: Start: 04-04-2023 End: 04-04-[address] Tristin Cain Work Phone: [facility] Work Phone: Start: 03-27-2023 End: 03-27-2023 Emergency department patient visit Dr. Tristin Cain Work Phone: [facility]Emergency [facility] Work Phone: Start: 03-21-2023 Non-patient / Non-visit Dr. Chuck Cain Work Phone: [facility] Work Phone: Start: 03-21-2023 End: 03-22-2023 Evaluation and management of inpatient Dr. Tristin Cain Work Phone: [facility] Work Phone: Start: 03-21-2023 End: 03-22-[address] Tristin Cain Work Phone: [facility] Work Phone: Start: 02-26-2023 End: 02-26-2023 Non-patient / Non-visit Dr. Tristin Cain Work Phone: [facility] Work Phone: Start: 02-26-2023 End: 02-26-[address] Tristin Cain Work Phone: [facility] Work Phone: Start: 01-11-2023 End: 01-11-[address] Tristin Cain Work Phone: [facility] Work Phone: Start: 01-03-2023 End: 01-03-2023 ambulatory [facility] Work Phone: Start: 01-03-2023 End: 01-03-2023 Patient encounter procedure [facility] Start: 09-20-2022 End: 09-20-2022 [facility] Start: 07-12-2022 End: 07-12-[address] Tristin Cain Work Phone: [facility] Work Phone: Start: 07-12-2022 End: 07-12-[address] Tristin Cain Work Phone: [facility]Labor[facility], Phy Office 3rd Akr Start: 04-13-2022 End: 04-13-[address] Tristin Cian Work Phone: [facility] Start: 03-23-2022 Non-patient / Non-visit Dr. Chuck Cain Work Phone: [facility] Start: 03-22-2022 Non-patient / Non-visit Dr. Chuck Cain Work Phone: [facility] Start: 03-21-2022 Non-patient / Non-visit Dr. Chuck Cain Work Phone: [facility] Start: 03-21-2022 End: 03-23-2022 Evaluation and management of inpatient Dr. Tristin Cain Work Phone: [facility] Start: 01-09-2022 End: 01-09-2022 Patient encounter procedure [facility], Phy Office 3rd Flr Procedures Date Procedure Procedure Detail Performing Clinician Start: 01-12-2025 Vitamin D, 25-hydrox y measurement Dr. Tristin Cain MD Work Phone: Comment on above: Vitamin D StatusDefi ciency: <20 ng/mL (50nmol/L)Insufficiency: 20-30 ng/mL (50-75 nmol/L)Sufficiency: 30-100 ng/mL (75-250 nmol/L)Toxicity: >100 ng/mL (>250 nmol/L) Start: 05-22-[address] ELENA BAI MD Comment on above: right Start: 04-11-2023 Cysto,TUR,Prostate,O lymp us (Not Applicable) Dr. Tristin Cain Work Phone: Start: 03-27-2023 Diagnostic radiograp hy of abdomen Dr. Tristin Cain Work Phone: Start: 03-21-2023 Radiologic examinati on of knee Dr. Tristin Cain Work Phone: Start: 03-21-2023 Total Knee Replaceme nt Robotic Arm Puneet (Left) Dr. Tristin Cain Work Phone: Start: 03-01-2023 Nasal Screen MRSA/MSSA Dr. Tristin Cain Work Phone: Start: 02-26-2023 MRI of lower extremity Dr. Tristin Cain Work Phone: Start: 03-21-2022 Plain chest X-ray Dr. Ranjith Cain Work Phone: Aortic aneurysm (disorder) DR ELENA BAI MD Bacteria identified in Blood by Culture Dr. Tristin Cain Work Phone: Bilateral cataracts (disorder) DR ELENA BAI MD Colonoscopy DR ELENA Samaniego MD History of operative procedure on knee History of knee joint replacement Dr. Tristin Cain Work Phone: Investigation of transfusion reaction Dr. Tristin Cian Work Phone: Legionella pneumophi la antigen assay Dr. Tristin Cain Work Phone: Respiratory microbia l culture Dr. Tristin Cain Work Phone: Streptococcus pneumo niae Antigen (M Dr. Tristin Cain Work Phone: Total knee replacement DR PHOENIX HSIEH Total knee replacement DR PHOENIX HSIEH Transurethral prostatectomy DR ELENA BAI MD Viral antigen assay Dr. Tristin Cain Work Phone: Plan of Treatment Date Care Activity Detail Author Start: 11-07-2026 ambulatory Ambulatory Facility:[facility] Start: 04-12-2023 Patient discharge [facility] Start: 04-12-2023 Removal of urinary catheter [facility] Start: 04-11-2023 Following clinical pathway protocol [facility] Start: 04-11-2023 Admission procedure [facility] Start: 04-11-2023 Anesthesia transurethral resection of prostate ANESTH REMOVAL OF PROSTATE [facility] Start: 04-11-2023 Trurl electrosurg rescj prostate bleed complete PROSTATECTOMY (TURP) [facility] Start: 04-11-2023 Deep breathing and coughing exercises [facility] Start: 04-11-2023 Incentive spirometry [facility] Start: 04-11-2023 Provision of activity privileges [facility] Start: 04-11-2023 Irrigation of urinary bladder [facility] Start: 04-11-2023 Measuring intake and output [facility] Start: 04-11-2023 Patient education [facility] Start: 04-11-2023 Taking patient vital signs [facility] Start: 04-11-2023 Vital signs measurements [facility] Start: 04-11-2023 End: 04-11-2023 [facility] Start: 03-22-2023 Patient discharge [facility] Start: 03-21-2023 Anesth open/surg arthrs total knee arthroplasty ANESTH KNEE ARTHROPLASTY [facility] Start: 03-21-2023 Arthrp kne condyle&platu medial&lat compartments TOTAL KNEE ARTHROPLASTY [facility] Start: 03-21-2023 Injection aa&/strd femoral nerve NJX AA&/STRD FEMORAL NRV IMG [facility] Start: 03-21-2023 Application of intermittent pneumatic compression device [facility] Start: 03-21-2023 Following clinical pathway protocol [facility] Start: 03-21-2023 Oxygen therapy [facility] Start: 03-21-2023 Provision of overbed trapeze [facility] Start: 03-21-2023 Assessment of risk of venous thromboembolism [facility] Start: 03-21-2023 Measuring intake and output [facility] Start: 03-21-2023 Recommendation to continue with treatment [facility] Start: 03-21-2023 Admission procedure [facility] Start: 03-21-2023 Ambulation therapy management [facility] Start: 03-21-2023 Application of device [facility] Start: 03-21-2023 Application of elastic bandage [facility] Start: 03-21-2023 Catheterization of vein [facility] Start: 03-21-2023 Consultation [facility] Start: 03-21-2023 Exercises [facility] Start: 03-21-2023 Following clinical pathway protocol [facility] Start: 03-21-2023 Incentive spirometry [facility] Start: 03-21-2023 Introduction of urinary catheter [facility] Start: 03-21-2023 Neurovascular assessment [facility] Start: 03-21-2023 Patient education [facility] Start: 03-21-2023 Procedure discontinued [facility] Start: 03-21-2023 Provision of activity privileges [facility] Start: 03-21-2023 Referral to occupational therapist [facility] Start: 03-21-2023 Referral to service [facility] Start: 03-21-2023 Vital signs measurements [facility] Start: 03-21-2023 Wound care [facility] Start: 03-21-2023 [facility] Start: 03-30-2022 Blood chemistry [facility] Work Phone: Start: 03-29-2022 Blood chemistry [facility] Work Phone: Start: 03-28-2022 Blood chemistry [facility] Work Phone: Start: 03-27-2022 Blood chemistry [facility] Work Phone: Start: 03-26-2022 Blood chemistry [facility] Work Phone: Start: 03-25-2022 Blood chemistry [facility] Work Phone: Start: 03-24-2022 Blood chemistry [facility] Work Phone: Start: 03-23-2022 Patient discharge [facility] Work Phone: Start: 03-23-2022 Consultation [facility] Work Phone: Start: 03-22-2022 Provision of activity privileges [facility] Work Phone: Start: 03-22-2022 Blood chemistry [facility] Work Phone: Start: 03-22-2022 Following clinical pathway protocol [facility] Work Phone: Start: 03-21-2022 Assessment of risk of venous thromboembolism [facility] Work Phone: Start: 03-21-2022 Bacterial nucleic acid assay [facility] Work Phone: Start: 03-21-2022 Elevation of head of bed [facility] Work Phone: Start: 03-21-2022 Incentive spirometry [facility] Work Phone: Start: 03-21-2022 Inhalation therapy procedure [facility] Work Phone: Start: 03-21-2022 Insertion of catheter into peripheral vein [facility] Work Phone: Start: 03-21-2022 Methicillin resistant Staphylococcus aureus screening test [facility] Work Phone: Start: 03-21-2022 Patient education [facility] Work Phone: Start: 03-21-2022 Providing care according to standard [facility] Work Phone: Start: 03-21-2022 Provision of activity privileges [facility] Work Phone: Start: 03-21-2022 Referral to service [facility] Work Phone: Start: 03-21-2022 Verification routine [facility] Work Phone: Start: 03-21-2022 Bacteria identified in Sputum by Culture [facility] Work Phone: Start: 03-21-2022 Legionella pneumophila Ag [Presence] in Urine [facility] Work Phone: Start: 03-21-2022 Streptococcus pneumoniae antigen assay [facility] Work Phone: Start: 03-21-2022 End: 03-21-2022 [facility] Work Phone: Start: 03-21-2022 Admission procedure [facility] Work Phone: Start: 03-21-2022 End: 03-21-2022 Blood culture [facility] Work Phone: Anion gap measurement [facility] Work Phone: Bacteria identified in Blood by Culture Blood Culture [facility] Work Phone: Blood culture [facility] Work Phone: BUN/Creatinine ratio [facility] Work Phone: Calcium [Mass/volume ] in Serum or Plasma [facility] Work Phone: Carbon dioxide, tota l [Moles/volume] in Serum or Plasma [facility] Work Phone: Chloride [Moles/volu me] in Serum or Plasma [facility] Work Phone: Complete blood count [facility] Creatinine [Moles/vo lume] in Serum or Plasma [facility] Work Phone: Glucose [Mass/volume ] in Serum or Plasma [facility] Work Phone: Hematocrit [Volume Fraction] of Blood [facility] Work Phone: Hemoglobin [Mass/vol ume] in Blood [facility] Work Phone: Leukocytes [#/volume ] in Blood [facility] Work Phone: Mean corpuscular hemoglobin concentration determination [facility] Work Phone: Mean corpuscular hemoglobin determination [facility] Work Phone: Measurement of renal function [facility] Work Phone: Neutrophil count [facility] Work Phone: Neutrophil percent differential count [facility] Work Phone: Patient Education [facility] Work Phone: Patient referral [facility] Work Phone: Platelets [#/volume] in Blood [facility] Work Phone: Potassium [Moles/vol ume] in Serum or Plasma [facility] Work Phone: Red blood cell count [facility] Work Phone: Red cell distributio n width determination [facility] Work Phone: Respiratory microbia l culture Respiratory Culture [facility] Work Phone: Sodium [Moles/volume ] in Serum or Plasma [facility] Work Phone: Urea nitrogen [Mass/volume] in Serum or Plasma [facility] Work Phone: Immunizations Immunization Date Immunization Notes Care Provider Fa cility 01-03-2023 SARS-CoV-2 (CV19)mRNA-[address] ELENA BAI MD [facility] 01-09-2022 SARS-CoV-2 (COVID-19 ) mRNA-[address] ELENA BAI MD [facility] 06-01-2021 SARS-CoV-2 (COVID-19 ) mRNA-[address] ELENA BAI MD [facility] 04-28-2021 influenza virus vaccine, unspecified formulation DR ELENA BAI MD [facility] 10-21-2020 COVID-19, mRNA, LNP- S, PF, 100 mcg or 50 mcg dose; Translations: [Moderna COVID-19 Vaccine] DR ELENA BAI MD [facility] 09-23-2020 SARS-CoV-2 (COVID-19 ) mRNA-[address] ELENA BAI MD [facility] 04-20-2020 influenza virus vaccine, unspecified formulation DR ELENA BAI MD [facility] 04-17-2019 influenza virus vaccine, unspecified formulation DR ELENA BAI MD [facility] 05-28-2018 influenza virus vaccine, unspecified formulation DR ELENA BAI MD [facility] 04-16-[address] ELENA BAI MD [facility] 12-12-[address] ELENA BAI MD [facility] 07-03-2017 influenza virus vaccine, unspecified formulation DR ELENA BAI MD [facility] 05-16-2016 influenza virus vaccine, unspecified formulation DR ELENA BAI MD [facility] Payers Date Payer Category Payer Self-pay [id number] 2006 Private Health Insurance 2 [id number] 2004 Medicare [id number] 1940 Unknown [id number] [id number] 1940 Unknown [id number] [id number] 1940 Unknown [id number] [id number] Unknown [id number] [id number] [id number] Unknown [id number] 2.16.8 [id number] Unknown [id number] [id number] [id number] Unknown [id number] [id number] [id number] Social History Date Type Detail Facility Start: 09-20-2019 End: 04-06-2023 Tobacco smoking status NHIS Unknown if ever smoked [facility] Start: 1940 Sex Assigned At Male [facility] Start: 04-06-2023 End: 05-02-2023 Tobacco smoking status Ex-smoker (finding) [facility] Comment on above: quit 1990 Start: 12-01-2024 Sex Male (finding) [facility] Medical Equipment Procedure Code Equipment Code Equipment Origin al Text Equipment Identifier Dates ([id number]) Metal-backed pat tylor prosthesis [id number] FDA Start: 03-21-2023 ([id number]) Coated knee femu r prosthesis ()[id number] FDA Start: 03-21-2023 ([id number]) Coated knee tibi a prosthesis ()[id number] FDA Start: 03-21-2023 ([id number]) Tibial insert [id number] FDA Start: 03-21-2023 Goals Date Patient Goal Desired Activity /State Functional Status Date Assessment Result Facility 05-23-[address] [facility] 05-23-2023 Functional Status bilateral knee high rem mark/off [facility] 05-23-2023 [facility] 05-[facility] 10 [facility] 05-23-2023 Functional Status 25 [facility] 05-23-2023 Functional Status Identified as high risk, Non-Slip footwear, Room check performed, High risk door magnet present [facility] 05-23-2023 Functional Status [facility] 05-23-2023 Functional Status [facility] 05-22-2023 Functional Status [facility] 05-22-2023 [facility] Functional Status Returned to bed [facility] 05-22-2023 Functional Status Multilevel home [facility] 05-22-2023 Functional Status Patient Identi fied Identification band [facility] 05-22-2023 Functional Status Maintained [facility] анна [facility] 05-02-2023 Functional Status Sensory Defici ts Hearing deficit, left ear, Hearing deficit, right ear [facility] 04-12-[address] [facility] Work Phone: 03-22-[address] [facility] Work Phone: 03-23-2022 Functional status Patient Activity Chair [facility] Work Phone: 03-23-[address] [facility] Work Phone: Mental Status Date Assessment Result Facility 05-23-2023 Mental Status Oriented x 4 [facility] 05-23-2023 Mental Status [facility] 05-22-2023 Mental Status [facility] 05-22-2023 Mental Status [facility] 04-12-2023 Cognitive function Level Of Cons ciousness Awake;Alert;Appropriate;Follow s Commands [facility] Work Phone: 04-11-2023 Cognitive function Voice/Name [facility] Work Phone: 03-22-2023 Cognitive function Voice/Name [facility] Work Phone: 03-23-2022 Cognitive function Voice/Name [facility] Work Phone: Clinical Notes 04-18-2021 to 05-23-2023 Note Date & Type Note Facility 05-23-2023 Nurse Discharge summary Discharged to home with . Escorted to the exit via w/c per CHARLEE Schmid. Left at 1455. [facility] 05-23-2023 Note Discharge Instructions Thank you for allowing [facility] to assist you with your healthcare needs. The following is important discharge information regarding your hospital visit. Your Care Team AL CAIN MD, ELENA MD KENNEN, ROBBY DIRECTOR WEIGHTS AND MEASURES-STATISTICAL METHODS PROFESSOR Your Diagnosis CAD (coronary artery disease) Hypertension Osteoarthritis S/P total knee arthroplasty Status post total right knee replacement What to do next Follow Up Appointments Follow Up with SPENCER PATEL PA-C, Orthopedic When 06/04/2023 09:30 AM EDT Why: Thus is your Ortho Follow up appt. Where: [facility] [address] [place] [address]- Follow Up with [facility] When 05/25/2023 01:30 PM EDT Why: This is your Initial Therapy appt. Where: [address] [place], [place] [address]- [phone] Follow Up with AL CAIN MD When Within 3-5 days Why: Please schedule a Follow up appt with your PCP after d/c. Where: [facility] [id number] [place] [address]- The Following Treatments Have Been Ordered for You Discharge Labs Discharge Outpatient Labwork - Ordered -- CBC, Anemia, follow-up within: 2 weeks, Results Notify to: LA CAIN MD, 05/23/23 7:09:00 EDT Discharge Radiology No qualifying data available. Other Therapies No qualifying data available. Post Acute Orders No qualifying data available. Allergies penicillin (HIVES) Medications Please ask your primary doctor or pharmacist before taking any other medication not listed, including over the counter drugs, herbal medications, vitamins and or supplements as they may interact with your home medications. What How Much When Why Instructions Last Dose New acetaminophen (Tylenol) 1,000 Milligram by mouth Every 6 hours not to exceed 3000 mg/ day 05/23 2PM New docusate-senna (Senokot S 50 mg-8.6 mg oral tablet) 2 tab(s) by mouth Two (2) times a day Duration: 3 Days Take until first bowel movement, then as needed Pickup at [facility] 05/23 9AM New famotidine (Pepcid 20 mg oral tablet) 1 tab(s) by mouth Once a day Pickup at [facility] 05/23 9AM New ferrous sulfate (ferrous sulfate 325 mg (65 mg elemental iron) oral tablet) 1 tab(s) by mouth Two (2) times a day 05/23 9AM New meloxicam (Mobic 7.5 mg oral tablet) 1 tab(s) by mouth Twice daily with meals Duration: 30 Days Do not take any other nonsteroidal anti-inflammatories while on meloxicam/ Mobic Pickup at [facility] Start Tomorrow New oxyCODONE (oxyCODONE 5 mg oral tablet ( IMMEDIATE release )) See instructions Status post total right knee replacement 1-2 tab(s) Oral q4h Pickup at [facility] 05/23 2PM Changed aspirin (aspirin 81 mg oral delayed release tablet) 1 tab(s) by mouth Twice daily with meals Take 81 mg aspirin twice daily with food for 4 weeks postoperatively for DVT prophylaxis. 05/23 9AM Unchanged amLODIPine (amLODIPine 10 mg oral tablet) 1 tab(s) by mouth Once a day 05/23 9AM Unchanged cholecalciferol (Vitamin D3 50 mcg (2000 intl units) oral capsule) 1 cap by mouth Every day 05/23 9AM Unchanged dorzolamide-timolol ophthalmic (dorzolamide-timolol 2.23%-0.68% (2%-0.5% base) ophthalmic solution) 1 Drops Ophthalmic Two (2) times a day RIGHT EYE None While Here Unchanged folic acid (folic acid 1 mg oral tablet) 1 tab(s) by mouth Once a day 05/23 9AM Unchanged hydrochlorothiazide-valsartan (hydrochlorothiazide-valsartan 25 mg-320 mg oral tablet) 1 tab(s) by mouth Every day 05/23 9AM Unchanged latanoprost ophthalmic (latanoprost 0.005% ophthalmic emulsion) 1 Drops Both eyes Daily at bedtime 05/22 9PM Unchanged minoxidil (minoxidil 2.5 mg oral tablet) 2 tab(s) by mouth Every day None While Here Unchanged multivitamin (Multivitamin) 1 tab(s) by mouth Every day 05/23 9AM Unchanged nebivolol (Nebivolol 20 mg oral tablet) 05/23 9AM Unchanged potassium chloride (Potassium Chloride (Hum-Ymxs-Dew M20) 20 mEq oral tablet, extended release) 1 tab(s) by mouth Once a day 05/23 9AM Unchanged rOPINIRole (rOPINIRole 1 mg oral tablet) 1 tab(s) by mouth Three (3) times a day 05/23 2PM Unchanged tamsulosin (tamsulosin 0.4 mg oral capsule) 1 cap by mouth Two (2) times a day 05/23 9AM Unchanged traZODone (traZODone 100 mg oral tablet) 1 tab(s) by mouth Daily at bedtime as needed for Sleep None While Here Pharmacy Information [facility]: [facility] JENNIFER Hamm [phone] Please take this list to your next doctor s visit. Bring all medications you take, including over the counter medications, herbals and other supplements with you to your doctor s visit. Patients and families are reminded to discard old lists and to update any records with all medication providers or retail pharmacies. Medication Leaflets famotidine (oral/injection) (fam OH ti daphne) Heartburn Relief, Pepcid, Pepcid AC, Pepcid AC Maximum Strength, Zantac 360 What is the most important information I should know about famotidine? Follow all directions on the label and package. Use exactly as directed. What is famotidine? Famotidine is used to treat and prevent ulcers in the stomach and intestines. It also treats conditions in which the stomach produces too much acid, such as Amaris-Reyes syndrome. Famotidine also treats gastroesophageal reflux disease (GERD) and other conditions in which acid backs up from the stomach into the esophagus, causing heartburn. The Zantac 360 brand of this medicine does not contain ranitidine, a medicine that was withdrawn from market in the [place]. Famotidine may also be used for purposes not listed in this medication guide. What should I discuss with my healthcare provider before taking famotidine? Heartburn can feel like a heart attack. Get emergency medical help if you have chest pain that spreads to your jaw or shoulder. You should not use this medicine if you are allergic to famotidine or similar medicines such as ranitidine (Zantac), cimetidine (Tagamet), or nizatidine (Axid). Ask a doctor or pharmacist if this medicine is safe to use if you have: kidney disease; liver disease; cancer stomach; or long QT syndrome (in you or a family member). Ask a doctor before using this medicine if you are or . How should I take famotidine? Use exactly as directed on the label, or as prescribed by your doctor. Famotidine oral is taken by mouth. Famotidine injection is given in a vein if you are unable to take the medicine by mouth. You may take famotidine oral with or without food. Measure liquid medicine with the supplied syringe or a dose-measuring device (not a kitchen spoon). Most ulcers heal within 4 weeks of famotidine treatment, but it may take up to 8 weeks of using this medicine before your ulcer heals. Keep using the medication as directed. Call your doctor if the condition you are treating with famotidine does not improve, or if it gets worse while using famotidine. Your treatment may also include changes in diet or lifestyle habits. Follow all instructions of your doctor or dietitian. Store at room temperature away from moisture, heat, and light. Do not allow the liquid medicine to freeze. Throw away any unused famotidine liquid that is older than 30 days. What happens if I miss a dose? Take the medicine as soon as you can, but skip the missed dose if it is almost time for your next dose. Do not take two doses at one time. What happens if I overdose? Seek emergency medical attention or call the Poison Help line at . What should I avoid while taking famotidine? Drinking alcohol may increase the risk of damage to your stomach. Avoid taking other stomach acid reducers unless your doctor has told you to. However, you may take an antacid (such as Maalox, Mylanta, Gaviscon, Milk of Magnesia, Rolaids, or Tums) with famotidine. What are the possible side effects of famotidine? Get emergency medical help if you have signs of an allergic reaction: hives; difficult breathing; swelling of your face, lips, tongue, or throat. Stop using famotidine and call your doctor at once if you have: confusion, hallucinations, agitation, lack of energy; a seizure; fast or pounding heartbeats, sudden dizziness (like you might pass out); or unexplained muscle pain, tenderness, or weakness especially if you also have fever, unusual tiredness, and dark colored urine. Some side effects may be more likely in older adults and in people who have severe kidney disease. Common side effects may include: headache; dizziness; or constipation or diarrhea. This is not a complete list of side effects and others may occur. Call your doctor for medical advice about side effects. You may report side effects to FDA at 8-808-BQA-1321. What other drugs will affect famotidine? Famotidine oral can make it harder for your body to absorb other medicines you take by mouth. Tell your doctor if you are taking: cefditoren; dasatinib; delavirdine; fosamprenavir; or tizanidine (if you are taking famotidine liquid). This list is not complete. Other drugs may affect famotidine, including prescription and jsnh-oaw-qkkxckc medicines, vitamins, and herbal products. Not all possible drug interactions are listed here. Where can I get more information? Your doctor or pharmacist can provide more information about famotidine. Remember, keep this and all other medicines out of the reach of children, never share your medicines with others, and use this medication only for the indication prescribed. Every effort has been made to ensure that the information provided by [employer] is accurate, up-to-date, and complete, but no guarantee is made to that effect. Drug information contained herein may be time sensitive. [employer] information has been compiled for use by healthcare practitioners and consumers in the [place] and therefore [employer] does not warrant that uses outside of the [place] are appropriate, unless specifically indicated otherwise. [employer] drug information does not endorse drugs, diagnose patients or recommend therapy. [employer] drug information is an informational resource designed to assist licensed healthcare practitioners in caring for their patients and/or to serve consumers viewing this service as a supplement to, and not a substitute for, the expertise, skill, knowledge and judgment of healthcare practitioners. The absence of a warning for a given drug or drug combination in no way should be construed to indicate that the drug or drug combination is safe, effective or appropriate for any given patient. [employer] does not assume any responsibility for any aspect of healthcare administered with the aid of information [employer] provides. The information contained herein is not intended to cover all possible uses, directions, precautions, warnings, drug interactions, allergic reactions, or adverse effects. If you have questions about the drugs you are taking, check with your doctor, nurse or pharmacist. Copyright [employer] Version: 20.. Revision Date: 03/26/2023. meloxicam (oral/injection) (mariano OKS i sandy) Anjeso, Mobic, Vivlodex What is the most important information I should know about meloxicam? Meloxicam can increase your risk of fatal heart attack or stroke. Do not use this medicine just before or after heart bypass surgery (coronary artery bypass graft, or CABG). Meloxicam may also cause stomach or intestinal bleeding, which can be fatal. What is meloxicam? Meloxicam is a nonsteroidal anti-inflammatory drug (NSAID) that is used to treat osteoarthritis or rheumatoid arthritis in adults. Meloxicam is also used to treat juvenile rheumatoid arthritis in children who are at least 2 years old. The Anjeso brand of meloxicam is used to treat moderate to severe pain in adults. Vivlodex is for use only in adults. Meloxicam may also be used for purposes not listed in this medication guide. What should I discuss with my healthcare provider before receiving meloxicam? Meloxicam can increase your risk of fatal heart attack or stroke. Do not use this medicine just before or after heart bypass surgery (coronary artery bypass graft, or CABG). Meloxicam may also cause stomach or intestinal bleeding, which can be fatal. Meloxicam may also cause stomach or intestinal bleeding, which can be fatal. These conditions can occur without warning while you are using meloxicam, especially in older adults. You should not use meloxicam if you are allergic to it, or if you ever had an asthma attack or severe allergic reaction after taking aspirin or an NSAID. Tell your doctor if you have ever had: heart disease, high blood pressure, high cholesterol, diabetes, or if you smoke; a heart attack, stroke, or blood clot; ulcers or stomach bleeding; asthma; kidney disease (or if you are on dialysis); liver disease; or fluid retention. If you are , you should not take meloxicam unless your doctor tells you to. Taking an NSAID during the last 20 weeks of can cause serious heart or kidney problems in the unborn baby and possible complications with your . Meloxicam may cause a delay in ovulation (the release of an egg from an ovary). You should not take meloxicam if you are undergoing fertility treatment, or are otherwise trying to get . Ask a doctor if it is safe to breastfeed while using this medicine. Meloxicam is not approved for use by anyone younger than 2 years old. How is meloxicam given? Follow all directions on your prescription label and read all medication guides or instruction sheets. Use the lowest effective dose for your condition. Meloxicam oral is taken by mouth. Meloxicam injection is given as an infusion into a vein. A healthcare provider will give you this injection. Your dose needs may change if you switch to a different brand, strength, or form of this medicine. Avoid medication errors by using only the medicine your doctor prescribes. Meloxicam doses are based on weight (especially in children and teenagers). Your dose needs may change if you gain or lose weight. If you use this medicine long-term, you may need frequent medical tests. Store meloxicam oral suspension, tablets or capsules at room temperature, away from moisture and heat. Keep the bottle tightly closed when not in use. What happens if I miss a dose? Use the medicine as soon as you can, but skip the missed dose if it is almost time for your next dose. Do not use two doses at one time. What happens if I overdose? Seek emergency medical attention or call the Poison Help line at . What should I avoid while receiving meloxicam? Drinking alcohol may increase your risk of stomach bleeding. Avoid taking aspirin while you are taking meloxicam, unless your doctor tells you to. Ask a doctor or pharmacist before using other medicines for pain, fever, swelling, or cold/flu symptoms. They may contain ingredients similar to meloxicam (such as aspirin, ibuprofen, ketoprofen, or naproxen). What are the possible side effects of meloxicam? Get emergency medical help if you have signs of an allergic reaction (hives, difficult breathing, swelling in your face or throat) or a severe skin reaction (fever, sore throat, burning eyes, skin pain, red or purple skin rash with blistering and peeling). Get emergency medical help if you have signs of a heart attack or stroke: chest pain spreading to your jaw or shoulder, sudden numbness or weakness on one side of the body, slurred speech, leg swelling, feeling short of breath. Stop using meloxicam and call your doctor at once if you have: the first sign of any skin rash, no matter how mild; shortness of breath (even with mild exertion); swelling or rapid weight gain; signs of stomach bleeding--bloody or tarry stools, coughing up blood or vomit that looks like coffee grounds; liver problems--nausea, upper stomach pain, itching, tired feeling, flu-like symptoms, loss of appetite, dark urine, jeaneth-colored stools, jaundice (yellowing of the skin or eyes); low red blood cells (anemia)--pale skin, unusual tiredness, feeling light-headed, cold hands and feet; or kidney problems--little or no urination, swelling in your feet or ankles, feeling tired or short of breath. Common side effects may include: stomach pain, nausea, vomiting, heartburn; diarrhea, constipation, gas; dizziness; or cold symptoms, flu symptoms. This is not a complete list of side effects and others may occur. Call your doctor for medical advice about side effects. You may report side effects to FDA at 8-861-EKV-1598. What other drugs will affect meloxicam? Ask your doctor before using meloxicam if you take an antidepressant. Taking certain antidepressants with an NSAID may cause you to bruise or bleed easily. Tell your doctor about all your other medicines, especially: cyclosporine; lithium; methotrexate; pemetrexed; sodium polystyrene sulfonate (Kayexalate); a blood thinner (warfarin, Coumadin, Jantoven); heart or blood pressure medication, including a diuretic or 'water pill'; or steroid medicine (such as prednisone). This list is not complete. Other drugs may affect meloxicam, including prescription and dcih-qzq-nmnsgqt medicines, vitamins, and herbal products. Not all possible drug interactions are listed here. Where can I get more information? Your doctor or pharmacist can provide more information about meloxicam. Remember, keep this and all other medicines out of the reach of children, never share your medicines with others, and use this medication only for the indication prescribed. Every effort has been made to ensure that the information provided by [employer] is accurate, up-to-date, and complete, but no guarantee is made to that effect. Drug information contained herein may be time sensitive. [employer] information has been compiled for use by healthcare practitioners and consumers in the [place] and therefore [employer] does not warrant that uses outside of the [place] are appropriate, unless specifically indicated otherwise. [employer] drug information does not endorse drugs, diagnose patients or recommend therapy. [employer] drug information is an informational resource designed to assist licensed healthcare practitioners in caring for their patients and/or to serve consumers viewing this service as a supplement to, and not a substitute for, the expertise, skill, knowledge and judgment of healthcare practitioners. The absence of a warning for a given drug or drug combination in no way should be construed to indicate that the drug or drug combination is safe, effective or appropriate for any given patient. [employer] does not assume any responsibility for any aspect of healthcare administered with the aid of information [employer] provides. The information contained herein is not intended to cover all possible uses, directions, precautions, warnings, drug interactions, allergic reactions, or adverse effects. If you have questions about the drugs you are taking, check with your doctor, nurse or pharmacist. Copyright 3320-5880 [employer]. Version: 16.01. Revision Date: 11/08/2022. oxycodone (ox i KOE done) Oxaydo, OxyCONTIN, Roxicodone, RoxyBond, Xtampza ER What is the most important information I should know about oxycodone? MISUSE OF OPIOID MEDICINE CAN CAUSE ADDICTION, OVERDOSE, OR . Keep the medication in a place where others cannot get to it. Taking opioid medicine during may cause life-threatening withdrawal symptoms in the . Fatal side effects can occur if you use opioid medicine with alcohol, or with other drugs that cause drowsiness or slow your breathing. What is oxycodone? Oxycodone is an opioid pain medication used to treat moderate to severe pain. The extended-release form of oxycodone is for qbbrwx-rdl-eewcx treatment of pain and should not be used on an as-needed basis for pain. Oxycodone may also be used for purposes not listed in this medication guide. What should I discuss with my healthcare provider before using oxycodone? You should not use oxycodone if you are allergic to it, or if you have: severe asthma or breathing problems; or a blockage in your stomach or intestines. You should not use oxycodone unless you are already using a similar opioid medicine and are tolerant to it. Most brands of oxycodone are not approved for use in people under 18. OxyContin should not be given to a child younger than 11 years old. Tell your doctor if you have ever had: breathing problems, sleep apnea; a head injury, or seizures; drug or alcohol addiction, or mental illness; liver or kidney disease; urination problems; or problems with your gallbladder, pancreas, or thyroid. If you use opioid medicine while you are , your baby could become dependent on the drug. This can cause life-threatening withdrawal symptoms in the baby after it is born. Babies born dependent on opioids may need medical treatment for several weeks. Ask a doctor before using opioid medicine if you are . Tell your doctor if you notice severe drowsiness or slow breathing in the nursing baby. How should I use oxycodone? Follow the directions on your prescription label and read all medication guides. Never use oxycodone in larger amounts, or for longer than prescribed. Tell your doctor if you feel an increased urge to take more of this medicine. Never share opioid medicine with another person, especially someone with a history of drug abuse or addiction. MISUSE CAN CAUSE ADDICTION, OVERDOSE, OR . Keep the medication in a place where others cannot get to it. Selling or giving away opioid medicine is against the law. Stop taking all other zxvmvv-dza-ubbvp opioid pain medicines when you start taking extended-release oxycodone. Take oxycodone with food. Swallow the capsule or tablet whole to avoid exposure to a potentially fatal overdose. Do not crush, chew, break, open, or dissolve. If you cannot swallow a capsule whole, open it and sprinkle the medicine into a spoonful of pudding or applesauce. Swallow the mixture right away without chewing. Do not save it for later use. Never crush or break an oxycodone pill to inhale the powder or mix it into a liquid to inject the drug into your vein. This can cause in . Measure liquid medicine carefully. Use the dosing syringe provided, or use a medicine dose-measuring device (not a kitchen spoon). You should not stop using oxycodone suddenly. Follow your doctor's instructions about tapering your dose. Store at room temperature, away from heat, moisture, and light. Keep track of your medicine. Oxycodone is a drug of abuse and you should be aware if anyone is using your medicine improperly or without a prescription. Do not keep leftover opioid medication. Just one dose can cause in someone using this medicine accidentally or improperly. Ask your pharmacist where to locate a drug take-back disposal program. If there is no take-back program, flush the unused medicine down the toilet. What happens if I miss a dose? Since oxycodone is used for pain, you are not likely to miss a dose. Skip any missed dose if it is almost time for your next dose. Do not use two doses at one time. What happens if I overdose? Seek emergency medical attention or call the Poison Help line at . An opioid overdose can be fatal, especially in a child or other person using the medicine without a prescription. Overdose symptoms may include severe drowsiness, pinpoint pupils, slow breathing, or no breathing. Your doctor may recommend you get naloxone (a medicine to reverse an opioid overdose) and keep it with you at all times. A person caring for you can give the naloxone if you stop breathing or don't wake up. Your caregiver must still get emergency medical help and may need to perform CPR (cardiopulmonary resuscitation) on you while waiting for help to arrive. Anyone can buy naloxone from a pharmacy or local health department. Make sure any person caring for you knows where you keep naloxone and how to use it. What should I avoid while using oxycodone? Do not drink alcohol. Dangerous side effects or could occur. Avoid driving or operating machinery until you know how oxycodone will affect you. Dizziness or severe drowsiness can cause falls or other accidents. Avoid medication errors. Always check the brand and strength of oxycodone you get from the pharmacy. What are the possible side effects of oxycodone? Get emergency medical help if you have signs of an allergic reaction: hives; difficult breathing; swelling of your face, lips, tongue, or throat. Opioid medicine can slow or stop your breathing, and may occur. A person caring for you should give naloxone and/or seek emergency medical attention if you have slow breathing with long pauses, blue colored lips, or if you are hard to wake up. Call your doctor at once if you have: noisy breathing, sighing, shallow breathing, breathing that stops during sleep; a slow heart rate or weak pulse; a light-headed feeling, like you might pass out; confusion, unusual thoughts or behavior; seizure (convulsions); low cortisol levels-- nausea, vomiting, loss of appetite, dizziness, worsening tiredness or weakness; or high levels of serotonin in the body--agitation, hallucinations, fever, sweating, shivering, fast heart rate, muscle stiffness, twitching, loss of coordination, nausea, vomiting, diarrhea. Serious breathing problems may be more likely in older adults and in those who are debilitated or have wasting syndrome or chronic breathing disorders. Common side effects may include: drowsiness, headache, dizziness, tiredness; or constipation, stomach pain, nausea, vomiting. This is not a complete list of side effects and others may occur. Call your doctor for medical advice about side effects. You may report side effects to FDA at 0-681-OMN-7005. What other drugs will affect oxycodone? You may have breathing problems or withdrawal symptoms if you start or stop taking certain other medicines. Tell your doctor if you also use an antibiotic, antifungal medication, heart or blood pressure medication, seizure medication, or medicine to treat HIV or hepatitis C. Opioid medication can interact with many other drugs and cause dangerous side effects or . Be sure your doctor knows if you also use: cold or allergy medicines, bronchodilator asthma/COPD medication, or a diuretic ('water pill'); medicines for motion sickness, irritable bowel syndrome, or overactive bladder; other opioids--opioid pain medicine or prescription cough medicine; a sedative like Valium--diazepam, alprazolam, lorazepam, Xanax, Klonopin, Versed, and others; drugs that make you sleepy or slow your breathing--a sleeping pill, muscle relaxer, medicine to treat mood disorders or mental illness; or drugs that affect serotonin levels in your body--a stimulant, or medicine for depression, Parkinson's disease, migraine headaches, serious infections, or nausea and vomiting. This list is not complete and many other drugs may affect oxycodone. This includes prescription and itvw-dlc-duvwjaq medicines, vitamins, and herbal products. Not all possible drug interactions are listed here. Where can I get more information? Your pharmacist can provide more information about oxycodone. Remember, keep this and all other medicines out of the reach of children, never share your medicines with others, and use this medication only for the indication prescribed. Every effort has been made to ensure that the information provided by [employer] is accurate, up-to-date, and complete, but no guarantee is made to that effect. Drug information contained herein may be time sensitive. [employer] information has been compiled for use by healthcare practitioners and consumers in the [place] and therefore [employer] does not warrant that uses outside of the [place] are appropriate, unless specifically indicated otherwise. [employer] drug information does not endorse drugs, diagnose patients or recommend therapy. [employer] drug information is an informational resource designed to assist licensed healthcare practitioners in caring for their patients and/or to serve consumers viewing this service as a supplement to, and not a substitute for, the expertise, skill, knowledge and judgment of healthcare practitioners. The absence of a warning for a given drug or drug combination in no way should be construed to indicate that the drug or drug combination is safe, effective or appropriate for any given patient. [employer] does not assume any responsibility for any aspect of healthcare administered with the aid of information [employer] provides. The information contained herein is not intended to cover all possible uses, directions, precautions, warnings, drug interactions, allergic reactions, or adverse effects. If you have questions about the drugs you are taking, check with your doctor, nurse or pharmacist. Copyright 5955-6426 [employer]. Version: 16.. Revision Date: 04/06/2023. docusate and senna (DOK isidra sate and SEN a) Colace 2-in-1, Senexon-S, Senna Plus, Senna S, Senna-Time S, Senokot S, SenoSol-SS, Stool Softener + Stimulant Laxative, Stool Softener with Laxative What is the most important information I should know about docusate and senna? Use exactly as directed on the label, or as prescribed by your doctor. What is docusate and senna? Docusate is a stool softener. Senna is a laxative. Docusate and senna is a combination medicine used to treat occasional constipation. Docusate and senna may also be used for purposes not listed in this medication guide. What should I discuss with my healthcare provider before using docusate and senna? You should not use this medicine if you are allergic to docusate or senna, or if you are also taking mineral oil. Ask a doctor or pharmacist if this medicine is safe to use if you have ever had: nausea or vomiting; stomach pain; a sudden change in bowel habits that lasts for 2 weeks or longer; or an intestinal disorder such as Crohn's disease or ulcerative colitis. Ask a doctor before using this medicine if you are or . Do not give this medicine to a child younger than 2 years old without medical advice. How should I use docusate and senna? Use exactly as directed on the label, or as prescribed by your doctor. Take docusate and senna with a full glass of water. It may be best to take this medicine at night or at bedtime. Docusate and senna should cause you to have a bowel movement within 6 to 12 hours. Do not take docusate and senna for longer than 7 days in a row, unless your doctor tells you to. Call your doctor if your constipation does not improve or if it gets worse after taking docusate and senna. Store at room temperature away from moisture and heat. What happens if I miss a dose? Since docusate and senna is used when needed, you may not be on a dosing schedule. Skip any missed dose if it's almost time for your next dose. Do not use two doses at one time. What happens if I overdose? Seek emergency medical attention or call the Poison Help line at . Overdose symptoms may include nausea, vomiting, stomach pain, or diarrhea. What should I avoid while using docusate and senna? Ask a doctor or pharmacist before using any other laxative or other stool softener that may contain ingredients similar to docusate or senna. What are the possible side effects of docusate and senna? Get emergency medical help if you have signs of an allergic reaction: hives; difficulty breathing; swelling of your face, lips, tongue, or throat. Stop using docusate and senna and call your doctor at once if you have: rectal bleeding; severe stomach pain, nausea, vomiting; or no bowel movement. Common side effects may include: gas, bloating; diarrhea; or mild nausea. This is not a complete list of side effects and others may occur. Call your doctor for medical advice about side effects. You may report side effects to FDA at 4-111-EEU-7432. What other drugs will affect docusate and senna? Other drugs may affect docusate and senna, including prescription and ucly-iyi-ghmdood medicines, vitamins, and herbal products. Tell your doctor about all your current medicines and any medicine you start or stop using. Where can I get more information? Your pharmacist can provide more information about docusate and senna. Remember, keep this and all other medicines out of the reach of children, never share your medicines with others, and use this medication only for the indication prescribed. Every effort has been made to ensure that the information provided by [employer] ('[employer]') is accurate, up-to-date, and complete, but no guarantee is made to that effect. Drug information contained herein may be time sensitive. [employer] information has been compiled for use by healthcare practitioners and consumers in the [place] and therefore [employer] does not warrant that uses outside of the [place] are appropriate, unless specifically indicated otherwise. [employer] drug information does not endorse drugs, diagnose patients or recommend therapy. [employer] drug information is an informational resource designed to assist licensed healthcare practitioners in caring for their patients and/or to serve consumers viewing this service as a supplement to, and not a substitute for, the expertise, skill, knowledge and judgment of healthcare practitioners. The absence of a warning for a given drug or drug combination in no way should be construed to indicate that the drug or drug combination is safe, effective or appropriate for any given patient. [employer] does not assume any responsibility for any aspect of healthcare administered with the aid of information [employer] provides. The information contained herein is not intended to cover all possible uses, directions, precautions, warnings, drug interactions, allergic reactions, or adverse effects. If you have questions about the drugs you are taking, check with your doctor, nurse or pharmacist. Copyright 7065-7168 [employer]. Version: 5.01. Revision Date: 04/09/2023. Education Materials [facility] Post-operative Instructions PLEASE FOLLOW [facility] POST-OP INSTRUCTIONS GIVEN WATCH FOR SIGNS OF INFECTION: call the office ([phone]) if experencing any of the following: (Usually appears 36-48 hours after surgery) Increased temperature (101 degrees Fahrenheit or higher) Redness or swelling Increased uncontrolled pain Foul odor or drainage Calf discomfort Significant swelling Or if having any chest pain, shortness of breath, or difficulty breathing or swallowing call the office or go the nearest Emergency Room. If you have any questions, please call your doctor at the number listed on your follow up instructions. Form: 338A ([id number]) R: 01/07 Additional Information VACCINATE! IT SAVES LIVES! Members of the community who have not yet received the COVID-19 vaccine and would like to receive it can visit one of [facility] vaccine clinics. There are many vaccine clinic locations within the [facility]. For locations and available times, please visit https://gettheshot.coronavirus.o hio.gov/. It is important to note that some COVID mobile vaccine clinics are held outdoors and may be canceled in rainy or stormy conditions. To learn more about pediatric vaccinations (ages 5-11), we invite you to visit the [employer] webpage. [email or web address]/p [email or web address]-Freq [email or web address].[email or web address] To learn more about the COVID-19 vaccine, we invite you to visit the CDC website for a list of frequently asked questions.https://www.cdc.gov/co ronavirus/2019-ncov/vaccines/faq .html [facility] Patient Portal Access Instructions: Stay connected with your healthcare team and access your personal medical information anytime with the [facility] Patient Portal. Please follow the directions below to create your [facility] account: 1.Access the email account you provided upon registration to the hospital/physician office.2.Look for an invitation email from [facility].3.Open the email and access the invitation link: Accept Invitation to [facility].4.Fill in the required goodson to create your account. To access your account, visit [email or web address]. Click the blue button labeled Access Patient Portal and then log in with the username and password that you created in the steps above. You will be able to view your test results, lab results, a summary of your visits, upcoming appointments and more. There is also a convenient messaging option where you can send secure messages to your provider. In addition, you will have the ability to download any documents or summaries to your computer and/or send the information securely to a physician. Remember that your healthcare information is confidential, so carefully consider who you will allow to register on the [facility] for access to your information. You can also access the [facility] Portal on the [facility] manjeet. Simply click on Patient Portal and then log into your account. If you would like to receive a full copy of your medical records, please contact the [facility] Medical Records Department by calling [phone], Sunday through Sunday between 8 a.m. and 4:30 p.m. HOW TO SAFELY DISPOSE OF PRESCRIPTION MEDICATIONS Please use one of the following methods to safely dispose of your unused medications. 1.Use a drug disposal kit: the drug disposal pouch allows you to safely discard your old and unused drugs. Ask your nurse to give you one when you are discharged.2.Visit a local take-back location: Many local pharmacies and police departments have programs that collect old and unwanted prescription drugs. Call your local pharmacy or go to http://Dejamor/7P5Ms0o to find one close to you.3.Make use of household items: Use cat litter or old coffee grounds to dispose medications if other options are not available. Mix your drugs with these household products, seal them in an airtight container and throw it into the garbage. Call [facility]: [phone] to be sure your drugs can be disposed of in this way. Some medicines may require a different approach.4.Never flush your medications down the toilet. IF YOU HAVE BEEN PRESCRIBED AN OPIOID FOR PAIN If you have been prescribed an opioid (such as hydrocodone, oxycodone or morphine), it is critical to understand the possible side effects and risks of opioid pain medications. Even when taken as directed, opioids can have several side effects including: Tolerance, meaning you might need to take more of a medication for the same pain relief. Nausea, vomiting and/or constipation. Sleepiness, dizziness, dry mouth, confusion, depression or itching. Physical dependence, meaning you have withdrawal symptoms when a medication is stopped, can develop within a few days. KNOW YOUR RESPONSIBILITIES It is important to know exactly how much and how often to take the opioid pain medications you are prescribed. Never take opioids in higher amounts or more often than prescribed. Do not combine opioids with alcohol or other drugs that cause drowsiness, such as benzodiazepines, also known as benzos, including diazepam and alprazolam, muscle relaxants or sleep aids. Never sell or share prescription opioids. This is illegal. Store opioids in a secure place and out of reach of others (including children, family, friends and visitors). The last page of this document has been signed and retained as a CHART COPY. Signatures Patient Education Materials 5 - [facility] Post-op Instruction 04/2017 ([id number]) Medication Leaflets famotidine (oral/injection), meloxicam (oral/injection), oxycodone, docusate and (more content not included)... [facility] Patient Education 05/23/2023 07:10:33 5 - [facility] Post-op Instruction 04/2017 ([id number]) [facility] Post-operative Instructions PLEASE FOLLOW [facility] POST-OP INSTRUCTIONS GIVEN WATCH FOR SIGNS OF INFECTION: call the office ([phone]) if experencing any of the following: (Usually appears 36-48 hours after surgery) Increased temperature (101 degrees Fahrenheit or higher) Redness or swelling Increased uncontrolled pain Foul odor or drainage Calf discomfort Significant swelling Or if having any chest pain, shortness of breath, or difficulty breathing or swallowing call the office or go the nearest Emergency Room. If you have any questions, please call your doctor at the number listed on your follow up instructions. Form: 338A (61348) R: 01/07 Follow Up Care 03/16/2023 14:50:05 With:[facility] Address: [address] [place] [address] [phone] When:05/25/2023 13:30:00 Comments:This is your Initial Therapy appt. With:SPENCER PATEL PA-C, Orthopedic Address: [facility] [address] [place] [address] [id number] When:06/04/2023 09:30:00 Comments:Thus is your Ortho Follow up appt. With:AL CAIN MD Address: [facility] [address] [place] [address]- When:3-5 days Comments:Please schedule a Follow up appt with your PCP after d/c. [facility] 05-23-2023 Note Date of Service May 23, 2023 Subjective The patient was sitting in bed upon examination. Patient denies any chest pain, shortness of breath, dizziness, lightheadedness, nausea or vomiting, or calf pain. No adverse overnight events. Pain has been controlled on medications. Patient did have some drop in O2 saturation overnight. Patient states he has been told that he snores but has never been officially worked up for sleep apnea. He denies any chest pain or shortness of breath. Patient states he is doing very well today with regards to pain. He has had a previous left total knee arthroplasty on March 21, 2023. Preoperatively he has been treated with ferrous sulfate and folic acid. He denies any dizziness or lightheadedness. Patient is wishing to go home today if possible. Objective Vitals and Measurements T: 36.7 C (Oral) TMIN: 36.3 C (Temporal Artery) TMAX: 36.9 C (Oral) HR: 64(Monitored) RR: 16 BP: 151/63 SpO2: 93% HT: 167.6 cm WT: 90.9 kg BMI: 32.36 Intake and Output 7AM Yesterday to 7AM Today Intake and Output (Last 24 hours) Intake Administration Information 874.54 Oral Intake 620.00 Supplement Intake 100.00 Output Urine Voided 1827.00 Intra-Op EBL 70.00 Stool Count 0.00 Urine Count 2.00 Total Summary Total Intake 1594.54 Total Output 1897.00 Fluid Balance -302.46 Physical Exam Vital signs stable, afebrile: Currently 93% on room air but did drop into the low 90% overnight. SCDs and KIEL hose are in place bilaterally Patient is able to plantarflex and dorsiflex actively Sensation is intact to saphenous, sural, superficial and deep peroneal, and tibial distribution Dressing is clean dry and intact Negative signs and symptoms of DVT, negative Homans bilaterally Weight Dosing Weight: 90.9 kg (05/22/23) Dosing Weight: 90.9 kg (05/22/23) Medications Medications (34) Active Scheduled: (23) acetaminophen 500 mg Tablet 1,000 mg 2 tab(s), Oral, q6hr amLODIPine 5 mg tablet 10 mg 2 tab(s), Oral, qDay aspirin 81 mg EC 81 mg 1 tab(s), Oral, BIDM bisacodyl 5 mg EC tablet 10 mg 2 tab(s), Oral, Once cholecalciferol 25 mcg tablet (Vit D3 1000 units) 50 mcg 2 tab(s), Oral, qDay docusate sodium 100 mg Capsule 100 mg 1 cap(s), Oral, BID docusate-senna (Senokot S) 50 mg-8.6 mg Tablet 2 tab(s), Oral, BID dorzolamide-timolol ophthalmic 2%-0.5% Solution 1 drop(s), Eye, right, BID famotidine 20 mg tablet 20 mg 1 tab(s), Oral, qDay ferrous sulfate 325 mg Tablet 325 mg 1 tab(s), Oral, BID folic acid 1 mg tablet 1 mg 1 tab(s), Oral, qDay hydrochlorothiazide 25 mg tablet 25 mg 1 tab(s), Oral, Daily latanoprost ophthalmic 0.005% Solution 1 drop(s), Eyes, both, qHS magnesium hydroxide 8% Suspension 30 mL UD 30 mL, Oral, Daily meloxicam 7.5 mg tablet 7.5 mg 1 tab(s), Oral, BIDM minoxidil 2.5 mg tablet 5 mg 2 tab(s), Oral, Daily multivitamin (Myadec) with minerals Therapeutic Multiple Vitamins with Minerals Tablet 1 tab(s), Oral, qDayM nebivolol 2.5 mg tablet 20 mg 8 tab(s), Oral, qDay ondansetron 2 mg/ 1 mL 2 mL INJ 4 mg 2 mL, IV Push, q8h potassium chloride 20 mEq ER tablet 20 mEq 1 tab(s), Oral, qDay rOPINIRole 1 mg tablet 1 mg 1 tab(s), Oral, TID tamsulosin 0.4 mg Capsule 0.4 mg 1 cap(s), Oral, BID valsartan 320 mg tablet 320 mg 1 tab(s), Oral, Daily Continuous: (0) PRN: (11) acetaminophen 325 mg Tablet 650 mg 2 tab(s), Oral, q4h diphenhydramine 25 mg tablet 25 mg 1 tab(s), Oral, q6h diphenhyDRAMINE 50 mg/mL (1 mL) INJ 25 mg 0.5 mL, IV Push, q6h ketorolac 30 mg/mL (1 mL) vial 15 mg 0.5 mL, IV Push, q6h morphine 2 mg/mL 1 mL syringe 2 mg 1 mL, IV Push, q1h ondansetron 2 mg/ 1 mL 2 mL INJ 4 mg 2 mL, IV Push, q8h oxycodone 5 mg tablet (immediate release) 5 mg 1 tab(s), Oral, q4h oxycodone 5 mg tablet (immediate release) 10 mg 2 tab(s), Oral, q4h prochlorperazine 10 mg/2 mL vial 5 mg 1 mL, IV Push, q6h sodium biphosphate-sodium phosphate 19 gm-7 gm Enema 133 mL, Rectal, qDay traZODONE 50 mg Tablet 100 mg 2 tab(s), Oral, qHS Lab Results 05/23 05:21 WBC: 10.9 H Hgb: 10.2 L Hct: 29.4 L Platelet: 261 Neutrophil %: 83.0 H Glucose Level: 153 H Sodium Level: 135 L Potassium Level: 4.4 BUN: 23 H Creatinine Lvl (s): 0.99 EKG No qualifying data available. Assessment/Plan Orders: ferrous sulfate, Start: 05/23/23 7:04:00 EDT, Dose = 325 mg, = 1 tab(s), Oral, BID, 05/23/23 7:04:00 EDT 1. Status post right total knee arthroplasty postop day #1 2. Continue pain medications: Tylenol, meloxicam, oxycodone. Do not take any other nonsteroidal anti-inflammatories while on meloxicam/Mobic 3. DVT prophylaxis: Take 81 mg aspirin twice daily with food for 4 weeks postoperatively for DVT prophylaxis. 4. Physical therapy: Weightbearing as tolerated with walker 5. H & H: 10.2/29.4, asymptomatic. Postoperative anemia from surgery without intraoperative complications. Patient has been treated preoperatively with folic acid and ferrous sulfate. We will have him continue these medications and I will place a lab order on his chart and we will have case management schedule follow-up with his primary care physician for continued management. I would like him to see the primary care physician in 2 weeks with lab results. 6. Reactive leukocytosis: Currently 10.9, afebrile. Patient did receive Decadron intraoperatively 7. Postoperative nocturnal hypoxia: Suspected undiagnosed sleep apnea. Patient is currently on room air at 93%. He states he has never been worked up for sleep apnea. He states his son has sleep apnea and uses CPAP machine. Explained to the patient that I would recommend he have discussion with primary care physician 8. Encouraged incentive spirometry 9. Continue postoperative medical management per medicine 10. Disposition: Plan will be for probable discharge home this afternoon as long as patient is medically stable, tolerates therapy, and pain is well controlled. He would like his medications E scribed to [facility] outpatient pharmacy. Patient has extra strength Tylenol at home, folic acid, ferrous sulfate, and aspirin. He will follow-up per postop instructions. He has outpatient physical therapy established. Upon discharge she will contact our office with any concerns or questions. Lab order will be placed for CBC on his chart and patient will follow-up with his primary care physician in 2 weeks I have reviewed the [place] Automated Rx Reporting System (OARRS) report for this patient for refill pattern and other prescriber involvement as part of the appropriate surveillance for the provision of acute and chronic controlled medications. The report was requested and reviewed on the date of this entry, and was considered in the prescribing process This dictation was created using voice recognition software. Phonetic and/or grammatical errors may exist. Digitally Signed by SPENCER PATEL PA-C on 05/23/2023 07:09 AM [facility] 05-22-2023 Note ORIGINAL EXAMINATION: TWO XRAY VIEWS OF THE RIGHT KNEE 05/22/2023 9:44 am COMPARISON: 05/02/2023 HISTORY: ORDERING SYSTEM PROVIDED HISTORY: Reason for Exam: Status Post Arthroplasty FINDINGS: Patient is status post right knee arthroplasty. Postoperative changes including skin cecile, soft tissue edema and gas around the knee. Small volume joint effusion. Arthroplasty hardware appears well aligned and intact. No evidence of prosthetic/periprosthetic fracture or lucency. No radiopaque foreign body. Vascular calcifications. IMPRESSION: Postsurgical changes right knee arthroplasty with intact appearing arthroplasty hardware. I have personally reviewed the images of this examination and agree with the resident's finding and interpretation. Interpreted by: Pancho Wagner MD Preliminary Report By: Heron Cutler Electronically signed By Pancho Wagner MD Dictated Date: 05/22/2023 9:49:38 AM Prelim Date: 05/22/2023 10:16:11 AM Sign Date: 05/22/2023 10:16:11 AM Ordering Provider: [facility] 05-22-2023 Anesthesiology Consult note Patient: JARROD HERRING Age: 83 years Sex: Male : 1940 Associated Diagnoses: None Author: ROHITH VIDAL APRN-MAURICIO Preoperative Information Time of last food or liquid consumption: 05/21/2023 23:59:00 Anesthesia history Patient's history: negative. Family's history: negative. Review of Systems Ear/Nose/Mouth/Throat: Negative except as documented in history of present illness. Respiratory: Negative except as documented in history of present illness. Cardiovascular: Negative except as documented in history of present illness. Gastrointestinal: Negative except as documented in history of present illness. Genitourinary: Negative except as documented in history of present illness. Endocrine: Negative except as documented in history of present illness. Musculoskeletal: Negative except as documented in history of present illness. Integumentary: Negative except as documented in history of present illness. Neurologic: Negative except as documented in history of present illness. Health Status Allergies: Allergic Reactions (Selected) Severity Not Documented Penicillin- Hives., Allergies (1) ActiveReaction penicillinHIVES Current medications: (Selected) Inpatient Medications Ordered Bicitra: 30 mL, Oral, PREOP pharm Decadron: 10 mg, 1 mL, IV Push, AsDirected LR 1,000 mL: 20 mL/hr, Intravenous, Stop: 05/22/23 23:59:00 EDT ceFAZolin: 2 gram(s), 200 mL/hr, IV Piggyback, PREOP pharm tranexamic acid 1 g / 100 mL 0.7% NaCl PMX: 1 gram(s), 100 mL, 300 mL/hr, IV Piggyback, AsDirected tranexamic acid 1 g / 100 mL 0.7% NaCl PMX: 1 gram(s), 100 mL, 300 mL/hr, IV Piggyback, AsDirected Documented Medications Documented Multivitamin: 1 tab(s), Oral, Daily, 0 Refill(s) Nebivolol 20 mg oral tablet: 0 Refill(s) Potassium Chloride (Lib-Bsji-Vig M20) 20 mEq oral tablet, extended release: 20 mEq, 1 tab(s), Oral, qDay, 30 tab(s), 0 Refill(s) Vitamin D3 50 mcg (2000 intl units) oral capsule: 50 mcg, 1 cap(s), Oral, Daily, 30 cap(s), 0 Refill(s) amLODIPine 10 mg oral tablet: 10 mg, 1 tab(s), Oral, qDay, 30 tab(s), 0 Refill(s) aspirin 81 mg oral delayed release tablet: 81 mg, 1 tab(s), Oral, Daily, 0 Refill(s) dorzolamide-timolol 2.23%-0.68% (2%-0.5% base) ophthalmic solution: 1 drop(s), Ophthalmic, BID, RIGHT EYE, 10 mL, 0 Refill(s) folic acid 1 mg oral tablet: 1 mg, 1 tab(s), Oral, qDay, 30 tab(s), 0 Refill(s) hydrochlorothiazide-valsartan 25 mg-320 mg oral tablet: 1 tab(s), Oral, Daily, 0 Refill(s) latanoprost 0.005% ophthalmic emulsion: 1 drop(s), Eyes, both, qHS, 2.5 mL, 0 Refill(s) minoxidil 2.5 mg oral tablet: 5 mg, 2 tab(s), Oral, Daily, 60 tab(s), 0 Refill(s) rOPINIRole 1 mg oral tablet: 1 mg, 1 tab(s), Oral, TID, 270 tab(s), 0 Refill(s) tamsulosin 0.4 mg oral capsule: 0.4 mg, 1 cap(s), Oral, qDay, 30 cap(s), 0 Refill(s) traZODone 100 mg oral tablet: 100 mg, 1 tab(s), Oral, qHS, PRN: Sleep, 0 Refill(s), Medications (6) Active Scheduled: (5) ceFAZolin 2 gram(s), IV Piggyback, PREOP pharm citric acid-sodium citrate 334 mg-500 mg/5 mL (30 mL) Samaria UD 30 mL, Oral, PREOP pharm dexamethasone 10 mg/mL (1mL) SDV 10 mg 1 mL, IV Push, AsDirected tranexamic acid PMX 1 gram(s) 100 mL, IV Piggyback, AsDirected tranexamic acid PMX 1 gram(s) 100 mL, IV Piggyback, AsDirected Continuous: (1) Lactated Ringers 1,000 mL 1,000 mL, Intravenous, 20 mL/hr PRN: (0) Problem list: No problem items selected or recorded., Active Problems (3) BPH (benign prostatic hyperplasia) GERD (gastroesophageal reflux disease) HTN (hypertension) Histories Past Medical History: No active or resolved past medical history items have been selected or recorded. Family History: No family history items have been selected or recorded. Procedure history: TURP - Transurethral resection of prostate ([id number]). Total knee arthroplasty Left ([id number]). Cataracts ([id number]). Aortic aneurysm ([id number]). Colonoscopy ([id number]). Social History Social & Psychosocial Habits Alcohol 05/02/2023 Use: Never Substance Abuse 05/02/2023 Use: Never Tobacco 05/02/2023 Tobacco Use: Former smoker, quit more . Physical Examination Vital Signs 05/22/2023 8:30 EDT Heart Rate Monitored 55 bpm bpm Respiratory Rate - Anes 4 br/min br/min 05/22/2023 8:25 EDT Heart Rate Monitored 58 bpm bpm Respiratory Rate - Anes 7 br/min br/min Systolic Blood Pressure Non-Invasive 109 mmHg mmHg Diastolic Blood Pressure Non-Invasive 55 mmHg mmHg 05/22/2023 8:20 EDT Heart Rate Monitored 58 bpm bpm Respiratory Rate - Anes 4 br/min br/min Systolic Blood Pressure Non-Invasive 109 mmHg mmHg Diastolic Blood Pressure Non-Invasive 46 mmHg mmHg 05/22/2023 8:15 EDT Heart Rate Monitored 56 bpm bpm Respiratory Rate - Anes 20 br/min br/min Systolic Blood Pressure Non-Invasive 114 mmHg mmHg Diastolic Blood Pressure Non-Invasive 42 mmHg mmHg 05/22/2023 8:10 EDT Heart Rate Monitored 58 bpm bpm Respiratory Rate - Anes 0 br/min br/min Systolic Blood Pressure Non-Invasive 118 mmHg mmHg Diastolic Blood Pressure Non-Invasive 49 mmHg mmHg 05/22/2023 8:05 EDT Heart Rate Monitored 62 bpm bpm Respiratory Rate - Anes 0 br/min br/min Systolic Blood Pressure Non-Invasive 147 mmHg mmHg Diastolic Blood Pressure Non-Invasive 50 mmHg mmHg 05/22/2023 8:00 EDT Respiratory Rate - Anes 0 br/min br/min Systolic Blood Pressure Non-Invasive 191 mmHg mmHg Diastolic Blood Pressure Non-Invasive 147 mmHg mmHg 05/22/2023 7:55 EDT Respiratory Rate - Anes 0 br/min br/min Systolic Blood Pressure Non-Invasive 192 mmHg mmHg Diastolic Blood Pressure Non-Invasive 152 mmHg mmHg 05/22/2023 7:50 EDT Respiratory Rate - Anes 0 br/min br/min Systolic Blood Pressure Non-Invasive 181 mmHg mmHg Diastolic Blood Pressure Non-Invasive 160 mmHg mmHg 05/22/2023 6:47 EDT Temperature Temporal Artery 36.4 DegC Apical Heart Rate 63 bpm Respiratory Rate 13 br/min LOW Systolic Blood Pressure Non-Invasive 176 mmHg HI Diastolic Blood Pressure Non-Invasive 67 mmHg Vital Signs(last 24 hrs) Last Charted Heart Rate [id number] bpm (MAY 22 08:30) Resp Rate L 13br/min (MAY 22 06:47) DCD813 mmHg (MAY 22 08:25) DBP55 mmHg (MAY 22 08:25) BMI32.36 (MAY 22 06:53) Measurements from flowsheet : Measurements 05/22/2023 6:53 EDT Body Mass Index 32.36 kg/m2 05/22/2023 6:47 EDT Height 167.6 cm Admission Weight 90.9 kg [place] Body Weight 63.76 kg Admission Body Mass Index 32.36 m2 Pain assessment: Pain Assessment 05/22/2023 8:23 EDT Primary Pain Intensity Not Done: See OR Record (Not Done) 05/22/2023 8:22 EDT Primary Pain Intensity Not Done: See OR Record (Not Done) 05/22/2023 6:47 EDT Primary Pain Intensity 0 Pain Scale Type 0-10 Pain scale . General: Alert and oriented. Airway: Normal neck range of motion. Mallampati classification: II (soft palate, fauces, uvula visible). Head: Normocephalic. Dentition Evaluation: Intact, Own teeth. Neck: Full range of motion. Respiratory: Lungs are clear to auscultation. Cardiovascular: Normal rate. Heart Sounds: Normal. Gastrointestinal: Soft. Musculoskeletal Normal range of motion. Integumentary: Intact, Warm, Dry. Neurologic: Alert, Oriented. Review / Management Results review: No qualifying data available , Lab results 05/22/2023 8:30 EDT Heart Rate Monitored 55 bpm bpm Respiratory Rate - Anes 4 br/min br/min Oxygen Saturation 95 % % 05/22/2023 8:28 EDT acetaminophen 1,000 mg mg ondansetron 4 mg mg 05/22/2023 8:25 EDT Heart Rate Monitored 58 bpm bpm Respiratory Rate - Anes 7 br/min br/min Systolic Blood Pressure Non-Invasive 109 mmHg mmHg Diastolic Blood Pressure Non-Invasive 55 mmHg mmHg Oxygen Saturation 97 % % 05/22/2023 8:23 EDT Primary Pain Intensity Not Done: See OR Record (Not Done) epinephrine Not Done: See OR Record (Not Done) ketorolac Not Done: See OR Record (Not Done) morphine Not Done: See OR Record (Not Done) povidone iodine topical Not Done: See OR Record (Not Done) ROPivacaine Not Done: See OR Record (Not Done) 05/22/2023 8:22 EDT Primary Pain Intensity Not Done: See OR Record (Not Done) epinephrine Not Done: See OR Record (Not Done) ketorolac Not Done: See OR Record (Not Done) morphine Not Done: See OR Record (Not Done) ROPivacaine Not Done: See OR Record (Not Done) 05/22/2023 8:20 EDT SN - PP - Body Position Supine Standard Intra-op 05/22/2023 8:20 EDT Heart Rate Monitored 58 bpm bpm Respiratory Rate - Anes 4 br/min br/min Systolic Blood Pressure Non-Invasive 109 mmHg mmHg Diastolic Blood Pressure Non-Invasive 46 mmHg mmHg Oxygen Saturation 93 % % 05/22/2023 8:19 EDT SN - CTm - Surgery Start 05/22/2023 8:19 05/22/2023 8:19 EDT SN - CTm - Surgery Start Surgery Start 05/22/2023 8:15 EDT Heart Rate Monitored 56 bpm bpm Respiratory Rate - Anes 20 br/min br/min Systolic Blood Pressure Non-Invasive 114 mmHg mmHg Diastolic Blood Pressure Non-Invasive 42 mmHg mmHg Oxygen Saturation 93 % % 05/22/2023 8:14 EDT SN - CAt - Case Attendee SN - CAt - Case Attendee SN - CAt - Role Performed Maintenance Supervisor 2Nd Shift 05/22/2023 8:10 EDT Heart Rate Monitored 58 bpm bpm Respiratory Rate - Anes 0 br/min br/min Systolic Blood Pressure Non-Invasive 118 mmHg mmHg Diastolic Blood Pressure Non-Invasive 49 mmHg mmHg Oxygen Saturation 97 % % 05/22/2023 8:05 EDT Heart Rate Monitored 62 bpm bpm Respiratory Rate - Anes 0 br/min br/min Systolic Blood Pressure Non-Invasive 147 mmHg mmHg Diastolic Blood Pressure Non-Invasive 50 mmHg mmHg Oxygen Saturation 97 % % 05/22/2023 8:01 EDT propofol 60 mg mg 05/22/2023 8:00 EDT Respiratory Rate - Anes 0 br/min br/min Systolic Blood Pressure Non-Invasive 191 mmHg mmHg Diastolic Blood Pressure Non-Invasive 147 mmHg mmHg Oxygen Saturation 89 % % 05/22/2023 7:59 EDT bupivacaine 1.6 mL mL 05/22/2023 7:55 EDT Respiratory Rate - Anes 0 br/min br/min Systolic Blood Pressure Non-Invasive 192 mmHg mmHg Diastolic Blood Pressure Non-Invasive 152 mmHg mmHg Oxygen Saturation 89 % % 05/22/2023 7:51 EDT SN - SP - Prep Agents Chloraprep SN - SP - HR - Method N/A 05/22/2023 7:50 EDT Respiratory Rate - Anes 0 br/min br/min Systolic Blood Pressure Non-Invasive 181 mmHg mmHg Diastolic Blood Pressure Non-Invasive 160 mmHg mmHg Oxygen Saturation 85 % % 05/22/2023 7:40 EDT dexAMETHasone 4 mg mg ROPivacaine 150 mg mg 05/22/2023 7:39 EDT Consent Form Signed Yes Provider #1 Bedside Time Out ROHITH VIDAL APRN-POWERTRAIN ENGINEER Provider #2 Bedside Time Out Charlene Littlejohn RN Anesthesia Consent Signed Yes 05/22/2023 7:37 EDT SN - Proc - Anesthesia Type Spinal, Regional, Local SN - Proc - Actual Procedure ROBOTIC ASSISTED RIGHT TOTAL KNEE ARTHROPLASTY 05/22/2023 7:37 EDT SN - PTCare - Anti-thromboembolism Sujata Sequential Compression Device (SCD) 05/22/2023 7:37 EDT SN - Cul - Culture Type No Specimen per Surgeon 05/22/2023 7:35 EDT SN - Irl - Irrigant Normal Saline SN - Irl - Irrigant Normal Saline SN - Irl - Irrigant Sterile Water SN - IrI - Volume In 500 mL SN - IrI - Volume In 450 mL SN - Irl - Additive BETADINE (POVIDONE IODINE) SOLUT SN - Irl - Additive IRRIGATION CHG 0.05% IRRISEPT 12/CA [id number] SN - IrI - Volume Out 500 mL SN - IrI - Volume Out 450 mL 05/22/2023 7:34 EDT SN - HI - Route of Administration Local SN - HI - Route of Administration Local 05/22/2023 7:33 EDT SN - CTm - Anesthesia Start Time Anesthesia Start 05/22/2023 7:26 EDT SN - Preop - CTm Pt Ready for OR/Proced 05/22/2023 7:26 05/22/2023 7:25 EDT SN - GCD - Post-operative Diagnosis UNILATERAL OSTEOARTHRITIS, RIGHT KNEE. VALGUS DEFORMITY, RIGHT KNEE SN - GCD - Case Level Level 6 05/22/2023 7:25 EDT SN - Assess - LOC Alert, Awake SN - Assess - Orientation Oriented X 3 SN - Assess - Post-op Skin Integrity Intact/Dry 05/22/2023 7:24 EDT SN - CAt - Case Attendee SN - CAt - Case Attendee SN - CAt - Case Attendee SN - CAt - Case Attendee SN - CAt - Case Attendee SN - CAt - Case Attendee SN - CAt - Case Attendee SN - CAt - Case Attendee SN - CAt - Case Attendee SN - CAt - Case Attendee SN - CAt - Case Attendee SN - CAt - Case Attendee SN - CAt - Role Performed Primary Surgeon SN - CAt - Role Performed POWERTRAIN ENGINEER SN - CAt - Role Performed Media Reconciliation Specialist 1 SN - CAt - Role Performed Scrub 1 SN - CAt - Role Performed Oyster Preparer 1 SN - CAt - Role Performed Physician Software Installation Engineer 05/22/2023 7:13 EDT celecoxib 400 mg mg famotidine 20 mg mg Lactated Ringers Injection 1,000 mL mL 05/22/2023 6:53 EDT Designated Person #1 We May Share HOLLY HERRING [phone] Designated Person #1 Relationship Spouse Designated Person #2 We May Share HOLLY PERRY [phone] Designated Person #2 Relationship Son Privacy Restrictions Requested None Body Mass Index 32.36 kg/m2 Status N/A Sensory Deficits Hearing deficit, left ear, Hearing deficit, right ear Sleep Apnea Snore No Sleep Apnea Tired No Sleep Apnea Obstruction No Sleep Apnea Pressure Yes Sleep Apnea BMI No Sleep Apnea Age Yes Sleep Apnea Neck No Sleep Apnea Gender Yes Sleep Apnea Score 3 Diagnosed With Sleep Apnea No Advanced Directives No - refuses information Infectious Disease Symptoms Patient states no symptoms Infectious Disease Recent Exposure No Alcohol and Drug Use No Employee of Institutional Living No Health Care Employee No History of Exposure to TB No History of Positive Chest X-Ray for TB No History of Positive TB Skin Test No Homeless No Known Immunosuppression No Recent Immigrant No Resident of Institutional Living No Bloody Sputum No Fatigue No Fever No Loss of Appetite No Night Sweats No Persistent Cough > 3 Weeks No Weight Loss No Patient Aware Date/Time Of Surgery Yes Previous Surgery At This Facility No Pre-Op Patient Education NPO after midnight, No jewelry, Responsible Constitution Party, Aware of surgery location, Pre-op education done, 1 bottle CHG wash with instructions given, SSI prevention handout given, Anesthesia block education provided SN - Preprocedure Comments Spoke with patient, Verbalizes/Nonverbally indicates understanding Barriers to Learning None evident Teaching Method Explanation Preferred Spoken Language Serbian Preferred Written Language Serbian Teaching Evaluation Verbalizes/Nonverbally indicates understanding Total Joint Book Given Yes Safety Brochure Information Reviewed Unable to complete [place] Video Viewed No Information Given by Patient Patient's Current Physicians Patient's Current Physicians Discharge To, Anticipated Home independently Prev Test Positive/Diagnosis w/COVID-19 No Current Quarantine/Isolated any Illness No Any Contact with Sick Animals/Birds No Traveled Anywhere in Last 30 Days No Lost Weight Unintentionally Recently No Eat Poorly Due to Decreased Appetite No Total MST Score 0 N/A Personal Devices, Patient Valuables Hearing aid, left, Hearing aid, right Anesthesia/Transfusions Prior anesthesia Admission Note-Nursing Same Day Patient History 05/22/2023 6:47 EDT Height 167.6 cm Admission Weight 90.9 kg [place] Body Weight 63.76 kg Admission Body Mass Index 32.36 m2 Temperature Temporal Artery 36.4 DegC Apical Heart Rate 63 bpm Respiratory Rate 13 br/min LOW Systolic Blood Pressure Non-Invasive 176 mmHg HI Diastolic Blood Pressure Non-Invasive 67 mmHg Primary Pain Intensity 0 Pain Scale Type 0-10 Pain scale Heart Rhythm Regular Respirations Unlabored All Lobes Breath Sounds Clear Cough None Oxygen Therapy Room air Oxygen Saturation 95 % Abdomen Description Non-distended, Soft Bowel Sounds All Quadrants Present Skin Temperature Warm Skin Description [place] Skin Integrity Intact Mucous Membrane Color [place] Skin Moisture General Dry Neurological Symptoms Patient denies Characteristics of Speech Clear Level of Consciousness Alert Strength All Extremities Strong Affect/Behavior Appropriate, Calm, Cooperative Orientation Oriented x 4 Patient Identified Identification band, Verbal Arrival Mode Ambulatory Orientation Assessment Oriented x 4 Assistive Device None Activity Status ADL Awake Sequential Compression Device left knee high applied/on Antiembolism Stocking On/Re-applied left thigh high Standard Safety ID band on, Allergy Band on, Call device within reach, Bed in low position, Wheels locked, Non-Slip footwear 05/22/2023 6:42 EDT Time Out Procedure Verified Time Out Procedure Site Verified Yes Time Out Correct Patient Position Yes Urinary Elimination Voiding, no difficulties IV Present Present Allergies Yes Anesthesia Extension Set Applied Yes Radiology Administrator On Yes Consent Form Signed Yes Patient Dressed In Hospital gown CHG Preoperative Wash/Wipe Night before procedure, Day of procedure Preop Nasal Swab Povidone-Iodine CHG Skin Prep Completed for Eligible Surgery History & Physical Update On Chart Yes History & Physical On Chart Yes Obstructive Sleep Apnea Assess Completed No Belongings At Bedside Hearing aid, left, Hearing aid, right, Shirt, Shoes, Shorts, Wedding band Personal Home Medications Received No home medications were brought in NPO Status Maintained Allergy Band on and Verified Yes Patient ID Band on and Verified Yes Implants Verified Yes Pacemaker/AICD Verified Yes Site Verified by Patient/Family Yes Anesthesia Consent Signed Yes Blood Consent Signed Yes Last Fluid Intake 05/21/2023 23:00 Last Food Intake 05/21/2023 20:00 05/22/2023 6:33 EDT SN - Preop - CTm Pt in SDS Room 05/22/2023 6:33 . Assessment and Plan [place] [employer]esthesiologists (ASA) physical status classification: Class III. Anesthetic Preoperative Plan Premedication: intravenous. Anesthetic technique: MAC, Regional, Spinal. Induction: intravenously. Maintenance airway: Mask. Regional: Spinal, Adductor Canal Block. Postoperative pain management: Per surgeon. Risks discussed: nausea, vomiting, headache, sore throat, dental injury, hypotension, allergic reaction, serious complications. Informed consent: signed by patient. Digitally Signed by ROHITH VIDAL DIRECTOR WEIGHTS AND MEASURES-POWERTRAIN ENGINEER on 05/22/2023 08:42 AM [facility] 05-02-2023 Note ORIGINAL EXAMINATION: CT OF THE RIGHT KNEE WITHOUT CONTRAST05/02/2023 1:28 pm TECHNIQUE: CT of the right knee was performed without the administration of intravenous contrast. Multiplanar reformatted images are provided for review. Automated exposure control, iterative reconstruction, and/or weight based adjustment of the mA/kV was utilized to reduce the radiation dose to as low as reasonably achievable. COMPARISON: None HISTORY: ORDERING SYSTEM PROVIDED HISTORY: Reason for Exam: M17.11 PRIMARY OSTEOARTHRITIS RIGHT KNEE FINDINGS: There is osseous demineralization. There is advanced tricompartmental osteoarthritis with marginal osteophyte formation, subchondral cystic changes, and joint space narrowing. Of note, there are also central osteophytes involving the medial compartment. Overall, the degenerative changes are most pronounced at the lateral compartment. No acute fracture or dislocation is identified. There is a small to moderate suprapatellar knee joint effusion containing a small periphery calcified loose body. There is no aggressive or otherwise suspicious appearing osseous lesion. There is an incidental tug lesion along the posterior aspect of the proximal tibia. The hip joint and femur reveal no acute findings. No acute findings of the ankle. 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 Small to moderate knee joint effusion. No acute fracture or dislocation. No aggressive/suspicious appearing osseous lesion. I have personally reviewed the images of this examination and agree with the resident's findings and interpretation. Interpreted by: Royce Conde DO Preliminary Report By: Bakari Santos Electronically signed By Royce Conde DO Dictated Date: 05/02/2023 1:46:11 PM Prelim Date: 05/02/2023 4:11:15 PM Sign Date: 05/02/2023 4:11:15 PM Ordering Provider: ELENA BAI [facility] 04-12-2023 Progress note Note Date/Time April 12, 2023 7: 02am [facility] Medical Records Department [address] [place] [address] Progress Note - Urology 04/12/23 0701 MR#: [id number] Acct: [id number] Name: JARROD HERRING Rep #:[id number] : 1940 83 From: Kelechi Blake MD PCP: Dr. Tristin Cain MD Status:ADM I NO Location: MS3 CK610-5 Subjective Subjective 83-year-old male status post TURP doing well we can remove the catheter and he can go home after urinates. Objective Data Objective Data Vital Signs: Vital Signs Temp Pulse Resp BP Pulse Ox O2 Del Method O2 Flow Rate 97.8 F 66 16 134/52 H 98 Room Air 2 04/12/23 03:48 04/12/23 03:48 04/12/23 03:48 04/12/23 03:48 04/12/23 03:48 04/12/23 03:48 04/11/23 14:45 Oxygen Flow Rate (L/min) 2 Oxygen Delivery Method Room Air Weight: 91.17 kg Body Mass Index (BMI) 32.4 Intake & Output: Intake and Output for Last 24 Hours 04/10/23 04/11/23 04/12/23 23:59 23:59 23:59 Intake Total 1343.33 / 1343.33 963.75 / 963.75 Output Total 775 / 775 650 / 650 Balance 568.33 / 568.33 313.75 / 313.75 04/12/23 0702 <Electronically signed by Kelechi Blake MD> Cosigner Signature (if applicable): CC: ~ Signed [facility] Work Phone: 1(213) 424-494808-09-2023 Discharge summary Author Kelechi Blake [facility] April 11, 2023 1:19pm Note Date/Time April 11, 2023 1:1 9pm [facility] Medical Records Department [address] [place] [id number] Instructions for Home/Discharge Instructions 04/11/23 1319 MR#: [id number] Acct: [id number] Name: JARROD HERRING Rep #:[id number] : 1940 83 From: Kelechi Blake MD PCP: Dr. Tristin Cain MD Status:REG S DC Discharge Instructions Diet Discharge Diet: No restrictions and Light diet - advance as tolerated Activity Discharge Activity: Return to Normal Activity Dressing / Incision Call your doctor if your incision/area has: Continuous Slow Oozing Catheter: Slater to leg bag and Salter to large bag Drain: [place] Follow Up Care Please Follow Up With: Kelechi Blake MD When: 2 weeks. Test Results: Test results from this visit will be discussed in further detail at your follow- up appointment, if applicable. Discharge Plan Admission Primary Reason for Your Visit: TURP Attending Provider: Kelechi Blake Primary Care Provider: Tristin Cain Chi Instructions Patient Instructions: TURP Home Recovery, TURP Hospital Recovery Discharge Orders/Prescriptions Prescriptions: New ciprofloxacin HCl [Cipro] 500 mg tablet 500 mg PO BID Qty: 10 0RF Continued nebivolol [Bystolic] 10 mg tablet 20 mg PO QDAY potassium chloride 20 mEq tablet extended release 20 meq PO QDAY trazodone 100 mg tablet 100 mg PO QHS pdaufmqu-rti-UK-lycopen-lutein [Centrum Silver] 0.4-300-250 mg-mcg-mcg tablet 1 tab PO QAM atorvastatin [Lipitor] 20 mg tablet 20 mg PO QHS Patient Comments: 20 mg PO 3 days a week dorzolamide-timolol 22.3-6.8 mg/mL drops 1 drp ophthalmic (eye) QHS latanoprost 0.005 % drops 1 drp ophthalmic (eye) QHS minoxidil 2.5 mg tablet 2 tab PO QHS Patient Comments: TAKE TWO TABLETS BY MOUTHNAT BEDTIME bhrazkrdfj-elvbtdydf-elfrxblxe [Exforge HCT] 10-320-25 mg Tablet 1 tab PO DAILY Combivent Respimat 20-100 mcg/actuation mist 1 puff inhalation Q4H PRN (Reason: SOB) acetaminophen 500 mg Tablet 1,000 mg PO Q8 Qty: 100 0RF Rx Instructions: Do not take more than 3000 mg Tylenol in a 24-hour period. meloxicam 7.5 mg Tablet 7.5 mg PO BID 30 Days Qty: 60 0RF Rx Instructions: Do not take any other nonsteroidal anti-inflammatories while using meloxicam/Mobic. famotidine 20 mg Tablet 20 mg PO DAILY Qty: 30 0RF ferrous sulfate [FeroSul] 325 mg (65 mg iron) Tablet 325 mg PO 1200,1700 14 Days Qty: 28 0RF Rx Instructions: Take for 2 weeks postoperatively aspirin 81 mg Tablet,Chewable 81 mg PO BIDCM 30 Days Qty: 60 0RF Rx Instructions: Take 81 mg aspirin twice daily for 4 weeks postoperatively for DVT prophylaxis. folic acid 1 mg Tablet 1 mg PO BREAKFAST 14 Days Qty: 14 0RF Rx Instructions: Take for 2 weeks postoperatively oxycodone 5 mg Tablet 5 - 10 mg PO Q4H PRN PRN (Reason: Pain Score 4-10) 5 Days Qty: 42 0RF sennosides-docusate sodium [Stool Softener-Stimulant Laxat] 8.6-50 mg Tablet 2 tab PO BID 3 Days Qty: 12 0RF Rx Instructions: Take until first bowel movement, then as needed Referrals / Follow Up: Kelechi Blake MD [Med Staff - Active Staff] - Tristin Cain Chi, MD [Primary Care Provider] - Disposition Disposition (needs filled in before D/C Order can be placed): Home, Self Care 04/11/23 1319<Electronically signed by Kelechi Blake MD>Kelechi Blake MD CC: Dr. Tristin Cain MD ~ Signed [facility] Work Phone: [phone]) 462-514608-09-2023 History and physical note Author Kelechi Blake [facility] April 11, 2023 1:19pm Note Date/Time April 11, 2023 1:1 9pm [facility] Medical Records Department [address] [place] [address] History & Physical Exam 04/11/23 1318 MR#: [id number] Acct: [id number] Name: JARROD HERRING Rep #:[id number] : 1940 83 From: Kelechi Blake MD PCP: Dr. Tristin Cain MD Status:REG S [place] Location: [address] - General General Date of Service: 04/11/23 Chief Complaint: Urinary retention HPI Narrative JARROD HERRING, is a 83 M who presents for transurethral resection of the prostatefor retention of urine PFSH Medical History Abdominal aortic aneurysm, without rupture, unspecified Acute respiratory insufficiency Alcohol use Arthritis Back pain Cardiology follow-up encounter Easy bruising Former smoker Glaucoma Goiter Heartburn High cholesterol History of pain when walking History of stress test hormone deficiency HTN (hypertension) Hypokalemia Hypoxia Injury of head and neck Insomnia Pneumonia Skin cancer Testicular hypofunction Wears glasses Wears hearing aid Home Medications atorvastatin 20 mg tablet (Lipitor) 20 mg PO QHS cholesterol 03/04/18 [History Last Taken 04/10/23] vyoabvjc-jmz-arbwi acid 0.4 mg-lycopene 300 mcg-lutein 250 mcg tablet (Centrum Silver) 1 tab PO QAM 03/04/18 [History Last Taken 04/10/23] nebivolol 10 mg tablet (Bystolic) 20 mg PO QDAY blood pressure 03/04/18 [History Last Taken 04/10/23] potassium chloride 20 mEq tablet,extended release 20 meq PO QDAY supplement 03/04/18 [History Last Taken 04/10/23] trazodone 100 mg tablet 100 mg PO QHS sleep aid 03/04/18 [History Last Taken 04/10/23] minoxidil 2.5 mg tablet 2 tab PO QHS blood pressure 03/22/22 [History Last Taken 04/10/23] dorzolamide 22.3 mg-timolol 6.8 mg/mL eye drops 1 drp ophthalmic (eye) QHS 01/11/23 [History Last Taken 04/10/23] latanoprost 0.005 % eye drops 1 drp ophthalmic (eye) QHS 01/11/23 [History Last Taken Unknown] amlodipine 10 mg-valsartan 320 mg-hydrochlorothiazide 25 mg tablet (Exforge HCT)1 tab PO DAILY 02/23/23 [History Last Taken 04/11/23] ipratropium 20 mcg-albuterol 100 mcg/actuation mist for inhalation (Combivent Respimat) 1 puff inhalation Q4H PRN SOB 02/23/23 [History Last Taken Unknown] acetaminophen 500 mg tablet 1,000 mg (2 x 500 mg) PO Q8 #100 tabs 03/22/23 [Rx Last Taken Unknown] aspirin 81 mg chewable tablet 81 mg PO BIDCM 30 days #60 tabs 03/22/23 [Rx Last Taken 03/28/23] famotidine 20 mg tablet 20 mg PO DAILY #30 tabs 03/22/23 [Rx Last Taken 04/10/23] ferrous sulfate 325 mg (65 mg iron) tablet (FeroSul) 325 mg PO 1200,1700 14 days#28 tabs 03/22/23 [Rx Last Taken 04/10/23] folic acid 1 mg tablet 1 mg PO BREAKFAST 14 days #14 tabs 03/22/23 [Rx Last Taken 04/10/23] meloxicam 7.5 mg tablet 7.5 mg PO BID 30 days #60 tabs 03/22/23 [Rx Last Taken 04/10/23] oxycodone 5 mg tablet 5 - 10 mg (1 - 2 x 5 mg) PO Q4H PRN PRN Pain Score 4-10 5 days #42 tabs 03/22/23 [Rx Last Taken Unknown] sennosides 8.6 mg-docusate sodium 50 mg tablet (Stool Softener-Stimulant Laxative) 2 tab PO BID 3 days #12 tabs 03/22/23 [Rx Last Taken 04/10/23] ciprofloxacin HCl 500 mg tablet (Cipro) 500 mg PO BID #10 tabs 04/11/23 [Rx Last Taken Unknown] Allergy/AdvReac Type Severity Reaction Status Date / Time Penicillins Allergy Rash Verified 04/06/23 09:02 Family History Mother Hypertension Surgical History (Updated 04/06/23 @ 09:09 by Mckenzie Justice) History of coronary artery stent placement History of stent insertion of renal artery History of total knee replacement (03/21/23) Hx of cataract surgery Hx of colonoscopy S/P TURP Social History Smoking Status: Former smoker alcohol intake: current alcohol intake frequency: a few times a month substance use type: does not use Vital Signs Vital Signs Vital Signs: 04/11/23 10:44 04/11/23 10:44 Temperature 97.8 F Temperature Source Temporal Pulse Rate 73 Respiratory Rate 18 Respiratory Pattern Normal Blood Pressure 135/69 H Blood Pressure Mean 91 Blood Pressure Source Monitor Blood Pressure Position Semi-Fowlers Blood Pressure Location Right Arm Pulse Ox 95 Oxygen Delivery Method Room Air Weight Weight: 91.172 kg Body Mass Index (BMI) 32.4 04/11/23 1319 <Electronically signed by Kelechi Blake MD> Cosigner Signature (if applicable): CC: Dr. Kelechi Blake MD; Dr. Tristin Cain MD~ Signed [facility] Work Phone: 1(408) 617-712308-09-2023 Procedure [facility] 03-22-2023 Discharge summary Author Spencer Patel [facility] March 22, 2023 10:33am Note Date/Time March 22, 2023 10:2 4am [facility] Medical Records Department [address] [place] [address] Instructions for Home/Discharge Instructions 03/22/23 1023 MR#: [id number] Acct: [id number] Name: JARROD HERRING Rep #:[id number] : 1940 83 From: Spencer WOODY PA-C PCP: Dr. Tristin Cain MD Status:ADM I NO Discharge Instructions Diet Discharge Diet: No restrictions Activity Discharge Activity: May Not Drive (No driving until you can walk 100 feet without the use of cane or walker and must be off narcotic pain medications.) May shower in (days): 1 (Please turn dressing away from water. Okay to get wet as long as dressing is intact to skin.) Ice area for (Minutes): 20 (Every 1-2 hours while awake. Please place barrier between the skin and ice pack.) Weight Bearing Status: Weight bearing as tolerated Keep extremity elevated above heart level: Operative Extremity Dressing / Incision Call your doctor if your incision/area has: Continuous Slow Oozing, Sudden Increased Bleeding, Increased Pain/ Swelling, Increased Redness and Foul Smelling Discharge Call your doctor if you observe: Fever of 101 or Higher, Coldness, Increased Pain, Numbness or Tingling, Change in Color, Shortness of breath, Chest pain, Calf discomfort and Uncontrolled pain Remove Dressing in: 4 days (Okay to remove dressing on March 26, 2023) Additional Dressing/Incision Instructions:: Follow [facility] Post-op Instructions. Once postoperative dressing has been removed only use gentle soap and water overthe incision. Do not use any ointments, Neosporin, salves, alcohol pads over the incision for 6 weeks postoperatively. Do not submerge underwater for 6 weeks postoperatively. Continue with KIEL hose/elastic stockings for 2 weeks postoperatively. May remove at nighttime but needs to be placed back on the leg during the day. Do NOT use alcohol with narcotic pain medication. Do NOT make important decisions while taking narcotic medication. If you have problems with taking your medication (rash, itching, nausea, etc.) call the office at once. Follow Up Care Test Results: Test results from this visit will be discussed in further detail at your follow- up appointment, if applicable. Discharge Plan Admission Admit Date/Time: 03/21/23 07:13 Attending Provider: Elena Bai Primary Care Provider: Tristin Cain [employer] Providers: Duncan Campa Discharge Orders/Prescriptions Prescriptions: New acetaminophen 500 mg Tablet 1,000 mg PO Q8 Qty: 100 0RF Rx Instructions: Do not take more than 3000 mg Tylenol in a 24-hour period. meloxicam 7.5 mg Tablet 7.5 mg PO BID 30 Days Qty: 60 0RF Rx Instructions: Do not take any other nonsteroidal anti-inflammatories while using meloxicam/Mobic. famotidine 20 mg Tablet 20 mg PO DAILY Qty: 30 0RF ferrous sulfate [FeroSul] 325 mg (65 mg iron) Tablet 325 mg PO 1200,1700 14 Days Qty: 28 0RF Rx Instructions: Take for 2 weeks postoperatively aspirin 81 mg Tablet,Chewable 81 mg PO BIDCM 30 Days Qty: 60 0RF Rx Instructions: Take 81 mg aspirin twice daily for 4 weeks postoperatively for DVT prophylaxis. folic acid 1 mg Tablet 1 mg PO BREAKFAST 14 Days Qty: 14 0RF Rx Instructions: Take for 2 weeks postoperatively oxycodone 5 mg Tablet 5 - 10 mg PO Q4H PRN PRN (Reason: Pain Score 4-10) 5 Days Qty: 42 0RF sennosides-docusate sodium [Stool Softener-Stimulant Laxat] 8.6-50 mg Tablet 2 tab PO BID 3 Days Qty: 12 0RF Rx Instructions: Take until first bowel movement, then as needed Continued nebivolol [Bystolic] 10 mg tablet 20 mg PO QDAY potassium chloride 20 mEq tablet extended release 20 meq PO QDAY trazodone 100 mg tablet 100 mg PO QHS qywtserb-qtx-JT-lycopen-lutein [Centrum Silver] 0.4-300-250 mg-mcg-mcg tablet 1 tab PO QAM atorvastatin [Lipitor] 20 mg tablet 20 mg PO QHS Patient Comments: 20 mg PO 3 days a week dorzolamide-timolol 22.3-6.8 mg/mL drops 1 drp ophthalmic (eye) QHS latanoprost 0.005 % drops 1 drp ophthalmic (eye) QHS minoxidil 2.5 mg tablet 2 tab PO QHS Patient Comments: TAKE TWO TABLETS BY MOUTHNAT BEDTIME zqzoitfawj-iszdwfcep-jjlifjwme [Exforge HCT] 10-320-25 mg Tablet 1 tab PO DAILY Combivent Respimat 20-100 mcg/actuation mist 1 puff inhalation Q4H PRN (Reason: SOB) Discontinued aspirin [Adult Aspirin Regimen] 81 mg tablet,delayed release (DR/EC) 81 mg PO DAILY Other Ambulatory Orders: CBC-Complete Blood Cnt No Diff (Routine) Timeframe: 10 Day Facility: [facility] - Location: Laboratory Ordered By: Spencer WOODY Referrals / Follow Up: Tristin Cain Chi, MD [Primary Care Provider] - Physical,Therapy [Other] - 03/26/23 9:00 am Sandrita Haines PA [Med Staff - Adv Practice Prof] - 04/04/23 2:00 pm Spencer Patel PA-C [Med Staff - Adv Practice Prof] - Disposition Disposition (needs filled in before D/C Order can be placed): Home, Self Care 03/22/23 1033<Electronically signed by Spencer WOODY PA-C>Spencer WOODY PA-C CC: Dr. Duncan Cmapa, DO; Dr. Tristin Cain MD ~ Signed [facility] Work Phone: 1(470) 545-273907-20-2023 Progress note Author Spencer [facility] March 22, 2023 10:22am Note Date/Time March 22, 2023 10:2 2am [facility] Medical Records Department [address] [place] [address] Progress Note - Orthopedic 03/22/23 1014 MR#: [id number] Acct: [id number] Name: JARROD HERRING Rep #:[id number] : 1940 83 From: Spencer WOODY PA-C PCP: Dr. Tristin Cain MD Status:ADM I NO Location: [facility] [id number] Subjective Subjective The patient was sitting in bed side chair with present upon examination. Patient denies any chest pain, shortness of breath, dizziness, lightheadedness, nausea or vomiting, or calf pain. Pain is controlled on medications. No adverse overnight events. Patient is a very poor historian with regards to himself. He does rely on his for most of his information. Patient states overall he is doing very well this morning. Has no significant pain. He tolerated therapy very well this morning. Plan is for patient to go home with outpatient services for therapy. Objective Data Objective Data Vital Signs: Vital Signs Temp Pulse Resp BP Pulse Ox O2 Del Method O2 Flow Rate 98.3 F 67 18 165/62 H 93 Room Air 2 03/22/23 08:35 03/22/23 08:35 03/22/23 08:35 03/22/23 08:35 03/22/23 08:35 03/22/23 08:35 03/22/23 05:30 FiO2 4 03/21/23 16:25 Oxygen Flow Rate (L/min) 2 Oxygen Delivery Method Room Air Weight: 94 kg Body Mass Index (BMI) 33.4 Intake & Output: Intake and Output for Last 24 Hours 03/20/23 03/21/23 03/22/23 23:59 23:59 23:59 Intake Total 3979.92 / 3979.92 50 / 50 Balance 3979.92 / 3979.92 50 / 50 Lab / Micro Data 03/22/23 06:25 03/22/23 06:25 Labs: Laboratory Results - last 24 hr 03/22/23 06:25: WBC 10.2, RBC 3.13 L, Hgb 9.1 L, Hct 27.8 L, MCV 88.8, MCH 29.1,MCHC 32.7, RDW Std Deviation 44.6 H, RDW Coeff of Du 13.9, Plt Count 249, MPV 8.8, Sodium 139, Potassium 3.8, Chloride 107, Carbon Dioxide 26.0, Anion Gap 6, BUN 16, Creatinine 0.63 L, Estim Creat Clear Calc 49.62, Est GFR (MDRD) Af Amer 157, Est GFR (MDRD) Non-Af 129, BUN/Creatinine Ratio 25.5 H, Glucose 124 H, Calcium 8.5 Micro: Microbiology 03/01/23 11:43 Swab (Method) Nasal Screen MRSA/MSSA - Final Radiography Diagnostic Testing: Radiology Impression Knee X-Ray 03/21/23 11:15 IMPRESSION: Status post left total knee arthroplasty. Electronically Signed: Armond Gill MD at 11:29 EDT Reading Location ID and State: [id number] / Unknown , Service support , Physical Exam Narrative Vital signs stable and afebrile. SCDs and KIEL hose are in place bilaterally Patient is able to plantarflex and dorsiflex actively. Sensation is intact to light touch to saphenous, sural, superficial and deep peroneal, and tibial distribution. Proximal and distal pin site dressing with trace drainage and main Mepilex dressing is clean dry and intact. Negative Homans bilaterally, negative signs and symptoms of DVT. Const alert, oriented x3 and no apparent distress Assessment & Plan Assessment/Plan (1) Status post total left knee replacement: PLAN: 1. S/P left total knee arthroplasty POD #1 2. Continue Pain Medications: Tylenol, meloxicam, oxycodone. Do not take any other nonsteroidal anti-inflammatories while using meloxicam/Mobic. 3. DVT Prophylaxis: Take 81 mg aspirin twice daily for 4 weeks postoperatively for DVT prophylaxis. Patient denies past history of DVT or pulmonary embolism 4. PT/OT: Weightbearing as tolerated with walker 5. H & H: 9.1/27.8, asymptomatic. Postoperative anemia secondary to acute blood loss from surgery without any intra operative complications. While reviewing lab work it does appear in the fall 2021 patient did have some underlying anemia. Patient's states he has never been on any ferrous sulfate or folicacid. Estimated blood loss from surgery was 75 mL. Most likely some dilutionalcomponent involved as well. Patient is currently asymptomatic. Denies any dizziness or lightheadedness. Will place patient on ferrous sulfate and folic acid for 2 weeks postoperatively. Outpatient lab work order will be given and follow-up with the primary care physician in 2 weeks for reassessment and further management. This was discussed in great detail with patient and his . 6. Encouraged Incentive Spirometry 7. Disposition: Plan will be for discharge home this afternoon as long as pain is well controlled, tolerates therapy and medically stable. He currently has very little pain but did have a block perioperatively. I discussed with him that this block can wear off 12 to 24 hours postoperatively. We discussed pain management regimen and I also discussed with his . Patient has outpatient physical therapy established. They would like their medications E scribed to [facility]. Upon discharge he will contact her office with any concerns or questions. I discussed with case management and they will schedule him follow-up with his primary care physician for 2 weeks. Patient states he has plan to proceed with surgery for his right knee in 2 months. All medications were discussed with the patient and his . However patient relies on his for history and all his medications. I have reviewed the [place] Automated Rx Reporting System (OARRS) report for this patient for refill pattern and other prescriber involvement as part of the appropriate surveillance for the provision of acute and chronic controlled medications. The report was requested and reviewed on the date of this entry and was considered in the prescribing process. This dictation was created using voice recognition software. Phonetic and/or grammatical errors may exist. 03/22/23 1022 <Electronically signed by Spencer WOODY PA-C> Cosigner Signature (if applicable): CC: ~ Signed [facility] Work Phone: 1(650) 687-213507-19-2023 Progress note Author Duncan Campa [facility] March 21, 2023 5:53pm Note Date/Time March 21, 2023 5:53 pm [facility] Medical Records Department [address] [place] [id number] Progress Note - Hospitalist 03/21/23 1747 MR#: [id number] Acct: [id number] Name: JARROD HERRING Rep #:[id number] : 1940 83 From: Duncan Campa DO PCP: Dr. Tristin Cain MD Status:ADM I NO Location: [facility] [id number] Reason for Visit Reason for Visit: Diagnoses Encounter for other preprocedural examination (03/21/23) Subjective Subjective Patient was seen and examined today, he underwent a robotic assisted left knee replacement secondary to left knee osteoarthritis, patient's chronic medical problems include essential hypertension, past history of aortic aneurysm repair hyperlipidemia,, and past history of renal artery stent placement. At the time my examination, patient appears comfortable, he does not complain of any shortness of breath or chest discomfort. Objective Data Objective Data Vital Signs: Vital Signs Temp Pulse Resp BP Pulse Ox O2 Del Method O2 Flow Rate 97.8 F 73 18 143/77 H 96 Nasal Cannula 4 03/21/23 14:39 03/21/23 14:39 03/21/23 14:39 03/21/23 14:39 03/21/23 14:39 03/21/23 14:39 03/21/23 13:54 FiO2 4 03/21/23 14:39 Oxygen Flow Rate (L/min) 4 Oxygen Delivery Method Nasal Cannula Weight: 94 kg Body Mass Index (BMI) 33.4 Intake & Output: Intake and Output for Last 24 Hours 03/19/23 03/20/23 03/21/23 23:59 23:59 23:59 Intake Total 2432 / 2432 Balance 2432 / 2432 Lab / Micro Data Micro: Microbiology 03/01/23 11:43 Swab (Method) Nasal Screen MRSA/MSSA - Final Radiography Diagnostic Testing: Radiology Impression Knee X-Ray 03/21/23 11:15 IMPRESSION: Status post left total knee arthroplasty. Electronically Signed: Armond Gill MD at 11:29 EDT Reading Location ID and State: [id number] / Unknown , Service support , Physical Exam Const alert, oriented x3, no apparent distress, average body habitus and healthy appearing Constitutional Narrative: Patient is extremely hard of hearing General Appearance: cooperative, well kempt and well developed Orientation / Consciousness: awake, oriented to person, oriented to place and oriented to time HEENT normocephalic, head/scalp atraumatic and moist oral mucous membranes Eyes PERRL, EOMs intact bilaterally and conjunctivae normal Neck supple, no JVD, thyroid normal and no carotid bruits General: trachea midline Resp normal respiratory effort, no retractions, no use of accessory muscles and clearto auscultation bilaterally Auscultation: Negative for rales, rhonchi or wheezes Cardio regular rate, regular rhythm, S1 normal heart sound, S2 normal heart sound, no murmurs, no rub and no gallops GI normal to inspection, nondistended, normoactive bowel sounds, soft to palpation,non-tender and non-distended Neuro oriented x3, CN's II-XII intact bilaterally, no focal motor deficits and no sensory deficits noted Sensorium / Orientation: awake and alert Speech: speech normal Psych affect normal Assessment & Plan Assessment/Plan (1) HTN (hypertension): PLAN: Plan 1. Essential hypertension-patient will continue on his present medications, blood pressure will be monitored #2 hyperlipidemia-patient is on atorvastatin #3 osteoarthritis-postop day 0 left robotic assisted total knee replacement- patient will be seen by PT and OT, orthopedic surgery is managing his care #4 past history of aortic aneurysm-treated with EVAR-2014 Total clinical time spent by myself addressing the patient's medical issues, reviewing all of his data, and collaborating with patient's care team: 35 minutes Charges/Coding Visit Charges Office Visits / Consults: 82053 OV L4 Est 03/21/231752 <Electronically signed by Duncan Campa DO> Cosigner Signature (if applicable): CC: ~ Signed [facility] Work Phone: 1(684) 120-346807-19-2023 Procedure [facility] 03-21-2023 History and physical note Author Elena Bai [facility] March 21, 2023 7:12am Note Date/Time March 13, 2023 8:52 am [facility] Medical Records Department [address] [place] [id number] History & Physical Exam 03/13/23 0851 MR#: [id number] Acct: [id number] Name: JARROD HERRING Rep #:[id number] : 1940 83 From: Sandrita WOODY PCP: Dr. Tristin Cain MD Status:REG S DC Location: [place] [address] History and Physical Patient Name: Jarrod HerringDOB: 1940 From:? SANDRITA HAINES PA-C? DATE OF SURGERY:? 03/21/2023 SCHEDULED PROCEDURE: ROBOTIC ASSISTED LEFT TOTAL KNEE ARTHROPLASTY HISTORY OF PRESENT ILLNESS: Patient is an 83-year-old male here today with ongoing left knee pain for several years.? It is an aching and sharp pain is exacerbated by stairs and sitting for extended periods of time as well as walking distances greater than afourth of a mile.? He feels that his functional limitations are significantly affected because of his knee pain including dressing himself, shopping and leisure activities such as golfing and walking.? He has tripped and stumbled dueto the ongoing knee pain and instability.? He feels on safe walking outside in the grass or on uneven surfaces again due to the pain and instability.? He has attempted rest, ice, heat, elevation, cortisone injection, home exercises and oral medications without success.? He has had cortisone injection in the past.? He is now using a cane for assisted walking for about 6 months due to the ongoing knee pain.? He has failed all conservative treatment options would like to proceed with a robotic-assisted left total knee arthroplasty. REVIEW OF SYSTEMS: Review Of Systems: Constitutional: Denies change in appetite, fever and weight change. Cardiovasular: Denies chest pain, heart murmur and irregular heartbeat. Respiratory: Denies cough, pneumonia, shortness of breath, tuberculosis and wheezing. Gastrointestinal: Denies constipation, diarrhea, heartburn, nausea, rectal itching, bloody stools and vomiting. Genitourinary: . (F Genital Sx) . (Urinary Sx) Musculoskeletal: Reports gait disturbance, leg swelling and pain, but denies trouble walking and weakness. Skin: Reports tattoo, but denies Raynaud's and history of shingles. Neurological: Denies ambulatory dysfunction, dizziness, numbness/tingling and tremor. Psychiatric: Denies anxiety, insomnia and stress. Hematologic/Lymphatic: Denies anemia, bleeding/bruising tendency and past transfusion. Reviewed, no changes. PAST MEDICAL HISTORY: Advance Care Plan: No Advance Directives Effective Date: 12/14/2022 Past Medical History: Medical Problems: Acid Reflux, Arthritis, Hard of Hearing, High Blood Pressure, Vascular Disease/ Peripheral, Covid-19 Vaccine Accidents: Fracture - SKULL Surgical Hx: Cataracts - (2006) [facility] Heart Stent - (2014) [facility] Renal Stent - (2006) Anesthesia Complications: None Assistive Devices: Glasses, Hearing Aid Reviewed and updated. SOCIAL HISTORY: Social History: Marital: .Occupation: Retired.Work Status: Retired.Hand Dominance: Right-handed. Personal Habits:? Cigarette Use: Former Cigarette Smoker.Smokeless Tobacco: Never Used Smokeless Tobacco.E-Cigarette Use: Never used.Alcohol: Occasionally.Drug Use: Denies Use.Enjoy Exercising: Exercises 1-3 X/Week. Reviewed, no changes. VITALS: Ht: 66 Wt: 209lb Wt k.802 BMI: 33.7 BP: 130/78 Pulse: 89 Resp: 12 T: 97.1 T: 36.2C Pain Level: 4 O2SatR: 92 ALLERGIES: Penicillin? MEDICATIONS: Meloxicam 7.5 mg 1 by mouth twice a day, Amlodipine Besylate 10 mg 1 PO qdaily, Multi Vitamin? 1 PO qdaily, Bystolic 20 mg, Potassium Chloride 20 Meq 1x ever other day, Trazodone HCL 100 mg 3 times per week, Lipitor 20 mg 3 times a week, Dorzolamide HCL/Timolol Maleate 22.3-6.8 mg/ml, Latanoprost 0.005 % 1 drop each eye nightly PRE-OP EXAM:? General appearance:NORMAL? ? ? Other: Eyes: Conjunctivae and lids: NORMAL? Pupils: ERR Ears, Nose, Mouth, and Throat: NORMAL? Other: Inspection of lips, teeth and gums: NORMAL? ?Other: Neck: Examination of neck: no masses noted. Respiratory: Assessment of respiratory effort: NORMAL? ?Other: ?Auscultation of lungs: clear to auscultation no wheezes, rhonchi or rales. Cardiovascular:? Auscultation of heart: regular rate and rhythm, no murmurs, gallops or rubs. Exam of carotid arteries: NORMAL? ?Other: Gastrointestinal:? Exam of abdomen: soft, nontender, nondistended bowel sounds present. Lymphatic:? Palpation of nodes in neck:? NORMAL? ? ?Other: ? Palpation of nodes in Axillae: NORMAL? ?Other: Neurological: see below Psychiatric:? Orientation to time, place and person: NORMAL? ? ?Other: ?Mood and affect: NORMAL? ?Other: PHYSICAL EXAMINATION: Exam: Const: Appears healthy.? No signs of apparent distress present.? Alert and oriented x 3.? Musculo: Valgus thrust gait on the right?? Knees: ?Insp/Palp: Right knee: correctable valgus alignment with 2 mm later collateral lax, stable with medial lateral testing, full extension, moderate effusion, lateral joint line tenderness to palpation, crepitus with range of motion, 107 flexion,? left knee: mild effusion, moderate medial joint line tenderness, correctable varus alignment, 2 mm medial collateral pseudo laxity, firm endpoint with anterior posterior drawer testing, 108 flexion?? Skin: Skin is warm, dry and intact.? Neuro: Sensation to light touch is intact in the lower extremities deep peroneal, lower extremities dorsal cutaneous, lower extremities saphenous, lowerextremities sural and lower extremities tibial nerve distribution. IMAGING STUDIES: 4 views left knee revealed varus alignment and medial joint space narrowing, subchondral sclerosis and osteophyte formation consistent with severe stage IV dgge-fb-vzxt erosive osteoarthritis. IMPRESSION: 1. grade IV osteoarthritis left knee? 2. Acid Reflux 3. Arthritis 4. Hard of Hearing 5. High Blood Pressure 6. Hypercholesterolemia 7. Vascular Disease/ Peripheral PLAN: Patient denies history of DVT or PE, open wounds or sores over the body, no current antibiotic use. No current dental issues Aspirin 81 twice a day ?4 weeks for DVT prophylaxis postoperatively At this time patient has consented to proceed with a ROBOTIC ASSISTED LEFT TOTALKNEE ARTHROPLASTY.? Dr. BAI? did discuss and review with the patient all treatment options including surgical versus nonsurgical options.? Patient does wish to proceed with the above-stated procedure.? Potential risk, benefits, and complications of the procedure were discussed in detail including but not limited to , infection, nerve and blood vessel damage, persistent pain, numbness, tingling, paresthesias, blood clot, pulmonary embolism, and requirement for possible further surgery.? The patient expressed full understanding and has no further questions for the doctor.? Patient does agree to proceed with the above-stated procedure and has signed the surgery consent form. I have reviewed the [place] Automated Rx Reporting System (OARRS) report for this patient for refill pattern and other prescriber involvement as part of the appropriate surveillance for the provision of acute and chronic controlled medications.? The report was requested and reviewed on the date of this entry and was considered in the prescribing process. Discussed with the patient the risks associated with the COVID-19 virus including the risk of exposure while at the hospital.? The patient was [facility] have low [facility] rates and taken all necessary precautions to limit patient exposure to COVID-19.? Limiting the patient's time in the hospitalmay decrease their exposure to COVID-19.? The patient was notified that we will need to comply with any screening or testing the hospital wishes to perform and that surgery may be delayed for any positive test results. 03/13/23 0852 <Electronically signed by Sandrita WOODY> Cosigner Signature (if applicable): CC: Dr. Elena Bai MD; Dr. Tristin Cain MD; BONG Alvares~ Signed ADDENDUM by Dr. Elena Bai MD on 03/21/23 at 0712 Addendum I have examined the patient and the H&P has been reviewed. There are no clinicalchanges since date of exam. 03/21/23711<Electronically signed by Elena Bai MD> Cosigner Signature (if applicable): cc: Dr. Elena Bai MD; Dr. Tristin Cain MD; BONG Alvares ~* Signed [facility] Work Phone: [phone]) 769-156008-16-2021 NoteHNO ID: [id number] Author: Nora Alvarenga APRN.STATISTICAL METHODS PROFESSOR Service: ? Author Type: Nurse Practitioner Type: Progress Notes Filed: 04/18/2021 12:35 PM Note Text: Order placed for annual f/up. Nora Alvarenga APRN.[facility] Future Appointments [facility] Evaluation noteNo assessment information available [facility] Work Phone: Evaluation note* Diagnosis Onset Date Resolution Status Acute respiratory insufficiency acute Hypoxia acute Pneumonia acute [facility] Work Phone: Evaluation note* Diagnosis Onset Date Resolution Status Constipation chronic Heartburn chronic Status post total left knee replacement acute HTN (hypertension) chronic [facility] Work Phone: Hospital course Narrative No data available for this section [facility] Hospital Discharge instructions [facility] Instructions [facility] Additional [facility]ructions [facility] Discharge instructions No data available for this section [facility] Progress note No data available for this section [facility] Reason for referral (narrative)No reason for referral [facility] Work Phone: Summary Purpose Family History No Family History Records Found Relationship Condition Age at Onset Recorded Date/T emerald mother Hypertension Unknown Advance Directives No Advanced Directives Records Found Advance Directive Response Recorded Date/ Time Living Will No September 20 1:18pm Power of Wharf Worker No September 20, 2019 1:18pm Advance Directive Response Recorded Date/ Time Living Will No March 21, 2022 8:45pm Power of Wharf Worker No March 21 8:45pm Advance Directive Response Recorded Date/ Time Living Will No March 22, 2022 12:24am Power of Wharf Worker No March 22 12:24am Advance Directive Response Recorded Date/ Time Living Will No March 21, 2022 11:24pm Power of Wharf Worker No March 21 11:24pm Advance Directive Response Recorded Date/ Time Living Will No March 21, 2023 12:56pm Power of Wharf Worker No March 21 12:56pm Advance Directive Response Recorded Date/ Time Living Will No April 06, 2023 9:06am Power of Wharf Worker No April 06 9:06am Advance Directive Response Recorded Date/ Time Living Will No April 11, 2023 3:55pm Power of Wharf Worker No April 11 3:55pm Advance Directive Response Recorded Date/ Time Living Will No April 11, 2023 2:55pm Power of Wharf Worker No April 11 2:55pm Chief Complaint and Reason for Visit Chief Complaint PNEUMONIA Shortness of breath Reason for Visit Acute respiratory in sufficiency Hypoxia Pneumonia Chief Complaint PNEUMONIA Shortness of breath Pneumonia Pneumonia Pneumonia Reason for Visit Acute respiratory in sufficiency Hypoxia Pneumonia Chief Complaint PNEUMONIA Shortness of breath Pneumonia Pneumonia Pneumonia Chief Complaint Consult VARUS DEFORMITY LEFT KNEE ERAS LT TOTAL KNEE ROBOT ERAS LT TOTAL KNEE ROBOT Reason for Visit Constipation Heartburn Status post total left knee replacement HTN (hypertension) Chief Complaint Consult VARUS DEFORMITY LEFT KNEE PREOP ERAS LT TOTAL KNEE ROBOT ERAS LT TOTAL KNEE ROBOT CONSTIPATION/URINARY RETENTION Anemia, unspecified Reason for Visit Constipation Heartburn Status post total left knee replacement HTN (hypertension) Chief Complaint Consult VARUS DEFORMITY LEFT KNEE PREOP ERAS LT TOTAL KNEE ROBOT ERAS LT TOTAL KNEE ROBOT CONSTIPATION/URINARY RETENTION Anemia, unspecified Transurethral Resection of Prostate Reason for Visit Constipation Heartburn Status post total left knee replacement HTN (hypertension) Chief Complaint CONSTIPATION/URINARY RETENTION Anemia, unspecified Transurethral Resection of Prostate Chief Complaint PVD, AAA Chief Complaint Admit Date BILAT LE PVD November 27, 2024 8:4 7am Additional Source Comments (unrecognized sect ion and content) No Status Records FoundNo Status Records FoundNo Status Records FoundNo Status Records Found INFORMATION SOURCE (unrecogn ized section and content) DATE CREATED AUTHOR 08/11/2019 [facility] DATE CREATED AUTHOR AUTHOR'S ORGANIZ ATION 04/19/2021 [facility] DATE CREATED AUTHOR AUTHOR'S ORGANIZ ATION 01/09/2024 [facility] ([place]) DATE CREATED AUTHOR AUTHOR'S ORGANIZ ATION 03/27/2025 [facility] Goals (unrecognized section and content) Goals may be documented in a n alternate sectionGoals may be documented in an alternate sectionGoals may be documented in an alternate section No data available for this section No data available for this section No data available for this sectionGoals may be documented in an alternate sectionGoals may be documented in an alternate sectionGoals may be documented in an alternate sectionGoals may be documented in an alternate section Care Teams (unrecognized sec tion and content) Team Status: Active Member Role Status Dates Dr. Tristin Cain MD Family Provider Active Dr. Tristin Cain MD Primary Care Provider Active Team Status: Inactive Member Role Status Dates Dr. Tristin Cain MD Primary Care Provider Active Dr. Isra Kumar MD Attending Provider Active Team Status: Inactive Member Role Status Dates Dr. Tristin Cain MD Primary Care Provi humberto, Attending Provider, Referring Provider Active Team Status: Inactive Member Role Status Dates Dr. Tristin Cain MD Primary Care Provider, Referring Provider Active Kendra Silva CIGARETTE MACHINE OPERATOR, CIGARETTE MACHINE OPERATOR-C Attending Provider Active Team Status: Active Member Role Status Dates Dr. Tristin Cain MD Primary Care Provider Active Dr. Elena Bai MD Admit Provider, R eferring Provider, Other Provider Active Dr. Duncan Campa DO Attending Provider, Other Pro vider Active Team Status: Inactive Member Role Status Dates Dr. Tristin Cain MD Primary Care Provider Active Dr. Elena Bai MD Admit Provider, A ttending Provider, Referring Provider Active Dr. Duncan Campa DO Other Provider Active Team Status: Inactive Member Role Status Dates Dr. Tristin Cain MD Primary Care Provider Active Dr. Elena Bai MD Attending Provider, Referring P rovider Active Team Status: Active Member Role Status Dates Dr. Tristin Cain MD Primary Care Provider Active Dr. Omer Marie MD Attending Provider Active Dr. Elena Bai MD Referring Provider Active Team Status: Inactive Member Role Status Dates Dr. Tristin Cain MD Primary Care Provider Active Dr. Zac Negrete MD Attending Provider, Emergency Pro vider Active Team Status: Inactive Member Role Status Dates Dr. Tristin Cain MD Primary Care Provider Active Dr. Kelechi Blake MD Admit Provid er, Attending Provider, Referring Provider Active Team Status: Inactive Member Role Status Dates Dr. Tristin Cain MD Primary Care Provider Active Spencer WOODY, PA-C Attending Provider, Referring Pr ovider Active Team Status: Inactive Member Role Status Dates Dr. Tristin Cain MD Primary Care Provider, Attending Provider Active Team Status: Inactive Member Role Status Dates Dr. Tristin Cain MD Primary Care Provider Active Dr. Isra Kumar MD Attending Provider, Referring Provider Active Team Status: Active Member Role Status Dates Dr. Tristin Cain MD Primary Care Provider Active Team Status: Inactive Member Role Status Dates Dr. Tristin Cain MD Primary Care Provider Active Start: November 27, 2024 End: November 27, 2024 Dr. Isra Kumar MD Attending Provider Active Start: November 27, 2024 End: November 27, 2024 Dr. Isra Kumar MD Referring Provider Active Start: November 27, 2024 End: November 27, 2024 Team Status: Inactive Member Role Status Dates Dr. Tristin Cain MD Primary Care Provider Active Start: January 12, 2025 End: January 12, 2025 Dr. Tristin Cain MD Attending Provider Active Start: January 12, 2025 End: January 12, 2025 Dr. Tristin Cain MD Referring Provider Active Start: January 12, 2025 End: January 12, 2025 FOR RECORDS PERTAINING TO PATIENTS WHO ARE OR HAVE BEEN ENROLLED IN A CHEMICAL DEPENDENCY/SUBSTANCEABUSE PROGRAM, SOME INFORMATION MAY BE OMITTED. This clinical summary was aggregated from multiple sources. Caution should be exercised in using it in the provision of clinical care. This summary normalizes information from multiple sources, and as a consequence, information in this document may materially change the coding, format and clinical context of patient data. In addition, data may be omitted in some cases. CLINICAL DECISIONS SHOULD BE BASED ON THE PRIMARY CLINICAL RECORDS. [employer] provides no warranty or guarantee of the accuracy or completeness of information in this document.
[2025-07-22 17:12] LABS: Xtra Tube Kwok EXTRA TUBE
== END | disposition home or self-care (01) ==
LOC: POLAB3 09:12
PROVIDERS: PCP Family Medicine Geriatric Medicine; Visit Provider Family Medicine Geriatric Medicine
DX: I10 Essential (primary) hypertension (principal); E55.9 Vitamin D deficiency, unspecified
CPT/HCPCS: 36415; 80053; 82306; 84443; 85025

== ENCOUNTER → 2025-08-04 | Outpatient (CLI) | payer MEDICARE, OTHER, SELFPAY ==
[2025-08-04 18:01] LABS: Hematocrit 37.1 % (40-54); Hemoglobin 13.0 g/dL (13.0-16.5); Immature Granulocytes Count 0.030 X10^3/uL (0.0-0.0); Mean Corp Hgb Conc 35.0 g/dL (32-36); Mean Corpuscular Volume 89.4 fL (80-94); Mean Platelet Vol. 9.0 fl (6.2-12.0); NRBC Flagged by Analyzer 0 % (0-5); Platelet Count 217 K/mm3 (150-450); RBC Distribution Width CV 14.4 % (11.6-14.6); RBC Distribution Width SD 46.5 fl (35.1-43.9); Red Blood Count 4.15 M/mm3 (4.6-6.2); White Blood Count 8.0 K/mm3 (4.4-11.0)
[2025-08-04 18:09] LABS: D-Dimer Quantitative (DVT/PE) 2.12 FEU/ug/m (0.27-0.49)
[2025-08-04 18:24] LABS: Anion Gap 12 (5-15); BUN 16 mg/dL (4-19); BUN/Creat Ratio 15.4 RATIO (10-20); Calcium,Total 9.5 mg/dL (7.6-11.0); Carbon Dioxide 24.9 mmol/L (21.0-32.0); Chloride 102 mmol/L (98-108); Glucose 109 mg/dL (70-99); Potassium 3.8 mmol/L (3.3-5.1)
[2025-08-05 01:23] LABS: Xtra Tube Kwok EXTRA TUBE
== END | disposition home or self-care (01) ==
LOC: POLAB3 17:23
PROVIDERS: PCP Family Medicine Geriatric Medicine; Visit Provider Family Medicine Geriatric Medicine
DX: R06.2 Wheezing (principal); R06.02 Shortness of breath
CPT/HCPCS: 36415; 80048; 85025; 85379; 87631

== ENCOUNTER → 2025-08-05 | Outpatient (CLI) | payer MEDICARE, OTHER, SELFPAY ==
--- NOTE | 2025-08-05 15:02 | CT_ITS ---
PROCEDURE: CTA CHEST W/WO CONTRAST 08/05/2025 REASON FOR EXAM: ELEVATED D-DIMER TECHNIQUE: Procedure Code: [id number] Modality: CT Procedure: CTA CHEST W/WO CONTRAST Multidetector CT angiography of the chest with intravenous contrast including multiplanar and post-processed maximum intensity projection (MIP) were generated and interpreted. CONTRAST: Isovue 370 VOLUME: 85 mL One or more dose reduction techniques were used (e.g., Automated exposure control, adjustment of the mA and/or kV according to patient size, use of iterative reconstruction technique). RADIATION DOSE SUMMARY: DLP: 576.62 mGycm COMPARISON: None available FINDINGS: Opacification of the pulmonary arterial tree is adequate Pulmonary artery and thoracic vessels: There are no filling defects in the central pulmonary arteries. The main pulmonary artery is dilated measuring up to 3.2 cm. The thoracic aorta is normal in caliber. Pulmonary parenchyma: No focal lung consolidation. Centrilobular emphysema predominantly at the upper lobes. There is reticulation and dependent portions of the lungs bilaterally. There is honeycombing in the left right lung. Airways: The central airways are patent. Pleural space: No pneumothorax or pleural effusion. Heart and pericardium: Top-normal in size. No pericardial effusion. There are coronary artery calcifications. Mediastinum and karyn: Dilated mid and distal thoracic esophagus with associated esophageal wall thickening. There are enlarged mediastinal lymph nodes, the largest measuring up to 1.3 cm in the paratracheal region. Osseous structures an osseous structure: No aggressive osseous lesion. Degenerative changes of the thoracic spine. Multinodular left thyroid gland. Upper visualized abdomen: Partially visualized abdominal aorta aneurysm and stent. Multiple splenic punctate calcified granulomas. Partially visualized nonspecific right rectus abdominus muscle hypodensity measuring up to 6.5 mm may reflect focal fatty infiltration (series 2, image 4).. CT/CTA Chest W/WO Contrast IMPRESSION: 1. No evidence of pulmonary embolism. 2. Findings compatible with early pulmonary fibrosis. 3. Pulmonary emphysema. 4. Dilated main pulmonary artery suggestive of pulmonary arterial hypertension. 5. Dilated mid and distal thoracic esophagus where there is esophageal wall thi ckening. Underlying soft tissue mass is not excluded. 6. Enlarged mediastinal lymph nodes. 7. Partially visualized abdominal aortic aneurysm. Reading Location: [id number]
== END | disposition home or self-care (01) ==
PROVIDERS: PCP Family Medicine Geriatric Medicine; Referring Provider Family Medicine Geriatric Medicine; Visit Provider Family Medicine Geriatric Medicine
DX: R79.89 Other specified abnormal findings of blood chemistry (principal)
CPT/HCPCS: 71275; Q9967; A4216